=== PATIENT | female | born 1955 | race Caucasian/White ===

== ENCOUNTER → 2016-06-15 | Outpatient (CLI) | payer OTHER ==
[~2016-06-15] MED LIST: ACET-1311 PO; ALPR-385 PO; ASPEC81; CEFD300C3 PO; CLOP1TAB15 PO; CNCI50 IV; CPXI SC; CTP1 PO; CYM60 PO; ERGO1TAB10 PO; ERGO500037 PO; Enteral Nutrition Formula PO; FLUC100T4 PO; HYDR25TA4 PO; IBUP-1451 PO; KETO2SHA5 TOP; LEVO100T7 PO; LPR25 PO; LRS10 PO; LSN40 PO; LVQ500 PO; LYR50 PO; MIRA1TAB3 PO; MORP1TAB12 PO; NYSP EXT; NYST100010 TOP; NZRCR TOP; ONDA4TAB10 SL; OXYC7.5T65 PO; POLY335019 PO; PRT/40 PO; SENN-104 PO; TYL325X PO
[2016-06-15 16:48] LABS: BASO % 0.4 %; BASO ABS # 0.03 K/uL (0-0.2); COMPLETE YES; EOS % 0.5 %; HEMATOCRIT 46.4 % (37-47); IG% 0.1 %; LYMPH % 30.1 %; LYMPH ABS # 2.55 K/uL (1.2-3.4); MEAN CELL VOLUME 91.3 fL (80-100); MEAN CORPUSCULAR HEMOGLOBIN 30.5 pg (25-34); MEAN CORPUSCULAR HGB CONC 33.4 g/dl (32-36); MEAN PLATELET VOLUME 10.8 fL (7.4-10.4); MONO % 11.3 %; NEUT % 57.6 %; PLATELET COUNT 273 K/uL (130-400); RED BLOOD COUNT 5.08 M/uL (4.2-5.4); WHITE BLOOD COUNT 8.46 K/uL (4.8-10.8)
[2016-06-15 16:55] LABS: ALT/SGPT 24 U/L (12-78); AST/SGOT 13 U/L (15-37); BLOOD UREA NITROGEN 15 mg/dl (7-18); BUN/CREATININE RATIO 20.3 (10-20); CALCIUM 9.3 mg/dl (8.5-10.1); CARBON DIOXIDE 33 mmol/L (21-32); CHLORIDE 96 mmol/L (98-107); CREATININE 0.76 mg/dl (0.60-1.20); GLUCOSE 83 mg/dl (70-99); SODIUM 137 mmol/L (136-145)
[2016-06-15 17:05] LABS: ALB/GLOB RATIO 1.2 (0.9-2)
[2016-06-15 17:06] LABS: ALKALINE PHOSPHATASE 60 U/L (45-117)
[2016-06-19 23:50] LABS: JCV ANTIBODY POSITIVE; JCV INDEX 2.24
== END | disposition home or self-care (01) ==
LOC: C.LABBC 13:27
PROVIDERS: ATTEND Psychiatry & Neurology Neurology
DX: G35 Multiple sclerosis (principal); M54.12 Radiculopathy, cervical region; M62.81 Muscle weakness (generalized); E55.9 Vitamin D deficiency, unspecified; M62.89 Other specified disorders of muscle

== ENCOUNTER 2016-07-11 15:28 | Emergency (ER) | payer OTHER ==
[~2016-07-11] VITALS: Ht 180.3 cm; Wt 86.5 kg
[~2016-07-11 15:28] MED LIST changes: -CEFD300C3 PO; -CNCI50 IV; -ERGO1TAB10 PO; -Enteral Nutrition Formula PO; -FLUC100T4 PO; -IBUP-1451 PO; -KETO2SHA5 TOP; -LRS10 PO; -LVQ500 PO; -LYR50 PO; -NYSP EXT; -NYST100010 TOP; -NZRCR TOP; -ONDA4TAB10 SL; -TYL325X PO
[2016-07-11 15:32] VITALS: TEMP 37.2; Ht 180.3 cm; Wt 86.5 kg
[2016-07-11] MEDS ORDERED: XYLOCAINE 1%/SOD BICARB 20 ML VIAL INFIL STA (16:02)
--- NOTE | 2016-07-11 16:30 | DIAGNOSTIC IMAGING REPORT ---
LEFT FOOT MIN 3 VIEWS ROUTINE CLINICAL HISTORY: Left foot laceration. Pain on anterior aspect of foot pain COMPARISON: None. DISCUSSION: Generalized degenerative change. Mild soft tissue edematous change. No acute bony abnormality. Moderate dorsal soft tissue edema IMPRESSION: Moderate dorsal soft tissue edema. Degenerative change. No acute bony abnormality. Electronically signed by: Alejandro Lucas M.D. 07/11/2016 4:29 PM Dictated Date/Time: 07/11/2016 4:24 PM
[2016-07-11] MEDS ORDERED: DIPHTHERIA/TETANUS/PERTUSSIS 0.5 ML SYR/VIAL IM. ONE (17:30)
[2016-07-11] MEDS ORDERED: NYST100010 TOP (17:59)
--- NOTE | 2016-07-11 18:00 | EMERGENCY ROOM VISIT NOTE ---
ED Visit Note First contact with patient: 15:47 Chief Complaint: "Cut top of foot, and yeast infection". History of Present Illness: This patient is a 60-year-old female who presents to the Emergency Department via private vehicle for evaluation of their left foot laceration. Patient sustained the laceration while attempting to remove something out of her refrigerator, and is that she was using her motorized scooter/wheelchair became lodged underneath the refrigerator causing a laceration. She states that it bled a lot, but denies pain at this time. She has a history of MS, and chronic neurologic deficits. She denies any new numbness or tingling in the extremity. Her tetanus is not up-to-date. She states that she did put peroxide on this as well as a salve. Medications: As noted below Allergies: As noted below PMH: Multiple sclerosis, and as noted below SHx: Patient lives at home with . ROS: All pertinent positive and negative review of systems are appropriately documented in the History of Present Illness. Physical Exam: VITAL SIGNS - Vital signs and nursing notes were reviewed. Patient is afebrile , hypertensive 159/90, non-tachycardic and saturating well on room air 97%. GENERAL -60-year-old female appearing her stated age who is in no acute distress. Communicates well with provider and answers questions appropriately. SKIN - There is a 4 cm long laceration noted on the anterior, distal portion of the left foot just proximal to the phalanges. The edges gape apart with traction. No foreign bodies appreciated. Upon further examination there are no deep structures including vessel, tendon, or bony structures appreciated. There is no active bleeding noted. With a female stock drier tender present, the patient's questionable yeast infection was inspected. There is evidence of intertriginous erythema in the left and right inguinal region that extends into the superior portion of the labia minora. No evidence of cellulitis. MUSCULOSKELETAL -there is slight tenderness to palpation overlying this region. There is full range of motion of the toes of the left foot. IMAGING: LEFT FOOT MIN 3 VIEWS ROUTINE CLINICAL HISTORY: Left foot laceration. Pain on anterior aspect of foot pain COMPARISON: None. DISCUSSION: Generalized degenerative change. Mild soft tissue edematous change. No acute bony abnormality. Moderate dorsal soft tissue edema IMPRESSION: Moderate dorsal soft tissue edema. Degenerative change. No acute bony abnormality. Electronically signed by: Alejandro Lucas M.D. 07/11/2016 4:29 PM Dictated Date/Time: 07/11/2016 4:24 PM ED Course: Patient was seen and evaluated by myself. Risks and benefits of performing primary wound closure versus no repair were discussed with the patient who verbalizes understanding. Verbal consent was obtained prior to performing the procedure. Radiograph was obtained of the foot to rule out fracture. Results as above. 4 cc of 1% buffered lidocaine was used to anesthetize the left foot laceration. The wound was cleansed and prepped in the typical sterile fashion utilizing normal saline and Betadine. The wound was sterilely draped. Once proper anesthetization was established, the wound was further examined and demonstrated no deep involvement. The wound was copiously irrigated with normal saline and Betadine. The wound was closed using 5 simple, 5-0 nylon sutures with the wound edges being well approximated. Patient tolerated the procedure well. No complications were met. The wound was cleansed and dressed with a Bacitracin dressing. Patient received their Adacel vaccination. The patient has what appears to be a yeast infection of the right and left inguinal region, consistent with intertrigo. No evidence of vaginal yeast infection. Because she is already tried miconazole cream, and the area does appear to be chronically moist I do believe that a dry nystatin powder would be appropriate as the next step in treatment. She is to apply this 3 times daily and was given a prescription. She is to follow up closely with her family doctor for recheck of this and potential additional management. Patient educated on worrisome symptoms for return visit to the Emergency Department. Patient discharged to home in good condition. She was specifically instructed not to use the powder intravaginally. In the evaluation and treatment of this patient the following differential diagnoses were entertained: Yeast infection, cellulitis, abscess, laceration, fracture, among others. Problem List Medical Problems: (1) Arm pain, right Status: Chronic (2) Benign hypertension Status: Chronic (3) CVA, old, hemiparesis Status: Resolved (4) Depression Status: Chronic (5) Depression Status: Chronic (6) DJD (degenerative joint disease), cervical Status: Chronic (7) DJD (degenerative joint disease), cervical Status: Chronic (8) Frequent UTI Status: Chronic (9) Gastroesophageal reflux disease Status: Chronic (10) H/O migraine Status: Chronic (11) H/O: CVA (cerebrovascular accident) Status: Chronic (12) H/O: duodenal ulcer Permanent Comment: H pylori positive per records Status: Chronic (13) Hyperlipidemia Nec/Nos Status: Chronic (14) Hypertension Status: Chronic (15) Hypothyroidism Status: Chronic (16) Hypothyroidism Status: Chronic (17) Lumbosacral disc disease Status: Chronic (18) Migraine Status: Chronic (19) MS (multiple sclerosis) Status: Chronic (20) Multiple sclerosis Status: Chronic (21) Neurogenic bladder Status: Chronic (22) Pancreatitis Status: Resolved (23) Vitamin D deficiency Status: Chronic Surgical Problems: (1) H/O section Status: Chronic (2) H/O oophorectomy Status: Chronic (3) S/P appendectomy Status: Chronic (4) S/P total abdominal hysterectomy Status: Chronic Current/Historical Medications Scheduled Aspirin (Aspirin EC Low Dose), 81 MG DAILY Clopidogrel (Plavix), 75 MG PO DAILY Duloxetine HCl (Duloxetine HCl), 60 MG PO QAM Ergocalciferol (Vitamin D 62494 Unit), 50,000 INTER.UNIT PO 2XWK Glatiramer Acetate (Copaxone), 20 MG SC QPM Hydrochlorothiazide (Hctz), 1 TAB PO DAILY Levothyroxine Sodium (Levothyroxine Sodium), 1 TAB PO DAILY Lisinopril (Lisinopril), 40 MG PO QAM Metoprolol Tartrate (Lopressor), 25 MG PO BID Mirabegron (Myrbetriq Er), 50 MG PO DAILY Nystatin (Topical) (Nystop), 1 APPLN TOP TID Pantoprazole (Pantoprazole Sodium), 40 MG PO QAM Scheduled PRN Acetaminophen (Tylenol), 650 MG PO Q6H PRN for Pain or Fever Alprazolam (Xanax), 1 MG PO TID PRN for Anxiety/Insomnia Clonidine HCl (Clonidine HCl), 0.1 MG PO Q4H PRN for sys BP > 160 Oxycodone/Acetaminophen 7.5MG/325MG (Percocet 7.5MG/325MG), 1 TAB PO Q6 PRN for Pain Polyethylene Glycol 3350 (Miralax), 17 GM PO DAILY PRN for Constipation Sennosides-Docusate Sodium (Senna-S), 1 TAB PO DAILY @ NOON PRN for Constipation Allergies Coded Allergies: Penicillins (Verified Allergy, Severe, RESP DIFFICULTY & HIVES, 07/11/16) RESP DIFFICULTY Codeine (Verified Allergy, Unknown, ITCHING, 07/11/16) Rofecoxib (Verified Allergy, Unknown, 07/11/16) Metoclopramide (Verified Adverse Reaction, Mild, RESTLESS, 07/11/16) RESTLESS Prochlorperazine (Verified Adverse Reaction, Mild, RESTLESS, 07/11/16) RESTLESS Sulfa Antibiotics (Verified Adverse Reaction, Mild, NAUSEA, 07/11/16) Droperidol (Verified Adverse Reaction, Unknown, anxiety,hyperactivity, ) Vital Signs Date Time Temp Pulse Resp B/P Pulse Ox O2 Delivery O2 Flow Rate FiO2 07/11/16 18:19 74 16 136/64 96 07/11/16 15:32 37.2 71 18 159/90 97 Room Air Medications Administered Medications (Trade) Dose Ordered Sig/Alea Route Start Time Stop Time Status Last Admin Dose Admin Diphtheria/ Pertussis/Tetanus Vacc (Adacel Inj) 0.5 ml ONCE ONCE IM. 07/11/16 17:30 07/11/16 17:31 DC 07/11/16 17:33 0.5 ML Departure Information Impression Primary Impression: Laceration Additional Impression: Intertrigo Dispostion Home / Self-Care Condition GOOD Prescriptions Nystatin (Topical) (NYSTOP) 100,000 Unit/Gm Pow 1 APPLN TOP TID for 30 Days, #1 EA Prov: Andrzej Ames PA-C 07/11/16 Referrals Aldo Hendrix M.D. (PCP) Patient Instructions My [facility] Additional Instructions Discharge Instructions: You have received 5 sutures on your left foot. These sutures are NOT dissolvable and WILL need to be removed by a health care provider in 10-12 days. You can return to the Emergency Department or contact your Primary Care Provider to have the sutures removed. Proper wound care is essential for adequate wound healing and infection prevention. You can shower and clean the wound with soap and water. Do not scour over the wound, pat dry with a towel. Do not submerse the wound (i.e. bathe or dish wash) until the sutures have been removed. You can use an antibiotic ointment with a dressing over the wound for the next 3-4 days. After this time you may leave the wound dry and open to the air. If crust develops over the wound you can use a Q-tip to apply a 1:1 peroxide:water solution to clean the wound. Look for signs of infection of the wound including: increased pain, swelling, foul discharge, streaking, or increased temperature. If any of these are noticed you should return to the Emergency Department for further assessment and treatment. As with any laceration you may have received nerve damage to the surrounding tissues. This damage may or may not be permanent. You should keep the area covered with sunscreen for the first 6 months to 1 year when at risk for exposure to help minimize scarring. You can also use scar reducing creams or Vitamin E oil to help minimize scarring. For pain control, you can use the following [id number] medicines (if >12 yo): - Regular strength (325mg/tab) Tylenol (acetaminophen) 2 tabs every 4-6 hours as needed. Do not exceed 12 tablets in a 24 hour period. Avoid taking more than 4 grams (4000 mg) of Tylenol per day. This includes any other sources of acetaminophen you may take on a regular basis. - Regular strength (200 mg/tab) Advil (ibuprofen) 1-2 tabs every 4-6 hours as needed. Do not exceed a dose of 3200 mg per day. Return to the emergency department if your symptoms worsen despite treatment course outlined above. In regard to the fungal infection:. Please apply powder to these areas 3 times daily until this goes away. Please follow-up with her family doctor by calling them first thing tomorrow morning to schedule follow-up as you need to be reevaluated for this. As we discussed it is possible you may need additional medication. Please stop if you develop a reaction. Please return to the emergency department with any new/concerning symptoms. Problem Qualifiers
[2016-07-11 18:19] VITALS: BP 136/64; PULSE 74; O2SAT 96
[2016-08-12] MEDS ORDERED: ERGO1TAB10 PO (20:04)
[2016-08-29] MEDS ORDERED: PRT/40 PO (09:50)
[2016-08-29] MEDS ORDERED: CNCI50 IV (09:50)
[2016-08-29] MEDS ORDERED: Enteral Nutrition Formula PO (09:50)
[2016-08-29] MEDS ORDERED: LRS10 PO (09:50)
[2016-08-29] MEDS ORDERED: POLY335019 PO (09:50)
[2016-08-29] MEDS ORDERED: LVQ500 PO (09:50)
[2016-08-29] MEDS ORDERED: NYSP EXT (09:50)
== END 2016-07-11 18:22 | disposition home or self-care (01) ==
LOC: C.EDB 15:29 → C.EDD 18:22
DX: S91.312A Laceration without foreign body, left foot, initial encounter (principal); W22.8XXA Striking against or struck by other objects, initial encounter; Z23 Encounter for immunization; G35 Multiple sclerosis; I10 Essential (primary) hypertension; K21.9 Gastro-esophageal reflux disease without esophagitis; E78.5 Hyperlipidemia, unspecified; E03.9 Hypothyroidism, unspecified; K86.1 Other chronic pancreatitis; N31.9 Neuromuscular dysfunction of bladder, unspecified; M51.36 Other intervertebral disc degeneration, lumbar region; F32.9 Major depressive disorder, single episode, unspecified; Z86.73 Personal history of transient ischemic attack (TIA), and cerebral infarction without residual deficits; Z90.710 Acquired absence of both cervix and uterus; Z98.890 Other specified postprocedural states; Z79.82 Long term (current) use of aspirin; Z79.899 Other long term (current) drug therapy; Z88.0 Allergy status to penicillin; Z88.2 Allergy status to sulfonamides; Z88.5 Allergy status to narcotic agent; Z88.8 Allergy status to other drugs, medicaments and biological substances

== ENCOUNTER 2016-08-12 18:44 | Emergency (ER) | payer OTHER ==
[~2016-08-12] VITALS: Ht 180.3 cm; Wt 87.0 kg
[~2016-08-12 18:44] MED LIST changes: -MORP1TAB12 PO; +NYST100010 TOP; +PANT40TA2 PO; -PRT/40 PO
[2016-08-12 19:03] VITALS: TEMP 36.7; Ht 180.3 cm; Wt 87.0 kg
--- NOTE | 2016-08-12 19:48 | EMERGENCY ROOM VISIT NOTE ---
History Report prepared by [place]: Marie Thibodeaux Under the Supervision of: Dr. Jayro Sutton M.D. First contact with patient: 19:08 Chief Complaint: RASH Stated Complaint: YEAST INFECTION,RASH SPREADING History of Present Illness The patient is a 60 year old female who presents to the Emergency Room with complaints of a worsening and persistent rash that started about 1 to 1.5 months ago. The patient has been using Nystatin and a water and vinegar mixture. She states that she has been trying to keep the area dry and puts a fan on the area at night. The patient's adds that the yeast infection in the patient's groin occasionally cracks and bleeds. The patient states that she was treated by Devika Sweeney PA-C - Infectious Disease for a yeast infection with a 14-day course of Diflucan. She states that she finished the Diflucan about 2 weeks ago. Originally the Diflucan helped and caused the rash to dry up, but once she finished it, the rash came back. The patient also developed a rash on her back and on her scalp after finishing the Diflucan, which was not there prior to taking Diflucan. The rash was pruritic, but now it is painful. The patient went back to see Devika Salazar and she prescribed shampoo to help with the rash on her scalp, but she told her to see her PCP for further evaluation. The patient saw her PCP last week. Her PCP prescribed her a topical antifungal and a pill, but the patient states that her insurance wouldn' t cover the pill so she has not taken it. The patient is also experiencing nausea, but denies vomiting. The patient states that she has experienced vaginal yeast infections in the past, but never external yeast infections like this. Source of History: patient Onset: 1-1.5 months ago Position: other (global) Quality: other (rash) Timing: worsening, other (persistent) Modifying Factors (Relieving): other (Diflucan until finished then none) Associated Symptoms: + nausea, No vomiting Review of Systems See HPI for pertinent positives & negatives. A total of 10 systems reviewed and were otherwise negative. Past Medical & Surgical Medical Problems: (1) Arm pain, right (2) Benign hypertension (3) CVA, old, hemiparesis (4) Depression (5) Depression (6) DJD (degenerative joint disease), cervical (7) DJD (degenerative joint disease), cervical (8) Frequent UTI (9) Gastroesophageal reflux disease (10) H/O migraine (11) H/O: CVA (cerebrovascular accident) (12) H/O: duodenal ulcer (13) Hyperlipidemia Nec/Nos (14) Hypertension (15) Hypothyroidism (16) Hypothyroidism (17) Lumbosacral disc disease (18) Migraine (19) MS (multiple sclerosis) (20) Multiple sclerosis (21) Neurogenic bladder (22) Pancreatitis (23) Vitamin D deficiency Surgical Problems: (1) H/O section (2) H/O oophorectomy (3) S/P appendectomy (4) S/P total abdominal hysterectomy Family History Diabetes mellitus Kidney disease Stroke Social History Smoking Status: Never Smoker Alcohol Use: none Drug Use: none Marital Status: Housing Status: lives with family Occupation Status: disabled Current/Historical Medications Scheduled Aspirin (Aspirin EC Low Dose), 81 MG DAILY Clopidogrel (Plavix), 75 MG PO DAILY Duloxetine HCl (Duloxetine HCl), 60 MG PO QAM Ergocalciferol (Vitamin D2), 1.25 MG PO 2XWK Fluconazole (Diflucan), 1 TAB PO DAILY Glatiramer Acetate (Copaxone), 20 MG SC QPM Hydrochlorothiazide (Hctz), 1 TAB PO DAILY Ketoconazole (Ketoconazole), 1 APPLN TOP TID Levothyroxine Sodium (Levothyroxine Sodium), 1 TAB PO DAILY Lisinopril (Lisinopril), 40 MG PO QAM Metoprolol Tartrate (Lopressor), 25 MG PO BID Mirabegron (Myrbetriq Er), 50 MG PO DAILY Nystatin (Topical) (Nystop), 1 APPLN TOP TID Pantoprazole (Pantoprazole Sodium), 40 MG PO QAM Scheduled PRN Alprazolam (Xanax), 1 MG PO TID PRN for Anxiety/Insomnia Ibuprofen Tab (Motrin), 800 MG PO DIRECTED PRN for Pain Oxycodone/Acetaminophen 7.5MG/325MG (Percocet 7.5MG/325MG), 1 TAB PO Q6 PRN for Pain Polyethylene Glycol 3350 (Miralax), 17 GM PO DAILY PRN for Constipation Sennosides-Docusate Sodium (Senna-S), 1 TAB PO DAILY @ NOON PRN for Constipation Allergies Coded Allergies: Penicillins (Verified Allergy, Severe, RESP DIFFICULTY & HIVES, 07/11/16) RESP DIFFICULTY Codeine (Verified Allergy, Unknown, ITCHING, 07/11/16) Rofecoxib (Verified Allergy, Unknown, 07/11/16) Metoclopramide (Verified Adverse Reaction, Mild, RESTLESS, 07/11/16) RESTLESS Prochlorperazine (Verified Adverse Reaction, Mild, RESTLESS, 07/11/16) RESTLESS Sulfa Antibiotics (Verified Adverse Reaction, Mild, NAUSEA, 07/11/16) Droperidol (Verified Adverse Reaction, Unknown, anxiety,hyperactivity, ) Physical Exam Vital Signs Date Time Temp Pulse Resp B/P Pulse Ox O2 Delivery O2 Flow Rate FiO2 08/12/16 21:53 68 18 150/90 98 08/12/16 20:54 63 18 164/85 98 Room Air 08/12/16 19:03 36.7 83 18 163/98 97 Room Air Physical Exam GENERAL: Patient is in no acute distress. HEENT: No acute trauma, normocephalic atraumatic, mucous membranes moist, no nasal congestion, no scleral icterus. NECK: No stridor, no adenopathy, no meningismus, trachea is midline. LUNGS: Clear to auscultation bilaterally, no wheeze, no rhonchi, breath sounds equal. HEART: 2/6 systolic murmur, regular rate and rhythm. ABDOMEN: Soft, nontender, bowel sounds positive, no hernias, no peritonitis. EXTREMITIES: No cyanosis or edema, full range of motion of all the joints without pain or difficulty, no signs for acute trauma. NEUROLOGIC: Oriented x 3, no acute motor or sensory deficits, no focal weakness. SKIN: Erythematous rash to the groin creases and external vaginal area with some satellite lesions, rash seems to have areas of skin cracking, rash appears consistent with a yeast rash, there are several scattered erythematous slightly raised lesions on her extremities and back, no cellulitis. Medical Decision & Procedures Laboratory Results 08/12/16 19:35 Red Blood Count 4.79, Mean Corpuscular Volume 92.9, Mean Corpuscular Hemoglobin 31.3, Mean Corpuscular Hemoglobin Concent 33.7, Mean Platelet Volume 10.0, Neutrophils (%) (Auto) 55.2, Lymphocytes (%) (Auto) 34.2, Monocytes (%) (Auto) 7.5, Eosinophils (%) (Auto) 2.8, Basophils (%) (Auto) 0.2, Neutrophils # (Auto) 4.47, Lymphocytes # (Auto) 2.77, Monocytes # (Auto) 0.61, Eosinophils # (Auto) 0.23, Basophils # (Auto) 0.02 08/12/16 19:35 Test 08/12/16 19:35 White Blood Count 8.11 K/uL (4.8-10.8) Red Blood Count 4.79 M/uL (4.2-5.4) Hemoglobin 15.0 g/dL (12.0-16.0) Hematocrit 44.5 % (37-47) Mean Corpuscular Volume 92.9 fL (80-100) Mean Corpuscular Hemoglobin 31.3 pg (25-34) Mean Corpuscular Hemoglobin Concent 33.7 g/dl (32-36) Platelet Count 210 K/uL (130-400) Mean Platelet Volume 10.0 fL (7.4-10.4) Neutrophils (%) (Auto) 55.2 % Lymphocytes (%) (Auto) 34.2 % Monocytes (%) (Auto) 7.5 % Eosinophils (%) (Auto) 2.8 % Basophils (%) (Auto) 0.2 % Neutrophils # (Auto) 4.47 K/uL (1.4-6.5) Lymphocytes # (Auto) 2.77 K/uL (1.2-3.4) Monocytes # (Auto) 0.61 K/uL (0.11-0.59) Eosinophils # (Auto) 0.23 K/uL (0-0.5) Basophils # (Auto) 0.02 K/uL (0-0.2) RDW Standard Deviation 45.2 fL (36.4-46.3) RDW Coefficient of Variation 13.2 % (11.5-14.5) Immature Granulocyte % (Auto) 0.1 % Immature Granulocyte # (Auto) 0.01 K/uL (0.00-0.02) Erythrocyte Sedimentation Rate 13 mm/hr (0-21) Anion Gap 6.0 mmol/L (3-11) Est Creatinine Clear Calc Drug Dose 86.8 ml/min Estimated GFR () 88.9 Estimated GFR (Non- 76.7 BUN/Creatinine Ratio 23.5 (10-20) Calcium Level 9.9 mg/dl (8.5-10.1) Total Bilirubin 0.3 mg/dl (0.2-1) Aspartate Amino Transf (AST/SGOT) 21 U/L (15-37) Alanine Aminotransferase (ALT/SGPT) 29 U/L (12-78) Alkaline Phosphatase 65 U/L (45-117) Total Protein 7.6 gm/dl (6.4-8.2) Albumin 3.9 gm/dl (3.4-5.0) Globulin 3.7 gm/dl (2.5-4.0) Albumin/Globulin Ratio 1.1 (0.9-2) Thyroid Stimulating Hormone (TSH) 2.950 uIu/ml (0.300-4.500) Free Thyroxine 1.28 ng/dl (0.80-1.60) Laboratory results reviewed by me. Medications Administered Medications (Trade) Dose Ordered Sig/Alea Route Start Time Stop Time Status Last Admin Dose Admin Fluconazole (Diflucan Tab) 150 mg NOW ONCE PO 08/12/16 21:30 08/12/16 21:31 DC 08/12/16 21:41 150 MG Ketoconazole (Nizoral 2% Crm) 1 appln TID STAT EXT 08/12/16 21:16 08/12/16 21:19 DC 08/12/16 21:40 45 APPLN Fluconazole (Diflucan Tab) 150 mg NOW ONCE PO 08/12/16 21:45 08/12/16 21:46 DC 08/12/16 21:50 150 MG ED Course 1909: The patient was evaluated in room C3. A complete history and physical exam was performed. 2034: Discussed the patient's case. He recommended putting the patient on Fluconazole 100 mg for 14 days and topical Ketoconazole. 2115: Ordered Ketoconazole 1 appln EXT 2122: Reevaluated the patient. Discussed results and discharge instructions: she verbalized understanding and agreement. The patient is ready for discharge. 2129: Ordered Diflucan Tab 150 mg PO Medical Decision Differential diagnoses considered include yeast infection, cellulitis, failed outpatient treatment, diabetes, contact dermatitis. There is no leukocytosis or concerning anemia. Sedimentation rate is normal making serious infection less likely. There was no significant electrolyte abnormality, kidney failure or hepatitis. The patient appears to be in a euthyroid state. Blood cultures are pending. Culture of the rash is pending. The patient presents with what seems like tinea cruris. She had been doing well on Diflucan but now that she is off this medication, she is worsening. I discussed the case with the infectious disease team that had seen her previously. They suggested putting her back on Diflucan plus adding some topical Ketoconazole. The patient will stop the vinegar and water mixture that she is applying to the rash. Patient is being discharged. She was given Ketoconazole cream and oral Diflucan prior to discharge. She will follow with infectious disease this week. Consults Time Called: 2032 Consulting Physician: Dr. Nelson - Infectious Disease Returned Call: 2034 Discussed the patient's case. He recommended putting the patient on Fluconazole 100 mg for 14 days and topical Ketoconazole. Impression Primary Impression: Tinea cruris Scribe Attestation The scribe's documentation has been prepared under my direction and personally reviewed by me in its entirety. I confirm that the note above accurately reflects all work, treatment, procedures, and medical decision making performed by me. Departure Information Dispostion Home / Self-Care Prescriptions Ketoconazole (Ketoconazole) 45 Appln/15 Gm Cr 1 APPLN TOP TID for 14 Days, #1 TUBE 2 Refills Prov: Jayro Sutton M.D. 08/12/16 Fluconazole (DIFLUCAN) 100 Mg Tab 1 TAB PO DAILY for 14 Days, #14 TAB Prov: Jayro Sutton M.D. 08/12/16 Referrals Aldo Hendrix M.D. (PCP) Forms HOME CARE DOCUMENTATION FORM, IMPORTANT VISIT INFORMATION, WORK / SCHOOL INSTRUCTIONS Patient Instructions My [facility] Additional Instructions diflucan 1 tab daily for 14 days ketoconazole cream to the rash 3x per day see infectious disease this week--call sunday for an appt lab testing was all ok today stop the vinegar mixture to the rash
[2016-08-12 19:50] LABS: BASO % 0.2 %; BASO ABS # 0.02 K/uL (0-0.2); COMPLETE YES; EOS % 2.8 %; HEMATOCRIT 44.5 % (37-47); IG% 0.1 %; LYMPH % 34.2 %; LYMPH ABS # 2.77 K/uL (1.2-3.4); MEAN CELL VOLUME 92.9 fL (80-100); MEAN CORPUSCULAR HEMOGLOBIN 31.3 pg (25-34); MEAN CORPUSCULAR HGB CONC 33.7 g/dl (32-36); MONO % 7.5 %; NEUT % 55.2 %; PLATELET COUNT 210 K/uL (130-400); RED BLOOD COUNT 4.79 M/uL (4.2-5.4); WHITE BLOOD COUNT 8.11 K/uL (4.8-10.8)
[2016-08-12] MEDS ORDERED: LSN40 PO (20:03)
[2016-08-12] MEDS ORDERED: NYST100010 TOP (20:04)
[2016-08-12] MEDS ORDERED: IBUP-1451 PO (20:05)
[2016-08-12 20:10] LABS: BUN/CREATININE RATIO 23.5 (10-20); CALCIUM 9.9 mg/dl (8.5-10.1); CREATININE 0.82 mg/dl (0.60-1.20); POTASSIUM 3.5 mmol/L (3.5-5.1)
[2016-08-12 20:20] LABS: ALB/GLOB RATIO 1.1 (0.9-2); THYROID STIMULATING HORMONE 2.95 uIu/ml (0.300-4.500)
[2016-08-12] MEDS ORDERED: KETOCONAZOLE 2% CR 15 GM TUBE EXT STA (21:16)
[2016-08-12] MEDS ORDERED: NZRCR TOP (21:23)
[2016-08-12] MEDS ORDERED: FLUC100T4 PO (21:23)
[2016-08-12] MEDS ORDERED: FLUCONAZOLE 50 MG TAB PO ONE ×2 (21:30→21:45)
[2016-08-12 21:53] VITALS: BP 150/90; PULSE 68; O2SAT 98
--- NOTE | 2016-08-16 14:24 | Pharmacy Progress Note ---
ED Pharmacist Culture FollowUp Date of Service: August 16, 2016. Patient was seen in the ER on 08/12/16 for persistent, worsening groin rash x 1- 1.5 months. The patient had reportedly been treating w/ Nystatin and vinegar/water topically. Per note there was erythema, skin craking and rash consistent w/ external yeast infection. This rash was cultured and the results finalized today. The cx is growing 4 bacterial organisms: e coli, proteus mirabilis, MSSA and Grp B strep. She was discharged on Diflucan PO and ketoconazole topically for 14 days per ID' s recommendations and she was to f/u w/ ID this week. These culture results are concerning for bacterial coinfection. I did contact Dr Nelson's office and forwarded these culture results via fax ([phone]). I did speak w/ a nurse as well who sent a message to Samir GOODE.
[2016-08-29] MEDS ORDERED: LVQ500 PO (09:50)
[2016-08-29] MEDS ORDERED: PANT40TA2 PO (09:50)
[2016-08-29] MEDS ORDERED: Enteral Nutrition Formula PO (09:50)
[2016-08-29] MEDS ORDERED: LRS10 PO (09:50)
[2016-08-29] MEDS ORDERED: POLY335019 PO (09:50)
[2016-08-29] MEDS ORDERED: CNCI50 IV (09:50)
[2016-08-29] MEDS ORDERED: NYSP EXT (09:50)
[2017-02-11] MEDS ORDERED: FESO4TAB PO (19:39)
[2017-02-11] MEDS ORDERED: ACET-1311 PO (19:39)
[2017-02-11] MEDS ORDERED: ERGO1TAB10 PO (20:04)
== END 2016-08-12 21:54 | disposition home or self-care (01) ==
LOC: C.EDB 18:45 → C.EDC 21:54
DX: B35.6 Tinea cruris (principal); I10 Essential (primary) hypertension; E55.9 Vitamin D deficiency, unspecified; G35 Multiple sclerosis; K21.9 Gastro-esophageal reflux disease without esophagitis; M51.37 Other intervertebral disc degeneration, lumbosacral region; E03.9 Hypothyroidism, unspecified; M47.812 Spondylosis without myelopathy or radiculopathy, cervical region; Z86.73 Personal history of transient ischemic attack (TIA), and cerebral infarction without residual deficits; Z87.440 Personal history of urinary (tract) infections; Z79.02 Long term (current) use of antithrombotics/antiplatelets; Z79.82 Long term (current) use of aspirin; Z79.899 Other long term (current) drug therapy; F32.9 Major depressive disorder, single episode, unspecified; Z98.891 History of uterine scar from previous surgery; Z90.89 Acquired absence of other organs; Z90.710 Acquired absence of both cervix and uterus; Z90.721 Acquired absence of ovaries, unilateral; Z83.3 Family history of diabetes mellitus; Z82.3 Family history of stroke

== ENCOUNTER 2016-08-20 15:21 | Emergency (ER) | payer OTHER ==
[~2016-08-20] VITALS: Ht 182.9 cm; Wt 86.5 kg
[~2016-08-20 15:21] MED LIST changes: -ACET-1311 PO; -CTP1 PO; -ERGO500037 PO; +FLUC100T4 PO; +IBUP-1451 PO; +NZRCR TOP
[2016-08-20 15:25] VITALS: TEMP 36.8; Ht 182.9 cm; Wt 86.5 kg
[2016-08-20] MEDS ORDERED: ONDA4TAB10 SL (16:44)
--- NOTE | 2016-08-20 16:44 | EMERGENCY ROOM VISIT NOTE ---
History Report prepared by [place]: Satish Mcintosh Under the Supervision of: Dr. Erick Alonso D.O. First contact with patient: 16:21 Chief Complaint: ABDOMINAL PAIN Stated Complaint: ABD PAIN,VAGINAL YEAST/FUNGAL INFECTION Nursing Triage Summary: Pt sent by Dr. Causey. Pt states seen here last week for a yeast infection on legs, rash is getting worse. Pt states, "I have pain in my stomach and I can't eat. I am nauseated." History of Present Illness The patient is a 60 year old female who presents to the Emergency Room with complaints of a worsening yeast infection rash beginning one week prior to arrival. She currently rates her discomfort as a 6/10 in severity. The patient complains of abdominal pain, nausea, intermittent diaphoresis, and intermittent dizziness with today's symptoms. She states she is being treated for a yeast infection in her groin that has spread to her legs, chest, and back. The patient notes she was on a fourteen day course of Diflucan and is now on another fourteen day course of Diflucan. She states she was placed on Omnicef, as well. The patient notes she called Dr. Causey, who referred the patient to the ED due to her persistent nausea and decreased appetite over the past week. She states she has been on her medication for a week and her nausea began at the same time. The patient denies using Benadryl to relieve her itch. It is noted the patient currently weighs 86.5 kg today and weighed 87 kg on August 12 of this year Source of History: patient Onset: one week [employer] Position: other (global) Symptom Intensity: 6/10 Quality: other (yeast infection) Timing: worsening Associated Symptoms: + abdominal pain, + diaphoresis, + nausea, + rash Note: Associated symptoms: intermittent dizziness, decreased appetite. Review of Systems See HPI for pertinent positives & negatives. A total of 10 systems reviewed and were otherwise negative. Past Medical & Surgical Medical Problems: (1) Arm pain, right (2) Benign hypertension (3) CVA, old, hemiparesis (4) Depression (5) Depression (6) DJD (degenerative joint disease), cervical (7) DJD (degenerative joint disease), cervical (8) Frequent UTI (9) Gastroesophageal reflux disease (10) H/O migraine (11) H/O: CVA (cerebrovascular accident) (12) H/O: duodenal ulcer (13) Hyperlipidemia Nec/Nos (14) Hypertension (15) Hypothyroidism (16) Hypothyroidism (17) Lumbosacral disc disease (18) Migraine (19) MS (multiple sclerosis) (20) Multiple sclerosis (21) Neurogenic bladder (22) Pancreatitis (23) Vitamin D deficiency Surgical Problems: (1) H/O section (2) H/O oophorectomy (3) S/P appendectomy (4) S/P total abdominal hysterectomy Family History Diabetes mellitus Kidney disease Stroke Social History Smoking Status: Never Smoker Alcohol Use: none Drug Use: none Marital Status: Housing Status: lives with family Occupation Status: disabled Current/Historical Medications Scheduled Aspirin (Aspirin EC Low Dose), 81 MG DAILY Clopidogrel (Plavix), 75 MG PO DAILY Duloxetine HCl (Duloxetine HCl), 60 MG PO QAM Ergocalciferol (Vitamin D2), 1.25 MG PO 2XWK Fluconazole (Diflucan), 1 TAB PO DAILY Glatiramer Acetate (Copaxone), 20 MG SC QPM Hydrochlorothiazide (Hctz), 1 TAB PO DAILY Ketoconazole (Ketoconazole), 1 APPLN TOP TID Levothyroxine Sodium (Levothyroxine Sodium), 1 TAB PO DAILY Lisinopril (Lisinopril), 40 MG PO QAM Metoprolol Tartrate (Lopressor), 25 MG PO BID Mirabegron (Myrbetriq Er), 50 MG PO DAILY Nystatin (Topical) (Nystop), 1 APPLN TOP TID Ondasetron Odt (Zofran Odt), 4 MG SL Q6H Pantoprazole (Pantoprazole Sodium), 40 MG PO QAM Scheduled PRN Alprazolam (Xanax), 1 MG PO TID PRN for Anxiety/Insomnia Ibuprofen Tab (Motrin), 800 MG PO DIRECTED PRN for Pain Oxycodone/Acetaminophen 7.5MG/325MG (Percocet 7.5MG/325MG), 1 TAB PO Q6 PRN for Pain Polyethylene Glycol 3350 (Miralax), 17 GM PO DAILY PRN for Constipation Sennosides-Docusate Sodium (Senna-S), 1 TAB PO DAILY @ NOON PRN for Constipation Allergies Coded Allergies: Penicillins (Verified Allergy, Severe, RESP DIFFICULTY & HIVES, 07/11/16) RESP DIFFICULTY Codeine (Verified Allergy, Unknown, ITCHING, 07/11/16) Rofecoxib (Verified Allergy, Unknown, 07/11/16) Metoclopramide (Verified Adverse Reaction, Mild, RESTLESS, 07/11/16) RESTLESS Prochlorperazine (Verified Adverse Reaction, Mild, RESTLESS, 07/11/16) RESTLESS Sulfa Antibiotics (Verified Adverse Reaction, Mild, NAUSEA, 07/11/16) Droperidol (Verified Adverse Reaction, Unknown, anxiety,hyperactivity, ) Physical Exam Vital Signs Date Time Temp Pulse Resp B/P Pulse Ox O2 Delivery O2 Flow Rate FiO2 08/20/16 15:25 36.8 110 16 130/86 96 Room Air Physical Exam CONSTITUTIONAL/VITAL SIGNS: Reviewed / noted above. GENERAL: Non-toxic in appearance. INTEGUMENTARY: The patient has intertrigo in the bilateral lower legs. There are numerous tiny, erythematous 2 cm diameter sized ball on the posterior aspect of the legs, back, and chest. These ball are blanching and scale-like. HEAD: Normocephalic. EYES: without scleral icterus or trauma. ENT/OROPHARYNX: clear and moist. LYMPHADENOPATHY/NECK: Is supple without lymphadenopathy or meningismus. RESPIRATORY: Lungs clear and equal. CARDIOVASCULAR: Regular rate and rhythm. GI/ABDOMEN: Soft and nontender. No organomegaly or pulsatile mass. No rebound or guarding. Normal bowel sounds. EXTREMITIES: Warm and well perfused. BACK: No CVA tenderness. NEUROLOGICAL: Intact without focal deficits. PSYCHIATRIC: normal affect. MUSCULOSKELETAL: Normally developed with good muscle tone. Medical Decision & Procedures ED Course 162: Previous medical records were reviewed. The patient was evaluated in room B12B. A complete history and physical examination was performed. 1649: On reevaluation, the patient is doing well. I discussed the results and findings with the patient. She verbalized agreement of the treatment plan. The patient was discharged home. Medical Decision Etiologies such as contact dermatitis, viral exanthem, urticaria, allergic reaction, Spann-Jonas syndrome, toxic epidermal necrolysis, erythema multiforme, cellulitis, scabies, HSV, varicella, zoster, eczema, staph scalded skin syndrome, fungal infection, as well as others were entertained. This is a 60-year-old female who presents to the ED with a chief complaint of the same symptoms she presented for 1 week ago. She states that she has a rash and a fungal infection in her groins. She has followed up with Dr. Nelson and is currently on Diflucan, topical creams and Omnicef. The patient notes some itchiness as well as some increase in some red ball on her legs and back and chest. The patient has some 2 cm diameter slightly scaled erythematous ball in various areas of her posterior legs, back and slightly on the chest. These are blanchable. The patient does not appear to be septic or toxic. She also reports having some upset stomach related to the medication that she is taking. She states that she has not been eating well for the past week. She has lost about 0.5 kg since her last visit here a week ago. She does not appear to be dehydrated. The patient's exam was otherwise unremarkable. After examining the patient, I did suggest some blood work. She declined this and just requested something for her stomach. She will be treated with Zofran. She was given a home pack and a dose here. Prescription was also sent. She'll continue to try medication. She has follow-up with Dr. Nelson in 2 days. Impression Primary Impression: Nausea Additional Impression: Intertrigo Scribe Attestation The scribe's documentation has been prepared under my direction and personally reviewed by me in its entirety. I confirm that the note above accurately reflects all work, treatment, procedures, and medical decision making performed by me. Departure Information Dispostion Home / Self-Care Prescriptions Ondasetron Odt (ZOFRAN ODT) 4 Mg Tab 4 MG SL Q6H for Nausea, #20 TAB Prov: Erick Alonso D.O. 08/20/16 Referrals No Doctor, Assigned (PCP) Forms HOME CARE DOCUMENTATION FORM, IMPORTANT VISIT INFORMATION Patient Instructions My [facility] Additional Instructions Zofran: Allow one tablet to dissolve under the tongue every 6 hours as needed for nausea or vomiting. Follow-up with your doctor for further care and evaluation in 1-2 days. Return to the emergency department for worsening or new symptoms or any concerns. You have been examined and treated today on an emergency basis only. This is not a substitute for, or an effort to provide, complete comprehensive medical care. It is impossible to recognize and treat all injuries or illnesses in a single emergency department visit. It is therefore important that you follow up closely with your doctor. Call as soon as possible for an appointment. Problem Qualifiers
[2016-08-20] MEDS ORDERED: ONDANSETRON 4MG OD TAB PO ONE (16:45)
[2016-08-20] MEDS ORDERED: ONDANSETRON HOME PACK 4MG OD TAB PO ONE (16:45)
[2016-08-20] MEDS ORDERED: CEFD300C3 PO (16:52)
[2016-08-20 17:11] VITALS: BP 128/80; PULSE 100; O2SAT 96
[2016-08-29] MEDS ORDERED: CNCI50 IV (09:50)
[2016-08-29] MEDS ORDERED: POLY335019 PO (09:50)
[2016-08-29] MEDS ORDERED: NYSP EXT (09:50)
[2016-08-29] MEDS ORDERED: LRS10 PO (09:50)
[2016-08-29] MEDS ORDERED: LVQ500 PO (09:50)
[2016-08-29] MEDS ORDERED: Enteral Nutrition Formula PO (09:50)
[2016-08-29] MEDS ORDERED: PANT40TA2 PO (09:50)
[2017-02-11] MEDS ORDERED: ACET-1311 PO (19:39)
[2017-02-11] MEDS ORDERED: FESO4TAB PO (19:39)
[2017-02-11] MEDS ORDERED: ERGO1TAB10 PO (20:04)
== END 2016-08-20 17:13 | disposition home or self-care (01) ==
LOC: C.EDB 15:23
DX: R11.0 Nausea (principal); L30.4 Erythema intertrigo; I10 Essential (primary) hypertension; Z86.73 Personal history of transient ischemic attack (TIA), and cerebral infarction without residual deficits; M19.90 Unspecified osteoarthritis, unspecified site; E03.9 Hypothyroidism, unspecified; E78.5 Hyperlipidemia, unspecified; G35 Multiple sclerosis; E55.9 Vitamin D deficiency, unspecified; Z83.3 Family history of diabetes mellitus; Z82.3 Family history of stroke; Z79.82 Long term (current) use of aspirin

== ENCOUNTER 2016-08-22 15:53 | Inpatient (IN) | payer OTHER ==
[~2016-08-22] VITALS: Ht 180.3 cm; Wt 93.5 kg
[~2016-08-22 15:53] MED LIST changes: +CEFD300C3 PO; -NYST100010 TOP; -NZRCR TOP; +ONDA4TAB10 SL
[2016-08-22] MEDS ORDERED: ACETAMINOPHEN 325 MG TAB PO PRN (16:15)
[2016-08-22 16:34] LABS: BASO % 0.3 %; BASO ABS # 0.02 K/uL (0-0.2); EOS % 2.4 %; HEMATOCRIT 45.7 % (37-47); IG% 0.1 %; LYMPH % 24.7 %; LYMPH ABS # 1.85 K/uL (1.2-3.4); MEAN CELL VOLUME 92.7 fL (80-100); MEAN CORPUSCULAR HEMOGLOBIN 30.8 pg (25-34); MEAN PLATELET VOLUME 9.7 fL (7.4-10.4); MONO % 7.5 %; PLATELET COUNT 234 K/uL (130-400); RED BLOOD COUNT 4.93 M/uL (4.2-5.4)
[2016-08-22 16:43] LABS: COMPLETE YES; MEAN CORPUSCULAR HGB CONC 33.3 g/dl (32-36); PARTIAL THROMBOPLASTIN RATIO 1.1; PROTHROMBIN TIME (PATIENT) 10.5 SECONDS (9.0-12.0)
[2016-08-22] MEDS ORDERED: TYL325X PO (16:56)
[2016-08-22] MEDS ORDERED: LYR50 PO (16:56)
[2016-08-22] MEDS ORDERED: KETO2SHA5 TOP (16:56)
[2016-08-22] MEDS ORDERED: ONDA4TAB10 SL (16:56)
[2016-08-22 16:59] LABS: BLOOD UREA NITROGEN 15 mg/dl (7-18); CALCIUM 9.8 mg/dl (8.5-10.1); CARBON DIOXIDE 34 mmol/L (21-32); CHLORIDE 99 mmol/L (98-107); CREATININE 0.83 mg/dl (0.60-1.20); GLUCOSE 90 mg/dl (70-99); SODIUM 137 mmol/L (136-145)
[2016-08-22] MEDS ORDERED: PATIENT'S HEIGHT AND/OR WEIGHT NEEDED SCH (17:30)
[2016-08-22] MEDS ORDERED: DOCUSATE SODIUM/SENNA 50/8.6MG TAB PO PRN (17:30)
[2016-08-22] MEDS ORDERED: NURSING VERBAL MED ORDER ONE (17:45)
[2016-08-22] MEDS ORDERED: CASPOFUNGIN INJ 70 MG in SODIUM CHLORIDE 0.9% 250ML 250 ML IV SCH (18:00)
[2016-08-22 18:16] VITALS: Ht 180.3 cm; Wt 93.5 kg
[2016-08-22 18:20] VITALS: BP 128/83; PULSE 72; TEMP 36.5; O2SAT 95
[2016-08-22] MEDS: ONDANSETRON INJ 2 MG/ML 2 ML VIAL IV PRN (18:39)
[2016-08-22] MEDS: METOPROLOL TARTRATE 25 MG TAB PO SCH (19:49)
[2016-08-22] MEDS ORDERED: PREGABALIN 50 MG CAP PO SCH (20:00)
[2016-08-22] MEDS: ENOXAPARIN 40 MG/0.4 ML SYR SQ SCH (20:03)
[2016-08-22] MEDS: CEFTRIAXONE SOD INJ 2,000 MG in DEXTROSE 5% 50ML 50 ML IV SCH (20:17)
--- NOTE | 2016-08-22 20:31 | History and Physical ---
History & Physical Date of Service August 22, 2016. History & Physical This is a 60 year old female with a PMH of MS, hx. of CVA on Plavix, neurogenic bladder, HTN, hypothyroidism presents with intertrigo of the b/l groins, buttocks with rash spreading to lower extremities and lumbar spine - patient has been on two courses of Diflucan; has tried nystatin powder in the past, with relief only partially. She was seen by ID today and was sent over for IV antifungal treatment for the intertrigo. She states she is getting more weakness - states it seems similar to her MS flare-ups. No fevers/chills. On exam, she is weak in her lower extremities Scaly rash noted on the groin and buttocks between skin folds, wet rash For the intertrigo - IV caspofungin and IV Rocephin as per ID add nystatin powder to dry the area prednisone 60mg x 1 - neurology consulted for possible MS flare-up Gonzalez catheter - patient intermittently caths at home due to neurogenic bladder
--- NOTE | 2016-08-22 20:42 | History and Physical ---
History & Physical Date & Time of Service: August 22, 2016 at 17:17 Chief Complaint: rash Primary Care Physician: Aldo Hendrix M.D. History of Present Illness Source: patient, clinic records, hospital records This is a 60 year old female with PMH of MS, wheelchair bound, history of CVA with residual right arm weakness, hypertension, hypothyroidism, neurogenic bladder, hx recurrent UTI, and other problems listed below who presents as a direct admission sent by infectious disease Haylee Sweeney PA-C for severe intertrigo. Patient reports rash which developed 1.5- 2 months ago which progressively worsened despite outpatient antibiotic and antifungal treatment. Patient took a 14 day course of Diflucan, then saw Dr. Nelson over the weekend who started her on second 14 day course. She has been taking Omnicef for 6 days , last dose this morning. The rash is itchy and painful located on her groin, buttocks, back and posterior legs. Pt did not notice any open areas. reports bleeding from the groin rash. She was also having rash on her head for which she is using ketoconazole shampoo. Skin culture of her groin 08/12/16 grew E. coli, proteus mirabilis, MSSA, and group B beta strep all sensitive to ceftriaxone. Pt reports 2 weeks of nausea, poor PO intake, dizziness. Nausea improves with Zofran. Pt reports increased bilateral LE weakness for past few weeks which further worsened over past few days. She can usually help transfer from the wheelchair but is now having difficulty. She feels that her MS may be flaring up. Patient intermittently straight caths at home and denies any change in the urine including dysuria, foul odor, cloudiness. Denies fever, chills, vision change, chest pain, SOB, abdominal pain, vomiting, diarrhea. Past Medical/Surgical History Medical Problems: (1) Arm pain, right Status: Chronic (2) Benign hypertension Status: Chronic (3) CVA, old, hemiparesis Status: Resolved (4) Depression Status: Chronic (5) Depression Status: Chronic (6) DJD (degenerative joint disease), cervical Status: Chronic (7) DJD (degenerative joint disease), cervical Status: Chronic (8) Frequent UTI Status: Chronic (9) Gastroesophageal reflux disease Status: Chronic (10) H/O migraine Status: Chronic (11) H/O: CVA (cerebrovascular accident) Status: Chronic (12) H/O: duodenal ulcer Permanent Comment: H pylori positive per records Status: Chronic (13) Hyperlipidemia Nec/Nos Status: Chronic (14) Hypertension Status: Chronic (15) Hypothyroidism Status: Chronic (16) Hypothyroidism Status: Chronic (17) Lumbosacral disc disease Status: Chronic (18) Migraine Status: Chronic (19) MS (multiple sclerosis) Status: Chronic (20) Multiple sclerosis Status: Chronic (21) Neurogenic bladder Status: Chronic (22) Pancreatitis Status: Resolved (23) Vitamin D deficiency Status: Chronic Surgical Problems: (1) H/O section Status: Chronic (2) H/O oophorectomy Status: Chronic (3) S/P appendectomy Status: Chronic (4) S/P total abdominal hysterectomy Status: Chronic Family History Diabetes mellitus Kidney disease Stroke Social History Smoking Status: Never Smoker Alcohol Use: none Drug Use: none Marital Status: Housing status: lives with family Occupational Status: disabled Immunizations History of Influenza Vaccine: No History of Tetanus Vaccine?: No Tetanus Immunization Date: May 22, 2006 History of Pneumococcal: No History of Hepatitis B Vaccine: No Multi-Drug Resistant Organisms History of MDRO: No Allergies Coded Allergies: Codeine (Verified Allergy, Unknown, ITCHING, 08/20/16) Rofecoxib (Verified Allergy, Unknown, 08/20/16) Penicillins (Verified Adverse Reaction, Intermediate, rash, 08/22/16) Metoclopramide (Verified Adverse Reaction, Mild, RESTLESS, 08/20/16) RESTLESS Prochlorperazine (Verified Adverse Reaction, Mild, RESTLESS, 08/20/16) RESTLESS Sulfa Antibiotics (Verified Adverse Reaction, Mild, NAUSEA, 08/20/16) Droperidol (Verified Adverse Reaction, Unknown, anxiety,hyperactivity, 08/20) Home Medications Scheduled Aspirin (Aspirin EC Low Dose), 81 MG DAILY Cefdinir (Cefdinir), 300 MG PO BID Clopidogrel (Plavix), 75 MG PO DAILY Duloxetine HCl (Duloxetine HCl), 60 MG PO QAM Ergocalciferol (Vitamin D2), 50,000 MG PO 2XWK Fluconazole (Diflucan), 1 TAB PO DAILY Glatiramer Acetate (Copaxone), 20 MG SC QPM Hydrochlorothiazide (Hctz), 1 TAB PO DAILY Ketoconazole (Topical) (Nizoral), 1 APPLN TOP 2XWK Levothyroxine Sodium (Levothyroxine Sodium), 1 TAB PO DAILY Lisinopril (Lisinopril), 40 MG PO QAM Metoprolol Tartrate (Lopressor), 25 MG PO BID Mirabegron (Myrbetriq Er), 50 MG PO DAILY Pantoprazole (Pantoprazole Sodium), 40 MG PO QAM Scheduled PRN Acetaminophen (Tylenol), 650 MG PO Q6 PRN for Pain Alprazolam (Xanax), 1 MG PO TID PRN for Anxiety/Insomnia Ibuprofen Tab (Motrin), 800 MG PO TID PRN for Pain Ondasetron Odt (Zofran Odt), 4 MG SL Q6H PRN for Nausea Oxycodone/Acetaminophen 7.5MG/325MG (Percocet 7.5MG/325MG), 1 TAB PO Q6 PRN for Pain Polyethylene Glycol 3350 (Miralax), 17 GM PO DAILY PRN for Constipation Sennosides-Docusate Sodium (Senna-S), 1 TAB PO DAILY PRN for Constipation Review of Systems Ten systems reviewed and negative except as noted in above HPI. Physical Exam General Appearance: no apparent distress, + obese, + pertinent finding (alert 60 year old female, lying in bed, at bedside) Head: normocephalic, atraumatic Eyes: normal inspection, PERRL, EOMI ENT: hearing grossly normal, pharynx normal Neck: supple, trachea midline Respiratory/Chest: lungs clear, normal breath sounds, no respiratory distress, no accessory muscle use Cardiovascular: regular rate, rhythm, no murmur Abdomen/GI: normal bowel sounds, non tender, soft Back: + pertinent finding (burns catheter draining clear yellow urine) Extremities/Musculoskelatal: no pedal edema Neurologic/Psych: alert, normal mood/affect, oriented x 3, + pertinent finding (right arm strength 4/5- chronic per patient. left arm strength 5/5. unable to lift BLLE off the bed. ankle flexion/ extension 5/5 bilaterally. ) Skin: + pertinent finding (bright erythema with tenderness in bilateral groin folds, between gluteal folds, with small satellite patches on lower back and posterior thighs. no open areas noted. ) Diagnostics Laboratory Results Results Past 24 Hours Test 08/22/16 16:25 Range/Units White Blood Count 7.50 4.8-10.8 K/uL Red Blood Count 4.93 4.2-5.4 M/uL Hemoglobin 15.2 12.0-16.0 g/dL Hematocrit 45.7 37-47 % Mean Corpuscular Volume 92.7 80-100 fL Mean Corpuscular Hemoglobin 30.8 25-34 pg Mean Corpuscular Hemoglobin Concent 33.3 32-36 g/dl Platelet Count 234 130-400 K/uL Mean Platelet Volume 9.7 7.4-10.4 fL Neutrophils (%) (Auto) 65.0 % Lymphocytes (%) (Auto) 24.7 % Monocytes (%) (Auto) 7.5 % Eosinophils (%) (Auto) 2.4 % Basophils (%) (Auto) 0.3 % Neutrophils # (Auto) 4.88 1.4-6.5 K/uL Lymphocytes # (Auto) 1.85 1.2-3.4 K/uL Monocytes # (Auto) 0.56 0.11-0.59 K/uL Eosinophils # (Auto) 0.18 0-0.5 K/uL Basophils # (Auto) 0.02 0-0.2 K/uL RDW Standard Deviation 44.8 36.4-46.3 fL RDW Coefficient of Variation 13.2 11.5-14.5 % Immature Granulocyte % (Auto) 0.1 % Immature Granulocyte # (Auto) 0.01 0.00-0.02 K/uL Prothrombin Time 10.5 9.0-12.0 SECONDS Prothromb Time International Ratio 1.0 0.9-1.1 Activated Partial Thromboplast Time 27.4 21.0-31.0 SECONDS Partial Thromboplastin Ratio 1.1 Sodium Level 137 136-145 mmol/L Potassium Level 4.0 3.5-5.1 mmol/L Chloride Level 99 98-107 mmol/L Carbon Dioxide Level 34 21-32 mmol/L Anion Gap 4.0 3-11 mmol/L Blood Urea Nitrogen 15 7-18 mg/dl Creatinine 0.83 0.60-1.20 mg/dl Estimated GFR () 87.6 Estimated GFR (Non- 75.6 BUN/Creatinine Ratio 18.0 10-20 Random Glucose 90 70-99 mg/dl Calcium Level 9.8 8.5-10.1 mg/dl Microbiology Results 08/22/16 Blood Culture, Received Pending 08/22/16 Blood Culture, Received Pending Impression Assessment and Plan SEVERE INTERTRIGO With superimposed bacterial cellulitis Failed outpatient treatment with Omnicef and Diflucan Following with ID as outpatient and was sent for direct admission Skin culture of groin 08/12/16- E. coli, proteus mirabilis, MSSA, and group B beta strep all sensitive to ceftriaxone Check blood cultures Start on IV Rocephin 2g daily and IV Caspofungin- appreciate pharmacy input for dosing Nystatin powder Consult infectious disease MULTIPLE SCLEROSIS With possible acute exacerbation Will give 1 dose of prednisone 60 mg Continue Copaxone which patient brought from home Patient follows with Dr. Griffiths as outpatient Consult [facility] [place] NEUROGENIC BLADDER Intermittent straight caths at home Burns placed at patient's request HISTORY OF CVA With residual right arm weakness Continue aspirin and Plavix HYPERTENSION BP is stable Continue HCTZ, lisinopril, metoprolol HYPOTHYROIDISM Continue levothyroxine CHRONIC BACK PAIN Continue PRN Percocet DVT PROPHYLAXIS Lovenox SQ CODE STATUS Full code per my discussion with the patient DISPOSITION Lives at home with Follows with Dr. Hendrix for primary care Patient seen in collaboration with Dr. Brand. Please see his addendum. VTE Prophylaxis VTE Risk Assessment Done? Y/N: Yes Risk Level: Moderate
[2016-08-22] MEDS: OXYCODONE/ACETAMINOPHEN 7.5-325 TAB PO PRN (21:49)
[2016-08-22] MEDS: NYSTATIN POWDER 15GM BTL EXT PRN (21:50)
[2016-08-22] MEDS: GLATIRAMER ACETATE 20 MG/ML SQ SCH (22:30)
[2016-08-22 23:42] VITALS: BP 135/83; PULSE 70; TEMP 36.7; O2SAT 94
[2016-08-23] MEDS: ONDANSETRON INJ 2 MG/ML 2 ML VIAL IV PRN (01:03)
[2016-08-23] MEDS: LEVOTHYROXINE 100 MCG TAB PO SCH (06:30)
[2016-08-23] MEDS: ALPRAZOLAM 0.5 MG TAB PO PRN (06:30)
[2016-08-23 07:23] VITALS: BP 121/81; PULSE 72; TEMP 36.4; O2SAT 97
[2016-08-23] MEDS ORDERED: HYDROCHLOROTHIAZIDE 25 MG TAB PO SCH (08:00)
[2016-08-23] MEDS: MIRABEGRON ER 25 MG TAB PO SCH (08:12)
[2016-08-23] MEDS: DULOXETINE HCL 60 MG CAP PO SCH (08:12)
[2016-08-23] MEDS: ASPIRIN 81 MG ECTAB PO SCH (08:12)
[2016-08-23] MEDS: METOPROLOL TARTRATE 25 MG TAB PO SCH ×2 (08:12→21:25)
[2016-08-23] MEDS: CLOPIDOGREL BISULFATE 75 MG TAB PO SCH (08:12)
[2016-08-23] MEDS: PANTOprazole SOD 40 MG TAB PO SCH (08:13)
[2016-08-23] MEDS: LISINOPRIL 40 MG TAB PO SCH (08:13)
[2016-08-23] MEDS: OXYCODONE/ACETAMINOPHEN 7.5-325 TAB PO PRN ×2 (08:14→19:26)
--- NOTE | 2016-08-23 10:07 | Progress Note ---
Medicine Progress Note Date & Time of Visit: August 23, 2016 at 09:59. Subjective seen sitting up in wheelchair, at the side appears comfortable states her leg weakness seems to be improved today, able to transfer from wheelchair to toilet better no other focal weakness areas with rash less irritated no fever/chills reports RUQ pain worse with eating associated with nausea (+) BM no other symptoms Objective Last 8 Hrs Date Time Temp Pulse Resp B/P Pulse Ox O2 Delivery O2 Flow Rate FiO2 08/23/16 08:00 Room Air 08/23/16 07:23 36.4 72 17 121/81 97 Room Air Physical Exam: General- oriented x 3, not in distress, speaks in sentences with no effort Head- atraumatic Eyes- EOMI, anicteric ENT- (+) dry oral mucosa Neck- supple, no JVD, no adenopathy, no thyromegaly no bruits appreciated Lungs- clear breath sounds bilaterally, no rales/wheezes Heart- normal rate, regular rhythm; no murmurs Abdomen- normal bowel sounds, non distended soft, (+) mild RUQ tenderness Extremities- no pretibial edema, no calf tenderness; peripheral pulses intact Skin- (+) erythematous inguinal region, (+) diffuse papular rash on the back, posterior > anterior thighs Neuro- alert, oriented x 3; EOMI; no facial palsy; no dysarthria; motor 5/5 upper extremity, 2-3/5 lower extremity Skin- warm & dry Laboratory Results: Last 24 Hours Test 08/22/16 16:25 08/23/16 09:37 White Blood Count 7.50 K/uL Red Blood Count 4.93 M/uL Hemoglobin 15.2 g/dL Hematocrit 45.7 % Mean Corpuscular Volume 92.7 fL Mean Corpuscular Hemoglobin 30.8 pg Mean Corpuscular Hemoglobin Concent 33.3 g/dl Platelet Count 234 K/uL Mean Platelet Volume 9.7 fL Neutrophils (%) (Auto) 65.0 % Lymphocytes (%) (Auto) 24.7 % Monocytes (%) (Auto) 7.5 % Eosinophils (%) (Auto) 2.4 % Basophils (%) (Auto) 0.3 % Neutrophils # (Auto) 4.88 K/uL Lymphocytes # (Auto) 1.85 K/uL Monocytes # (Auto) 0.56 K/uL Eosinophils # (Auto) 0.18 K/uL Basophils # (Auto) 0.02 K/uL RDW Standard Deviation 44.8 fL RDW Coefficient of Variation 13.2 % Immature Granulocyte % (Auto) 0.1 % Immature Granulocyte # (Auto) 0.01 K/uL Prothrombin Time 10.5 SECONDS Prothromb Time International Ratio 1.0 Activated Partial Thromboplast Time 27.4 SECONDS Partial Thromboplastin Ratio 1.1 Sodium Level 137 mmol/L Potassium Level 4.0 mmol/L Chloride Level 99 mmol/L Carbon Dioxide Level 34 mmol/L Anion Gap 4.0 mmol/L Blood Urea Nitrogen 15 mg/dl Creatinine 0.83 mg/dl Estimated GFR () 87.6 Estimated GFR (Non- 75.6 BUN/Creatinine Ratio 18.0 Random Glucose 90 mg/dl Calcium Level 9.8 mg/dl Date/Time Source Procedure Growth Status 08/22/16 17:00 Blood Blood Culture Pending Received 08/22/16 16:45 Blood Blood Culture Pending Received Assessment & Plan 60 year old female with history of MS on Copaxone, CVA, Hypertension, other problems noted below presenting with persistent rash. POSSIBLE TINEA CRURIS WITH SUPERIMPOSED CELLULITIS INFECTED MILIARY RASH ON THE BACK AND THIGHS - failed outpatient therapy - ff up blood cultures - continue IV Ceftriaxone and Caspofungin Day 2, Nystatin powder monitor response ID consulted RUQ PAIN - r/o Cholelithias, Cholecystitis - check LFTs Gallbladder US LOWER LEG WEAKNESS MULTIPLE SCLEROSIS - given Prednisone 60mg po one dose yesterday for possible MS flare - patient states her leg strength has improved today - hold off on additional steroids Neuro consulted - continue Copaxone IV fluids added R/O UTI check Urine culture NEUROGENIC BLADDER Intermittent straight caths at home Gonzalez placed at patient's request HISTORY OF CVA With residual right arm weakness Continue aspirin and Plavix HYPERTENSION hold HCTZ continue lisinopril, metoprolol HYPOTHYROIDISM Continue levothyroxine CHRONIC BACK PAIN Continue PRN Percocet DVT PROPHYLAXIS Lovenox SQ CODE STATUS Full code DISPOSITION management of above conditions in progress will order PT/OT Lives at home with Follows with Dr. Hendrix for primary care Current Inpatient Medications: Current Inpatient Medications Medications (Trade) Dose Ordered Sig/Alea Route Start Time Stop Time Status Last Admin Dose Admin Acetaminophen (Tylenol Tab) 650 mg Q4H PRN PO 08/22/16 16:15 09/21/16 16:14 Ondansetron HCl 4 mg 4 mg Q6H PRN IV 08/22/16 16:15 09/21/16 16:14 08/23/16 01:03 4 MG Ceftriaxone Sodium 2000 mg/ Dextrose 70 ml @ 100 mls/hr DAILY@2000 IV 08/22/16 20:00 09/01/16 19:59 08/22/16 20:17 100 MLS/HR Caspofungin/ Sodium Chloride (Cancidas Inj/ Nss 250ml) 260 ml @ 260 mls/hr DAILY@1800 IV 08/23/16 18:00 09/21/16 17:59 Enoxaparin Sodium (Lovenox Inj) 40 mg Q24H SQ 08/22/16 21:00 09/21/16 20:59 08/22/16 20:03 40 MG Alprazolam (Xanax Tab) 1 mg TID PRN PO 08/22/16 17:15 09/21/16 17:14 08/23/16 06:30 1 MG Aspirin (Ecotrin Tab) 81 mg DAILY PO 08/23/16 08:00 09/22/16 07:59 08/23/16 08:12 81 MG Clopidogrel Bisulfate (plAVix TAB) 75 mg DAILY PO 08/23/16 08:00 09/22/16 07:59 08/23/16 08:12 75 MG Duloxetine HCl (Cymbalta Cap) 60 mg QAM PO 08/23/16 08:00 09/22/16 07:59 08/23/16 08:12 60 MG Hydrochlorothiazide (Hydrochlorothiazide Tab) 25 mg DAILY PO 08/23/16 08:00 09/22/16 07:59 08/23/16 08:12 25 MG Levothyroxine Sodium (Synthroid Tab) 100 mcg DAILYBB PO 08/23/16 06:30 09/22/16 06:29 08/23/16 06:30 100 MCG Lisinopril (Zestril Tab) 40 mg QAM PO 08/23/16 08:00 09/22/16 07:59 08/23/16 08:13 40 MG Metoprolol Tartrate (Lopressor Tab) 25 mg BID PO 08/22/16 20:00 6/8/17 19:59 08/23/16 08:12 25 MG Mirabegron (Myrbetriq Er) 50 mg DAILY PO 08/23/16 08:00 09/22/16 07:59 08/23/16 08:12 50 MG Oxycodone/ Acetaminophen (Percocet 7.5-325MG Tab) 1 tab Q6 PRN PO 08/22/16 17:15 09/05/16 17:14 08/23/16 08:14 1 TAB Pantoprazole Sodium (Protonix Tab) 40 mg QAM PO 08/23/16 08:00 09/22/16 07:59 08/23/16 08:13 40 MG Senna/Docusate Sodium (Senokot S Tab) 1 tab DAILY PRN PO 08/22/16 17:30 09/21/16 17:29 Ergocalciferol (Vitamin D Cap) 50,000 interunit TuFr@0800 PO 08/25/16 08:00 09/24/16 07:59 Polyethylene (Miralax Powder Packet) 17 gm DAILY PRN PO 08/22/16 17:30 09/21/16 17:29 Nystatin (Mycostatin Powder) 1 appln TID PRN EXT 08/22/16 18:00 09/21/16 17:59 08/22/16 21:50 1 APPLN Glatiramer Acetate (Copaxone) 20 mg HS SQ 08/23/16 21:00 09/22/16 20:59 08/22/16 22:30 20 MG
[2016-08-23 10:10] LABS: BASO % 0.1 %; BASO ABS # 0.01 K/uL (0-0.2); COMPLETE YES; HEMATOCRIT 45.6 % (37-47); IG% 0.2 %; LYMPH % 18.7 %; MEAN CELL VOLUME 92.9 fL (80-100); MEAN CORPUSCULAR HEMOGLOBIN 30.5 pg (25-34); MEAN CORPUSCULAR HGB CONC 32.9 g/dl (32-36); MEAN PLATELET VOLUME 9.9 fL (7.4-10.4); MONO % 4.4 %; NEUT % 76.6 %; PLATELET COUNT 263 K/uL (130-400); RED BLOOD COUNT 4.91 M/uL (4.2-5.4); WHITE BLOOD COUNT 8.04 K/uL (4.8-10.8)
[2016-08-23] MEDS: SODIUM CHLORIDE 0.9% 1000ML 1,000 ML IV SCH ×2 (10:23→21:24)
[2016-08-23 10:59] LABS: ALKALINE PHOSPHATASE 53 U/L (45-117); AST/SGOT 10 U/L (15-37); BLOOD UREA NITROGEN 16 mg/dl (7-18); BUN/CREATININE RATIO 16.7 (10-20); CALCIUM 9.6 mg/dl (8.5-10.1); CARBON DIOXIDE 33 mmol/L (21-32); CHLORIDE 98 mmol/L (98-107); CREATININE 0.98 mg/dl (0.60-1.20); GLUCOSE 110 mg/dl (70-99); POTASSIUM 3.7 mmol/L (3.5-5.1); SODIUM 137 mmol/L (136-145)
[2016-08-23 11:00] LABS: ALT/SGPT 23 U/L (12-78)
[2016-08-23] MEDS ORDERED: IBUPROFEN 600 MG TAB PO PRN (11:00)
--- NOTE | 2016-08-23 11:02 | Medical Consult ---
Consultation Date of Consultation: August 23, 2016. Attending Physician: Juan Jose Jain MD Reason for Consultation: Severe intertrigo, cellulitis History of Present Illness Patient is a 60-year-old female with history of MS and recurrent urinary tract infections who was admitted to the hospital concerns of worsening intertriginous infection. I saw the patient as an outpatient yesterday and noted worsening of her intertrigo. She had previously been evaluated in the emergency department and by me for this problem. She was previously treated with p.o. fluconazole, nystatin powder, ketoconazole cream, and p.o. cefdinir after culture was taken and multiple organisms were found previously. These records were again reviewed today. It was noted that on her most recent culture of her groin she grew E coli, Proteus, MSSA, and group B strep which were pansensitive in nature other than the Proteus being resistant to Bactrim. She ultimately was told that she would need IV antibiotics and probably IV antifungal to help clear this infection. It is thought that she likely has a more resistant Tonja infection since she did not respond to topical treatment. Since current admission, the patient has blood and urine cultures pending. A liver ultrasound was completed today which showed no significant abnormality identified in the right upper quadrant. Her white blood cell count this morning was 8.04. Her creatinine has been stable and was 0.98 today. She was placed on IV ceftriaxone and IV caspofungin on admission. She states that she has not had any fever, sweats, chills, vomiting, or diarrhea. She has not had any recurrent urinary tract symptoms. She has however had severe itching of the groin. Past Medical/Surgical History Medical Problems: (1) Arm pain, right Status: Chronic (2) Benign hypertension Status: Chronic (3) Depression Status: Chronic (4) DJD (degenerative joint disease), cervical Status: Chronic (5) Frequent UTI Status: Chronic (6) Gastroesophageal reflux disease Status: Chronic (7) Headache Status: Acute (8) Hyperlipidemia Nec/Nos Status: Chronic (9) Hypertensive urgency Status: Acute (10) Hypothyroidism Status: Chronic (11) Intertrigo Status: Acute (12) Intertrigo labialis Status: Acute (13) Laceration Status: Acute (14) Migraine Status: Chronic (15) MS (multiple sclerosis) Status: Chronic (16) Nausea Status: Acute (17) Pain, generalized Status: Acute (18) Pyuria Status: Acute (19) Tinea cruris Status: Acute (20) UTI (urinary tract infection) Status: Acute Medical Problems: (1) Arm pain, right (2) Benign hypertension (3) Cellulitis (4) CVA, old, hemiparesis (5) Depression (6) Depression (7) DJD (degenerative joint disease), cervical (8) DJD (degenerative joint disease), cervical (9) Frequent UTI (10) Gastroesophageal reflux disease (11) H/O migraine (12) H/O: CVA (cerebrovascular accident) (13) H/O: duodenal ulcer (14) Hyperlipidemia Nec/Nos (15) Hypertension (16) Hypothyroidism (17) Hypothyroidism (18) Intertrigo (19) Lumbosacral disc disease (20) Migraine (21) MS (multiple sclerosis) (22) Multiple sclerosis (23) Neurogenic bladder (24) Pancreatitis (25) Vitamin D deficiency Surgical Problems: (1) H/O section (2) H/O oophorectomy (3) S/P appendectomy (4) S/P total abdominal hysterectomy Family History Diabetes mellitus Kidney disease Stroke Non contributory Social History Smoking Status: Never Smoker Alcohol Use: none Drug Use: none Marital Status: Housing Status: lives with family Occupation Status: disabled Allergies Coded Allergies: Codeine (Verified Allergy, Unknown, ITCHING, 08/20/16) Rofecoxib (Verified Allergy, Unknown, 08/20/16) Penicillins (Verified Adverse Reaction, Intermediate, rash, 08/22/16) Metoclopramide (Verified Adverse Reaction, Mild, RESTLESS, 08/20/16) RESTLESS Prochlorperazine (Verified Adverse Reaction, Mild, RESTLESS, 08/20/16) RESTLESS Sulfa Antibiotics (Verified Adverse Reaction, Mild, NAUSEA, 08/20/16) Droperidol (Verified Adverse Reaction, Unknown, anxiety,hyperactivity, 08/20) Home Medications Reported Home Medications Medications Dose Route/Sig Max Daily Dose Days Date Category Dose Instructions Nizoral (Ketoconazole (Topical)) 2 % Sha 1 Appln TOP 2XWK 30 08/22/16 Reported Tylenol (Acetaminophen) 325 Mg Tab 650 Mg PO Q6 PRN 08/22/16 Reported Zofran Odt (Ondansetron HCl) 4 Mg Tab 4 Mg SL Q6H PRN 08/22/16 Rx Cefdinir 300 Mg Cap 300 Mg PO BID 08/20/16 Reported Diflucan (Fluconazole) 100 Mg Tab 1 Tab PO DAILY 14 08/12/16 Rx Motrin (Ibuprofen) 800 Mg Tab 800 Mg PO TID PRN 08/12/16 Reported Vitamin D2 (Ergocalciferol) Unknown Strength Tab 50,000 Mg PO 2XWK 08/12/16 Reported Lisinopril 40 Mg Tab 40 Mg PO QAM 08/12/16 Reported Pantoprazole Sodium (Pantoprazole) 40 Mg Tab 40 Mg PO QAM 01/26/16 Reported Duloxetine HCl 60 Mg Cap 60 Mg PO QAM 01/26/16 Reported Lopressor (Metoprolol Tartrate) 25 Mg Tab 25 Mg PO BID 01/26/16 Reported Aspirin EC Low Dose (Aspirin) 81 Mg Ectab 81 Mg DAILY 06/04/15 Reported Hctz (Hydrochlorothiazide) 25 Mg Tab 1 Tab PO DAILY 30 06/04/15 Reported Percocet 7.5MG/325MG (Oxycodone/Acetaminophen) Tab 1 Tab PO Q6 PRN 06/04/15 Reported PRN PAIN Levothyroxine Sodium 100 Mcg Tab 1 Tab PO DAILY 90 04/19/15 Reported Senna-S (Sennosides-Docusate Sodium) 1 Tab Tab 1 Tab PO DAILY PRN 11/20/14 Reported Myrbetriq Er (Mirabegron) 50 Mg Tab 50 Mg PO DAILY 11/20/14 Reported Copaxone (Glatiramer Acetate) 20 Mg/1 Ml Inj 20 Mg SC QPM 11/20/14 Reported Miralax (Polyethylene Glycol 3350) 1 Pow Pow 17 Gm PO DAILY PRN 05/30/13 Reported Xanax (Alprazolam) 1 Mg Tab 1 Mg PO TID PRN 03/10/13 Reported Plavix (Clopidogrel Bisulfate) 75 Mg Tab 75 Mg PO DAILY 01/03/13 Reported Current Inpatient Medications Current Inpatient Medications Medications (Trade) Dose Ordered Sig/Alea Route Start Time Stop Time Status Last Admin Dose Admin Acetaminophen (Tylenol Tab) 650 mg Q4H PRN PO 08/22/16 16:15 09/21/16 16:14 Ondansetron HCl 4 mg 4 mg Q6H PRN IV 08/22/16 16:15 09/21/16 16:14 08/23/16 01:03 4 MG Ceftriaxone Sodium 2000 mg/ Dextrose 70 ml @ 100 mls/hr DAILY@2000 IV 08/22/16 20:00 09/01/16 19:59 08/22/16 20:17 100 MLS/HR Caspofungin/ Sodium Chloride (Cancidas Inj/ Nss 250ml) 260 ml @ 260 mls/hr DAILY@1800 IV 08/23/16 18:00 09/21/16 17:59 Enoxaparin Sodium (Lovenox Inj) 40 mg Q24H SQ 08/22/16 21:00 09/21/16 20:59 08/22/16 20:03 40 MG Alprazolam (Xanax Tab) 1 mg TID PRN PO 08/22/16 17:15 09/21/16 17:14 08/23/16 06:30 1 MG Aspirin (Ecotrin Tab) 81 mg DAILY PO 08/23/16 08:00 09/22/16 07:59 08/23/16 08:12 81 MG Clopidogrel Bisulfate (plAVix TAB) 75 mg DAILY PO 08/23/16 08:00 09/22/16 07:59 08/23/16 08:12 75 MG Duloxetine HCl (Cymbalta Cap) 60 mg QAM PO 08/23/16 08:00 09/22/16 07:59 08/23/16 08:12 60 MG Levothyroxine Sodium (Synthroid Tab) 100 mcg DAILYBB PO 08/23/16 06:30 09/22/16 06:29 08/23/16 06:30 100 MCG Lisinopril (Zestril Tab) 40 mg QAM PO 08/23/16 08:00 09/22/16 07:59 08/23/16 08:13 40 MG Metoprolol Tartrate (Lopressor Tab) 25 mg BID PO 08/22/16 20:00 09/21/16 19:59 08/23/16 08:12 25 MG Mirabegron (Myrbetriq Er) 50 mg DAILY PO 08/23/16 08:00 09/22/16 07:59 08/23/16 08:12 50 MG Oxycodone/ Acetaminophen (Percocet 7.5-325MG Tab) 1 tab Q6 PRN PO 08/22/16 17:15 09/05/16 17:14 08/23/16 08:14 1 TAB Pantoprazole Sodium (Protonix Tab) 40 mg QAM PO 08/23/16 08:00 09/22/16 07:59 08/23/16 08:13 40 MG Senna/Docusate Sodium (Senokot S Tab) 1 tab DAILY PRN PO 08/22/16 17:30 09/21/16 17:29 Ergocalciferol (Vitamin D Cap) 50,000 interunit TuFr@0800 PO 08/25/16 08:00 09/24/16 07:59 Polyethylene (Miralax Powder Packet) 17 gm DAILY PRN PO 08/22/16 17:30 09/21/16 17:29 Nystatin (Mycostatin Powder) 1 appln TID PRN EXT 08/22/16 18:00 09/21/16 17:59 08/22/16 21:50 1 APPLN Glatiramer Acetate 20 mg 20 mg HS SQ 08/23/16 21:00 09/22/16 20:59 08/22/16 22:30 20 MG Sodium Chloride (Nss 1000ml) 1,000 ml @ 100 mls/hr Q10H IV 08/23/16 10:00 09/22/16 09:59 08/23/16 10:23 100 MLS/HR Review of Systems Constitutional: + fatigue, No chills, No fever, No sweats Eyes: No worsening of vision ENT: No hearing loss Respiratory: No cough, No shortness of breath Cardiovascular: No chest pain Abdomen: No diarrhea, No vomiting Musculoskeletal: No joint pain Genitourinary - Female: No dysuria, No urinary frequency Integumentary: + color change (Bright erythema, itching, and a rash of the bilateral groin, our vaginal area, and intergluteal cleft. She does also have some erythematous papules which are crusted over on her legs and back.), + itch , + rash Physical Exam Date Time Temp Pulse Resp B/P Pulse Ox O2 Delivery O2 Flow Rate FiO2 08/23/16 08:00 Room Air 08/23/16 07:23 36.4 72 17 121/81 97 Room Air 08/23/16 00:00 Room Air 08/22/16 23:42 36.7 70 20 135/83 94 Room Air 08/22/16 18:20 36.5 72 16 128/83 95 Room Air 08/22/16 18:16 Room Air General Appearance: WD/WN, no apparent distress Head: normocephalic, atraumatic Eyes: normal inspection, sclerae normal ENT: hearing grossly normal Neck: supple, trachea midline Respiratory/Chest: chest non-tender, lungs clear, normal breath sounds, no respiratory distress, no accessory muscle use Cardiovascular: regular rate, rhythm, no murmur Abdomen/GI: normal bowel sounds, non tender, soft Back: normal inspection Extremities/Musculoskelatal: + pertinent finding (Weakness of the bilateral lower extremities when attempting to stand.) Neurologic/Psych: alert, normal mood/affect Skin: + rash (Severe confluent erythematous rash of the bilateral groin areas which is a wet appearing and does have satellite lesions. There are multiple papular/crusted lesions on the patient's bilateral legs and lower back.) Laboratory Results ABDOMINAL ULTRASOUND, RIGHT UPPER QUADRANT HISTORY: Abdominal pain. COMPARISON: Right upper quadrant ultrasound June 04, [address] of the abdomen March 29, 2015. FINDINGS: Liver morphology is normal. No hepatic lesions are identified. There are no gallstones. No gallbladder wall thickening is present. Pancreatic body is normal. Head and tail are partially obscured. There is no right hydronephrosis. There is no biliary ductal dilatation. IMPRESSION: No significant abnormality identified within the right upper quadrant. Item Value Date Time Urine Culture Received 08/23/16 0000 Urine , Clean Catch Pending Blood Culture Received 08/22/16 1700 Blood Pending Blood Culture Received 08/22/16 1645 Blood Pending Last 24 Hours Test 08/22/16 16:25 08/23/16 09:57 08/23/16 10:33 White Blood Count 7.50 K/uL 8.04 K/uL Red Blood Count 4.93 M/uL 4.91 M/uL Hemoglobin 15.2 g/dL 15.0 g/dL Hematocrit 45.7 % 45.6 % Mean Corpuscular Volume 92.7 fL 92.9 fL Mean Corpuscular Hemoglobin 30.8 pg 30.5 pg Mean Corpuscular Hemoglobin Concent 33.3 g/dl 32.9 g/dl Platelet Count 234 K/uL 263 K/uL Mean Platelet Volume 9.7 fL 9.9 fL Neutrophils (%) (Auto) 65.0 % 76.6 % Lymphocytes (%) (Auto) 24.7 % 18.7 % Monocytes (%) (Auto) 7.5 % 4.4 % Eosinophils (%) (Auto) 2.4 % 0.0 % Basophils (%) (Auto) 0.3 % 0.1 % Neutrophils # (Auto) 4.88 K/uL 6.16 K/uL Lymphocytes # (Auto) 1.85 K/uL 1.50 K/uL Monocytes # (Auto) 0.56 K/uL 0.35 K/uL Eosinophils # (Auto) 0.18 K/uL 0.00 K/uL Basophils # (Auto) 0.02 K/uL 0.01 K/uL RDW Standard Deviation 44.8 fL 44.8 fL RDW Coefficient of Variation 13.2 % 13.2 % Immature Granulocyte % (Auto) 0.1 % 0.2 % Immature Granulocyte # (Auto) 0.01 K/uL 0.02 K/uL Prothrombin Time 10.5 SECONDS Prothromb Time International Ratio 1.0 Activated Partial Thromboplast Time 27.4 SECONDS Partial Thromboplastin Ratio 1.1 Sodium Level 137 mmol/L 137 mmol/L Potassium Level 4.0 mmol/L 3.7 mmol/L Chloride Level 99 mmol/L 98 mmol/L Carbon Dioxide Level 34 mmol/L 33 mmol/L Anion Gap 4.0 mmol/L 6.0 mmol/L Blood Urea Nitrogen 15 mg/dl 16 mg/dl Creatinine 0.83 mg/dl 0.98 mg/dl Estimated GFR () 87.6 71.7 Estimated GFR (Non- 75.6 61.8 BUN/Creatinine Ratio 18.0 16.7 Random Glucose 90 mg/dl 110 mg/dl Calcium Level 9.8 mg/dl 9.6 mg/dl Est Creatinine Clear Calc Drug Dose 75.0 ml/min Total Bilirubin 0.6 mg/dl Aspartate Amino Transf (AST/SGOT) 10 U/L Alkaline Phosphatase 53 U/L Total Protein 7.8 gm/dl Albumin 3.9 gm/dl Assessment & Plan Patient is a 60 yo female with history of MS and recurrent UTI's now with severe intertrigo of possible fungal versus polymicrobial origin. She had been treated as an outpatient with PO abx, PO antifungal, and topical antifungals without improvement. She is currently on IV Ceftriaxone and IV Caspofungin along with topical nystatin powder. Recommend repeat culture of the intertriginous region. Blood cultures pending. Will continue current broad spectrum therapy pending further improvement. Patient likely will require multiple days of IV abx/antifungals. We will follow. PROVIDER ADDENDUM: Pt. examined and reviewed with Ms. Sweeney. Agree with above assessment.
[2016-08-23] MEDS ORDERED: BACLOFEN 10 MG TAB PO ONE (12:02)
--- NOTE | 2016-08-23 12:02 | Neurology Consultation ---
Neurology Consultation Date of Consultation: August 23, 2016. Attending Physician: Juan Jose Jain MD Primary Care Physician: Aldo Hendrix M.D. Reason for Consultation: Patient is a 60-year-old, who was asked to see the request of Dr. Galaviz, for neurologic consultation regarding MS and other issues. History of Present Illness Source: patient, clinic records, hospital records I first saw this patient 1987 with polyneuropathy for mild nature. In 1996 she presented with multiple new neurologic issues and ended up being diagnosed with multiple sclerosis. The details of this are in my history and physical dated . Patient has a long-standing history of migraine headaches as well as depression. She's been in the hospital multiple times over the last 4 years and had a complicated migraine in November 2012. In February 2013 she was diagnosed with a small new stroke which gave her dysarthria and right upper extremity weakness patient has had episodes over the years of weakness and almost always responds with oral or IV steroids We last saw her in clinic June 15, 2016. She was having numbness in her hands and a Medrol Dosepak helped. We wanted to get an MRI of the cervical spine and brain but she couldn't do this (he is tried twice), due to pain with trying to lay down. The pain was in her neck and shoulders. The patient has had some problems with infectious skin conditions and is admitted for IV antibiotics and antifungal medication. She tells me that over the last week she has had increased weakness in her legs. She has more spasticity in her legs as well as her hands. Her memory is getting worse. Past Medical/Surgical History Medical Problems: (1) Arm pain, right Status: Chronic (2) Benign hypertension Status: Chronic (3) Depression Status: Chronic (4) DJD (degenerative joint disease), cervical Status: Chronic (5) Frequent UTI Status: Chronic (6) Gastroesophageal reflux disease Status: Chronic (7) Headache Status: Acute (8) Hyperlipidemia Nec/Nos Status: Chronic (9) Hypertensive urgency Status: Acute (10) Hypothyroidism Status: Chronic (11) Intertrigo Status: Acute (12) Intertrigo labialis Status: Acute (13) Laceration Status: Acute (14) Migraine Status: Chronic (15) MS (multiple sclerosis) Status: Chronic (16) Nausea Status: Acute (17) Pain, generalized Status: Acute (18) Pyuria Status: Acute (19) Tinea cruris Status: Acute (20) UTI (urinary tract infection) Status: Acute Chronic MS, relapsing remitting with secondary progression. Copaxone is not controlling her. Classic migraine headaches with no history of recent migraines. History of major depression fairly well controlled on Cymbalta History of previous left sided stroke currently on aspirin and Plavix - stable Right C8 radiculopathy and chronic low back pain. Both of these are stable Gastroesophageal reflux disease Hypothyroidism Vitamin D deficiency Excessive daytime sleepiness and fatigue Cognitive and memory problems secondary to MS Post appendectomy, , and total abdominal hysterectomy Family History Father age 90 with a form of leukemia and hypertension Mother age 89 with colon cancer and hypertension 70-year-old brother has Parkinson's disease No family history of MS Father: HTN Mother: HTN Social History Patient has never smoked cigarettes. She does not use alcohol. 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 Smoking Status: Never smoker Smokeless Tobacco Use: No Alcohol Use: none Drug Use: none Marital Status: Housing Status: lives with family Occupation Status: retired, disabled Allergies Coded Allergies: Codeine (Verified Allergy, Unknown, ITCHING, 08/20/16) Rofecoxib (Verified Allergy, Unknown, 08/20/16) Penicillins (Verified Adverse Reaction, Intermediate, rash, 08/22/16) Metoclopramide (Verified Adverse Reaction, Mild, RESTLESS, 08/20/16) RESTLESS Prochlorperazine (Verified Adverse Reaction, Mild, RESTLESS, 08/20/16) RESTLESS Sulfa Antibiotics (Verified Adverse Reaction, Mild, NAUSEA, 08/20/16) Droperidol (Verified Adverse Reaction, Unknown, anxiety,hyperactivity, 08/20) Current Inpatient Medications Current Inpatient Medications Medications (Trade) Dose Ordered Sig/Alea Route Start Time Stop Time Status Last Admin Dose Admin Acetaminophen (Tylenol Tab) 650 mg Q4H PRN PO 08/22/16 16:15 09/21/16 16:14 Ondansetron HCl 4 mg 4 mg Q6H PRN IV 08/22/16 16:15 09/21/16 16:14 08/23/16 01:03 4 MG Ceftriaxone Sodium 2000 mg/ Dextrose 70 ml @ 100 mls/hr DAILY@2000 IV 08/22/16 20:00 09/01/16 19:59 08/22/16 20:17 100 MLS/HR Caspofungin/ Sodium Chloride (Cancidas Inj/ Nss 250ml) 260 ml @ 260 mls/hr DAILY@1800 IV 08/23/16 18:00 09/21/16 17:59 Enoxaparin Sodium (Lovenox Inj) 40 mg Q24H SQ 08/22/16 21:00 09/21/16 20:59 08/22/16 20:03 40 MG Alprazolam (Xanax Tab) 1 mg TID PRN PO 08/22/16 17:15 09/21/16 17:14 08/23/16 06:30 1 MG Aspirin (Ecotrin Tab) 81 mg DAILY PO 08/23/16 08:00 09/22/16 07:59 08/23/16 08:12 81 MG Clopidogrel Bisulfate (plAVix TAB) 75 mg DAILY PO 08/23/16 08:00 09/22/16 07:59 08/23/16 08:12 75 MG Duloxetine HCl (Cymbalta Cap) 60 mg QAM PO 08/23/16 08:00 09/22/16 07:59 08/23/16 08:12 60 MG Levothyroxine Sodium (Synthroid Tab) 100 mcg DAILYBB PO 08/23/16 06:30 09/22/16 06:29 08/23/16 06:30 100 MCG Lisinopril (Zestril Tab) 40 mg QAM PO 08/23/16 08:00 09/22/16 07:59 08/23/16 08:13 40 MG Metoprolol Tartrate (Lopressor Tab) 25 mg BID PO 08/22/16 20:00 09/21/16 19:59 08/23/16 08:12 25 MG Mirabegron (Myrbetriq Er) 50 mg DAILY PO 08/23/16 08:00 09/22/16 07:59 08/23/16 08:12 50 MG Oxycodone/ Acetaminophen (Percocet 7.5-325MG Tab) 1 tab Q6 PRN PO 08/22/16 17:15 09/05/16 17:14 08/23/16 08:14 1 TAB Pantoprazole Sodium (Protonix Tab) 40 mg QAM PO 08/23/16 08:00 09/22/16 07:59 08/23/16 08:13 40 MG Senna/Docusate Sodium (Senokot S Tab) 1 tab DAILY PRN PO 08/22/16 17:30 09/21/16 17:29 Ergocalciferol (Vitamin D Cap) 50,000 interunit TuFr@0800 PO 08/25/16 08:00 09/24/16 07:59 Polyethylene (Miralax Powder Packet) 17 gm DAILY PRN PO 08/22/16 17:30 09/21/16 17:29 Nystatin (Mycostatin Powder) 1 appln TID PRN EXT 08/22/16 18:00 09/21/16 17:59 08/22/16 21:50 1 APPLN Glatiramer Acetate 20 mg 20 mg HS SQ 08/23/16 21:00 09/22/16 20:59 08/22/16 22:30 20 MG Sodium Chloride (Nss 1000ml) 1,000 ml @ 100 mls/hr Q10H IV 08/23/16 10:00 09/22/16 09:59 08/23/16 10:23 100 MLS/HR Ibuprofen (Motrin Tab) 600 mg TID PRN PO 08/23/16 11:00 09/22/16 10:59 Review of Systems Constitutional: + fatigue, + weakness Eyes: No diplopia, No worsening of vision ENT: No hearing loss, No tinnitus Respiratory: No cough, No shortness of breath Cardiovascular: No chest pain, No palpitations Abdomen: No nausea, No pain Musculoskeletal: + joint pain, No muscle pain Genitourinary - Female: + urinary incontinence, No dysuria Neurologic: + balance problems, + memory loss, + weakness, No numbness/tingling , No vertigo Psychiatric: + anxiety, + depression symptoms Endocrine: + fatigue Hematologic / Lymphatic: No abnormal bleeding/bruising Integumentary: + rash Allergic / Immunologic: No hives Physical Exam Vital Signs (Past 24 Hrs): Date Time Temp Pulse Resp B/P Pulse Ox O2 Delivery O2 Flow Rate FiO2 08/23/16 08:00 Room Air 08/23/16 07:23 36.4 72 17 121/81 97 Room Air 08/23/16 00:00 Room Air 08/22/16 23:42 36.7 70 20 135/83 94 Room Air 08/22/16 18:20 36.5 72 16 128/83 95 Room Air 08/22/16 18:16 Room Air Patient is right-handed. The patient is awake and alert. Speech is normal without aphasia or dysarthria. Mentation and thought processes seem intact with conversation and history gathering. Mood and affect are normal and appropriate. Appearance and grooming are normal. The discs are sharp with positive venous pulsations. There are no exudates, hemorrhages, or blood vessel changes seen. Pupils are 3mm bilaterally and reactive to light. Extraocular eye muscles are intact without nystagmus. Visual acuity and visual lee seem normal grossly to confrontation. There are no deficits to sensation of the face bilaterally. Corneal reflexes are positive bilaterally. Facial strength and symmetry is normal bilaterally. Hearing seems intact grossly to voice and finger rub. Palate moves well without asymmetry. There is normal sternocleidomastoid and trapezius strength bilaterally. Tongue is midline with good strength bilaterally. Neck is with full range of motion without discomfort. There are no cervical bruits. There are no cranial or ocular bruits. Heart is without murmur. Cervical, thoracic, and lumbar spine are nontender to palpation. Gait is is not testable and stance sitting up in bed is weak. With outstretched arms there is drift on the right. There are no resting or postural tremors. Very minimal action tremor bilaterally. There is no ataxia with [id number] testing. There is decreased facility in the hands. There are no abnormal involuntary movements noted. Motor strength is 4+/5 diffusely in the right upper extremity proximally and 4/ 5 distally. In the left upper extremity strength is closer to 5/5 diffusely. Leg strength is 2-3/5 bilaterally. The limbs have increased tone with spasticity legs greater than arms. Sensory examination is intact to pin and touch throughout all four limbs. Reflexes are 2/4 in the biceps, triceps, brachioradialis, quadriceps, and Achilles tendons bilaterally. There are a few beats of clonus in the ankles with passive stretch bilaterally. Toes are upgoing with plantar stimulation bilaterally. Peripheral pulses are present and of normal quality distally in all four limbs. There is mild peripheral edema noted in the feet. Laboratory Results Past 24 Hours: 08/23/16 09:57 Red Blood Count 4.91, Mean Corpuscular Volume 92.9, Mean Corpuscular Hemoglobin 30.5, Mean Corpuscular Hemoglobin Concent 32.9, Mean Platelet Volume 9.9, Neutrophils (%) (Auto) 76.6, Lymphocytes (%) (Auto) 18.7, Monocytes (%) (Auto) 4.4, Eosinophils (%) (Auto) 0.0, Basophils (%) (Auto) 0.1, Neutrophils # (Auto) 6.16, Lymphocytes # (Auto) 1.50, Monocytes # (Auto) 0.35, Eosinophils # (Auto) 0.00, Basophils # (Auto) 0.01 08/23/16 09:57 Test 08/22/16 16:25 08/23/16 09:57 Prothrombin Time 10.5 SECONDS (9.0-12.0) Prothromb Time International Ratio 1.0 (0.9-1.1) Activated Partial Thromboplast Time 27.4 SECONDS (21.0-31.0) Partial Thromboplastin Ratio 1.1 White Blood Count 8.04 K/uL (4.8-10.8) Red Blood Count 4.91 M/uL (4.2-5.4) Hemoglobin 15.0 g/dL (12.0-16.0) Hematocrit 45.6 % (37-47) Mean Corpuscular Volume 92.9 fL (80-100) Mean Corpuscular Hemoglobin 30.5 pg (25-34) Mean Corpuscular Hemoglobin Concent 32.9 g/dl (32-36) Platelet Count 263 K/uL (130-400) Mean Platelet Volume 9.9 fL (7.4-10.4) Neutrophils (%) (Auto) 76.6 % Lymphocytes (%) (Auto) 18.7 % Monocytes (%) (Auto) 4.4 % Eosinophils (%) (Auto) 0.0 % Basophils (%) (Auto) 0.1 % Neutrophils # (Auto) 6.16 K/uL (1.4-6.5) Lymphocytes # (Auto) 1.50 K/uL (1.2-3.4) Monocytes # (Auto) 0.35 K/uL (0.11-0.59) Eosinophils # (Auto) 0.00 K/uL (0-0.5) Basophils # (Auto) 0.01 K/uL (0-0.2) RDW Standard Deviation 44.8 fL (36.4-46.3) RDW Coefficient of Variation 13.2 % (11.5-14.5) Immature Granulocyte % (Auto) 0.2 % Immature Granulocyte # (Auto) 0.02 K/uL (0.00-0.02) Anion Gap 6.0 mmol/L (3-11) Est Creatinine Clear Calc Drug Dose 75.0 ml/min Estimated GFR () 71.7 Estimated GFR (Non- 61.8 BUN/Creatinine Ratio 16.7 (10-20) Calcium Level 9.6 mg/dl (8.5-10.1) Total Bilirubin 0.6 mg/dl (0.2-1) Direct Bilirubin < 0.1 mg/dl (0-0.2) Aspartate Amino Transf (AST/SGOT) 10 U/L (15-37) Alanine Aminotransferase (ALT/SGPT) 23 U/L (12-78) Alkaline Phosphatase 53 U/L (45-117) Total Protein 7.8 gm/dl (6.4-8.2) Albumin 3.9 gm/dl (3.4-5.0) Impression 1. Multiple sclerosis. Relapsing remitting with secondary progression. She continues to get flareups and now has some increased leg weakness. She is on Copaxone but this is not holding her. We are looking to switch her to another medication but this will be done as an outpatient. 2. Spasticity and weakness secondary to MS. 3. Cognitive issues secondary to MS 4. History of depression, somewhat improved and stable currently 5. History of migraine headaches, improved and stable 6. Vitamin D deficiency 7. Chronic low back pain and history of neck pain. These are fairly stable currently as well Plan 1. Patient should have an MRI of the brain and cervical spine with and without contrast each. Because of her chronic pain she cannot lay flat. We could try a sedation cocktail was some Valium and a pain reliever. Otherwise we would have to get anesthesia. I would like to get the studies before she is discharged. 2. Initiate baclofen 10 mg twice a day for spasticity. This can be titrated as an outpatient. 3. If no contraindication from infectious disease, tapering prednisone course. She got 60 mg yesterday. We could decrease by 10 mg each day until off. 4. physical occupational therapy consults. Consider rehabilitation hospital stay after medically improved. I will follow as an outpatient. I spoke with Dr. Jain regarding the case including a nauseous and treatment options.
[2016-08-23] MEDS ORDERED: LORAZEPAM 2 MG/ML 1 ML VIAL IV PRN (12:15)
--- NOTE | 2016-08-23 12:34 | Medical Student: [facility] ---
Med Student History & Physical Date & Time of Service: August 23, 2016 at 11:20 Chief Complaint: Skin Rash-Allergic Reaction Primary Care Physician: Aldo Hendrix M.D. History of Present Illness Source: patient This is a 60-year-old who presented with an exacerbation of her multiple sclerosis. She is currently in the hospital getting IV antifungal treatment for intertrigo, and recently she has noticed her legs becoming weaker than usual. She states that she has had difficulty transfering from her wheelchair to her bed and toilet and has needed her 's help more than usual for the last week. She was given an IV dose of a 60 mg dose of prednisone last night (08/22/16 ) and states the she has regained some of her leg strength. She has also had increased spasticity and stiffness in her right leg and left hand for the last few months, and an MRI was ordered by Lydia Pereira PA-C. The patient has twice attempted to get the MRI but has not been able to tolerate the study due to pain in her shoulders and neck. Ms. Cabezas also has some concerns about her memory and states that she has been "forgetting things" more than usual. Patient has a hx of CVA on the left side and has residual right UE weakness and slight dysarthria. Also has hx of recurrent UTI with self-cath due to neurogenic bladder secondary to her MS. Past Medical/Surgical History Medical Problems: (1) Arm pain, right Status: Chronic (2) Benign hypertension Status: Chronic (3) CVA, old, hemiparesis Status: Resolved (4) Depression Status: Chronic (5) DJD (degenerative joint disease), cervical Status: Chronic (6) Frequent UTI Status: Chronic (7) Gastroesophageal reflux disease Status: Chronic (8) Headache Status: Acute (9) Hyperlipidemia Nec/Nos Status: Chronic (10) Hypertensive urgency Status: Acute (11) Hypothyroidism Status: Chronic (12) Intertrigo Status: Acute (13) Intertrigo labialis Status: Acute (14) Laceration Status: Acute (15) Migraine Status: Chronic (16) MS (multiple sclerosis) Status: Chronic (17) Nausea Status: Acute (18) Pain, generalized Status: Acute (19) Pancreatitis Status: Resolved (20) Pyuria Status: Acute (21) Tinea cruris Status: Acute (22) UTI (urinary tract infection) Status: Acute Family History Father: HTN Mother: HTN Social History Smoking Status: Never Smoker Alcohol Use: none Drug Use: none Marital Status: Housing status: lives with family Occupational Status: disabled Immunizations History of Influenza Vaccine: No History of Tetanus Vaccine?: No Tetanus Immunization Date: May 22, 2006 History of Pneumococcal: No History of Hepatitis B Vaccine: No Allergies Coded Allergies: Codeine (Verified Allergy, Unknown, ITCHING, 08/20/16) Rofecoxib (Verified Allergy, Unknown, 08/20/16) Penicillins (Verified Adverse Reaction, Intermediate, rash, 08/22/16) Metoclopramide (Verified Adverse Reaction, Mild, RESTLESS, 08/20/16) RESTLESS Prochlorperazine (Verified Adverse Reaction, Mild, RESTLESS, 08/20/16) RESTLESS Sulfa Antibiotics (Verified Adverse Reaction, Mild, NAUSEA, 08/20/16) Droperidol (Verified Adverse Reaction, Unknown, anxiety,hyperactivity, 08/20) Medications Acetaminophen (Tylenol), 650 MG PO Q6 PRN for Pain Alprazolam (Xanax), 1 MG PO TID PRN for Anxiety/Insomnia Aspirin (Aspirin EC Low Dose), 81 MG DAILY Cefdinir (Cefdinir), 300 MG PO BID Clopidogrel (Plavix), 75 MG PO DAILY Duloxetine HCl (Duloxetine HCl), 60 MG PO QAM Ergocalciferol (Vitamin D2), 50,000 MG PO 2XWK Fluconazole (Diflucan), 1 TAB PO DAILY Glatiramer Acetate (Copaxone), 20 MG SC QPM Hydrochlorothiazide (Hctz), 1 TAB PO DAILY Ibuprofen Tab (Motrin), 800 MG PO TID PRN for Pain Ketoconazole (Topical) (Nizoral), 1 APPLN TOP 2XWK Levothyroxine Sodium (Levothyroxine Sodium), 1 TAB PO DAILY Lisinopril (Lisinopril), 40 MG PO QAM Metoprolol Tartrate (Lopressor), 25 MG PO BID Mirabegron (Myrbetriq Er), 50 MG PO DAILY Ondasetron Odt (Zofran Odt), 4 MG SL Q6H PRN for Nausea Oxycodone/Acetaminophen 7.5MG/325MG (Percocet 7.5MG/325MG), 1 TAB PO Q6 PRN for Pain Pantoprazole (Pantoprazole Sodium), 40 MG PO QAM Polyethylene Glycol 3350 (Miralax), 17 GM PO DAILY PRN for Constipation Sennosides-Docusate Sodium (Senna-S), 1 TAB PO DAILY PRN for Constipation Review of Systems Constitutional: + weakness (both lower extremities) Eyes: + problem reported (cataracts) ENT: No hearing loss Musculoskeletal: + problem reported (bilateral lower extremity weakness; preexisting right arm weakness secondary to prior CVA) Integumentary: + new/changing skin lesions (intertrigo on abdomen and back) Physical Exam Vital Signs (24 Hours) Date Time Temp Pulse Resp B/P Pulse Ox O2 Delivery O2 Flow Rate FiO2 08/23/16 08:00 Room Air 08/23/16 07:23 36.4 72 17 121/81 97 Room Air 08/23/16 00:00 Room Air 08/22/16 23:42 36.7 70 20 135/83 94 Room Air 08/22/16 18:20 36.5 72 16 128/83 95 Room Air 08/22/16 18:16 Room Air General Appearance: no apparent distress Eyes: PERRL, EOMI, + pertinent finding (bilateral cataracts) ENT: hearing grossly normal Extremities/Musculoskelatal: + pertinent finding (Decreased ROM in right UE ( cannot fully extend at elbow); absent flexion in bilateral LE due to weakness) Skin: + rash (erythema and irritated skin on abdomen and back (intertrigo, per infectious disease)) Neuro/Psych: -Pleasant mood, alert and oriented to person, place, and time -Speech is noted to have a slight lisp/slurring, which the patient attributes to her prior CVA CN I - not tested CN II - Pupils round and reactive to light and accommodation; visual acuity is; moderately-progressed cataracts bilaterally CN III, IV, - EOMI; convergence slightly impaired bilaterally, worse on the left CN V - Facial sensation is intact bilaterally; masseter strength is 5/5 bilaterally CN VII - Face is symmetric except for a very slight droop seen on the right side when she smiles (attributed to prior CVA); facial muscles are otherwise 5/ 5 strength bilaterally CN VIII - Hearing is normal to finger rub bilaterally CN IX, X - Palate elevates symmetrically; voice is normal with no hoarseness CN XI - Shoulder shrug intact bilaterally CN XII - Tongue protrudes at midline with no observed atrophy Sensory: -Sensation is intact to light touch, pain, and vibration Motor: -There is 5/5 strength in left deltoid, biceps, triceps, wrist flexors/extensors , package delivery driver, and finger abduction -There is 4/5 strength in right deltoid, biceps, triceps, wrist flexors/ extensors, package delivery driver, and finger abduction -There is 2/5 strength in bilateral hip flexors, knee flexors and extensors -There is 4/5 strength in bilateral plantar flexion and dorsiflexion -Tone is diffusely increased -No pronator drift is noted DTRs: -Reflexes are 2/4 in bilateral biceps, triceps, patella, and brachioradialis -Reflexes are 3/4 in bilateral ankles with 2-3 beats of clonus -Babinski is positive Coordination: -Fyqgen-sz-[id number] testing was intact, with some tremor due to weakness noted in her right UE -Xvqn-ho-aedr testing could not be done due to bilateral LE weakness -ANGY are intact Gait/stance -Gait was not tested because the patient normally uses a wheelchair -Posture was intact when she sat up, although she needed assistance to do so Diagnostics Laboratory Results Results Past 24 Hours Test 08/22/16 16:25 08/23/16 09:57 08/23/16 10:33 Range/Units White Blood Count 7.50 8.04 4.8-10.8 K/uL Red Blood Count 4.93 4.91 4.2-5.4 M/uL Hemoglobin 15.2 15.0 12.0-16.0 g/dL Hematocrit 45.7 45.6 37-47 % Mean Corpuscular Volume 92.7 92.9 80-100 fL Mean Corpuscular Hemoglobin 30.8 30.5 25-34 pg Mean Corpuscular Hemoglobin Concent 33.3 32.9 32-36 g/dl Platelet Count 234 263 130-400 K/uL Mean Platelet Volume 9.7 9.9 7.4-10.4 fL Neutrophils (%) (Auto) 65.0 76.6 % Lymphocytes (%) (Auto) 24.7 18.7 % Monocytes (%) (Auto) 7.5 4.4 % Eosinophils (%) (Auto) 2.4 0.0 % Basophils (%) (Auto) 0.3 0.1 % Neutrophils # (Auto) 4.88 6.16 1.4-6.5 K/uL Lymphocytes # (Auto) 1.85 1.50 1.2-3.4 K/uL Monocytes # (Auto) 0.56 0.35 0.11-0.59 K/uL Eosinophils # (Auto) 0.18 0.00 0-0.5 K/uL Basophils # (Auto) 0.02 0.01 0-0.2 K/uL RDW Standard Deviation 44.8 44.8 36.4-46.3 fL RDW Coefficient of Variation 13.2 13.2 11.5-14.5 % Immature Granulocyte % (Auto) 0.1 0.2 % Immature Granulocyte # (Auto) 0.01 0.02 0.00-0.02 K/uL Prothrombin Time 10.5 9.0-12.0 SECONDS Prothromb Time International Ratio 1.0 0.9-1.1 Activated Partial Thromboplast Time 27.4 21.0-31.0 SECONDS Partial Thromboplastin Ratio 1.1 Sodium Level 137 137 136-145 mmol/L Potassium Level 4.0 3.7 3.5-5.1 mmol/L Chloride Level 99 98 98-107 mmol/L Carbon Dioxide Level 34 33 21-32 mmol/L Anion Gap 4.0 6.0 3-11 mmol/L Blood Urea Nitrogen 15 16 7-18 mg/dl Creatinine 0.83 0.98 0.60-1.20 mg/dl Estimated GFR () 87.6 71.7 Estimated GFR (Non- 75.6 61.8 BUN/Creatinine Ratio 18.0 16.7 10-20 Random Glucose 90 110 70-99 mg/dl Calcium Level 9.8 9.6 8.5-10.1 mg/dl Est Creatinine Clear Calc Drug Dose 75.0 ml/min Total Bilirubin 0.6 0.2-1 mg/dl Direct Bilirubin < 0.1 0-0.2 mg/dl Aspartate Amino Transf (AST/SGOT) 10 15-37 U/L Alanine Aminotransferase (ALT/SGPT) 23 12-78 U/L Alkaline Phosphatase 53 45-117 U/L Total Protein 7.8 6.4-8.2 gm/dl Albumin 3.9 3.4-5.0 gm/dl Microbiology Results 08/22/16 Blood Culture, Received Pending 08/22/16 Blood Culture, Received Pending Impression Assessment and Plan Assessment 1. Bilateral lower extremity weakness secondary to multiple sclerosis Patient has prior diagnosis of MS and has noticed that both of her lower extremities have been much weaker since the onset of her skin rash; specifically , she had trouble transferring from her wheelchair to the bed and toilet. One dose of 60 mg prednisone seemed to somewhat improve her weakness, and she does not have any sensory deficits that might suggest a full spinal cord compression syndrome, leading to the likely conclusion that this is in fact an MS flare-up. 2. Muscle spasticity and stiffness secondary to multiple sclerosis exacerbation Patient has noticed increased spasticity of her muscles, particularly in her right LE and left hand, and sometimes cannot relax those muscles on her own. Her physical exam findings are consistent with increased tone and suggest that this is an MS flare-up. Though this seems to be a very likely conclusion given the patient's history and experience with this disease, it should be noted that there are other possibilities. Stroke could cause spasticity, though there is no evidence of any other localizing findings that would suggest this. Cerebral palsy is also a cause of spasticity, but that is diagnosed much younger and wouldn't explain the waxing and waning pattern of her symptoms. Spinal cord compression or injury can also be ruled out due to her lack of history of acute trauma and her lack of any sensory deficits. 3. Lack of tolerance of MRI Patient states that she was sent for an MRI of her cervical spine and brain recently to further investigate the new muscle spasticity but could not tolerate lying still for that long due to pain in her shoulders and neck. Plan: 1. Consider another dose of prednisone after consulting with infectious disease (who are treating her intertrigo and bacterial cellulitis with IV antimicrobials ) 2. Prescribe a muscle relaxant (Baclofen) to help relax her muscle spasms 3. Obtain cervical spine and brain MRI (with and without contrast) under sedation and pain control Advanced Directives Existing Living Will: No Existing Power of Swing Saw Operator: No
[2016-08-23] MEDS ORDERED: LORAZEPAM INJ 0.5 MG in SYRINGE 0.75 ML IV PRN (13:00)
--- NOTE | 2016-08-23 15:02 | DIAGNOSTIC IMAGING REPORT ---
ABDOMINAL ULTRASOUND, RIGHT UPPER QUADRANT HISTORY: Abdominal pain. COMPARISON: Right upper quadrant ultrasound June 04, [address] of the abdomen March 29, 2015. FINDINGS: Liver morphology is normal. No hepatic lesions are identified. There are no gallstones. No gallbladder wall thickening is present. Pancreatic body is normal. Head and tail are partially obscured. There is no right hydronephrosis. There is no biliary ductal dilatation. IMPRESSION: No significant abnormality identified within the right upper quadrant. Electronically signed by: Constantin Mazariegos M.D. 08/23/2016 3:01 PM Dictated Date/Time: 08/23/2016 3:00 PM
[2016-08-23 15:28] VITALS: BP 122/79; PULSE 64; TEMP 36.7; O2SAT 94
[2016-08-23] MEDS: CASPOFUNGIN INJ 50 MG in SODIUM CHLORIDE 0.9% 250ML 250 ML IV SCH (17:39)
[2016-08-23] MEDS: BACLOFEN 10 MG TAB PO SCH (21:25)
[2016-08-23] MEDS: ENOXAPARIN 40 MG/0.4 ML SYR SQ SCH (21:26)
[2016-08-23] MEDS: GLATIRAMER ACETATE 20 MG/ML SQ SCH (21:26)
[2016-08-23] MEDS ORDERED: HYDROmorphone INJ 1 MG/ML SYR IV ONE (21:30)
[2016-08-23] MEDS ORDERED: GADAVIST IV PRN (23:45)
[2016-08-24 00:36] VITALS: BP 101/64; PULSE 86; TEMP 36.9; O2SAT 92
[2016-08-24] MEDS: CEFTRIAXONE SOD INJ 2,000 MG in DEXTROSE 5% 50ML 50 ML IV SCH ×2 (00:36→22:09)
[2016-08-24] MEDS: ONDANSETRON INJ 2 MG/ML 2 ML VIAL IV PRN ×3 (00:36→17:42)
[2016-08-24] MEDS: LEVOTHYROXINE 100 MCG TAB PO SCH (06:34)
--- NOTE | 2016-08-24 06:35 | DIAGNOSTIC IMAGING REPORT ---
MRI CERVICAL SPINE COMBO CLINICAL HISTORY: possible MS flare WEAKNESS. DROPPING THINGS. NECK PAIN. TECHNIQUE: Sagittal and axial T1, T2 and STIR images were obtained. COMPARISON STUDY: 04/11/2014 There are no suspicious areas of marrow enhancement. On STIR images, there is patchy increased T2 signal throughout the cervical cord. Given the clinical history, the findings are consistent with multifocal MS plaques. There is no postcontrast enhancement to indicate active plaques. These findings were present on the prior study and are perhaps minimally progressive. C2-3: There is no evidence of disc bulge or focal herniation. There is no spinal or foraminal stenosis. C3-4: There is no evidence of disc bulge or focal herniation. There is no spinal or foraminal stenosis. C4-5: There is a mild circumferential disc bulge. There is no significant spinal or foraminal stenosis C5-6 :There is a mild circumferential disc bulge. There is no significant spinal or foraminal stenosis. C6-7: There is a mild circumferential disc bulge. There is minor right-sided foraminal narrowing. There is no significant spinal stenosis C7-T1: There is no evidence of disc bulge or focal herniation. There is no evidence of spinal or foraminal stenosis. IMPRESSION: 1. Mild multilevel spondylitic changes, with mild disc bulges the C4-5, C5-6, and C6-7 levels 2. Subtle patchy increased T2 signal throughout the cervical cord as visualized on inversion recovery images. This finding was present on the prior study, and is perhaps minimally progressive. There is no pathologic enhancement to indicate active MS plaques. Electronically signed by: Sharan Luciano M.D. 08/24/2016 6:33 AM Dictated Date/Time: 08/24/2016 6:27 AM
[2016-08-24 07:20] VITALS: BP 129/69; PULSE 61; TEMP 36.6; O2SAT 96
--- NOTE | 2016-08-24 08:09 | DIAGNOSTIC IMAGING REPORT ---
Brain MRI WITH AND WITHOUT CONTRAST HISTORY: Dizziness. Possible multiple sclerosis flare. TECHNIQUE: Multiplanar multisequence MRI of the brain was performed both before and after the intravenous administration of contrast. COMPARISON STUDY: Brain MRI 06/08/2015. FINDINGS: There is no mass, hematoma, midline shift, acute infarct. Complete opacification within the right maxillary sinus. The mastoid air cells are clear. The orbits are unremarkable. Major vascular flow voids at the skull base are maintained. The ventricles are normal in size. There again noted multiple scattered foci of T2 hyperintensity seen within the periventricular and subcortical white matter of the supratentorial brain. These are similar in size, number, and distribution compared to the prior study. This is consistent with the patient's history of multiple sclerosis. There is also single punctate focus of T2 hyperintensity within the left middle cerebellar peduncle, unchanged. No abnormal enhancement. IMPRESSION: 1. No change in the scattered white matter plaques consistent with the patient's history of multiple sclerosis. No abnormal enhancement to suggest active demyelination. 2. Complete opacification of the right maxillary sinus, unchanged. Electronically signed by: Marcio Barahona M.D. 08/24/2016 8:08 AM Dictated Date/Time: 08/24/2016 7:52 AM
[2016-08-24] MEDS: LISINOPRIL 40 MG TAB PO SCH (08:54)
[2016-08-24] MEDS: CLOPIDOGREL BISULFATE 75 MG TAB PO SCH (08:54)
[2016-08-24] MEDS: METOPROLOL TARTRATE 25 MG TAB PO SCH ×2 (08:54→19:38)
[2016-08-24] MEDS: ASPIRIN 81 MG ECTAB PO SCH (08:54)
[2016-08-24] MEDS: DULOXETINE HCL 60 MG CAP PO SCH (08:55)
[2016-08-24] MEDS: PANTOprazole SOD 40 MG TAB PO SCH (08:56)
[2016-08-24] MEDS: MIRABEGRON ER 25 MG TAB PO SCH (08:56)
[2016-08-24] MEDS: BACLOFEN 10 MG TAB PO SCH ×2 (08:56→19:38)
[2016-08-24] MEDS: SODIUM CHLORIDE 0.9% 1000ML 1,000 ML IV SCH ×2 (08:57→17:46)
[2016-08-24] MEDS: NYSTATIN POWDER 15GM BTL EXT PRN (09:06)
--- NOTE | 2016-08-24 10:16 | Progress Note ---
Medicine Progress Note Date & Time of Visit: August 24, 2016 at 10:04. Subjective patient seen resting in bed, at the bedside states she feels improved today lower extremity strength is improving, no other focal weakness affected areas on the skin also less painful still has epigastric/RUQ discomfort, appetite also poor denies nausea, melena/hematemesis no other symptoms Objective Last 8 Hrs Date Time Temp Pulse Resp B/P Pulse Ox O2 Delivery O2 Flow Rate FiO2 08/24/16 07:20 36.6 61 18 129/69 96 Room Air Physical Exam: General- oriented x 3, not in distress, no acc muscle use Eyes- anicteric Neck- supple, no JVD Lungs- clear BS bilaterally Heart- normal rate, regular rhythm; no murmurs Abdomen- normal bowel sounds, non distended soft, (+) mild RUQ tenderness Extremities- no pretibial edema, no calf tenderness; peripheral pulses intact Skin- (+) erythematous inguinal region- improving, (+) diffuse papular rash on the back, posterior > anterior thighs- papules less erythema, drying Neuro- alert, oriented x 3; EOMI; no facial palsy; no dysarthria; motor 5/5 upper extremity, 3/5 lower extremity Skin- warm & dry Laboratory Results: Last 24 Hours Test 08/24/16 09:37 Assessment & Plan 60 year old female with history of MS on Copaxone, CVA, Hypertension, other problems noted below presenting with persistent rash. POSSIBLE TINEA CRURIS WITH SUPERIMPOSED CELLULITIS INFECTED MILIARY RASH ON THE BACK AND THIGHS - failed outpatient therapy - wound culture: pending blood culture: negative so far - clinically improving - continue IV Ceftriaxone and Caspofungin Day 3, Nystatin powder ID consulted, appreciate the recommendations RUQ PAIN - GB US: NO Cholelithias, Cholecystitis - LFTs normal - has history of H pylori already on Protonix - associated with poor appetite x few weeks - will order Protonix IV, H pylori stool test will consult GI MULTIPLE SCLEROSIS EXACERBATION - Brain and Cervical Spine MRI: reviewed - improving lower leg strength - continue short prednisone taper course Baclofen BID usual Copaxone - PT/OT - appreciate Neuro SVC recommendations R/O UTI ff up Urine culture NEUROGENIC BLADDER Intermittent straight caths at home Gonzalez placed at patient's request HISTORY OF CVA With residual right arm weakness Continue aspirin and Plavix HYPERTENSION hold HCTZ continue lisinopril, metoprolol HYPOTHYROIDISM Continue levothyroxine CHRONIC BACK PAIN Continue PRN Percocet, Ibuprofen DVT PROPHYLAXIS Lovenox SQ CODE STATUS Full code DISPOSITION management of above conditions in progress PT/OT Lives at home with Follows with Dr. Hendrix for primary care Current Inpatient Medications: Current Inpatient Medications Medications (Trade) Dose Ordered Sig/Alea Route Start Time Stop Time Status Last Admin Dose Admin Acetaminophen (Tylenol Tab) 650 mg Q4H PRN PO 08/22/16 16:15 09/21/16 16:14 Ondansetron HCl 4 mg 4 mg Q6H PRN IV 08/22/16 16:15 09/21/16 16:14 08/24/16 09:06 4 MG Ceftriaxone Sodium 2000 mg/ Dextrose 70 ml @ 100 mls/hr DAILY@2000 IV 08/22/16 20:00 09/01/16 19:59 08/24/16 00:36 100 MLS/HR Caspofungin/ Sodium Chloride (Cancidas Inj/ Nss 250ml) 260 ml @ 260 mls/hr DAILY@1800 IV 08/23/16 18:00 09/21/16 17:59 08/23/16 17:39 260 MLS/HR Enoxaparin Sodium (Lovenox Inj) 40 mg Q24H SQ 08/22/16 21:00 09/21/16 20:59 08/23/16 21:26 40 MG Alprazolam (Xanax Tab) 1 mg TID PRN PO 08/22/16 17:15 09/21/16 17:14 08/23/16 06:30 1 MG Aspirin (Ecotrin Tab) 81 mg DAILY PO 08/23/16 08:00 09/22/16 07:59 08/24/16 08:54 81 MG Clopidogrel Bisulfate (plAVix TAB) 75 mg DAILY PO 08/23/16 08:00 09/22/16 07:59 08/24/16 08:54 75 MG Duloxetine HCl (Cymbalta Cap) 60 mg QAM PO 08/23/16 08:00 09/22/16 07:59 08/24/16 08:55 60 MG Levothyroxine Sodium (Synthroid Tab) 100 mcg DAILYBB PO 08/23/16 06:30 09/22/16 06:29 08/24/16 06:34 100 MCG Lisinopril (Zestril Tab) 40 mg QAM PO 08/23/16 08:00 09/22/16 07:59 08/24/16 08:54 40 MG Metoprolol Tartrate (Lopressor Tab) 25 mg BID PO 08/22/16 20:00 09/21/16 19:59 08/24/16 08:54 25 MG Mirabegron (Myrbetriq Er) 50 mg DAILY PO 08/23/16 08:00 09/22/16 07:59 08/24/16 08:56 50 MG Oxycodone/ Acetaminophen (Percocet 7.5-325MG Tab) 1 tab Q6 PRN PO 08/22/16 17:15 09/05/16 17:14 08/23/16 19:26 1 TAB Senna/Docusate Sodium (Senokot S Tab) 1 tab DAILY PRN PO 08/22/16 17:30 09/21/16 17:29 Ergocalciferol (Vitamin D Cap) 50,000 interunit TuFr@0800 PO 08/25/16 08:00 09/24/16 07:59 Polyethylene (Miralax Powder Packet) 17 gm DAILY PRN PO 08/22/16 17:30 09/21/16 17:29 Nystatin (Mycostatin Powder) 1 appln TID PRN EXT 08/22/16 18:00 09/21/16 17:59 08/24/16 09:06 1 APPLN Glatiramer Acetate 20 mg 20 mg HS SQ 08/23/16 21:00 09/22/16 20:59 08/23/16 21:26 20 MG Sodium Chloride (Nss 1000ml) 1,000 ml @ 75 mls/hr [id number] IV 08/23/16 10:00 08/24/16 08:57 100 MLS/HR Ibuprofen (Motrin Tab) 600 mg TID PRN PO 08/23/16 11:00 09/22/16 10:59 Lorazepam (Ativan Inj) 0.5 mg DAILY PRN IV 08/23/16 12:15 09/22/16 12:14 Baclofen (Lioresal Tab) 10 mg BID PO 08/23/16 20:00 09/22/16 19:59 08/24/16 08:56 10 MG Prednisone 40 mg 40 mg Taper QAM PO 08/24/16 08:00 08/28/16 07:59 08/24/16 08:53 40 MG Lorazepam/Syringe (Ativan Inj/ Syringe) 1 ml @ 1 mls/min DAILY PRN IV 08/23/16 13:00 09/22/16 12:59 08/23/16 21:37 1 MLS/MIN Gadobutrol (Gadavist) 9 mmol UD PRN IV 08/23/16 23:45 08/27/16 23:44 Enteral Nutritional Formula 1 can 1 can TID PO 08/24/16 14:00 09/23/16 13:59 UNV Pantoprazole Sodium/Syringe (Protonix Inj/ Syringe) 10 ml @ 5 mls/min DAILY@11 IV 08/25/16 09:00 09/24/16 08:59 UNV
[2016-08-24 10:19] LABS: BASO % 0.2 %; BASO ABS # 0.02 K/uL (0-0.2); COMPLETE YES; EOS % 0.1 %; HEMATOCRIT 41.2 % (37-47); IG% 0.2 %; LYMPH % 32.4 %; LYMPH ABS # 2.93 K/uL (1.2-3.4); MEAN CELL VOLUME 93.6 fL (80-100); MEAN CORPUSCULAR HEMOGLOBIN 30.9 pg (25-34); MEAN PLATELET VOLUME 9.8 fL (7.4-10.4); NEUT % 60.1 %; PLATELET COUNT 218 K/uL (130-400); WHITE BLOOD COUNT 9.03 K/uL (4.8-10.8)
[2016-08-24 10:49] LABS: BUN/CREATININE RATIO 19.1 (10-20); CREATININE 0.95 mg/dl (0.60-1.20); POTASSIUM 3.7 mmol/L (3.5-5.1)
--- NOTE | 2016-08-24 11:04 | Gastrointestinal Consultation ---
Gastrointestinal Consultation Date of Consultation: August 24, 2016 Attending Physician: Cristobal Consulting Physician: Jeff Reason for Consultation: decreased appetite, nausea, early satiety, hx of ulcer and h.pylori History of Present Illness Patient is a 60 year old female with past medical history significant for MS, depression, anxiety, hx. of CVA on Plavix, neurogenic bladder, HTN, hypothyroidism who was admitted for management of a rash. GI is consulted for evaluation of nausea, abdominal pain and decreased appetite x 3 months. These symptoms are daily and constant. They are worse 30 minute after eating and drinking. The pain is burning dull fullness. It can be stabbing at times. It is located in the epigastric region and radiates underneath her right breath. No episodes of vomiting. + early satiety + decreased appetite. She feels as if food sticks around the sternum when she swallows. No painful or difficulty swallowing. She denies any regurgitation, burping and belching. She also reports long standing issues of constipation - has a BM once a week. No black or bloody stools. She uses pantoprazole daily. RUQ US 08/23/16:Liver morphology is normal. No hepatic lesions are identified. There are no gallstones. No gallbladder wall thickening is present. Pancreatic body is normal. Head and tail are partially obscured. There is no right hydronephrosis.There is no biliary ductal dilatation. Colonoscopy 08/28/09: The perianal and digital rectal examinations were normal. Multiple small and large-mouthed diverticula were found in the sigmoid colon. The entire examined colon appeared otherwise normal. EGD: unsure of when or where but + H.Pylori Past Medical/Surgical History Medical Problems: (1) Arm pain, right Status: Chronic (2) Benign hypertension Status: Chronic (3) Depression Status: Chronic (4) DJD (degenerative joint disease), cervical Status: Chronic (5) Frequent UTI Status: Chronic (6) Gastroesophageal reflux disease Status: Chronic (7) Headache Status: Acute (8) Hyperlipidemia Nec/Nos Status: Chronic (9) Hypertensive urgency Status: Acute (10) Hypothyroidism Status: Chronic (11) Intertrigo Status: Acute (12) Intertrigo labialis Status: Acute (13) Laceration Status: Acute (14) Migraine Status: Chronic (15) MS (multiple sclerosis) Status: Chronic (16) Nausea Status: Acute (17) Pain, generalized Status: Acute (18) Pyuria Status: Acute (19) Tinea cruris Status: Acute (20) UTI (urinary tract infection) Status: Acute Past Medical History: Benign hypertension, CVA, old, hemiparesis, Depression DJD Frequent UTI Gastroesophageal reflux disease H/O migraine H/O: CVA (cerebrovascular accident ) H/O: duodenal ulcer H pylori positive per records Hyperlipidemia Hypertension Hypothyroidism MS Neurogenic bladder Past Surgical History: H/O section H/O oophorectomy S/P appendectomy S/P total abdominal hysterectomy Family History Diabetes mellitus Kidney disease Stroke Social History Smoking Status: Never Smoker Alcohol Use: none Drug Use: none Marital Status: Housing Status: lives with family Occupation Status: disabled Allergies Coded Allergies: Codeine (Verified Allergy, Unknown, ITCHING, 08/20/16) Rofecoxib (Verified Allergy, Unknown, 08/20/16) Penicillins (Verified Adverse Reaction, Intermediate, rash, 08/22/16) Metoclopramide (Verified Adverse Reaction, Mild, RESTLESS, 08/20/16) RESTLESS Prochlorperazine (Verified Adverse Reaction, Mild, RESTLESS, 08/20/16) RESTLESS Sulfa Antibiotics (Verified Adverse Reaction, Mild, NAUSEA, 08/20/16) Droperidol (Verified Adverse Reaction, Unknown, anxiety,hyperactivity, 08/20) Current Medications Home Meds and Scripts Medications Dose Route/Sig Max Daily Dose Days Date Category Dose Instructions Nizoral (Ketoconazole (Topical)) 2 % Sha 1 Appln TOP 2XWK 30 08/22/16 Reported Tylenol (Acetaminophen) 325 Mg Tab 650 Mg PO Q6 PRN 08/22/16 Reported Zofran Odt (Ondansetron HCl) 4 Mg Tab 4 Mg SL Q6H PRN 08/22/16 Rx Cefdinir 300 Mg Cap 300 Mg PO BID 08/20/16 Reported Diflucan (Fluconazole) 100 Mg Tab 1 Tab PO DAILY 14 08/12/16 Rx Motrin (Ibuprofen) 800 Mg Tab 800 Mg PO TID PRN 08/12/16 Reported Vitamin D2 (Ergocalciferol) Unknown Strength Tab 50,000 Mg PO 2XWK 08/12/16 Reported Lisinopril 40 Mg Tab 40 Mg PO QAM 08/12/16 Reported Pantoprazole Sodium (Pantoprazole) 40 Mg Tab 40 Mg PO QAM 01/26/16 Reported Duloxetine HCl 60 Mg Cap 60 Mg PO QAM 01/26/16 Reported Lopressor (Metoprolol Tartrate) 25 Mg Tab 25 Mg PO BID 01/26/16 Reported Aspirin EC Low Dose (Aspirin) 81 Mg Ectab 81 Mg DAILY 06/04/15 Reported Hctz (Hydrochlorothiazide) 25 Mg Tab 1 Tab PO DAILY 30 06/04/15 Reported Percocet 7.5MG/325MG (Oxycodone/Acetaminophen) Tab 1 Tab PO Q6 PRN 06/04/15 Reported PRN PAIN Levothyroxine Sodium 100 Mcg Tab 1 Tab PO DAILY 90 04/19/15 Reported Senna-S (Sennosides-Docusate Sodium) 1 Tab Tab 1 Tab PO DAILY PRN 11/20/14 Reported Myrbetriq Er (Mirabegron) 50 Mg Tab 50 Mg PO DAILY 11/20/14 Reported Copaxone (Glatiramer Acetate) 20 Mg/1 Ml Inj 20 Mg SC QPM 11/20/14 Reported Miralax (Polyethylene Glycol 3350) 1 Pow Pow 17 Gm PO DAILY PRN 05/30/13 Reported Xanax (Alprazolam) 1 Mg Tab 1 Mg PO TID PRN 03/10/13 Reported Plavix (Clopidogrel Bisulfate) 75 Mg Tab 75 Mg PO DAILY 01/03/13 Reported Review of Systems Constitutional: No chills, No fever Cardiac: No chest pain, No edema Abdomen: + GI bleeding, + nausea, + pain, No constipation, No diarrhea, No vomiting Physical Exam Date Time Temp Pulse Resp B/P Pulse Ox O2 Delivery O2 Flow Rate FiO2 08/24/16 09:00 Room Air 08/24/16 07:20 36.6 61 18 129/69 96 Room Air 08/24/16 00:36 36.9 86 20 101/64 92 Room Air 08/24/16 00:00 Room Air 08/23/16 16:20 Room Air 08/23/16 15:28 36.7 64 18 122/79 94 Room Air General Appearance: no apparent distress Eyes: PERRL ENT: hearing grossly normal Neck: supple, no adenopathy Respiratory/Chest: lungs clear, normal breath sounds, no respiratory distress, no accessory muscle use Cardiovascular: regular rate, rhythm, no edema, no gallop, no JVD, no murmur Abdomen: normal bowel sounds, soft, no organomegaly, + tenderness (RUQ and epigastic tenderness) Neurologic/Psych: alert, normal mood/affect, oriented x 3 Skin: normal color, no jaundice, + pertinent finding (erythematous inguinal rash, diffuse papular on thighs and back) Laboratory Results Last 24 Hours Test 08/24/16 09:52 White Blood Count 9.03 K/uL Red Blood Count 4.40 M/uL Hemoglobin 13.6 g/dL Hematocrit 41.2 % Mean Corpuscular Volume 93.6 fL Mean Corpuscular Hemoglobin 30.9 pg Mean Corpuscular Hemoglobin Concent 33.0 g/dl Platelet Count 218 K/uL Mean Platelet Volume 9.8 fL Neutrophils (%) (Auto) 60.1 % Lymphocytes (%) (Auto) 32.4 % Monocytes (%) (Auto) 7.0 % Eosinophils (%) (Auto) 0.1 % Basophils (%) (Auto) 0.2 % Neutrophils # (Auto) 5.42 K/uL Lymphocytes # (Auto) 2.93 K/uL Monocytes # (Auto) 0.63 K/uL Eosinophils # (Auto) 0.01 K/uL Basophils # (Auto) 0.02 K/uL RDW Standard Deviation 46.4 fL RDW Coefficient of Variation 13.4 % Immature Granulocyte % (Auto) 0.2 % Immature Granulocyte # (Auto) 0.02 K/uL Sodium Level 141 mmol/L Potassium Level 3.7 mmol/L Chloride Level 103 mmol/L Carbon Dioxide Level 31 mmol/L Anion Gap 7.0 mmol/L Blood Urea Nitrogen 18 mg/dl Creatinine 0.95 mg/dl Est Creatinine Clear Calc Drug Dose 77.4 ml/min Estimated GFR () 74.4 Estimated GFR (Non- 64.2 BUN/Creatinine Ratio 19.1 Random Glucose 93 mg/dl Calcium Level 9.0 mg/dl Impression Patient is a 60 year old female with a 3 month history of nausea, decreased appetite, early satiety, RUQ and epigastric pain with sensation of food sticking when she swallows. There has been a 5 lb unintentional weight loss. Differentials include gastroparesis, gastritis, PUD, H.pylori etc. Plan Diet as tolerated today KUB - eval for constipation - she should be on a bowel regimen (discussed bowel purge if no ileus or obstruction) PPI BID I saw and evaluated the patient. Gastro neurology as consult at for evaluation of abdominal discomfort and nausea. She notes the symptoms have been worsening over the past few months. She does have a long history of multiple sclerosis and pain management issues requiring several different narcotic medications. She reports having 1-2 bowel movements per week. She notes feeling full and bloated. Her last upper endoscopy and colonoscopy was many years ago. Physical examination No obvious distress Mild epigastric tenderness no rebound or peritoneal signs Impression: I suspect the patient's symptoms are related to chronic constipation given her multiple comorbid problems and medications. I would suggest an acute abdominal series or KUB to be done to confirm this. The patient should be given a fleets enema and then a dose of Relistor. The patient should be placed onto MiraLAX twice daily as an outpatient plus Colace 200 mg per day. She will likely require several days for bowel preparation for colonoscopy and I would therefore suggest we do this as an outpatient in the next month to 2. Recommendations KUB today Fleets enema Relistor X 1 MiraLAX 17 g twice daily Colace 200 mg per day Outpatient upper endoscopy and colonoscopy
--- NOTE | 2016-08-24 11:08 | Neurology Progress Notes ---
Neurology Progress Note Date of Service August 24, 2016. Subjective Patient feels a little bit better. She is more alert and her legs have better movement. She has no side effects from the steroids. CBC and chem profile were largely unremarkable. MRI of the brain and cervical spine showed typical MS lesions as before with no new or active lesions present. There is mild spinal stenosis from disc and bone at C4-C6.. I reviewed these with the patient. Objective Date Time Temp Pulse Resp B/P Pulse Ox O2 Delivery O2 Flow Rate FiO2 08/24/16 09:00 Room Air 08/24/16 07:20 36.6 61 18 129/69 96 Room Air 08/24/16 00:36 36.9 86 20 101/64 92 Room Air 08/24/16 00:00 Room Air 08/23/16 16:20 Room Air 08/23/16 15:28 36.7 64 18 122/79 94 Room Air Last 24 Hours Test 08/24/16 09:52 White Blood Count 9.03 K/uL Red Blood Count 4.40 M/uL Hemoglobin 13.6 g/dL Hematocrit 41.2 % Mean Corpuscular Volume 93.6 fL Mean Corpuscular Hemoglobin 30.9 pg Mean Corpuscular Hemoglobin Concent 33.0 g/dl Platelet Count 218 K/uL Mean Platelet Volume 9.8 fL Neutrophils (%) (Auto) 60.1 % Lymphocytes (%) (Auto) 32.4 % Monocytes (%) (Auto) 7.0 % Eosinophils (%) (Auto) 0.1 % Basophils (%) (Auto) 0.2 % Neutrophils # (Auto) 5.42 K/uL Lymphocytes # (Auto) 2.93 K/uL Monocytes # (Auto) 0.63 K/uL Eosinophils # (Auto) 0.01 K/uL Basophils # (Auto) 0.02 K/uL RDW Standard Deviation 46.4 fL RDW Coefficient of Variation 13.4 % Immature Granulocyte % (Auto) 0.2 % Immature Granulocyte # (Auto) 0.02 K/uL Sodium Level 141 mmol/L Potassium Level 3.7 mmol/L Chloride Level 103 mmol/L Carbon Dioxide Level 31 mmol/L Anion Gap 7.0 mmol/L Blood Urea Nitrogen 18 mg/dl Creatinine 0.95 mg/dl Est Creatinine Clear Calc Drug Dose 77.4 ml/min Estimated GFR () 74.4 Estimated GFR (Non- 64.2 BUN/Creatinine Ratio 19.1 Random Glucose 93 mg/dl Calcium Level 9.0 mg/dl Imaging: Brain MRI WITH AND WITHOUT CONTRAST HISTORY: Dizziness. Possible multiple sclerosis flare. TECHNIQUE: Multiplanar multisequence MRI of the brain was performed both before and after the intravenous administration of contrast. COMPARISON STUDY: Brain MRI 06/08/2015. FINDINGS: There is no mass, hematoma, midline shift, acute infarct. Complete opacification within the right maxillary sinus. The mastoid air cells are clear. The orbits are unremarkable. Major vascular flow voids at the skull base are maintained. The ventricles are normal in size. There again noted multiple scattered foci of T2 hyperintensity seen within the periventricular and subcortical white matter of the supratentorial brain. These are similar in size, number, and distribution compared to the prior study. This is consistent with the patient's history of multiple sclerosis. There is also single punctate focus of T2 hyperintensity within the left middle cerebellar peduncle, unchanged. No abnormal enhancement. IMPRESSION: 1. No change in the scattered white matter plaques consistent with the patient's history of multiple sclerosis. No abnormal enhancement to suggest active demyelination. 2. Complete opacification of the right maxillary sinus, unchanged. Electronically signed by: Marcio Barahona M.D. 08/24/2016 8:08 AM MRI CERVICAL SPINE COMBO CLINICAL HISTORY: possible MS flare WEAKNESS. DROPPING THINGS. NECK PAIN. TECHNIQUE: Sagittal and axial T1, T2 and STIR images were obtained. COMPARISON STUDY: 04/11/2014 There are no suspicious areas of marrow enhancement. On STIR images, there is patchy increased T2 signal throughout the cervical cord. Given the clinical history, the findings are consistent with multifocal MS plaques. There is no postcontrast enhancement to indicate active plaques. These findings were present on the prior study and are perhaps minimally progressive. C2-3: There is no evidence of disc bulge or focal herniation. There is no spinal or foraminal stenosis. C3-4: There is no evidence of disc bulge or focal herniation. There is no spinal or foraminal stenosis. C4-5: There is a mild circumferential disc bulge. There is no significant spinal or foraminal stenosis C5-6 :There is a mild circumferential disc bulge. There is no significant spinal or foraminal stenosis. C6-7: There is a mild circumferential disc bulge. There is minor right-sided foraminal narrowing. There is no significant spinal stenosis C7-T1: There is no evidence of disc bulge or focal herniation. There is no evidence of spinal or foraminal stenosis. IMPRESSION: 1. Mild multilevel spondylitic changes, with mild disc bulges the C4-5, C5-6, and C6-7 levels 2. Subtle patchy increased T2 signal throughout the cervical cord as visualized on inversion recovery images. This finding was present on the prior study, and is perhaps minimally progressive. There is no pathologic enhancement to indicate active MS plaques. Electronically signed by: Sharan Luciano M.D. 08/24/2016 6:33 AM Exam: She is awake and alert. Speech and mentation are normal and appropriate. Her processes are intact. Extraocular muscles are intact without nystagmus. There is no facial droop. Coordination seems reasonable the arms although there is spasticity and decreased facility in the right hand compared to the left. Leg strength is 4/5 diffusely and there is spasticity. Current Inpatient Medications Medications (Trade) Dose Ordered Sig/Alea Route Start Time Stop Time Status Last Admin Dose Admin Acetaminophen (Tylenol Tab) 650 mg Q4H PRN PO 08/22/16 16:15 09/21/16 16:14 Ondansetron HCl 4 mg 4 mg Q6H PRN IV 08/22/16 16:15 09/21/16 16:14 08/24/16 09:06 4 MG Ceftriaxone Sodium 2000 mg/ Dextrose 70 ml @ 100 mls/hr DAILY@2000 IV 08/22/16 20:00 09/01/16 19:59 08/24/16 00:36 100 MLS/HR Caspofungin/ Sodium Chloride (Cancidas Inj/ Nss 250ml) 260 ml @ 260 mls/hr DAILY@1800 IV 08/23/16 18:00 09/21/16 17:59 08/23/16 17:39 260 MLS/HR Enoxaparin Sodium (Lovenox Inj) 40 mg Q24H SQ 08/22/16 21:00 09/21/16 20:59 08/23/16 21:26 40 MG Alprazolam (Xanax Tab) 1 mg TID PRN PO 08/22/16 17:15 09/21/16 17:14 08/23/16 06:30 1 MG Aspirin (Ecotrin Tab) 81 mg DAILY PO 08/23/16 08:00 09/22/16 07:59 08/24/16 08:54 81 MG Clopidogrel Bisulfate (plAVix TAB) 75 mg DAILY PO 08/23/16 08:00 09/22/16 07:59 08/24/16 08:54 75 MG Duloxetine HCl (Cymbalta Cap) 60 mg QAM PO 08/23/16 08:00 09/22/16 07:59 08/24/16 08:55 60 MG Levothyroxine Sodium (Synthroid Tab) 100 mcg DAILYBB PO 08/23/16 06:30 09/22/16 06:29 08/24/16 06:34 100 MCG Lisinopril (Zestril Tab) 40 mg QAM PO 08/23/16 08:00 09/22/16 07:59 08/24/16 08:54 40 MG Metoprolol Tartrate (Lopressor Tab) 25 mg BID PO 08/22/16 20:00 09/21/16 19:59 08/24/16 08:54 25 MG Mirabegron (Myrbetriq Er) 50 mg DAILY PO 08/23/16 08:00 09/22/16 07:59 08/24/16 08:56 50 MG Oxycodone/ Acetaminophen (Percocet 7.5-325MG Tab) 1 tab Q6 PRN PO 08/22/16 17:15 09/05/16 17:14 08/23/16 19:26 1 TAB Senna/Docusate Sodium (Senokot S Tab) 1 tab DAILY PRN PO 08/22/16 17:30 09/21/16 17:29 Ergocalciferol (Vitamin D Cap) 50,000 interunit TuFr@0800 PO 08/25/16 08:00 09/24/16 07:59 Polyethylene (Miralax Powder Packet) 17 gm DAILY PRN PO 08/22/16 17:30 09/21/16 17:29 Nystatin (Mycostatin Powder) 1 appln TID PRN EXT 08/22/16 18:00 09/21/16 17:59 08/24/16 09:06 1 APPLN Glatiramer Acetate 20 mg 20 mg HS SQ 08/23/16 21:00 09/22/16 20:59 08/23/16 21:26 20 MG Sodium Chloride (Nss 1000ml) 1,000 ml @ 75 mls/hr [id number] IV 08/23/16 10:00 09/22/16 09:59 08/24/16 08:57 100 MLS/HR Ibuprofen (Motrin Tab) 600 mg TID PRN PO 08/23/16 11:00 09/22/16 10:59 Lorazepam (Ativan Inj) 0.5 mg DAILY PRN IV 08/23/16 12:15 09/22/16 12:14 Baclofen (Lioresal Tab) 10 mg BID PO 08/23/16 20:00 09/22/16 19:59 08/24/16 08:56 10 MG Prednisone 40 mg 40 mg Taper QAM PO 08/24/16 08:00 08/28/16 07:59 08/24/16 08:53 40 MG Lorazepam/Syringe (Ativan Inj/ Syringe) 1 ml @ 1 mls/min DAILY PRN IV 08/23/16 13:00 09/22/16 12:59 08/23/16 21:37 1 MLS/MIN Gadobutrol (Gadavist) 9 mmol UD PRN IV 08/23/16 23:45 08/27/16 23:44 Enteral Nutritional Formula 1 can 1 can TID PO 08/24/16 14:00 09/23/16 13:59 Pantoprazole Sodium/Syringe (Protonix Inj/ Syringe) 10 ml @ 5 mls/min DAILY@11 IV 08/25/16 11:00 09/24/16 10:59 Impression 1. Multiple sclerosis. Relapsing remitting with secondary progression. She continues to get flareups and now has some increased leg weakness. This has improved some with prednisone during this hospitalization. She is on Copaxone but this is not holding her. We are looking to switch her to another medication, but this will be done as an outpatient. 2. Spasticity and weakness secondary to MS. We have initiated baclofen to help with this. 3. Cognitive issues secondary to MS 4. History of depression, somewhat improved and stable currently 5. History of migraine headaches, improved and stable 6. Vitamin D deficiency 7. Chronic low back pain and history of neck pain. These are fairly stable currently as well Plan 1. Continue baclofen 10 mg twice a day for spasticity. This can be titrated as an outpatient. 2. Continue tapering prednisone course. 3. physical occupational therapy consults. Consider rehabilitation hospital stay after medically improved. I will follow as an outpatient in 2-3 weeks. I no further neurologic testing or treatment regulations to make at this time, please contact me if I can be of further assistance on this case
[2016-08-24] MEDS: OXYCODONE/ACETAMINOPHEN 7.5-325 TAB PO PRN ×2 (12:04→19:37)
[2016-08-24] MEDS: ALPRAZOLAM 0.5 MG TAB PO PRN (13:39)
[2016-08-24] MEDS ORDERED: BOOST VANILLA PO SCH ×2 (14:00)
--- NOTE | 2016-08-24 14:04 | DIAGNOSTIC IMAGING REPORT ---
KUB CLINICAL HISTORY: generalized abdominal pain, bloating, constipation pain. Nausea. COMPARISON STUDY: No previous studies for comparison. FINDINGS: The soft tissues, psoas shadows, renal outlines and intestinal gas pattern appear normal. There is no evidence for bowel obstruction. No abnormal abdominal calcifications are seen. IMPRESSION: note is made of vague cortical fracture anterior left 10th rib. Mild increase in fecal load within the colon consistent with a component of fecal stasis Electronically signed by: Alejandro Lucas M.D. 08/24/2016 2:03 PM Dictated Date/Time: 08/24/2016 1:57 PM
[2016-08-24] MEDS ORDERED: SOD PHOSPHATE/SOD BIPHOSPHATE ENEMA 132 ML BTL PR STA (14:06)
[2016-08-24] MEDS: POLYETHYLENE (MIRALAX) 17 GM PACK PO PRN (14:46)
[2016-08-24 15:24] VITALS: BP 149/84; PULSE 71; TEMP 36.6; O2SAT 97
[2016-08-24] MEDS: BOOST VANILLA PO SCH ×2 (17:43)
[2016-08-24] MEDS: CASPOFUNGIN INJ 50 MG in SODIUM CHLORIDE 0.9% 250ML 250 ML IV SCH (17:48)
[2016-08-24 19:35] VITALS: BP 123/76; PULSE 73
[2016-08-24] MEDS: GLATIRAMER ACETATE 20 MG/ML SQ SCH (20:38)
[2016-08-24] MEDS: ENOXAPARIN 40 MG/0.4 ML SYR SQ SCH (20:38)
[2016-08-25 00:18] VITALS: BP 127/77; PULSE 62; TEMP 36.3; O2SAT 93
[2016-08-25] MEDS: LEVOTHYROXINE 100 MCG TAB PO SCH (06:34)
[2016-08-25 07:29] VITALS: BP 147/84; PULSE 62; TEMP 36.5; O2SAT 97
[2016-08-25 08:30] VITALS: O2SAT 97
[2016-08-25] MEDS: ALPRAZOLAM 0.5 MG TAB PO PRN ×2 (08:33→16:06)
[2016-08-25] MEDS: CLOPIDOGREL BISULFATE 75 MG TAB PO SCH (08:34)
[2016-08-25] MEDS: ASPIRIN 81 MG ECTAB PO SCH (08:34)
[2016-08-25] MEDS: DULOXETINE HCL 60 MG CAP PO SCH (08:34)
[2016-08-25] MEDS: MIRABEGRON ER 25 MG TAB PO SCH (08:34)
[2016-08-25] MEDS: ERGOCALCIFEROL 50,000 INTER.UNIT CAP PO SCH (08:34)
[2016-08-25] MEDS: BACLOFEN 10 MG TAB PO SCH ×2 (08:35→20:38)
[2016-08-25] MEDS: LISINOPRIL 40 MG TAB PO SCH (08:35)
[2016-08-25] MEDS: METOPROLOL TARTRATE 25 MG TAB PO SCH ×2 (08:36→20:39)
[2016-08-25] MEDS: METHYLNALTREXONE BROMIDE INJ 12 MG/0.6 ML SYR SQ SCH (08:36)
[2016-08-25] MEDS: SODIUM CHLORIDE 0.9% 1000ML 1,000 ML IV SCH (08:38)
[2016-08-25] MEDS: BOOST VANILLA PO SCH ×6 (08:38→17:00)
[2016-08-25] MEDS: NYSTATIN POWDER 15GM BTL EXT PRN ×2 (09:00→20:50)
[2016-08-25] MEDS: PANTOprazole INJ 40 MG in SYRINGE 0 ML IV SCH (10:36)
--- NOTE | 2016-08-25 10:43 | Gastroenterology Progress Note ---
Progress Note Date of Service: August 25, 2016 Subjective Pt evaluation today including: conversation w/ patient, conversation w/ family , physical exam, chart review, lab review Pt was seen and evaluated this AM. She was not agreeable to enema as discussed yesterday. Miralax with + BM. No abdominal pain. She feels bloated and as if she needs to go to the bathroom more. She has yet to receive her ordered dose of Relistor. Overall, feeling improved from yesterday. No fever, chills, chest pain, black/bloody stools. Review of Systems Constitutional: No chills, No fever Respiratory: No cough, No shortness of breath Cardiac: No chest pain Abdomen: No constipation, No diarrhea, No nausea, No pain, No vomiting Skin: + rash Medications Current Inpatient Medications Medications (Trade) Dose Ordered Sig/Alea Route Start Time Stop Time Status Last Admin Dose Admin Acetaminophen (Tylenol Tab) 650 mg Q4H PRN PO 08/22/16 16:15 09/21/16 16:14 Ondansetron HCl 4 mg 4 mg Q6H PRN IV 08/22/16 16:15 09/21/16 16:14 08/24/16 17:42 4 MG Ceftriaxone Sodium 2000 mg/ Dextrose 70 ml @ 100 mls/hr DAILY@2000 IV 08/22/16 20:00 09/01/16 19:59 08/24/16 22:09 100 MLS/HR Caspofungin/ Sodium Chloride (Cancidas Inj/ Nss 250ml) 260 ml @ 260 mls/hr DAILY@1800 IV 08/23/16 18:00 09/21/16 17:59 08/24/16 17:48 260 MLS/HR Enoxaparin Sodium (Lovenox Inj) 40 mg Q24H SQ 08/22/16 21:00 09/21/16 20:59 08/24/16 20:38 40 MG Alprazolam (Xanax Tab) 1 mg TID PRN PO 08/22/16 17:15 09/21/16 17:14 08/25/16 08:33 1 MG Aspirin (Ecotrin Tab) 81 mg DAILY PO 08/23/16 08:00 09/22/16 07:59 08/25/16 08:34 81 MG Clopidogrel Bisulfate (plAVix TAB) 75 mg DAILY PO 08/23/16 08:00 09/22/16 07:59 08/25/16 08:34 75 MG Duloxetine HCl (Cymbalta Cap) 60 mg QAM PO 08/23/16 08:00 09/22/16 07:59 08/25/16 08:34 60 MG Levothyroxine Sodium (Synthroid Tab) 100 mcg DAILYBB PO 08/23/16 06:30 09/22/16 06:29 08/25/16 06:34 100 MCG Lisinopril (Zestril Tab) 40 mg QAM PO 08/23/16 08:00 09/22/16 07:59 08/25/16 08:35 40 MG Metoprolol Tartrate (Lopressor Tab) 25 mg BID PO 08/22/16 20:00 09/21/16 19:59 08/25/16 08:36 25 MG Mirabegron (Myrbetriq Er) 50 mg DAILY PO 08/23/16 08:00 09/22/16 07:59 08/25/16 08:34 50 MG Oxycodone/ Acetaminophen (Percocet 7.5-325MG Tab) 1 tab Q6 PRN PO 08/22/16 17:15 09/05/16 17:14 08/24/16 19:37 1 TAB Senna/Docusate Sodium (Senokot S Tab) 1 tab DAILY PRN PO 08/22/16 17:30 09/21/16 17:29 08/24/16 14:46 1 TAB Ergocalciferol (Vitamin D Cap) 50,000 interunit TuFr@0800 PO 08/25/16 08:00 09/24/16 07:59 08/25/16 08:34 50,000 INTERUNIT Polyethylene (Miralax Powder Packet) 17 gm DAILY PRN PO 08/22/16 17:30 09/21/16 17:29 08/24/16 14:46 17 GM Nystatin (Mycostatin Powder) 1 appln TID PRN EXT 08/22/16 18:00 09/21/16 17:59 08/24/16 09:06 1 APPLN Glatiramer Acetate 20 mg 20 mg HS SQ 08/23/16 21:00 09/22/16 20:59 08/24/16 20:38 20 MG Sodium Chloride (Nss 1000ml) 1,000 ml @ 75 mls/hr [id number] IV 08/23/16 10:00 09/22/16 09:59 08/25/16 08:38 75 MLS/HR Ibuprofen (Motrin Tab) 600 mg TID PRN PO 08/23/16 11:00 09/22/16 10:59 Lorazepam (Ativan Inj) 0.5 mg DAILY PRN IV 08/23/16 12:15 09/22/16 12:14 Baclofen (Lioresal Tab) 10 mg BID PO 08/23/16 20:00 09/22/16 19:59 08/25/16 08:35 10 MG Prednisone 30 mg 30 mg Taper QAM PO 08/24/16 08:00 08/28/16 07:59 08/25/16 08:35 30 MG Lorazepam/Syringe (Ativan Inj/ Syringe) 1 ml @ 1 mls/min DAILY PRN IV 08/23/16 13:00 09/22/16 12:59 08/23/16 21:37 1 MLS/MIN Gadobutrol 9 mmol 9 mmol UD PRN IV 08/23/16 23:45 08/27/16 23:44 Pantoprazole Sodium/Syringe (Protonix Inj/ Syringe) 10 ml @ 5 mls/min DAILY@11 IV 08/25/16 11:00 09/24/16 10:59 08/25/16 10:36 5 MLS/MIN Methylnaltrexone [place] (Relistor Inj) 12 mg Q2D SQ 08/25/16 08:00 09/24/16 07:59 08/25/16 08:36 12 MG Enteral Nutritional Formula (Boost) 1 can TIDM PO 08/24/16 17:00 09/23/16 16:59 08/25/16 08:38 1 CAN Objective Vital Signs Date Time Temp Pulse Resp B/P Pulse Ox O2 Delivery O2 Flow Rate FiO2 08/25/16 07:29 36.5 62 18 147/84 97 Room Air 08/25/16 00:18 36.3 62 16 127/77 93 Room Air 08/25/16 00:00 Room Air 08/24/16 20:00 Room Air 08/24/16 19:35 73 123/76 08/24/16 15:24 36.6 71 16 149/84 97 Room Air 08/24/16 15:05 Room Air Physical Exam General Appearance: no apparent distress (she OOB in chair) Eyes: PERRL ENT: hearing grossly normal Neck: supple Respiratory/Chest: lungs clear, no respiratory distress Cardiovascular: regular rate, rhythm, no edema, no gallop, no JVD Abdomen: normal bowel sounds, non tender, soft, no organomegaly, no pulsatile mass Neurologic/Psych: alert, normal mood/affect, oriented x 3 Skin: normal color, + rash Laboratory Results Last 24 Hours Test 08/25/16 09:37 Assessment and Plan Patient is a 60 year old female with a 3 month history of nausea, decreased appetite, early satiety, RUQ and epigastric pain with sensation of food sticking when she swallows. There has been a 5 lb unintentional weight loss. Differentials include gastroparesis, gastritis, constipation PUD, H.pylori etc. Constipation likely secondary to ongoing narcotic use - she was to have a fleets enema and a dose of relistor but this was yet to be done at request of pt Diet as tolerated today PPI BID MiraLAX twice daily Colace 200 mg per day. Relistor X 1 Outpatient upper endoscopy and colonoscopy to be scheduled by GI. GI to sign off. Call with questions or concerns. I saw and evaluated the patient with Ms. Pereyra. History most consistent with drug induced constipation -- Relistor today -- Miralax 17 gm bid -- OP egd + colonoacopy
[2016-08-25 11:02] LABS: BASO % 0.3 %; BASO ABS # 0.04 K/uL (0-0.2); COMPLETE YES; EOS % 0.5 %; HEMATOCRIT 46.9 % (37-47); IG% 0.2 %; LYMPH % 22.4 %; LYMPH ABS # 2.89 K/uL (1.2-3.4); MEAN CELL VOLUME 94.2 fL (80-100); MEAN CORPUSCULAR HEMOGLOBIN 29.9 pg (25-34); MEAN CORPUSCULAR HGB CONC 31.8 g/dl (32-36); MEAN PLATELET VOLUME 9.8 fL (7.4-10.4); MONO % 6.5 %; NEUT % 70.1 %; PLATELET COUNT 223 K/uL (130-400); RED BLOOD COUNT 4.98 M/uL (4.2-5.4); WHITE BLOOD COUNT 12.88 K/uL (4.8-10.8)
[2016-08-25 11:33] LABS: BUN/CREATININE RATIO 20.1 (10-20); CREATININE 0.78 mg/dl (0.60-1.20); POTASSIUM 3.5 mmol/L (3.5-5.1)
[2016-08-25 11:59] LABS: CALCIUM 9.4 mg/dl (8.5-10.1)
[2016-08-25] MEDS: OXYCODONE/ACETAMINOPHEN 7.5-325 TAB PO PRN ×2 (12:03→21:13)
[2016-08-25 15:37] VITALS: BP 147/83; PULSE 73; TEMP 36.8; O2SAT 94
[2016-08-25] MEDS: CASPOFUNGIN INJ 50 MG in SODIUM CHLORIDE 0.9% 250ML 250 ML IV SCH (18:13)
[2016-08-25 20:30] VITALS: BP 165/83; PULSE 72
[2016-08-25] MEDS: CEFTRIAXONE SOD INJ 2,000 MG in DEXTROSE 5% 50ML 50 ML IV SCH (20:34)
[2016-08-25] MEDS: ENOXAPARIN 40 MG/0.4 ML SYR SQ SCH (20:43)
[2016-08-25] MEDS: GLATIRAMER ACETATE 20 MG/ML SQ SCH (20:46)
--- NOTE | 2016-08-25 22:42 | Progress Note ---
Medicine Progress Note Date & Time of Visit: August 25, 2016 at 22:42. Subjective seen resting in bed, comfortable states she is feeling improved leg strength continues to improve no new focal deficits affected skin region also feels improved denies abdominal pain, nausea Objective Last 8 Hrs Date Time Temp Pulse Resp B/P Pulse Ox O2 Delivery O2 Flow Rate FiO2 08/25/16 20:00 Room Air 08/25/16 16:03 Room Air 08/25/16 15:37 36.8 73 17 147/83 94 Room Air Physical Exam: General- oriented x 3, not in distress, no acc muscle use Neck- no JVD Lungs- no rales/wheezes bilaterally Heart- normal rate, regular rhythm; no murmurs Abdomen- normal bowel sounds, non distended soft,NO Q tenderness Extremities- no pretibial edema, no calf tenderness; peripheral pulses intact Skin- (+) erythematous inguinal region- improving, (+) diffuse papular rash on the back, posterior > anterior thighs- papules less erythema, drying up further Neuro- alert, oriented x 3; EOMI; no facial palsy; no dysarthria; motor 5/5 upper extremity, 3/5 lower extremity Skin- warm & dry Laboratory Results: Last 24 Hours Test 08/25/16 10:55 White Blood Count 12.88 K/uL Red Blood Count 4.98 M/uL Hemoglobin 14.9 g/dL Hematocrit 46.9 % Mean Corpuscular Volume 94.2 fL Mean Corpuscular Hemoglobin 29.9 pg Mean Corpuscular Hemoglobin Concent 31.8 g/dl Platelet Count 223 K/uL Mean Platelet Volume 9.8 fL Neutrophils (%) (Auto) 70.1 % Lymphocytes (%) (Auto) 22.4 % Monocytes (%) (Auto) 6.5 % Eosinophils (%) (Auto) 0.5 % Basophils (%) (Auto) 0.3 % Neutrophils # (Auto) 9.03 K/uL Lymphocytes # (Auto) 2.89 K/uL Monocytes # (Auto) 0.84 K/uL Eosinophils # (Auto) 0.06 K/uL Basophils # (Auto) 0.04 K/uL RDW Standard Deviation 46.5 fL RDW Coefficient of Variation 13.5 % Immature Granulocyte % (Auto) 0.2 % Immature Granulocyte # (Auto) 0.02 K/uL Sodium Level 142 mmol/L Potassium Level 3.5 mmol/L Chloride Level 106 mmol/L Carbon Dioxide Level 28 mmol/L Anion Gap 8.0 mmol/L Blood Urea Nitrogen 16 mg/dl Creatinine 0.78 mg/dl Est Creatinine Clear Calc Drug Dose 94.3 ml/min Estimated GFR () 94.4 Estimated GFR (Non- 81.5 BUN/Creatinine Ratio 20.1 Random Glucose 82 mg/dl Calcium Level 9.4 mg/dl Assessment & Plan 60 year old female with history of MS on Copaxone, CVA, Hypertension, other problems noted below presenting with persistent rash. POSSIBLE TINEA CRURIS WITH SUPERIMPOSED CELLULITIS INFECTED MILIARY RASH ON THE BACK AND THIGHS - failed outpatient therapy - wound culture: pending blood culture: negative so far - continues to improve clinically awaiting final cultures - continue IV Ceftriaxone and Caspofungin Day 4, Nystatin powder ID consulted, appreciate the recommendations RUQ PAIN - GB US: NO Cholelithias, Cholecystitis - LFTs normal - has history of H pylori already on Protonix - associated with poor appetite x few weeks - improving on Relistor, laxatives MULTIPLE SCLEROSIS EXACERBATION - Brain and Cervical Spine MRI: reviewed - improving lower leg strength - continue short prednisone taper course Baclofen BID usual Copaxone - PT/OT recommend return home improving - appreciate Neuro SVC recommendations R/O UTI ff up Urine culture NEUROGENIC BLADDER Intermittent straight caths at home Gonzalez placed at patient's request HISTORY OF CVA With residual right arm weakness Continue aspirin and Plavix HYPERTENSION hold HCTZ continue lisinopril, metoprolol HYPOTHYROIDISM Continue levothyroxine CHRONIC BACK PAIN Continue PRN Percocet, Ibuprofen DVT PROPHYLAXIS Lovenox SQ CODE STATUS Full code DISPOSITION management of above conditions in progress PT/OT Lives at home with Follows with Dr. Hendrix for primary care Current Inpatient Medications: Current Inpatient Medications Medications (Trade) Dose Ordered Sig/Alea Route Start Time Stop Time Status Last Admin Dose Admin Acetaminophen (Tylenol Tab) 650 mg Q4H PRN PO 08/22/16 16:15 09/21/16 16:14 Ondansetron HCl 4 mg 4 mg Q6H PRN IV 08/22/16 16:15 09/21/16 16:14 08/24/16 17:42 4 MG Ceftriaxone Sodium 2000 mg/ Dextrose 70 ml @ 100 mls/hr DAILY@2000 IV 08/22/16 20:00 09/01/16 19:59 08/25/16 20:34 100 MLS/HR Caspofungin/ Sodium Chloride (Cancidas Inj/ Nss 250ml) 260 ml @ 260 mls/hr DAILY@1800 IV 08/23/16 18:00 09/21/16 17:59 08/25/16 18:13 260 MLS/HR Enoxaparin Sodium (Lovenox Inj) 40 mg Q24H SQ 08/22/16 21:00 09/21/16 20:59 08/25/16 20:43 40 MG Alprazolam (Xanax Tab) 1 mg TID PRN PO 08/22/16 17:15 09/21/16 17:14 08/25/16 16:06 1 MG Aspirin (Ecotrin Tab) 81 mg DAILY PO 08/23/16 08:00 09/22/16 07:59 08/25/16 08:34 81 MG Clopidogrel Bisulfate (plAVix TAB) 75 mg DAILY PO 08/23/16 08:00 09/22/16 07:59 08/25/16 08:34 75 MG Duloxetine HCl (Cymbalta Cap) 60 mg QAM PO 08/23/16 08:00 09/22/16 07:59 08/25/16 08:34 60 MG Levothyroxine Sodium (Synthroid Tab) 100 mcg DAILYBB PO 08/23/16 06:30 09/22/16 06:29 08/25/16 06:34 100 MCG Lisinopril (Zestril Tab) 40 mg QAM PO 08/23/16 08:00 09/22/16 07:59 08/25/16 08:35 40 MG Metoprolol Tartrate (Lopressor Tab) 25 mg BID PO 08/22/16 20:00 09/21/16 19:59 08/25/16 20:39 25 MG Mirabegron (Myrbetriq Er) 50 mg DAILY PO 08/23/16 08:00 09/22/16 07:59 08/25/16 08:34 50 MG Oxycodone/ Acetaminophen (Percocet 7.5-325MG Tab) 1 tab Q6 PRN PO 08/22/16 17:15 09/05/16 17:14 08/25/16 21:13 1 TAB Senna/Docusate Sodium (Senokot S Tab) 1 tab DAILY PRN PO 08/22/16 17:30 09/21/16 17:29 08/24/16 14:46 1 TAB Ergocalciferol (Vitamin D Cap) 50,000 interunit TuFr@0800 PO 08/25/16 08:00 09/24/16 07:59 08/25/16 08:34 50,000 INTERUNIT Polyethylene (Miralax Powder Packet) 17 gm DAILY PRN PO 08/22/16 17:30 09/21/16 17:29 08/24/16 14:46 17 GM Nystatin (Mycostatin Powder) 1 appln TID PRN EXT 08/22/16 18:00 09/21/16 17:59 08/25/16 20:50 1 APPLN Glatiramer Acetate (Copaxone) 20 mg HS SQ 08/23/16 21:00 09/22/16 20:59 08/25/16 20:46 20 MG Ibuprofen (Motrin Tab) 600 mg TID PRN PO 08/23/16 11:00 09/22/16 10:59 Lorazepam (Ativan Inj) 0.5 mg DAILY PRN IV 08/23/16 12:15 09/22/16 12:14 Baclofen (Lioresal Tab) 10 mg BID PO 08/23/16 20:00 09/22/16 19:59 08/25/16 20:38 10 MG Prednisone 30 mg 30 mg Taper QAM PO 08/24/16 08:00 08/28/16 07:59 08/25/16 08:35 30 MG Lorazepam/Syringe (Ativan Inj/ Syringe) 1 ml @ 1 mls/min DAILY PRN IV 08/23/16 13:00 09/22/16 12:59 08/23/16 21:37 1 MLS/MIN Gadobutrol 9 mmol 9 mmol UD PRN IV 08/23/16 23:45 08/27/16 23:44 Pantoprazole Sodium/Syringe (Protonix Inj/ Syringe) 10 ml @ 5 mls/min DAILY@11 IV 08/25/16 11:00 09/24/16 10:59 08/25/16 10:36 5 MLS/MIN Methylnaltrexone [place] (Relistor Inj) 12 mg Q2D SQ 08/25/16 08:00 09/24/16 07:59 08/25/16 08:36 12 MG Enteral Nutritional Formula (Boost) 1 can TIDM PO 08/24/16 17:00 09/23/16 16:59 08/25/16 08:38 1 CAN
[2016-08-25 23:53] VITALS: BP 137/84; PULSE 59; TEMP 36.9; O2SAT 97
[2016-08-26] MEDS: LEVOTHYROXINE 100 MCG TAB PO SCH (06:24)
[2016-08-26 06:54] LABS: BASO % 0.2 %; BASO ABS # 0.02 K/uL (0-0.2); COMPLETE YES; EOS % 0.8 %; HEMATOCRIT 39.4 % (37-47); IG% 0.1 %; LYMPH % 42.9 %; LYMPH ABS # 3.88 K/uL (1.2-3.4); MEAN CELL VOLUME 93.6 fL (80-100); MEAN CORPUSCULAR HEMOGLOBIN 29.9 pg (25-34); MEAN PLATELET VOLUME 10.3 fL (7.4-10.4); MONO % 7.2 %; NEUT % 48.8 %; PLATELET COUNT 195 K/uL (130-400); RED BLOOD COUNT 4.21 M/uL (4.2-5.4); WHITE BLOOD COUNT 9.04 K/uL (4.8-10.8)
[2016-08-26 07:26] LABS: BUN/CREATININE RATIO 25.2 (10-20); CALCIUM 8.5 mg/dl (8.5-10.1); CREATININE 0.58 mg/dl (0.60-1.20); POTASSIUM 3.7 mmol/L (3.5-5.1)
[2016-08-26 07:36] VITALS: BP 156/85; PULSE 55; TEMP 36.5; O2SAT 97
[2016-08-26] MEDS: BOOST VANILLA PO SCH ×6 (08:00→17:00)
[2016-08-26] MEDS: NYSTATIN POWDER 15GM BTL EXT PRN ×2 (10:13→20:37)
[2016-08-26] MEDS: POLYETHYLENE (MIRALAX) 17 GM PACK PO PRN (10:18)
[2016-08-26] MEDS: BACLOFEN 10 MG TAB PO SCH ×2 (10:19→20:34)
[2016-08-26] MEDS: DULOXETINE HCL 60 MG CAP PO SCH (10:19)
[2016-08-26] MEDS: ASPIRIN 81 MG ECTAB PO SCH (10:19)
[2016-08-26] MEDS: METOPROLOL TARTRATE 25 MG TAB PO SCH ×2 (10:20→20:34)
[2016-08-26] MEDS: CLOPIDOGREL BISULFATE 75 MG TAB PO SCH (10:20)
[2016-08-26] MEDS: MIRABEGRON ER 25 MG TAB PO SCH (10:20)
[2016-08-26] MEDS: OXYCODONE/ACETAMINOPHEN 7.5-325 TAB PO PRN ×2 (10:21→20:33)
[2016-08-26] MEDS: LISINOPRIL 40 MG TAB PO SCH (10:21)
[2016-08-26] MEDS: ALPRAZOLAM 0.5 MG TAB PO PRN ×2 (12:19→20:33)
[2016-08-26] MEDS: PANTOprazole INJ 40 MG in SYRINGE 0 ML IV SCH (12:19)
--- NOTE | 2016-08-26 12:46 | Progress Note ---
Medicine Progress Note Date & Time of Visit: August 26, 2016 at 12:42. Subjective patient seen resting in bed, sitting up comfortable reports increased pruritus in the inguinal region and scalp denies fever/chills no abdominal pain, nausea no other symptoms Objective Last 8 Hrs Date Time Temp Pulse Resp B/P Pulse Ox O2 Delivery O2 Flow Rate FiO2 08/26/16 07:36 36.5 55 20 156/85 97 Physical Exam: General- oriented x 3, not in distress, no acc muscle use Lungs- no rales/wheezes bilaterally, clear breath sounds Heart- normal rate, regular rhythm; no murmurs Abdomen- normal bowel sounds, non distended soft, NO RUQ tenderness Extremities- no pretibial edema, no calf tenderness; peripheral pulses intact Skin- (+) erythematous inguinal region- erythematous, (+) diffuse papular rash on the back, posterior > anterior thighs- papules less erythema, drying up further Neuro- alert, oriented x 3; EOMI; no facial palsy; no dysarthria; motor 5/5 upper extremity, 3/5 lower extremity Skin- warm & dry Laboratory Results: Last 24 Hours Test 08/26/16 05:25 White Blood Count 9.04 K/uL Red Blood Count 4.21 M/uL Hemoglobin 12.6 g/dL Hematocrit 39.4 % Mean Corpuscular Volume 93.6 fL Mean Corpuscular Hemoglobin 29.9 pg Mean Corpuscular Hemoglobin Concent 32.0 g/dl Platelet Count 195 K/uL Mean Platelet Volume 10.3 fL Neutrophils (%) (Auto) 48.8 % Lymphocytes (%) (Auto) 42.9 % Monocytes (%) (Auto) 7.2 % Eosinophils (%) (Auto) 0.8 % Basophils (%) (Auto) 0.2 % Neutrophils # (Auto) 4.41 K/uL Lymphocytes # (Auto) 3.88 K/uL Monocytes # (Auto) 0.65 K/uL Eosinophils # (Auto) 0.07 K/uL Basophils # (Auto) 0.02 K/uL RDW Standard Deviation 46.3 fL RDW Coefficient of Variation 13.5 % Immature Granulocyte % (Auto) 0.1 % Immature Granulocyte # (Auto) 0.01 K/uL Sodium Level 142 mmol/L Potassium Level 3.7 mmol/L Chloride Level 108 mmol/L Carbon Dioxide Level 28 mmol/L Anion Gap 6.0 mmol/L Blood Urea Nitrogen 15 mg/dl Creatinine 0.58 mg/dl Est Creatinine Clear Calc Drug Dose 126.8 ml/min Estimated GFR () 114.5 Estimated GFR (Non- 98.8 BUN/Creatinine Ratio 25.2 Random Glucose 67 mg/dl Calcium Level 8.5 mg/dl Assessment & Plan 60 year old female with history of MS on Copaxone, CVA, Hypertension, other problems noted below presenting with persistent rash. POSSIBLE TINEA CRURIS WITH SUPERIMPOSED CELLULITIS INFECTED MILIARY RASH ON THE BACK AND THIGHS - failed outpatient therapy - wound culture: pending blood culture: negative so far - continues to improve clinically wound culture: (+) Pseudomonas - d/c IV Ceftriaxone (4 days) start Levaquin IV Day 1 Caspofungin Day 5, Nystatin powder wound care consult ID consulted, appreciate the recommendations RUQ PAIN - GB US: NO Cholelithias, Cholecystitis - LFTs normal - has history of H pylori already on Protonix - associated with poor appetite x few weeks - improving on Relistor, laxatives MULTIPLE SCLEROSIS EXACERBATION - Brain and Cervical Spine MRI: reviewed - improving lower leg strength - continue short prednisone taper course Baclofen BID usual Copaxone - PT/OT recommend return home improving - appreciate Neuro SVC recommendations R/O UTI urine culture negative NEUROGENIC BLADDER Intermittent straight caths at home Gonzalez placed at patient's request HISTORY OF CVA With residual right arm weakness Continue aspirin and Plavix HYPERTENSION hold HCTZ continue lisinopril, metoprolol HYPOTHYROIDISM Continue levothyroxine CHRONIC BACK PAIN Continue PRN Percocet, Ibuprofen DVT PROPHYLAXIS Lovenox SQ CODE STATUS Full code DISPOSITION management of above conditions in progress PT/OT Lives at home with Follows with Dr. Hendrix for primary care Current Inpatient Medications: Current Inpatient Medications Medications (Trade) Dose Ordered Sig/Alea Route Start Time Stop Time Status Last Admin Dose Admin Acetaminophen (Tylenol Tab) 650 mg Q4H PRN PO 08/22/16 16:15 09/21/16 16:14 Ondansetron HCl 4 mg 4 mg Q6H PRN IV 08/22/16 16:15 09/21/16 16:14 08/24/16 17:42 4 MG Caspofungin/ Sodium Chloride (Cancidas Inj/ Nss 250ml) 260 ml @ 260 mls/hr DAILY@1800 IV 08/23/16 18:00 09/21/16 17:59 08/25/16 18:13 260 MLS/HR Enoxaparin Sodium (Lovenox Inj) 40 mg Q24H SQ 08/22/16 21:00 09/21/16 20:59 08/25/16 20:43 40 MG Alprazolam (Xanax Tab) 1 mg TID PRN PO 08/22/16 17:15 09/21/16 17:14 08/26/16 12:19 1 MG Aspirin (Ecotrin Tab) 81 mg DAILY PO 08/23/16 08:00 09/22/16 07:59 08/26/16 10:19 81 MG Clopidogrel Bisulfate (plAVix TAB) 75 mg DAILY PO 08/23/16 08:00 09/22/16 07:59 08/26/16 10:20 75 MG Duloxetine HCl (Cymbalta Cap) 60 mg QAM PO 08/23/16 08:00 09/22/16 07:59 08/26/16 10:19 60 MG Levothyroxine Sodium (Synthroid Tab) 100 mcg DAILYBB PO 08/23/16 06:30 09/22/16 06:29 08/26/16 06:24 100 MCG Lisinopril (Zestril Tab) 40 mg QAM PO 08/23/16 08:00 09/22/16 07:59 08/26/16 10:21 40 MG Metoprolol Tartrate (Lopressor Tab) 25 mg BID PO 08/22/16 20:00 09/21/16 19:59 08/26/16 10:20 25 MG Mirabegron (Myrbetriq Er) 50 mg DAILY PO 08/23/16 08:00 09/22/16 07:59 08/26/16 10:20 50 MG Oxycodone/ Acetaminophen (Percocet 7.5-325MG Tab) 1 tab Q6 PRN PO 08/22/16 17:15 09/05/16 17:14 08/26/16 10:21 1 TAB Senna/Docusate Sodium (Senokot S Tab) 1 tab DAILY PRN PO 08/22/16 17:30 09/21/16 17:29 08/24/16 14:46 1 TAB Ergocalciferol (Vitamin D Cap) 50,000 interunit TuFr@0800 PO 08/25/16 08:00 09/24/16 07:59 08/25/16 08:34 50,000 INTERUNIT Polyethylene (Miralax Powder Packet) 17 gm DAILY PRN PO 08/22/16 17:30 09/21/16 17:29 08/26/16 10:18 17 GM Nystatin (Mycostatin Powder) 1 appln TID PRN EXT 08/22/16 18:00 09/21/16 17:59 08/26/16 10:13 1 APPLN Glatiramer Acetate (Copaxone) 20 mg HS SQ 08/23/16 21:00 09/22/16 20:59 08/25/16 20:46 20 MG Ibuprofen (Motrin Tab) 600 mg TID PRN PO 08/23/16 11:00 09/22/16 10:59 Lorazepam (Ativan Inj) 0.5 mg DAILY PRN IV 08/23/16 12:15 09/22/16 12:14 Baclofen (Lioresal Tab) 10 mg BID PO 08/23/16 20:00 09/22/16 19:59 08/26/16 10:19 10 MG Prednisone 20 mg 20 mg Taper QAM PO 08/24/16 08:00 08/28/16 07:59 08/26/16 10:20 20 MG Lorazepam/Syringe (Ativan Inj/ Syringe) 1 ml @ 1 mls/min DAILY PRN IV 08/23/16 13:00 09/22/16 12:59 08/23/16 21:37 1 MLS/MIN Gadobutrol 9 mmol 9 mmol UD PRN IV 08/23/16 23:45 08/27/16 23:44 Pantoprazole Sodium/Syringe (Protonix Inj/ Syringe) 10 ml @ 5 mls/min DAILY@11 IV 08/25/16 11:00 09/24/16 10:59 08/26/16 12:19 5 MLS/MIN Methylnaltrexone [place] (Relistor Inj) 12 mg Q2D SQ 08/25/16 08:00 09/24/16 07:59 08/25/16 08:36 12 MG Enteral Nutritional Formula 1 can 1 can TIDM PO 08/24/16 17:00 09/23/16 16:59 5/12/17 08:38 1 CAN Levofloxacin/Prmx (Levaquin / D5W/ Premixed D5W) 100 ml @ 100 mls/hr DAILY@1300 IV 08/26/16 13:00 09/05/16 12:59 Cetirizine HCl (zyrTEC TAB) 10 mg DAILY PRN PO 08/26/16 12:45 09/25/16 12:44
[2016-08-26] MEDS: LEVOFLOXACIN / D5W 500 MG in PREMIXED IN D5W 100 ML IV SCH (13:32)
[2016-08-26] MEDS: CETIRIZINE HCL 10 MG TAB PO PRN (13:37)
[2016-08-26] MEDS: ONDANSETRON INJ 2 MG/ML 2 ML VIAL IV PRN (15:14)
[2016-08-26 16:02] VITALS: BP 146/86; PULSE 69; TEMP 36.9; O2SAT 96
[2016-08-26] MEDS: CASPOFUNGIN INJ 50 MG in SODIUM CHLORIDE 0.9% 250ML 250 ML IV SCH ×2 (17:39→19:00)
[2016-08-26 20:30] VITALS: BP 173/100; PULSE 72
[2016-08-26] MEDS: GLATIRAMER ACETATE 20 MG/ML SQ SCH (20:35)
[2016-08-26] MEDS: ENOXAPARIN 40 MG/0.4 ML SYR SQ SCH (20:35)
[2016-08-27] VITALS (8 sets, daily range): BP systolic 125–183; BP diastolic 78–103; PULSE 58–80; TEMP 36.6–37.1; O2SAT 94–98
[2016-08-27 06:35] LABS: BLOOD UREA NITROGEN 12 mg/dl (7-18); BUN/CREATININE RATIO 19.4 (10-20); CALCIUM 8.5 mg/dl (8.5-10.1); CARBON DIOXIDE 31 mmol/L (21-32); CHLORIDE 106 mmol/L (98-107); CREATININE 0.61 mg/dl (0.60-1.20); GLUCOSE 71 mg/dl (70-99); SODIUM 142 mmol/L (136-145)
[2016-08-27] MEDS: LEVOTHYROXINE 100 MCG TAB PO SCH (06:37)
[2016-08-27] MEDS: BOOST VANILLA PO SCH ×6 (08:00→16:47)
[2016-08-27] MEDS: ASPIRIN 81 MG ECTAB PO SCH (08:03)
[2016-08-27] MEDS: DULOXETINE HCL 60 MG CAP PO SCH (08:03)
[2016-08-27] MEDS: BACLOFEN 10 MG TAB PO SCH ×2 (08:03→19:36)
[2016-08-27] MEDS: MIRABEGRON ER 25 MG TAB PO SCH (08:03)
[2016-08-27] MEDS: METOPROLOL TARTRATE 25 MG TAB PO SCH ×2 (08:03→19:37)
[2016-08-27] MEDS: CLOPIDOGREL BISULFATE 75 MG TAB PO SCH (08:04)
[2016-08-27] MEDS: LISINOPRIL 40 MG TAB PO SCH (08:04)
[2016-08-27] MEDS: OXYCODONE/ACETAMINOPHEN 7.5-325 TAB PO PRN ×2 (08:05→19:36)
[2016-08-27] MEDS: METHYLNALTREXONE BROMIDE INJ 12 MG/0.6 ML SYR SQ SCH (08:06)
[2016-08-27] MEDS: NYSTATIN POWDER 15GM BTL EXT PRN ×2 (08:13→19:40)
[2016-08-27] MEDS: POLYETHYLENE (MIRALAX) 17 GM PACK PO PRN (08:16)
--- NOTE | 2016-08-27 09:11 | Progress Note ---
Medicine Progress Note Date & Time of Visit: August 27, 2016 at 09:08. Subjective patient seen resting in bed, comfortable states groin area continues to feel improved, less pruritus denies fever/chills no abdominal pain leg strength improved no other symptoms Objective Last 8 Hrs Date Time Temp Pulse Resp B/P Pulse Ox O2 Delivery O2 Flow Rate FiO2 08/27/16 08:25 36.8 58 20 170/93 96 Physical Exam: General- oriented x 3, not in distress, no acc muscle use Lungs-clear BS bilaterally Heart- normal rate, regular rhythm; no murmurs Abdomen- normal bowel sounds, non distended soft, no tenderness Extremities- no pretibial edema, no calf tenderness; peripheral pulses intact Skin- (+) erythematous inguinal region- less, (+) diffuse papular rash on the back, posterior > anterior thighs- papules less erythema, drying up further Neuro- alert, oriented x 3; EOMI; no facial palsy; no dysarthria; motor 5/5 upper extremity, 3/5 lower extremity Skin- warm & dry Laboratory Results: Last 24 Hours Test 08/27/16 05:05 08/27/16 07:04 Sodium Level 142 mmol/L Potassium Level mmol/L 3.9 mmol/L Chloride Level 106 mmol/L Carbon Dioxide Level 31 mmol/L Anion Gap 5.0 mmol/L Blood Urea Nitrogen 12 mg/dl Creatinine 0.61 mg/dl Est Creatinine Clear Calc Drug Dose 120.6 ml/min Estimated GFR () 112.6 Estimated GFR (Non- 97.2 BUN/Creatinine Ratio 19.4 Random Glucose 71 mg/dl Calcium Level 8.5 mg/dl Assessment & Plan 60 year old female with history of MS on Copaxone, CVA, Hypertension, other problems noted below presenting with persistent rash. POSSIBLE TINEA CRURIS WITH SUPERIMPOSED CELLULITIS INFECTED MILIARY RASH ON THE BACK AND THIGHS - failed outpatient therapy - wound culture: pending blood culture: negative so far - continues to gradually improve daily wound culture: (+) Pseudomonas - d/c IV Ceftriaxone (4 days) on Levaquin IV Day 2 Caspofungin Day 6, Nystatin powder wound care consult ID consulted, appreciate the recommendations RUQ PAIN - GB US: NO Cholelithias, Cholecystitis - LFTs normal - has history of H pylori already on Protonix - associated with poor appetite x few weeks - improving on Relistor, laxatives MULTIPLE SCLEROSIS EXACERBATION - Brain and Cervical Spine MRI: reviewed - improving lower leg strength - continue short prednisone taper course, finish by today Baclofen BID usual Copaxone - PT/OT recommend return home improving - appreciate Neuro SVC recommendations R/O UTI urine culture negative NEUROGENIC BLADDER Intermittent straight caths at home Gonzalez placed at patient's request HISTORY OF CVA With residual right arm weakness Continue aspirin and Plavix HYPERTENSION hold HCTZ continue lisinopril, metoprolol PRN clonidine HYPOTHYROIDISM Continue levothyroxine CHRONIC BACK PAIN Continue PRN Percocet, Ibuprofen DVT PROPHYLAXIS Lovenox SQ CODE STATUS Full code DISPOSITION management of above conditions in progress PT/OT Lives at home with Follows with Dr. Hendrix for primary care Current Inpatient Medications: Current Inpatient Medications Medications (Trade) Dose Ordered Sig/Alea Route Start Time Stop Time Status Last Admin Dose Admin Acetaminophen (Tylenol Tab) 650 mg Q4H PRN PO 08/22/16 16:15 09/21/16 16:14 Ondansetron HCl 4 mg 4 mg Q6H PRN IV 08/22/16 16:15 09/21/16 16:14 08/26/16 15:14 4 MG Caspofungin/ Sodium Chloride (Cancidas Inj/ Nss 250ml) 260 ml @ 260 mls/hr DAILY@1800 IV 08/23/16 18:00 09/21/16 17:59 08/26/16 19:00 260 MLS/HR Enoxaparin Sodium (Lovenox Inj) 40 mg Q24H SQ 08/22/16 21:00 09/21/16 20:59 08/26/16 20:35 40 MG Alprazolam (Xanax Tab) 1 mg TID PRN PO 08/22/16 17:15 09/21/16 17:14 08/26/16 20:33 1 MG Aspirin (Ecotrin Tab) 81 mg DAILY PO 08/23/16 08:00 09/22/16 07:59 08/27/16 08:03 81 MG Clopidogrel Bisulfate (plAVix TAB) 75 mg DAILY PO 08/23/16 08:00 09/22/16 07:59 08/27/16 08:04 75 MG Duloxetine HCl (Cymbalta Cap) 60 mg QAM PO 08/23/16 08:00 09/22/16 07:59 08/27/16 08:03 60 MG Levothyroxine Sodium (Synthroid Tab) 100 mcg DAILYBB PO 08/23/16 06:30 09/22/16 06:29 08/27/16 06:37 100 MCG Lisinopril (Zestril Tab) 40 mg QAM PO 08/23/16 08:00 09/22/16 07:59 08/27/16 08:04 40 MG Metoprolol Tartrate (Lopressor Tab) 25 mg BID PO 08/22/16 20:00 09/21/16 19:59 08/27/16 08:03 25 MG Mirabegron (Myrbetriq Er) 50 mg DAILY PO 08/23/16 08:00 09/22/16 07:59 08/27/16 08:03 50 MG Oxycodone/ Acetaminophen (Percocet 7.5-325MG Tab) 1 tab Q6 PRN PO 08/22/16 17:15 09/05/16 17:14 08/27/16 08:05 1 TAB Senna/Docusate Sodium (Senokot S Tab) 1 tab DAILY PRN PO 08/22/16 17:30 09/21/16 17:29 08/24/16 14:46 1 TAB Ergocalciferol (Vitamin D Cap) 50,000 interunit TuFr@0800 PO 08/25/16 08:00 09/24/16 07:59 08/25/16 08:34 50,000 INTERUNIT Polyethylene (Miralax Powder Packet) 17 gm DAILY PRN PO 08/22/16 17:30 09/21/16 17:29 08/27/16 08:16 17 GM Nystatin (Mycostatin Powder) 1 appln TID PRN EXT 08/22/16 18:00 09/21/16 17:59 08/27/16 08:13 1 APPLN Glatiramer Acetate (Copaxone) 20 mg HS SQ 08/23/16 21:00 09/22/16 20:59 08/26/16 20:35 20 MG Ibuprofen (Motrin Tab) 600 mg TID PRN PO 08/23/16 11:00 09/22/16 10:59 Lorazepam (Ativan Inj) 0.5 mg DAILY PRN IV 08/23/16 12:15 09/22/16 12:14 Baclofen (Lioresal Tab) 10 mg BID PO 08/23/16 20:00 09/22/16 19:59 08/27/16 08:03 10 MG Prednisone 10 mg 10 mg Taper QAM PO 08/24/16 08:00 08/28/16 07:59 08/27/16 08:04 10 MG Lorazepam/Syringe (Ativan Inj/ Syringe) 1 ml @ 1 mls/min DAILY PRN IV 08/23/16 13:00 09/22/16 12:59 08/23/16 21:37 1 MLS/MIN Gadobutrol 9 mmol 9 mmol UD PRN IV 08/23/16 23:45 08/27/16 23:44 Pantoprazole Sodium/Syringe (Protonix Inj/ Syringe) 10 ml @ 5 mls/min DAILY@11 IV 08/25/16 11:00 09/24/16 10:59 08/26/16 12:19 5 MLS/MIN Methylnaltrexone [place] (Relistor Inj) 12 mg Q2D SQ 08/25/16 08:00 09/24/16 07:59 08/27/16 08:06 12 MG Enteral Nutritional Formula 1 can 1 can TIDM PO 08/24/16 17:00 09/23/16 16:59 08/25/16 08:38 1 CAN Levofloxacin/Prmx (Levaquin / D5W/ Premixed D5W) 100 ml @ 100 mls/hr DAILY@1300 IV 08/26/16 13:00 09/05/16 12:59 08/26/16 13:32 100 MLS/HR Cetirizine HCl (zyrTEC TAB) 10 mg DAILY PRN PO 08/26/16 12:45 09/25/16 12:44 08/26/16 13:37 10 MG
[2016-08-27] MEDS ORDERED: CLONIDINE HCL 0.1 MG TAB PO PRN (09:45)
[2016-08-27] MEDS: PANTOprazole INJ 40 MG in SYRINGE 0 ML IV SCH (11:25)
[2016-08-27] MEDS: LEVOFLOXACIN / D5W 500 MG in PREMIXED IN D5W 100 ML IV SCH (12:58)
[2016-08-27] MEDS: ONDANSETRON INJ 2 MG/ML 2 ML VIAL IV PRN (13:57)
[2016-08-27] MEDS: CETIRIZINE HCL 10 MG TAB PO PRN (18:14)
[2016-08-27] MEDS: CASPOFUNGIN INJ 50 MG in SODIUM CHLORIDE 0.9% 250ML 250 ML IV SCH (18:18)
[2016-08-27] MEDS: ALPRAZOLAM 0.5 MG TAB PO PRN (19:34)
[2016-08-27] MEDS: ENOXAPARIN 40 MG/0.4 ML SYR SQ SCH (21:28)
[2016-08-27] MEDS: GLATIRAMER ACETATE 20 MG/ML SQ SCH (21:28)
[2016-08-28] MEDS: LEVOTHYROXINE 100 MCG TAB PO SCH (06:14)
[2016-08-28 06:28] LABS: CALCIUM 8.4 mg/dl (8.5-10.1); CREATININE 0.82 mg/dl (0.60-1.20)
[2016-08-28 07:30] VITALS: BP 150/79; PULSE 56; TEMP 36.4; O2SAT 93
[2016-08-28] MEDS: CLOPIDOGREL BISULFATE 75 MG TAB PO SCH (08:35)
[2016-08-28] MEDS: DULOXETINE HCL 60 MG CAP PO SCH (08:35)
[2016-08-28] MEDS: ASPIRIN 81 MG ECTAB PO SCH (08:35)
[2016-08-28] MEDS: BACLOFEN 10 MG TAB PO SCH ×2 (08:35→19:48)
[2016-08-28] MEDS: METOPROLOL TARTRATE 25 MG TAB PO SCH ×2 (08:35→19:48)
[2016-08-28] MEDS: LISINOPRIL 40 MG TAB PO SCH (08:35)
[2016-08-28] MEDS: MIRABEGRON ER 25 MG TAB PO SCH (08:36)
[2016-08-28] MEDS: PANTOprazole SOD 40 MG TAB PO SCH (08:36)
[2016-08-28] MEDS: ALPRAZOLAM 0.5 MG TAB PO PRN ×2 (08:40→15:51)
[2016-08-28] MEDS: OXYCODONE/ACETAMINOPHEN 7.5-325 TAB PO PRN ×2 (08:41→17:51)
[2016-08-28] MEDS: BOOST VANILLA PO SCH ×6 (08:41→17:00)
[2016-08-28] MEDS ORDERED: NURSING VERBAL MED ORDER ONE (12:30)
[2016-08-28] MEDS: LEVOFLOXACIN / D5W 500 MG in PREMIXED IN D5W 100 ML IV SCH (12:32)
[2016-08-28] MEDS: LEVOFLOXACIN 500 MG TAB PO SCH (13:48)
[2016-08-28 15:53] VITALS: BP 128/79; PULSE 69; TEMP 36.6; O2SAT 97
[2016-08-28 16:00] VITALS: O2SAT 97
--- NOTE | 2016-08-28 16:59 | Infectious Disease Progress Nt ---
Progress Note Date of Service August 28, 2016. Subjective Pt evaluation today including: conversation w/ patient, physical exam, chart review, lab review, review of studies, conversation w/ work and family life consultant, review of inpatient medication list Patient is feeling much better today, but she continues to have erythema of the groin. Her newer culture of the groin grew Pseudomonas which is resistant to Aztreonam and Gentamicin but otherwise is sensitive. She was changed to PO Levaquin along with her IV Caspofungin. I discussed this patient briefly with Dr. Jain. Creatinine has been stable and was 0.82 this morning. All Other Systems: Reviewed and Negative Medications Current Inpatient Medications Medications (Trade) Dose Ordered Sig/Alea Route Start Time Stop Time Status Last Admin Dose Admin Acetaminophen (Tylenol Tab) 650 mg Q4H PRN PO 08/22/16 16:15 09/21/16 16:14 Ondansetron HCl 4 mg 4 mg Q6H PRN IV 08/22/16 16:15 09/21/16 16:14 08/27/16 13:57 4 MG Caspofungin/ Sodium Chloride (Cancidas Inj/ Nss 250ml) 260 ml @ 260 mls/hr DAILY@1800 IV 08/23/16 18:00 09/21/16 17:59 08/27/16 18:18 260 MLS/HR Enoxaparin Sodium (Lovenox Inj) 40 mg Q24H SQ 08/22/16 21:00 09/21/16 20:59 08/27/16 21:28 40 MG Alprazolam (Xanax Tab) 1 mg TID PRN PO 08/22/16 17:15 09/21/16 17:14 08/28/16 15:51 1 MG Aspirin (Ecotrin Tab) 81 mg DAILY PO 08/23/16 08:00 09/22/16 07:59 08/28/16 08:35 81 MG Clopidogrel Bisulfate (plAVix TAB) 75 mg DAILY PO 08/23/16 08:00 09/22/16 07:59 08/28/16 08:35 75 MG Duloxetine HCl (Cymbalta Cap) 60 mg QAM PO 08/23/16 08:00 09/22/16 07:59 08/28/16 08:35 60 MG Levothyroxine Sodium (Synthroid Tab) 100 mcg DAILYBB PO 08/23/16 06:30 09/22/16 06:29 08/28/16 06:14 100 MCG Lisinopril (Zestril Tab) 40 mg QAM PO 08/23/16 08:00 09/22/16 07:59 08/28/16 08:35 40 MG Metoprolol Tartrate (Lopressor Tab) 25 mg BID PO 08/22/16 20:00 09/21/16 19:59 08/28/16 08:35 25 MG Mirabegron (Myrbetriq Er) 50 mg DAILY PO 08/23/16 08:00 09/22/16 07:59 08/28/16 08:36 50 MG Oxycodone/ Acetaminophen (Percocet 7.5-325MG Tab) 1 tab Q6 PRN PO 08/22/16 17:15 09/05/16 17:14 08/28/16 08:41 1 TAB Senna/Docusate Sodium (Senokot S Tab) 1 tab DAILY PRN PO 08/22/16 17:30 09/21/16 17:29 08/24/16 14:46 1 TAB Ergocalciferol (Vitamin D Cap) 50,000 interunit TuFr@0800 PO 08/25/16 08:00 09/24/16 07:59 08/25/16 08:34 50,000 INTERUNIT Polyethylene (Miralax Powder Packet) 17 gm DAILY PRN PO 08/22/16 17:30 09/21/16 17:29 08/27/16 08:16 17 GM Nystatin (Mycostatin Powder) 1 appln TID PRN EXT 08/22/16 18:00 09/21/16 17:59 08/27/16 19:40 1 APPLN Glatiramer Acetate (Copaxone) 20 mg HS SQ 08/23/16 21:00 09/22/16 20:59 08/27/16 21:28 20 MG Ibuprofen (Motrin Tab) 600 mg TID PRN PO 08/23/16 11:00 09/22/16 10:59 Lorazepam (Ativan Inj) 0.5 mg DAILY PRN IV 08/23/16 12:15 09/22/16 12:14 Baclofen 10 mg 10 mg BID PO 08/23/16 20:00 09/22/16 19:59 08/28/16 08:35 10 MG Lorazepam/Syringe (Ativan Inj/ Syringe) 1 ml @ 1 mls/min DAILY PRN IV 08/23/16 13:00 09/22/16 12:59 08/23/16 21:37 1 MLS/MIN Methylnaltrexone [place] (Relistor Inj) 12 mg Q2D SQ 08/25/16 08:00 09/24/16 07:59 08/27/16 08:06 12 MG Enteral Nutritional Formula (Boost) 1 can TIDM PO 08/24/16 17:00 09/23/16 16:59 08/28/16 12:28 1 CAN Cetirizine HCl (zyrTEC TAB) 10 mg DAILY PRN PO 08/26/16 12:45 09/25/16 12:44 08/27/16 18:14 10 MG Clonidine HCl (Catapres Tab) 0.1 mg Q6H PRN PO 08/27/16 09:45 09/26/16 09:44 08/27/16 21:39 0.1 MG Pantoprazole Sodium (Protonix Tab) 40 mg QAM PO 08/28/16 08:00 09/27/16 07:59 08/28/16 08:36 40 MG Levofloxacin (Levaquin Tab) 500 mg DAILY@11 PO 08/28/16 13:00 09/05/16 23:59 08/28/16 13:48 500 MG Objective Vital Signs Date Time Temp Pulse Resp B/P Pulse Ox O2 Delivery O2 Flow Rate FiO2 08/28/16 16:00 97 Room Air 08/28/16 15:53 36.6 69 18 128/79 97 Room Air 08/28/16 08:15 Room Air 08/28/16 07:30 36.4 56 16 150/79 93 Room Air 08/27/16 23:59 Room Air 08/27/16 23:55 37.1 60 20 158/87 94 Room Air 08/27/16 21:38 59 183/102 08/27/16 20:30 77 178/103 08/27/16 20:00 Room Air Physical Exam General Appearance: WD/WN, no apparent distress Eyes: normal inspection, sclerae normal ENT: hearing grossly normal Neck: supple, trachea midline Respiratory/Chest: no respiratory distress, no accessory muscle use Cardiovascular: regular rate, rhythm Extremities: non-tender, normal inspection Neurologic/Psychiatric: alert, normal mood/affect Skin: + pertinent finding (continued moderate erythema of the groin, but does appear to be improved from prior exam. Small lesions of legs appear to have resolved) Laboratory Results RUN DATE: 08/26/16 [facility] PAGE 1 RUN TIME: 802 Specimen Inquiry PATIENT: VALARIE KEEN LOC: [facility] U # : [id number] AGE/SX: 60/F ROOM: [facility] REG : 08/22/[address]: Juan Jose Jain MD : 1955 BED: 1 DIS : STATUS: ADM IN TLOC: SPEC #: [id number] YAN: 08/23/16-UNK STATUS: COMP REQ #: [id number] RECD: 08/23/16-[address]: Devika Sweeney PA-C SOURCE: SKIN ENTR: 08/23/16-[address]: Surjit Brand DO [facility]: Aldo Cantrell M.D. Panlilio, Robin A., MD Patterson, Jennifer.Gaurang E. Pierre, M.D. ORDERED: SURF D CU/SMR COMMENTS: Has Specimen Been Obtained/Collected? Y Procedure Result Verified Site GRAM STAIN Final 08/23/16-1451 RESULT NO WBCs SEEN NO ORGANISMS SEEN SURFACE WOUND CULTURE Final 08/26/16 Organism 1 PSEUDOMONAS AERUGINOSA QUANITY RARE SENS SENSITIVITY TO FOLLOW 1. PSEUDOMONAS AERUGINOSA Target Route Dose RX AB Cost M.I.C. IQ ------ ----- ------ -- ------ -------- - ------ CEFTAZIDIME S 4 CEFEPIME S <=4 IMIPENEM S <=1 AZTREONAM I 16 GENTAMICIN R >8 TOBRAMYCIN S <=4 AMIKACIN S <=16 CIPROFLOXACIN S <=1 LEVOFLOXACIN S <=2 PIP/TAZO S <=16 S = SENSITIVE I = INTERMEDIATE R = RESISTANT Item Value Date Time Gram Stain - Final Resulted 08/23/16 0000 Skin Groin Gram Stain - Final Complete 08/23/16 0000 Skin Groin Urine Culture - Final Complete 08/23/16 0000 Urine , Clean Catch NO GROWTH - LESS THAN 1,000 COLONIES/ML Blood Culture - Final Complete 08/22/16 1700 Blood NO GROWTH Blood Culture - Final Complete 08/22/16 1645 Blood NO GROWTH Last 24 Hours Test 08/28/16 05:23 Sodium Level 143 mmol/L Potassium Level 4.0 mmol/L Chloride Level 107 mmol/L Carbon Dioxide Level 34 mmol/L Anion Gap 2.0 mmol/L Blood Urea Nitrogen 11 mg/dl Creatinine 0.82 mg/dl Est Creatinine Clear Calc Drug Dose 88.6 ml/min Estimated GFR () 88.3 Estimated GFR (Non- 76.2 BUN/Creatinine Ratio 14.0 Random Glucose 71 mg/dl Calcium Level 8.4 mg/dl Assessment and Plan Patient is a 60 yo female with history of MS and recurrent UTI's now with severe intertrigo of possible fungal versus polymicrobial origin. She had been treated as an outpatient with PO abx, PO antifungal, and topical antifungals without improvement. She is currently on PO Levaquin and IV Caspofungin. With the severity of the patient's skin rash, I feel that she likely would benefit from at least another 7 days of IV Caspofungin along with abx therapy with Levaquin. She is agreeable to Midline and home IV therapy if this is covered by insurance. Therefore, recommend placement of Midline (patient prefers this to PICC) and continued IV Caspofungin x 7 more days with follow up with ID prior to discontinuation. Thanks PROVIDER ADDENDUM: Patient reviewed with Ms. Sweeney. Agree with above assessment.
[2016-08-28] MEDS: CASPOFUNGIN INJ 50 MG in SODIUM CHLORIDE 0.9% 250ML 250 ML IV SCH (19:41)
[2016-08-28] MEDS: ENOXAPARIN 40 MG/0.4 ML SYR SQ SCH (20:42)
[2016-08-28] MEDS: GLATIRAMER ACETATE 20 MG/ML SQ SCH (20:42)
--- NOTE | 2016-08-28 21:50 | Progress Note ---
Medicine Progress Note Date & Time of Visit: August 28, 2016 at 21:50. Subjective delayed entry date of service noted above states she feels improved less irritation on the inquinal region leg strength also improved no feve/chills no other symptoms Objective Last 8 Hrs Date Time Temp Pulse Resp B/P Pulse Ox O2 Delivery O2 Flow Rate FiO2 08/28/16 16:00 97 Room Air 08/28/16 15:53 36.6 69 18 128/79 97 Room Air Physical Exam: General- oriented x 3, not in distress, no acc muscle use Lungs-clear breath sounds bilaterally, no rales/wheezes Heart- normal rate, regular rhythm; no murmurs Abdomen- normal bowel sounds, non distended soft, no tenderness Extremities- no pretibial edema, no calf tenderness; peripheral pulses intact Skin- (+) erythematous inguinal region- seems to be drying up some, (+) diffuse papular rash on the back, posterior > anterior thighs- papules less erythema, almost resolved Neuro- alert, oriented x 3; EOMI; no facial palsy; no dysarthria; motor 5/5 upper extremity, 3/5 lower extremity Skin- warm & dry Laboratory Results: Last 24 Hours Test 08/28/16 05:23 Sodium Level 143 mmol/L Potassium Level 4.0 mmol/L Chloride Level 107 mmol/L Carbon Dioxide Level 34 mmol/L Anion Gap 2.0 mmol/L Blood Urea Nitrogen 11 mg/dl Creatinine 0.82 mg/dl Est Creatinine Clear Calc Drug Dose 88.6 ml/min Estimated GFR () 88.3 Estimated GFR (Non- 76.2 BUN/Creatinine Ratio 14.0 Random Glucose 71 mg/dl Calcium Level 8.4 mg/dl Assessment & Plan 60 year old female with history of MS on Copaxone, CVA, Hypertension, other problems noted below presenting with persistent rash. POSSIBLE TINEA CRURIS WITH SUPERIMPOSED CELLULITIS INFECTED MILIARY RASH ON THE BACK AND THIGHS - failed outpatient therapy - wound culture: pending blood culture: negative so far - continues to gradually improve daily wound culture: (+) Pseudomonas - d/c IV Ceftriaxone (4 days) on Levaquin IV Day 3/7 Caspofungin Day 7, Nystatin powder wound care consult ID consulted, appreciate the recommendations RUQ PAIN - GB US: NO Cholelithias, Cholecystitis - LFTs normal - has history of H pylori already on Protonix - associated with poor appetite x few weeks - improving on Relistor, laxatives MULTIPLE SCLEROSIS EXACERBATION - Brain and Cervical Spine MRI: reviewed - improving lower leg strength - continue short prednisone taper course, finish by today Baclofen BID usual Copaxone - PT/OT recommend return home improving - appreciate Neuro SVC recommendations R/O UTI urine culture negative NEUROGENIC BLADDER Intermittent straight caths at home Gonzalez placed at patient's request HISTORY OF CVA With residual right arm weakness Continue aspirin and Plavix HYPERTENSION hold HCTZ continue lisinopril, metoprolol PRN clonidine HYPOTHYROIDISM Continue levothyroxine CHRONIC BACK PAIN Continue PRN Percocet, Ibuprofen DVT PROPHYLAXIS Lovenox SQ CODE STATUS Full code DISPOSITION management of above conditions in progress PT/OT Lives at home with Follows with Dr. Hendrix for primary care Current Inpatient Medications: Current Inpatient Medications Medications (Trade) Dose Ordered Sig/Alea Route Start Time Stop Time Status Last Admin Dose Admin Acetaminophen (Tylenol Tab) 650 mg Q4H PRN PO 08/22/16 16:15 09/21/16 16:14 Ondansetron HCl 4 mg 4 mg Q6H PRN IV 08/22/16 16:15 09/21/16 16:14 08/27/16 13:57 4 MG Caspofungin/ Sodium Chloride (Cancidas Inj/ Nss 250ml) 260 ml @ 260 mls/hr DAILY@1800 IV 08/23/16 18:00 09/21/16 17:59 08/28/16 19:41 260 MLS/HR Enoxaparin Sodium (Lovenox Inj) 40 mg Q24H SQ 08/22/16 21:00 09/21/16 20:59 08/28/16 20:42 40 MG Alprazolam (Xanax Tab) 1 mg TID PRN PO 08/22/16 17:15 09/21/16 17:14 08/28/16 15:51 1 MG Aspirin (Ecotrin Tab) 81 mg DAILY PO 08/23/16 08:00 09/22/16 07:59 08/28/16 08:35 81 MG Clopidogrel Bisulfate (plAVix TAB) 75 mg DAILY PO 08/23/16 08:00 09/22/16 07:59 08/28/16 08:35 75 MG Duloxetine HCl (Cymbalta Cap) 60 mg QAM PO 08/23/16 08:00 09/22/16 07:59 08/28/16 08:35 60 MG Levothyroxine Sodium (Synthroid Tab) 100 mcg DAILYBB PO 08/23/16 06:30 09/22/16 06:29 08/28/16 06:14 100 MCG Lisinopril (Zestril Tab) 40 mg QAM PO 08/23/16 08:00 09/22/16 07:59 08/28/16 08:35 40 MG Metoprolol Tartrate (Lopressor Tab) 25 mg BID PO 08/22/16 20:00 09/21/16 19:59 08/28/16 19:48 25 MG Mirabegron (Myrbetriq Er) 50 mg DAILY PO 08/23/16 08:00 09/22/16 07:59 08/28/16 08:36 50 MG Oxycodone/ Acetaminophen (Percocet 7.5-325MG Tab) 1 tab Q6 PRN PO 08/22/16 17:15 09/05/16 17:14 08/28/16 17:51 1 TAB Senna/Docusate Sodium (Senokot S Tab) 1 tab DAILY PRN PO 08/22/16 17:30 09/21/16 17:29 08/24/16 14:46 1 TAB Ergocalciferol (Vitamin D Cap) 50,000 interunit TuFr@0800 PO 08/25/16 08:00 09/24/16 07:59 08/25/16 08:34 50,000 INTERUNIT Polyethylene (Miralax Powder Packet) 17 gm DAILY PRN PO 08/22/16 17:30 09/21/16 17:29 08/27/16 08:16 17 GM Nystatin (Mycostatin Powder) 1 appln TID PRN EXT 08/22/16 18:00 09/21/16 17:59 08/27/16 19:40 1 APPLN Glatiramer Acetate (Copaxone) 20 mg HS SQ 08/23/16 21:00 09/22/16 20:59 08/28/16 20:42 20 MG Ibuprofen (Motrin Tab) 600 mg TID PRN PO 08/23/16 11:00 09/22/16 10:59 Lorazepam (Ativan Inj) 0.5 mg DAILY PRN IV 08/23/16 12:15 09/22/16 12:14 Baclofen 10 mg 10 mg BID PO 08/23/16 20:00 09/22/16 19:59 08/28/16 19:48 10 MG Lorazepam/Syringe (Ativan Inj/ Syringe) 1 ml @ 1 mls/min DAILY PRN IV 08/23/16 13:00 09/22/16 12:59 08/23/16 21:37 1 MLS/MIN Methylnaltrexone [place] (Relistor Inj) 12 mg Q2D SQ 08/25/16 08:00 09/24/16 07:59 08/27/16 08:06 12 MG Enteral Nutritional Formula (Boost) 1 can TIDM PO 08/24/16 17:00 09/23/16 16:59 08/28/16 17:00 1 CAN Cetirizine HCl (zyrTEC TAB) 10 mg DAILY PRN PO 08/26/16 12:45 09/25/16 12:44 08/27/16 18:14 10 MG Clonidine HCl (Catapres Tab) 0.1 mg Q6H PRN PO 08/27/16 09:45 09/26/16 09:44 08/27/16 21:39 0.1 MG Pantoprazole Sodium (Protonix Tab) 40 mg QAM PO 08/28/16 08:00 09/27/16 07:59 08/28/16 08:36 40 MG Levofloxacin (Levaquin Tab) 500 mg DAILY@11 PO 08/28/16 13:00 09/05/16 23:59 08/28/16 13:48 500 MG
[2016-08-29] VITALS: BP 128/80; PULSE 71; TEMP 36.4; O2SAT 95
[2016-08-29] MEDS: LEVOTHYROXINE 100 MCG TAB PO SCH (06:09)
[2016-08-29] MEDS: ALPRAZOLAM 0.5 MG TAB PO PRN (07:13)
[2016-08-29 07:30] VITALS: BP 184/90; PULSE 67; TEMP 36.7; O2SAT 95
[2016-08-29 07:40] VITALS: BP 167/98; PULSE 66
[2016-08-29] MEDS: PANTOprazole SOD 40 MG TAB PO SCH (07:41)
[2016-08-29] MEDS: METOPROLOL TARTRATE 25 MG TAB PO SCH (07:41)
[2016-08-29] MEDS: BACLOFEN 10 MG TAB PO SCH (07:41)
[2016-08-29] MEDS: CLOPIDOGREL BISULFATE 75 MG TAB PO SCH (07:41)
[2016-08-29] MEDS: ERGOCALCIFEROL 50,000 INTER.UNIT CAP PO SCH (07:41)
[2016-08-29] MEDS: LISINOPRIL 40 MG TAB PO SCH (07:41)
[2016-08-29] MEDS: BOOST VANILLA PO SCH ×4 (07:42→12:17)
[2016-08-29] MEDS: DULOXETINE HCL 60 MG CAP PO SCH (07:42)
[2016-08-29] MEDS: ASPIRIN 81 MG ECTAB PO SCH (07:42)
[2016-08-29] MEDS: MIRABEGRON ER 25 MG TAB PO SCH (07:42)
[2016-08-29] MEDS: METHYLNALTREXONE BROMIDE INJ 12 MG/0.6 ML SYR SQ SCH (07:44)
[2016-08-29] MEDS: OXYCODONE/ACETAMINOPHEN 7.5-325 TAB PO PRN ×2 (07:51→14:42)
[2016-08-29 09:14] VITALS: BP 145/88; PULSE 56
[2016-08-29] MEDS: POLYETHYLENE (MIRALAX) 17 GM PACK PO PRN (09:32)
--- NOTE | 2016-08-29 09:42 | Progress Note ---
Medicine Progress Note Date & Time of Visit: August 29, 2016 at 09:35. Subjective patient seen sitting up in bed, comfortable states she feels much better overall inguinal region much improved no fever/chills back to baseline strength states she is ready and would like to be discharged today Objective Last 8 Hrs Date Time Temp Pulse Resp B/P Pulse Ox O2 Delivery O2 Flow Rate FiO2 08/29/16 09:14 56 145/88 08/29/16 07:40 66 167/98 08/29/16 07:30 36.7 67 16 184/90 95 Room Air Physical Exam: General- oriented x 3, not in distress, no acc muscle use Lungs-clear breath sounds bilaterally Heart- normal rate, regular rhythm; no murmurs Abdomen- normal bowel sounds, non distended soft, no tenderness Extremities- no pretibial edema, no calf tenderness; peripheral pulses intact Skin- (+) erythematous inguinal region- seems to be drying, receding, no discharge, (+) diffuse papular rash on the back, posterior > anterior thighs- resolved Neuro- alert, oriented x 3; EOMI; no facial palsy; no dysarthria; motor 5/5 upper extremity, 3/5 lower extremity Skin- warm & dry Assessment & Plan 60 year old female with history of MS on Copaxone, CVA, Hypertension, other problems noted below presenting with persistent rash. POSSIBLE TINEA CRURIS WITH SUPERIMPOSED CELLULITIS INFECTED MILIARY RASH ON THE BACK AND THIGHS - failed outpatient therapy - wound culture: (+) Pseudomonas blood culture: negative - given V Ceftriaxone (4 days) transitioned to Levaquin IV Day 4 Caspofungin Day 8, Nystatin powder wound care consulted ID consulted - affected area clinically improved - ID recommends: at least 1 more week of IV Caspofungin, with ff up in ID clinic to determine possible extension of therapy 1 more week of Levaquin PO Nystatin - patient advise daily wound care keep area dry RIGHT UPPER QUADRANT PAIN, LIKELY FROM CONSTIPATION - GB US: NO Cholelithias, Cholecystitis LFTs normal - GI evaluated patient, Dr. Aguilar Relior, Miralax, Protonix BID give - (+) BMs pain resolved - discharge plan: Protonix BID Miralax BID outpatient ff up with GI fo endoscopy and colonoscopy MULTIPLE SCLEROSIS EXACERBATION - Brain and Cervical Spine MRI: no acute process - Neuro consulted given short Prednisone taper, Baclofen BID - improved lower leg strength - PT/OT recommend return home - Neuro recommends:L Baclofen BID continue usual Copaxone ff up as outpatient NEUROGENIC BLADDER Intermittent straight caths at home Gonzalez placed at patient's request HISTORY OF CVA With residual right arm weakness Continue aspirin and Plavix HYPERTENSION continue lisinopril, metoprolol, HCTZ PRN clonidine HYPOTHYROIDISM Continue levothyroxine CHRONIC BACK PAIN Continue PRN Percocet, Ibuprofen DVT PROPHYLAXIS Lovenox SQ CODE STATUS Full code DISPOSITION d/c home today ff up with PCP in 1 week ff up with ID clinic in 1 week GI ff up for Endoscopy and Colonoscopy Neuro ff up with Dr. Griffiths as scheduled Current Inpatient Medications: Current Inpatient Medications Medications (Trade) Dose Ordered Sig/Alea Route Start Time Stop Time Status Last Admin Dose Admin Acetaminophen (Tylenol Tab) 650 mg Q4H PRN PO 08/22/16 16:15 09/21/16 16:14 Ondansetron HCl 4 mg 4 mg Q6H PRN IV 08/22/16 16:15 09/21/16 16:14 08/27/16 13:57 4 MG Caspofungin/ Sodium Chloride (Cancidas Inj/ Nss 250ml) 260 ml @ 260 mls/hr DAILY@1800 IV 08/23/16 18:00 09/21/16 17:59 08/28/16 19:41 260 MLS/HR Enoxaparin Sodium (Lovenox Inj) 40 mg Q24H SQ 08/22/16 21:00 09/21/16 20:59 08/28/16 20:42 40 MG Alprazolam (Xanax Tab) 1 mg TID PRN PO 08/22/16 17:15 09/21/16 17:14 08/29/16 07:13 1 MG Aspirin (Ecotrin Tab) 81 mg DAILY PO 08/23/16 08:00 09/22/16 07:59 08/29/16 07:42 81 MG Clopidogrel Bisulfate (plAVix TAB) 75 mg DAILY PO 08/23/16 08:00 09/22/16 07:59 08/29/16 07:41 75 MG Duloxetine HCl (Cymbalta Cap) 60 mg QAM PO 08/23/16 08:00 09/22/16 07:59 08/29/16 07:42 60 MG Levothyroxine Sodium (Synthroid Tab) 100 mcg DAILYBB PO 08/23/16 06:30 09/22/16 06:29 08/29/16 06:09 100 MCG Lisinopril (Zestril Tab) 40 mg QAM PO 08/23/16 08:00 09/22/16 07:59 08/29/16 07:41 40 MG Metoprolol Tartrate (Lopressor Tab) 25 mg BID PO 08/22/16 20:00 09/21/16 19:59 08/29/16 07:41 25 MG Mirabegron (Myrbetriq Er) 50 mg DAILY PO 08/23/16 08:00 09/22/16 07:59 08/29/16 07:42 50 MG Oxycodone/ Acetaminophen (Percocet 7.5-325MG Tab) 1 tab Q6 PRN PO 08/22/16 17:15 09/05/16 17:14 08/29/16 07:51 1 TAB Senna/Docusate Sodium (Senokot S Tab) 1 tab DAILY PRN PO 08/22/16 17:30 09/21/16 17:29 08/24/16 14:46 1 TAB Ergocalciferol (Vitamin D Cap) 50,000 interunit TuFr@0800 PO 08/25/16 08:00 09/24/16 07:59 08/29/16 07:41 50,000 INTERUNIT Polyethylene (Miralax Powder Packet) 17 gm DAILY PRN PO 08/22/16 17:30 09/21/16 17:29 08/29/16 09:32 17 GM Nystatin (Mycostatin Powder) 1 appln TID PRN EXT 08/22/16 18:00 09/21/16 17:59 08/27/16 19:40 1 APPLN Glatiramer Acetate (Copaxone) 20 mg HS SQ 08/23/16 21:00 09/22/16 20:59 08/28/16 20:42 20 MG Ibuprofen (Motrin Tab) 600 mg TID PRN PO 08/23/16 11:00 09/22/16 10:59 Lorazepam (Ativan Inj) 0.5 mg DAILY PRN IV 08/23/16 12:15 09/22/16 12:14 Baclofen 10 mg 10 mg BID PO 08/23/16 20:00 09/22/16 19:59 08/29/16 07:41 10 MG Lorazepam/Syringe (Ativan Inj/ Syringe) 1 ml @ 1 mls/min DAILY PRN IV 08/23/16 13:00 09/22/16 12:59 08/23/16 21:37 1 MLS/MIN Methylnaltrexone [place] (Relistor Inj) 12 mg Q2D SQ 08/25/16 08:00 09/24/16 07:59 08/29/16 07:44 12 MG Enteral Nutritional Formula (Boost) 1 can TIDM PO 08/24/16 17:00 09/23/16 16:59 08/29/16 07:42 1 CAN Cetirizine HCl (zyrTEC TAB) 10 mg DAILY PRN PO 08/26/16 12:45 09/25/16 12:44 08/27/16 18:14 10 MG Clonidine HCl (Catapres Tab) 0.1 mg Q6H PRN PO 08/27/16 09:45 09/26/16 09:44 08/27/16 21:39 0.1 MG Pantoprazole Sodium (Protonix Tab) 40 mg QAM PO 08/28/16 08:00 09/27/16 07:59 08/29/16 07:41 40 MG Levofloxacin (Levaquin Tab) 500 mg DAILY@11 PO 08/28/16 13:00 09/05/16 23:59 08/28/16 13:48 500 MG
[2016-08-29] MEDS ORDERED: Enteral Nutrition Formula PO (09:50)
[2016-08-29] MEDS ORDERED: CNCI50 IV (09:50)
[2016-08-29] MEDS ORDERED: POLY335019 PO (09:50)
[2016-08-29] MEDS ORDERED: PANT40TA2 PO (09:50)
[2016-08-29] MEDS ORDERED: LVQ500 PO (09:50)
[2016-08-29] MEDS ORDERED: NYSP EXT (09:50)
[2016-08-29] MEDS ORDERED: LRS10 PO (09:50)
--- NOTE | 2016-08-29 09:59 | Discharge Instructions ---
Discharge Instructions Date of Service August 29, 2016. Admission Reason for Admission: Skin Rash-Allergic Reaction Discharge Discharge Diagnosis / Problem: CELLULITIS, INGUINAL REGION Discharge Goals Goal(s): Diagnostic testing, Therapeutic intervention Activity Recommendations Activity Limitations: resume your previous activity (GRADUALLY) . Instructions / Follow-Up Instructions / Follow-Up PLEASE REVIEW YOUR NEW MEDICATION LIST AND FOLLOW INSTRUCTIONS CAREFULLY. CALL PRIMARY CARE PHYSICIAN OR RETURN TO ER IMMEDIATELY IF WITH WORSENING OF SYMPTOMS, INCREASING REDNESS/PAIN/DISCHARGE ON THE AFFECTED AREAS OF THE SKIN, RECURRENCE OF RASH, FEVER/CHILLS, WEAKNESS, DIARRHEA. FOLLOW UP WITH DR. SINCLAIR (ASSOCIATE OF DR. SALINAS) ON THURSDAY SEPTEMBER 01, 2016 AT 9:25 AM. FOLLOW UP WITH INFECTIOUS DISEASE CLINIC WITHIN [address] MERLOS SCHEDULED. PLEASE CALL GASTROENTEROLOGY CLINIC FOR ENDOSCOPY AND COLONOSCOPY SCHEDULE. TEL. NO. [phone] Current Hospital Diet Patient's current hospital diet: AHA Diet (Heart Healthy) Discharge Diet Recommended Diet: AHA Diet (Heart Healthy) Pending Studies Studies pending at discharge: yes List of pending studies: ENOSCOPY AND COLONOSCOPY Medical Emergencies . Who to Call and When: Medical Emergencies: If at any time you feel your situation is an emergency, please call 911 immediately. . Non-Emergent Contact Non-Emergency issues call your: Primary Care Provider Call Non-Emergent contact if: you have a fever, your pain is not controlled, your pain is worsening, wound has increased drainage, wound has increased redness, wound has increased pain, you have any medication questions . . "Provider Documentation" section prepared by Juan Jose Jain. . VTE Core Measure Inpt VTE Proph given/why not?: Enoxaparin (Lovenox)SQ
--- NOTE | 2016-08-29 10:04 | Discharge Summary ---
Discharge Summary Date of Service August 29, 2016. Discharge Summary Admission Date: August 22, 2016 at 15:53 Discharge Date: August 29, 2016 Discharge Disposition: Home Principal Diagnosis: POSSIBLE TINEA CRURIS WITH SUPERIMPOSED CELLULITIS; INFECTED MILIARY RASH ON THE BACK AND THIGHS Secondary Diagnoses/Problems: PLEASE REFER TO HOSPITAL COURSE BELOW. Procedures: MRI CERVICAL SPINE COMBO CLINICAL HISTORY: possible MS flare WEAKNESS. DROPPING THINGS. NECK PAIN. TECHNIQUE: Sagittal and axial T1, T2 and STIR images were obtained. COMPARISON STUDY: 04/11/2014 There are no suspicious areas of marrow enhancement. On STIR images, there is patchy increased T2 signal throughout the cervical cord. Given the clinical history, the findings are consistent with multifocal MS plaques. There is no postcontrast enhancement to indicate active plaques. These findings were present on the prior study and are perhaps minimally progressive. C2-3: There is no evidence of disc bulge or focal herniation. There is no spinal or foraminal stenosis. C3-4: There is no evidence of disc bulge or focal herniation. There is no spinal or foraminal stenosis. C4-5: There is a mild circumferential disc bulge. There is no significant spinal or foraminal stenosis C5-6 :There is a mild circumferential disc bulge. There is no significant spinal or foraminal stenosis. C6-7: There is a mild circumferential disc bulge. There is minor right-sided foraminal narrowing. There is no significant spinal stenosis C7-T1: There is no evidence of disc bulge or focal herniation. There is no evidence of spinal or foraminal stenosis. IMPRESSION: 1. Mild multilevel spondylitic changes, with mild disc bulges the C4-5, C5-6, and C6-7 levels 2. Subtle patchy increased T2 signal throughout the cervical cord as visualized on inversion recovery images. This finding was present on the prior study, and is perhaps minimally progressive. There is no pathologic enhancement to indicate active MS plaques. Brain MRI WITH AND WITHOUT CONTRAST HISTORY: Dizziness. Possible multiple sclerosis flare. TECHNIQUE: Multiplanar multisequence MRI of the brain was performed both before and after the intravenous administration of contrast. COMPARISON STUDY: Brain MRI 06/08/2015. FINDINGS: There is no mass, hematoma, midline shift, acute infarct. Complete opacification within the right maxillary sinus. The mastoid air cells are clear. The orbits are unremarkable. Major vascular flow voids at the skull base are maintained. The ventricles are normal in size. There again noted multiple scattered foci of T2 hyperintensity seen within the periventricular and subcortical white matter of the supratentorial brain. These are similar in size, number, and distribution compared to the prior study. This is consistent with the patient's history of multiple sclerosis. There is also single punctate focus of T2 hyperintensity within the left middle cerebellar peduncle, unchanged. No abnormal enhancement. IMPRESSION: 1. No change in the scattered white matter plaques consistent with the patient's history of multiple sclerosis. No abnormal enhancement to suggest active demyelination. 2. Complete opacification of the right maxillary sinus, unchanged. KUB CLINICAL HISTORY: generalized abdominal pain, bloating, constipation pain. Nausea. COMPARISON STUDY: No previous studies for comparison. FINDINGS: The soft tissues, psoas shadows, renal outlines and intestinal gas pattern appear normal. There is no evidence for bowel obstruction. No abnormal abdominal calcifications are seen. IMPRESSION: note is made of vague cortical fracture anterior left 10th rib. Mild increase in fecal load within the colon consistent with a component of fecal stasis Consultations: ID PA Devika Sweeney, Gastro Dr. Aguilar, Neuro Dr. Merlos Medication Reconciliation New Medications: Caspofungin (Cancidas) 50 Mg/10 Ml Inj 50 MG IV DAILY for 7 Days Baclofen (Baclofen) 10 Mg Tab 10 MG PO BID for 30 Days, #60 TAB 1 Refill Levofloxacin (Levofloxacin) 500 Mg Tab 500 MG PO DAILY@11 for 7 Days, #7 TAB 0 Refills Nystatin (Nystop) 45 Appln/15 Gm Powd 1 APPLN EXT TID PRN for Affected Skin Folds for 15 Days, #1 BTL 2 Refills [Enteral Nutrition Formula] () 1 CAN LIQD 1 CAN PO TIDM for 30 Days Changed Medications: Pantoprazole (Pantoprazole Sodium) 40 Mg Tab 40 MG PO BID for 30 Days, #60 TAB 1 Refill (Changed from: QAM; 30; Refills: ) take 30 minutes before meal Polyethylene Glycol 3350 (Miralax) 1 Pow Pow 17 GM PO BID for 30 Days, #60 PKT 2 Refills (Changed from: DAILY; Removed Reason ; Refills: ) Continued Medications: Acetaminophen (Tylenol) 325 Mg Tab 650 MG PO Q6 PRN for Pain Alprazolam (Xanax) 1 Mg Tab 1 MG PO TID PRN for Anxiety/Insomnia, TAB Aspirin (Aspirin EC Low Dose) 81 Mg Ectab 81 MG DAILY Clopidogrel (Plavix) 75 Mg Tab 75 MG PO DAILY, TAB Duloxetine HCl (Duloxetine HCl) 60 Mg Cap 60 MG PO QAM, #30 Ergocalciferol (Vitamin D2) Unknown Strength Tab 82534 MG PO 2XWK Glatiramer Acetate (Copaxone) 20 Mg/1 Ml Inj 20 MG SC QPM Hydrochlorothiazide (Hctz) 25 Mg Tab 1 TAB PO DAILY for 30 Days, #30 TAB 5 Refills Ibuprofen Tab (Motrin) 800 Mg Tab 800 MG PO TID PRN for Pain, TAB Levothyroxine Sodium (Levothyroxine Sodium) 100 Mcg Tab 1 TAB PO DAILY for 90 Days, #90 TAB 3 Refills Lisinopril (Lisinopril) 40 Mg Tab 40 MG PO QAM Metoprolol Tartrate (Lopressor) 25 Mg Tab 25 MG PO BID, #60 Mirabegron (Myrbetriq Er) 50 Mg Tab 50 MG PO DAILY Ondasetron Odt (Zofran Odt) 4 Mg Tab 4 MG SL Q6H PRN for Nausea, #20 TAB Oxycodone/Acetaminophen 7.5MG/325MG (Percocet 7.5MG/325MG) Tab 1 TAB PO Q6 PRN for Pain, TAB PRN PAIN Sennosides-Docusate Sodium (Senna-S) 1 Tab Tab 1 TAB PO DAILY PRN for Constipation Discontinued Medications: Cefdinir (Cefdinir) 300 Mg Cap 300 MG PO BID Ketoconazole (Topical) (Nizoral) 2 % Sha 1 APPLN TOP 2XWK for 30 Days, #120 ML 2 Refills Admission Information HPI (per Admitting provider): This is a 60 year old female with PMH of MS, wheelchair bound, history of CVA with residual right arm weakness, hypertension, hypothyroidism, neurogenic bladder, hx recurrent UTI, and other problems listed below who presents as a direct admission sent by infectious disease Haylee Sweeney PA-C for severe intertrigo. Patient reports rash which developed 1.5- 2 months ago which progressively worsened despite outpatient antibiotic and antifungal treatment. Patient took a 14 day course of Diflucan, then saw Dr. Nelson over the weekend who started her on second 14 day course. She has been taking Omnicef for 6 days , last dose this morning. The rash is itchy and painful located on her groin, buttocks, back and posterior legs. Pt did not notice any open areas. reports bleeding from the groin rash. She was also having rash on her head for which she is using ketoconazole shampoo. Skin culture of her groin 08/12/16 grew E. coli, proteus mirabilis, MSSA, and group B beta strep all sensitive to ceftriaxone. Pt reports 2 weeks of nausea, poor PO intake, dizziness. Nausea improves with Zofran. Pt reports increased bilateral LE weakness for past few weeks which further worsened over past few days. She can usually help transfer from the wheelchair but is now having difficulty. She feels that her MS may be flaring up. Patient intermittently straight caths at home and denies any change in the urine including dysuria, foul odor, cloudiness. Denies fever, chills, vision change, chest pain, SOB, abdominal pain, vomiting, diarrhea. Physical Exam (per Admitting): General Appearance: no apparent distress, + obese, + pertinent finding ( alert 60 year old female, lying in bed, at bedside) Head: normocephalic, atraumatic Eyes: normal inspection, PERRL, EOMI ENT: hearing grossly normal, pharynx normal Neck: supple, trachea midline Respiratory/Chest: lungs clear, normal breath sounds, no respiratory distress, no accessory muscle use Cardiovascular: regular rate, rhythm, no murmur Abdomen/GI: normal bowel sounds, non tender, soft Back: + pertinent finding (burns catheter draining clear yellow urine) Extremities/Musculoskelatal: no pedal edema Neurologic/Psych: alert, normal mood/affect, oriented x 3, + pertinent finding (right arm strength 4/5- chronic per patient. left arm strength 5/5. unable to lift BLLE off the bed. ankle flexion/ extension 5/5 bilaterally. ) Skin: + pertinent finding (bright erythema with tenderness in bilateral groin folds, between gluteal folds, with small satellite patches on lower back and posterior thighs. no open areas noted. ) Hospital Course 60 year old female with history of MS on Copaxone, CVA, Hypertension, other problems noted below presenting with persistent rash. POSSIBLE TINEA CRURIS WITH SUPERIMPOSED CELLULITIS INFECTED MILIARY RASH ON THE BACK AND THIGHS - failed outpatient therapy - wound culture: (+) Pseudomonas blood culture: negative - given V Ceftriaxone (4 days) transitioned to Levaquin IV Day 4 Caspofungin Day 8, Nystatin powder wound care consulted ID consulted - affected area clinically improved - ID recommends: at least 1 more week of IV Caspofungin, with ff up in ID clinic to determine possible extension of therapy 1 more week of Levaquin PO Nystatin - patient advise daily wound care keep area dry RIGHT UPPER QUADRANT PAIN, LIKELY FROM CONSTIPATION - GB US: NO Cholelithias, Cholecystitis LFTs normal - KUB: IMPRESSION: note is made of vague cortical fracture anterior left 10th rib. Mild increase in fecal load within the colon consistent with a component of fecal stasis - GI evaluated patient, Dr. Aguilar Relior, Miralax, Protonix BID give - (+) BMs pain resolved - discharge plan: Protonix BID Miralax BID outpatient ff up with GI fo endoscopy and colonoscopy MULTIPLE SCLEROSIS EXACERBATION - Brain and Cervical Spine MRI: no acute process - Neuro consulted given short Prednisone taper, Baclofen BID - improved lower leg strength - PT/OT recommend return home - Neuro recommends:L Baclofen BID continue usual Copaxone ff up as outpatient NEUROGENIC BLADDER Intermittent straight caths at home Burns placed at patient's request HISTORY OF CVA With residual right arm weakness Continue aspirin and Plavix HYPERTENSION continue lisinopril, metoprolol, HCTZ PRN clonidine HYPOTHYROIDISM Continue levothyroxine CHRONIC BACK PAIN Continue PRN Percocet, Ibuprofen DISPOSITION d/c home today ff up with PCP in 1 week ff up with ID clinic in 1 week GI ff up for Endoscopy and Colonoscopy Neuro ff up with Dr. Merlos as scheduled Total time spent on discharge = 45 minutes This includes examination of the patient, discharge planning, medication reconciliation, and communication with other providers. Discharge Instructions Discharge Instructions Date of Service August 29, 2016. Admission Reason for Admission: Skin Rash-Allergic Reaction Discharge Discharge Diagnosis / Problem: CELLULITIS, INGUINAL REGION Discharge Goals Goal(s): Diagnostic testing, Therapeutic intervention Activity Recommendations Activity Limitations: resume your previous activity (GRADUALLY) . Instructions / Follow-Up Instructions / Follow-Up PLEASE REVIEW YOUR NEW MEDICATION LIST AND FOLLOW INSTRUCTIONS CAREFULLY. CALL PRIMARY CARE PHYSICIAN OR RETURN TO ER IMMEDIATELY IF WITH WORSENING OF SYMPTOMS, INCREASING REDNESS/PAIN/DISCHARGE ON THE AFFECTED AREAS OF THE SKIN, RECURRENCE OF RASH, FEVER/CHILLS, WEAKNESS, DIARRHEA. FOLLOW UP WITH DR. SINCLAIR (ASSOCIATE OF DR. SALINAS) ON THURSDAY SEPTEMBER 01, 2016 AT 9:25 AM. FOLLOW UP WITH INFECTIOUS DISEASE CLINIC WITHIN [address] MERLOS SCHEDULED. PLEASE CALL GASTROENTEROLOGY CLINIC FOR ENDOSCOPY AND COLONOSCOPY SCHEDULE. TEL. NO. [phone] Current Hospital Diet Patient's current hospital diet: AHA Diet (Heart Healthy) Discharge Diet Recommended Diet: AHA Diet (Heart Healthy) Pending Studies Studies pending at discharge: yes List of pending studies: ENOSCOPY AND COLONOSCOPY Medical Emergencies . Who to Call and When: Medical Emergencies: If at any time you feel your situation is an emergency, please call 911 immediately. . Non-Emergent Contact Non-Emergency issues call your: Primary Care Provider Call Non-Emergent contact if: you have a fever, your pain is not controlled, your pain is worsening, wound has increased drainage, wound has increased redness, wound has increased pain, you have any medication questions . . "Provider Documentation" section prepared by Juan Jose Jain. . VTE Core Measure Inpt VTE Proph given/why not?: Enoxaparin (Lovenox)SQ
[2016-08-29] MEDS: LEVOFLOXACIN 500 MG TAB PO SCH (12:17)
[2016-08-29 13:01] VITALS: BP 145/88; PULSE 56; TEMP 36.7; O2SAT 95
[2016-08-29] MEDS: CASPOFUNGIN INJ 50 MG in SODIUM CHLORIDE 0.9% 250ML 250 ML IV SCH (13:24)
[2017-02-11] MEDS ORDERED: FESO4TAB PO (19:39)
[2017-02-11] MEDS ORDERED: ACET-1311 PO (19:39)
[2017-02-11] MEDS ORDERED: ERGO1TAB10 PO (20:04)
== END 2016-08-29 15:10 | disposition home health service (06) | DRG 603 ==
LOC: C.4E 15:53
PROVIDERS: ADMIT Family Medicine; ATTEND Internal Medicine
DX: L03.312 Cellulitis of back [any part except buttock and flank] (principal); L03.116 Cellulitis of left lower limb; L03.115 Cellulitis of right lower limb; L30.4 Erythema intertrigo; B96.5 Pseudomonas (aeruginosa) (mallei) (pseudomallei) as the cause of diseases classified elsewhere; Z16.39 Resistance to other specified antimicrobial drug; B35.6 Tinea cruris; G35 Multiple sclerosis; K59.03 Drug induced constipation; T40.2X5A Adverse effect of other opioids, initial encounter; I69.331 Monoplegia of upper limb following cerebral infarction affecting right dominant side; N31.9 Neuromuscular dysfunction of bladder, unspecified; I10 Essential (primary) hypertension; E03.9 Hypothyroidism, unspecified; K21.9 Gastro-esophageal reflux disease without esophagitis; E55.9 Vitamin D deficiency, unspecified; G89.29 Other chronic pain; M54.9 Dorsalgia, unspecified; F32.9 Major depressive disorder, single episode, unspecified; Z99.3 Dependence on wheelchair; Z87.440 Personal history of urinary (tract) infections; Z79.02 Long term (current) use of antithrombotics/antiplatelets; Z79.82 Long term (current) use of aspirin; Z79.891 Long term (current) use of opiate analgesic; Z79.899 Other long term (current) drug therapy

== ENCOUNTER → 2016-09-08 | Outpatient (CLI) | payer OTHER ==
[~2016-09-08] MED LIST changes: +ACET-1311 PO; -CEFD300C3 PO; +CNCI50 IV; +ERGO1TAB10 PO; +Enteral Nutrition Formula PO; +FESO4TAB PO; -FLUC100T4 PO; +LRS10 PO; +LVQ500 PO; +NYSP EXT; +TYL325X PO
[2016-09-08 17:53] LABS: HEMATOCRIT 42.4 % (37-47); MEAN CELL VOLUME 95.3 fL (80-100); MEAN CORPUSCULAR HEMOGLOBIN 30.1 pg (25-34); MEAN CORPUSCULAR HGB CONC 31.6 g/dl (32-36); MEAN PLATELET VOLUME 10.7 fL (7.4-10.4); PLATELET COUNT 254 K/uL (130-400); RED BLOOD COUNT 4.45 M/uL (4.2-5.4); WHITE BLOOD COUNT 5.75 K/uL (4.8-10.8)
[2016-09-08 18:33] LABS: ALB/GLOB RATIO 1.1 (0.9-2); ALKALINE PHOSPHATASE 74 U/L (45-117); ALT/SGPT 27 U/L (12-78); AST/SGOT 23 U/L (15-37); BLOOD UREA NITROGEN 23 mg/dl (7-18); BUN/CREATININE RATIO 34.8 (10-20); CALCIUM 8.5 mg/dl (8.5-10.1); CARBON DIOXIDE 28 mmol/L (21-32); CHLORIDE 105 mmol/L (98-107); CREATININE 0.65 mg/dl (0.60-1.20); GLUCOSE 86 mg/dl (70-99); SODIUM 141 mmol/L (136-145)
== END | disposition home or self-care (01) ==
LOC: C.LABSPEC 17:01
PROVIDERS: ATTEND Internal Medicine
DX: L03.90 Cellulitis, unspecified (principal)

== ENCOUNTER → 2016-09-15 | Outpatient (CLI) | payer OTHER ==
[2016-09-15 11:43] LABS: HEMATOCRIT 43.4 % (37-47); MEAN CELL VOLUME 93.9 fL (80-100); MEAN CORPUSCULAR HEMOGLOBIN 29.4 pg (25-34); MEAN CORPUSCULAR HGB CONC 31.3 g/dl (32-36); MEAN PLATELET VOLUME 9.9 fL (7.4-10.4); PLATELET COUNT 285 K/uL (130-400); RED BLOOD COUNT 4.62 M/uL (4.2-5.4); WHITE BLOOD COUNT 4.76 K/uL (4.8-10.8)
[2016-09-15 11:55] LABS: ALT/SGPT 26 U/L (12-78); AST/SGOT 27 U/L (15-37); BLOOD UREA NITROGEN 23 mg/dl (7-18); BUN/CREATININE RATIO 34.5 (10-20); CALCIUM 8.6 mg/dl (8.5-10.1); CARBON DIOXIDE 34 mmol/L (21-32); CHLORIDE 103 mmol/L (98-107); CREATININE 0.66 mg/dl (0.60-1.20); GLUCOSE 95 mg/dl (70-99); POTASSIUM 3.7 mmol/L (3.5-5.1); SODIUM 142 mmol/L (136-145)
[2016-09-15 11:56] LABS: ALB/GLOB RATIO 1.1 (0.9-2); ALKALINE PHOSPHATASE 75 U/L (45-117)
== END | disposition home or self-care (01) ==
LOC: C.LABSPEC 11:24
PROVIDERS: ATTEND Internal Medicine Infectious Disease
DX: Z51.81 Encounter for therapeutic drug level monitoring (principal); Z79.2 Long term (current) use of antibiotics

== ENCOUNTER → 2016-11-02 | Outpatient (CLI) | payer OTHER ==
[~2016-11-02] MED LIST changes: -ACET-1311 PO; -FESO4TAB PO; -PANT40TA2 PO; +PRT/40 PO
== END | disposition home or self-care (01) ==
LOC: C.LABSPEC 17:09
PROVIDERS: ATTEND Nurse Practitioner Family
DX: N39.0 Urinary tract infection, site not specified (principal)

== ENCOUNTER → 2016-11-17 | Outpatient (CLI) | payer OTHER | END | disposition home or self-care (01) | LOC: C.LABSPEC 10:30 | PROVIDERS: ATTEND Nurse Practitioner Family | DX: N39.0 Urinary tract infection, site not specified (principal); R30.0 Dysuria ==

== ENCOUNTER → 2016-12-15 | Outpatient (CLI) | payer OTHER ==
[2016-12-15 09:45] LABS: URINE APPEARANCE CLEAR (CLEAR); URINE BILIRUBIN NEG (NEG); URINE COLOR YELLOW; URINE EPITHELIAL CELL AUTO 0-5 /lpf (0-5); URINE NITRITE POS (NEG); URINE PH 6.5 (4.5-7.5); URINE SPECIFIC GRAVITY 1.014 (1.000-1.030); UROBILINOGEN NEG (NEG)
[2016-12-15 09:49] LABS: MANUAL MICROSCOPIC REQUIRED? NO; REVIEW REQ? NO
== END | disposition home or self-care (01) ==
LOC: C.LAB1850 07:36
PROVIDERS: ATTEND Internal Medicine Infectious Disease
DX: N39.0 Urinary tract infection, site not specified (principal)

== ENCOUNTER → 2017-05-01 | Outpatient (CLI) | payer OTHER ==
[~2017-05-01] MED LIST changes: +ACET-1311 PO; -CNCI50 IV; -Enteral Nutrition Formula PO; +FESO4TAB PO; -LRS10 PO; -LVQ500 PO; -MIRA1TAB3 PO; +PANT40TA2 PO; -PRT/40 PO; -TYL325X PO
[2017-05-01 17:59] LABS: ALT/SGPT 30 U/L (12-78); AST/SGOT 22 U/L (15-37); BLOOD UREA NITROGEN 11 mg/dl (7-18); CALCIUM 9.3 mg/dl (8.5-10.1); CARBON DIOXIDE 32 mmol/L (21-32); CREATININE 0.68 mg/dl (0.60-1.20); GLUCOSE 88 mg/dl (70-99); POTASSIUM 3.9 mmol/L (3.5-5.1); SODIUM 134 mmol/L (136-145)
[2017-05-01 18:09] LABS: ALKALINE PHOSPHATASE 50 U/L (45-117); TOTAL PROTEIN 8.3 gm/dl (6.4-8.2)
== END | disposition home or self-care (01) ==
LOC: C.LABPVFM 16:25
PROVIDERS: ATTEND Family Medicine
DX: N39.0 Urinary tract infection, site not specified (principal); R39.15 Urgency of urination; F32.9 Major depressive disorder, single episode, unspecified; E55.9 Vitamin D deficiency, unspecified; E03.9 Hypothyroidism, unspecified

== ENCOUNTER → 2017-09-04 | Outpatient (CLI) | payer OTHER ==
[~2017-09-04] MED LIST changes: -ASPEC81; +ASPI-320
== END | disposition home or self-care (01) ==
LOC: C.LABPVFM 17:55
PROVIDERS: ATTEND Nurse Practitioner Adult Health
DX: N39.0 Urinary tract infection, site not specified (principal)

== ENCOUNTER → 2017-12-07 | Outpatient (CLI) | payer OTHER ==
[~2017-12-07] MED LIST changes: +LISI40TA3 PO; -LSN40 PO
== END | disposition home or self-care (01) ==
LOC: C.LABPVFM 16:42
PROVIDERS: ATTEND Urology
DX: N39.0 Urinary tract infection, site not specified (principal)

== ENCOUNTER 2019-02-05 14:36 | Observation (INO) ==
[2019-02-05 15:43] LABS: Basophils # (auto) 0.02 K/uL (0-0.2); Basophils % (auto) 0.3 %; Eosinophils # (auto) 0.11 K/uL (0-0.5); Eosinophils % (auto) 1.8 %; Hemoglobin 15.1 g/dL (12.0-16.0); Lymphocytes # (auto) 1.74 K/uL (1.2-3.4); Lymphocytes % (auto) 28.9 %; Mean Corpuscular Hemoglobin 31.9 pg (25-34); Mean Corpuscular Hgb Conc 34.3 g/dL (32-36); Mean Corpuscular Volume 92.8 fL (80-100); Mean Platelet Volume 10.5 fL (7.4-10.4); Monocytes % (auto) 11.6 %; Neutrophils # (auto) 3.45 K/uL (1.4-6.5); Neutrophils % (auto) 57.4 %; Platelet Count 262 K/uL (130-400); RDW Coefficient of Variation 13.7 % (11.5-14.5); RDW Standard Deviation 46.9 fL (36.4-46.3); Red Blood Count 4.74 M/uL (4.2-5.4); White Blood Count 6.02 K/uL (4.8-10.8)
[2019-02-05 15:50] LABS: Alanine Aminotransferase 19 U/L (12-78); Albumin Level 3.9 gm/dl (3.4-5.0); Aspartate Aminotransferase 14 U/L (15-37); Blood Urea Nitrogen 15 mg/dl (7-18); Calcium 9.1 mg/dl (8.5-10.1); Carbon Dioxide 30 mmol/L (21-32); Chloride 102 mmol/L (98-107); Creatinine Clr Calc Pharmacy 87.1 ml/min; Est GFR (African American) 101.9; Est GFR (Non-African American) 87.9; Glucose 83 mg/dl (70-99); Sodium 136 mmol/L (136-145)
[2019-02-05 15:53] LABS: Alkaline Phosphatase 68 U/L (45-117); Bilirubin,Total 0.5 mg/dl (0.2-1); Globulin 4.1 gm/dl (2.5-4.0)
--- NOTE | 2019-02-05 16:43 | XRay Report ---
XR chest 1V portable CLINICAL HISTORY: 63 years-old Female presenting with weak eval for pna. TECHNIQUE: Portable upright AP view of the chest was obtained. COMPARISON: 01/26/2016. FINDINGS: Atherosclerosis of the aortic arch. Cardiac silhouette top normal in size. No focal opacity. No large effusion or pneumothorax. Osseous structures normal. Upper abdomen normal. IMPRESSION: 1. No acute cardiopulmonary disease. Electronically signed by: Eitan Nolasco M.D. 02/05/2019 4:41 PM
[2019-02-05 16:49] LABS: Partial Thromboplastin Time 27.1 Seconds (21.0-31.0)
[2019-02-05 16:50] LABS: Troponin I < 0.015 ng/ml (0-0.045)
[2019-02-05] MEDS ORDERED: ACETAMINOPHEN 325 MG TAB PO STA ×2 (17:01→23:05)
[2019-02-05 17:22] LABS: Appearance Urine Clear (Clear); Bacteria Urine Automated Negative (Negative); Bilirubin Urine Negative (Negative); Blood Urine Negative (Negative); Cast Urine Automated 0 /lpf (0-5); Color Urine Yellow; Glucose Urine UA Negative (Negative); Ketones Urine Negative (Negative); Leukocyte Esterase Urine Trace (Negative); Nitrite Urine Negative (Negative); Protein Urine Negative (Negative); RBC Urine Automated 0-4 /hpf (0-4); Specific Gravity Urine 1.012 (1.000-1.030); Urobilinogen Urine Negative (Negative); pH Urine 7.5 (4.5-7.5)
--- NOTE | 2019-02-05 18:05 | CT Scan Report ---
CT head/brain wo con CLINICAL HISTORY: 63 years-old Female presenting with OSULLIVAN eval for bleed. TECHNIQUE: Multidetector CT imaging of the head was performed without the use of intravenous contrast . IV contrast: None. One or more dose lowering techniques were used consistent with the principles of ALARA (as low as reasonably achievable), including automatic exposure control, mA or kV adjustment t o individual patient size, and/or use of iterative reconstruction. COMPARISON: 02/11/2017. CT DOSE (mGy.cm): The estimated cumulative dose is 537.48 mGy.cm. FINDINGS: Esthetic Dermatologist topogram: Unremarkable. Ventricles and sulci normal in size. No hemorrhage. Periventricular and subcortical white matter hypo attenuation, nonspecific but likely indicative of chronic small vessel ischemic change. No acute terr itorial infarct. No mass effect or midline shift. No extra-axial fluid collection. Paranasal sinuses and mastoid air cells clear. Calvarium intact. IMPRESSION: 1. Chronic small vessel ischemic change. No acute intracranial abnormality. Electronically signed by: Eitan Nolasco M.D. 02/05/2019 6:04 PM
[2019-02-05] MEDS ORDERED: SODIUM CHLORIDE 0.9% 1000ML 250 ML IV ONE (18:09)
--- NOTE | 2019-02-05 18:35 | History & Physical Report ---
Date of Service February 05, 2019 History of Present Illness Primary Care Provider: Saira Verde MD Allergies Allergy/AdvReac Type Severity Reaction Status Date / Time rofecoxib Allergy Mild Gastrointestinal Verified 02/05/19 15:23 Upset Penicillins AdvReac Severe HIVES/TROUBLE Verified 02/05/19 15:23 BREATHING metoclopramide AdvReac Mild RESTLESS Verified 02/05/19 15:23 prochlorperazine AdvReac Mild RESTLESS Verified 02/05/19 15:23 Home Medications Home Medications Medication Instructions Recorded Confirmed Type Toviaz 8 mg PO QAM 03/05/18 02/05/19 History clopidogrel 75 mg PO QAM 03/05/18 02/05/19 History duloxetine 60 mg PO QAM 03/05/18 02/05/19 History metoprolol tartrate 25 mg PO BID 03/05/18 02/05/19 History venlafaxine [Effexor XR] 150 mg PO QAM 03/05/18 02/05/19 History ocrelizumab [Ocrevus] 600 mg IV Q6M 04/29/18 02/05/19 History bisacodyl 5 mg tablet,delayed 5 mg PO DAILY PRN tab 10/10/18 02/05/19 History release nitrofurantoin macrocrystal 100 mg 100 mg PO HS #30 cap 10/10/18 02/05/19 History capsule lisinopril 40 mg tablet 40 mg PO DAILY tab 12/03/18 02/05/19 History polyethylene glycol 3350 17 gram 17 g PO TID PRN ea 12/03/18 02/05/19 History oral powder packet sennosides 8.6 mg tablet 8.6 mg PO QAM 12/03/18 02/05/19 History ondansetron HCl 4 mg tablet 4 mg PO BID PRN #30 tab 12/10/18 02/05/19 Rx levothyroxine 100 mcg tablet 100 mcg PO DAILY #90 tab 01/01/19 02/05/19 Rx oxycodone-acetaminophen 5 mg-325 1 tab PO TID PRN #90 tab 01/22/19 02/05/19 Rx mg tablet alprazolam 0.5 mg PO TID PRN 02/05/19 02/05/19 History Past Med/Surg History Medical History Anxiety Primary hypothyroidism (Acute) Mixed incontinence urge and stress (Acute) MSSA (methicillin susceptible Staphylococcus aureus) infection (Resolved) Cervical radiculopathy (Acute) Neurogenic bladder (Chronic) Hypertension (Chronic) H/O: CVA (cerebrovascular accident) (Chronic) Vitamin D deficiency (Chronic) Multiple sclerosis (Acute) Acute blood loss anemia DJD (degenerative joint disease), cervical (Chronic) Hypothyroidism (Chronic) Lumbosacral disc disease (Chronic) Depression (Chronic) H/O: duodenal ulcer (Resolved) "H pylori positive per records" Fracture spine - d/t osteoporosis Hypertension Hypothyroid Migraine Multiple sclerosis Osteoporosis Pancreatitis 2015 - PER RECORDS Peptic ulcer disease H/O DUODENAL ULCER (PER RECORDS) Stroke 4 yr ago - [facility] - residual effect - "clumsy right arm" Surgical History H/O section History of cataract surgery RT/LEFT History of colonoscopy History of esophagogastroduodenoscopy (EGD) Hx of appendectomy S/P total abdominal hysterectomy Family History Mother Family hx of colon cancer Grandmother (Maternal) Family hx of colon cancer Social History Preferred Language: Tristanian Communication Ability: Effective Visual Impairment: No Limitations Hearing Ability: Normal Button [employer] Work[employer] Required: No Beliefs That Will Affect Care: None marital status: Current Living Situation: Spouse Feels Safe at Home: Yes Smoking Status: Never smoker Second Hand Exposure: Yes ( A CHILD) ; Hx Alcohol Use: No Hx Substance Use: No Results & Data Vital Signs (Past 12 Hours) Vital Signs Temp Pulse Resp BP Pulse Ox 02/05/19 17:55 77 16 02/05/19 17:40 72 16 99 02/05/19 17:30 66 17 02/05/19 17:20 64 16 02/05/19 17:18 73 23 167/108 H 02/05/19 17:10 68 13 100 02/05/19 17:00 82 22 185/101 H 91 02/05/19 16:50 88 17 02/05/19 16:40 69 21 02/05/19 16:30 71 23 02/05/19 16:20 75 17 99 02/05/19 16:10 74 17 99 02/05/19 16:00 73 18 175/81 H 98 02/05/19 15:50 73 19 98 02/05/19 15:40 73 12 02/05/19 15:30 73 15 98 02/05/19 15:20 86 20 97 02/05/19 15:13 76 18 99 02/05/19 15:10 73 13 181/119 H 100 02/05/19 14:44 37.1 C 82 16 174/115 H 98 PG Care Time/CCT Total # of Minutes Spent Total Time Spent with Patient: Total time spent is greater than 50% in coordination of care (as documented) at patient's floor/unit and/or counseling patient:
--- NOTE | 2019-02-05 19:02 | Emergency Department Note ---
Entered by Ivonne Chacon acting as a scribe for Quoc Bernal MD History of Present Illness General Chief complaint: Hypertension Stated complaint: HTN, HEADACHE, PRE-SYNCOPE Source: patient History of Present Illness Onset (ago): hour(s) (this morning) Location: head Radiation: neck Maximum Pain Intensity: 8 Quality: + other (hypertension) Relieved By: + other (lying down) Associated symptoms: + chest pain (chest discomfort or tightness), + headaches and + other (Positive near syncopal episode this morning, nausea. Negative change in weakness recently, increased numbness in her arms or legs, abdominal pain, urinary symptoms, fevers, flu like symptoms, runny nose, difficulty speaki ng, difficulty swallowing, changes in vision other than her episode this morni ); no cough and no shortness of breath The patient is a 63 year old female who presents to the ED with complaints of hypertension. She has a hx of MS and is in a wheelchair but can still move her legs. She also has a hx of 2 strokes with right sided weakness. She reports she woke up this morning and when she got out of bed, "everything went black." She states she lied back down in bed and believes that if she did not, she would have had a syncopal episode. She notes that after her episode this morning, she has had a headache which radiates down to her neck. This headache is similar to headaches she has had in the past when she has episodes of hypertension. The patient reports her blood pressure has been high all day and she has some nausea. Pt denies any change in focal weakness recently, increased numbness in her arms or legs, chest discomfort or tightness, SOB, abdominal pain, urinary symptoms, fevers, flu like symptoms, cough, runny nose, difficulty speaking, difficulty swallowing, changes in vision other than her episode this morning, black stools, bloody stools, diarrhea. She is on blood thinners and takes Plavix. She states she takes blood pressure medications and took them today. Home Medications Home Medications Medication Instructions Recorded Confirmed Type Toviaz 8 mg PO QAM 03/05/18 02/05/19 History clopidogrel 75 mg PO QAM 03/05/18 02/05/19 History duloxetine 60 mg PO QAM 03/05/18 02/05/19 History metoprolol tartrate 25 mg PO BID 03/05/18 02/05/19 History venlafaxine [Effexor XR] 150 mg PO QAM 03/05/18 02/05/19 History ocrelizumab [Ocrevus] 600 mg IV Q6M 04/29/18 02/05/19 History bisacodyl 5 mg tablet,delayed 5 mg PO DAILY PRN tab 10/10/18 02/05/19 History release nitrofurantoin macrocrystal 100 mg 100 mg PO HS #30 cap 10/10/18 02/05/19 History capsule lisinopril 40 mg tablet 40 mg PO DAILY tab 12/03/18 02/05/19 History polyethylene glycol 3350 17 gram 17 g PO TID PRN ea 12/03/18 02/05/19 History oral powder packet sennosides 8.6 mg tablet 8.6 mg PO QAM 12/03/18 02/05/19 History ondansetron HCl 4 mg tablet 4 mg PO BID PRN #30 tab 12/10/18 02/05/19 Rx levothyroxine 100 mcg tablet 100 mcg PO DAILY #90 tab 01/01/19 02/05/19 Rx oxycodone-acetaminophen 5 mg-325 1 tab PO TID PRN #90 tab 01/22/19 02/05/19 Rx mg tablet alprazolam 0.5 mg PO TID PRN 02/05/19 02/05/19 History Allergies Allergy/AdvReac Type Severity Reaction Status Date / Time rofecoxib Allergy Mild Gastrointestinal Verified 02/05/19 15:23 Upset Penicillins AdvReac Severe HIVES/TROUBLE Verified 02/05/19 15:23 BREATHING metoclopramide AdvReac Mild RESTLESS Verified 02/05/19 15:23 prochlorperazine AdvReac Mild RESTLESS Verified 02/05/19 15:23 Past Med/Surg History Medical History Anxiety Primary hypothyroidism (Acute) Mixed incontinence urge and stress (Acute) MSSA (methicillin susceptible Staphylococcus aureus) infection (Resolved) Cervical radiculopathy (Acute) Neurogenic bladder (Chronic) Hypertension (Chronic) H/O: CVA (cerebrovascular accident) (Chronic) Vitamin D deficiency (Chronic) Multiple sclerosis (Acute) Acute blood loss anemia DJD (degenerative joint disease), cervical (Chronic) Hypothyroidism (Chronic) Lumbosacral disc disease (Chronic) Depression (Chronic) H/O: duodenal ulcer (Resolved) "H pylori positive per records" Fracture spine - d/t osteoporosis Hypertension Hypothyroid Migraine Multiple sclerosis Osteoporosis Pancreatitis 2015 - PER RECORDS Peptic ulcer disease H/O DUODENAL ULCER (PER RECORDS) Stroke 4 yr ago - [facility] - residual effect - "clumsy right arm" Surgical History H/O section History of cataract surgery RT/LEFT History of colonoscopy History of esophagogastroduodenoscopy (EGD) Hx of appendectomy S/P total abdominal hysterectomy Family History Mother Family hx of colon cancer Grandmother (Maternal) Family hx of colon cancer Social History Preferred Language: Mongolian Communication Ability: Effective Visual Impairment: No Limitations Hearing Ability: Normal Vp Outcomes Required: No Beliefs That Will Affect Care: None marital status: Current Living Situation: Spouse Feels Safe at Home: Yes Smoking Status: Never smoker Second Hand Exposure: Yes ( A CHILD) ; Hx Alcohol Use: No Hx Substance Use: No Review of Systems See HPI for pertinent positives & negatives. and A total of 10 systems reviewed and were otherwise negative Physical Exam Vital Signs Vital Signs - 24 hr 02/05/19 14:44 02/05/19 15:10 02/05/19 15:13 Temperature 37.1 C Temperature Source Oral Sepsis Recent Fever Within 48 Hours No Sepsis New/Unexplained Change in Mental Status No Sepsis Action Taken by Nursing No Action Required Pulse Rate - Lying Pulse Rate - Sitting Pulse Rate 82 73 76 Pulse Rate from SpO2 Sensor 74 76 Respiratory Rate 16 13 18 Blood Pressure - Lying Blood Pressure - Sitting Blood Pressure 174/115 H 181/119 H Blood Pressure Mean 134 139 Pulse Oximetry 98 100 99 Oxygen Delivery Method Room Air 02/05/19 15:20 02/05/19 15:30 02/05/19 15:40 Temperature Temperature Source Sepsis Recent Fever Within 48 Hours Sepsis New/Unexplained Change in Mental Status Sepsis Action Taken by Nursing Pulse Rate - Lying Pulse Rate - Sitting Pulse Rate 86 73 73 Pulse Rate from SpO2 Sensor 86 73 Respiratory Rate 20 15 12 Blood Pressure - Lying Blood Pressure - Sitting Blood Pressure Blood Pressure Mean Pulse Oximetry 97 98 Oxygen Delivery Method 02/05/19 15:50 02/05/19 16:00 02/05/19 16:10 Temperature Temperature Source Sepsis Recent Fever Within 48 Hours Sepsis New/Unexplained Change in Mental Status Sepsis Action Taken by Nursing Pulse Rate - Lying Pulse Rate - Sitting Pulse Rate 73 73 74 Pulse Rate from SpO2 Sensor 73 73 74 Respiratory Rate 19 18 17 Blood Pressure - Lying Blood Pressure - Sitting Blood Pressure 175/81 H Blood Pressure Mean 112 Pulse Oximetry 98 98 99 Oxygen Delivery Method 02/05/19 16:20 02/05/19 16:30 02/05/19 16:40 Temperature Temperature Source Sepsis Recent Fever Within 48 Hours Sepsis New/Unexplained Change in Mental Status Sepsis Action Taken by Nursing Pulse Rate - Lying Pulse Rate - Sitting Pulse Rate 75 71 69 Pulse Rate from SpO2 Sensor 76 Respiratory Rate 17 23 21 Blood Pressure - Lying Blood Pressure - Sitting Blood Pressure Blood Pressure Mean Pulse Oximetry 99 Oxygen Delivery Method 02/05/19 16:50 02/05/19 17:00 02/05/19 17:10 Temperature Temperature Source Sepsis Recent Fever Within 48 Hours Sepsis New/Unexplained Change in Mental Status Sepsis Action Taken by Nursing Pulse Rate - Lying Pulse Rate - Sitting Pulse Rate 88 82 68 Pulse Rate from SpO2 Sensor 74 68 Respiratory Rate 17 22 13 Blood Pressure - Lying Blood Pressure - Sitting Blood Pressure 185/101 H Blood Pressure Mean 129 Pulse Oximetry 91 100 Oxygen Delivery Method 02/05/19 17:17 02/05/19 17:18 02/05/19 17:20 Temperature Temperature Source Sepsis Recent Fever Within 48 Hours Sepsis New/Unexplained Change in Mental Status Sepsis Action Taken by Nursing Pulse Rate - Lying 68 Pulse Rate - Sitting 68 Pulse Rate 73 64 Pulse Rate from SpO2 Sensor Respiratory Rate 23 16 Blood Pressure - Lying 173/87 H Blood Pressure - Sitting 167/108 H Blood Pressure 167/108 H Blood Pressure Mean 127 Pulse Oximetry Oxygen Delivery Method 02/05/19 17:30 02/05/19 17:40 02/05/19 17:55 Temperature Temperature Source Sepsis Recent Fever Within 48 Hours Sepsis New/Unexplained Change in Mental Status Sepsis Action Taken by Nursing Pulse Rate - Lying Pulse Rate - Sitting Pulse Rate 66 72 77 Pulse Rate from SpO2 Sensor 67 Respiratory Rate 17 16 16 Blood Pressure - Lying Blood Pressure - Sitting Blood Pressure Blood Pressure Mean Pulse Oximetry 99 Oxygen Delivery Method Constitutional: Vital signs reviewed. Eyes: Pupils are equal round reactive to light. Conjunctiva are noninjected. ENT: Pharynx is clear without erythema or exudate. Mucous membranes are moist. Neck supple without meningeal signs. Respiratory: Clear to auscultation bilaterally. Breath sounds are equal bilaterally. Cardiovascular: Regular rate and rhythm. No rubs or gallops. No carotid bruit GI: Soft, nondistended and nontender. Bowel sounds are present. Musculoskeletal: No peripheral edema. No lower extremity tenderness. Integumentary: No cyanosis. Neurological: The patient is awake and alert. Cranial nerves II-XII are intact. Motor is 2/5 strength in BLE Sensation is intact to light touch all extremities. Normal speech. No pronator drift. No limb ataxia in upper extremities. Psychiatric: Normal affect. Course 1619: Past medical records reviewed. The patient was evaluated in room C6. A complete history and physical exam was performed. 181: I reevaluated the patient at this time. I discussed her test results and she states she feels about the same, still weak. 1813: Discussed the patient's case with Dr. Marc, [facility] Hospitalist. The patient will be evaluated for further management. Administered Medications Discontinued Medications Acetaminophen (Tylenol) 650 mg PO NOW STA Stop: 02/05/19 17:02 Last Admin: 02/05/19 17:19 Dose: 650 mg Documented by: [id number] Sodium Chloride (Nss 1000ml) 250 mls @ 999 mls/hr IV .Q16M ONE Stop: 02/05/19 18:24 Last Admin: 02/05/19 18:35 Dose: 999 mls/hr Documented by: [id number] Medical Decision Making Differential Diagnosis Differential diagnosis: Etiologies such as near syncope, dehydration, orthostatic hypertension, anemia, cardiac infection, carotid stenosis, as well as others were entertained. Medical Records Attestation: I reviewed the patient's medical records. I did perform a limited focused review of portions of the patient's old chart on the electronic medical record. The patient has had no recent pertinent visits to this hospital. Home Medications Current Medication List: was personally reviewed by me Laboratory Data Attestation: I reviewed the patient's lab results. Result diagrams: 02/05/19 15:18 02/05/19 15:18 Lab Results 02/05/19 02/05/19 02/05/19 Range/Units 15:18 15:18 15:18 WBC 6.02 (4.8-10.8) K/uL RBC 4.74 (4.2-5.4) M/uL Hgb 15.1 (12.0-16.0) g/dL Hct 44.0 (37-47) % MCV 92.8 (80-100) fL MCH 31.9 (25-34) pg MCHC 34.3 (32-36) g/dL RDW Std Deviation 46.9 H (36.4-46.3) fL RDW Coeff of Teddy 13.7 (11.5-14.5) % Plt Count 262 (130-400) K/uL MPV 10.5 H (7.4-10.4) fL Immature Gran % (Auto) 0.0 % Neut % (Auto) 57.4 % Lymph % (Auto) 28.9 % [place] % (Auto) 11.6 % Eos % (Auto) 1.8 % Baso % (Auto) 0.3 % Immature Gran # (Auto) 0.00 (0.00-0.02) K/uL Neut # (Auto) 3.45 (1.4-6.5) K/uL Lymph # (Auto) 1.74 (1.2-3.4) K/uL [place] # (Auto) 0.70 H (0.11-0.59) K/uL Eos # (Auto) 0.11 (0-0.5) K/uL Baso # (Auto) 0.02 (0-0.2) K/uL PT 10.0 (9.0-12.0) Seconds INR 1.0 (0.9-1.1) APTT 27.1 (21.0-31.0) Seconds PTT Ratio 1.0 Sodium 136 (136-145) mmol/L Potassium 4.0 (3.5-5.1) mmol/L Chloride 102 (98-107) mmol/L Carbon Dioxide 30 (21-32) mmol/L Anion Gap 4.0 (3-11) BUN 15 (7-18) mg/dl Creatinine 0.72 (0.6-1.2) mg/dl Est Cr Clr Drug Dosing 87.1 ml/min Est GFR ( Amer) 101.9 Est GFR (Non-Af Amer) 87.9 BUN/Creatinine Ratio 21.0 H (10-20) Glucose 83 (70-99) mg/dl Calcium 9.1 (8.5-10.1) mg/dl Total Bilirubin 0.5 (0.2-1) mg/dl AST 14 L (15-37) U/L ALT 19 (12-78) U/L Alkaline Phosphatase 68 (45-117) U/L Troponin I < 0.015 (0-0.045) ng/ml Total Protein 8.0 (6.4-8.2) gm/dl Albumin 3.9 (3.4-5.0) gm/dl Globulin 4.1 H (2.5-4.0) gm/dl Albumin/Globulin Ratio 1.0 (0.9-2) Urine Color Urine Appearance (Clear) Urine pH (4.5-7.5) Ur Specific [place] (1.000-1.030) Urine Protein (Negative) Urine Glucose (UA) (Negative) Urine Ketones (Negative) Urine Blood (Negative) Urine Nitrite (Negative) Urine Bilirubin (Negative) Urine Urobilinogen (Negative) Ur Leukocyte Esterase (Negative) Urine WBC (Auto) (0-5) /hpf Urine RBC (Auto) (0-4) /hpf U Hyaline Cast (Auto) (0-5) /lpf U Epithel Cells (Auto) (0-5) /lpf Urine Bacteria (Auto) (Negative) 02/05/19 Range/Units 16:46 WBC (4.8-10.8) K/uL RBC (4.2-5.4) M/uL Hgb (12.0-16.0) g/dL Hct (37-47) % MCV (80-100) fL MCH (25-34) pg MCHC (32-36) g/dL RDW Std Deviation (36.4-46.3) fL RDW Coeff of Teddy (11.5-14.5) % Plt Count (130-400) K/uL MPV (7.4-10.4) fL Immature Gran % (Auto) % Neut % (Auto) % Lymph % (Auto) % [place] % (Auto) % Eos % (Auto) % Baso % (Auto) % Immature Gran # (Auto) (0.00-0.02) K/uL Neut # (Auto) (1.4-6.5) K/uL Lymph # (Auto) (1.2-3.4) K/uL [place] # (Auto) (0.11-0.59) K/uL Eos # (Auto) (0-0.5) K/uL Baso # (Auto) (0-0.2) K/uL PT (9.0-12.0) Seconds INR (0.9-1.1) APTT (21.0-31.0) Seconds PTT Ratio Sodium (136-145) mmol/L Potassium (3.5-5.1) mmol/L Chloride (98-107) mmol/L Carbon Dioxide (21-32) mmol/L Anion Gap (3-11) BUN (7-18) mg/dl Creatinine (0.6-1.2) mg/dl Est Cr Clr Drug Dosing ml/min Est GFR ( Amer) Est GFR (Non-Af Amer) BUN/Creatinine Ratio (10-20) Glucose (70-99) mg/dl Calcium (8.5-10.1) mg/dl Total Bilirubin (0.2-1) mg/dl AST (15-37) U/L ALT (12-78) U/L Alkaline Phosphatase (45-117) U/L Troponin I (0-0.045) ng/ml Total Protein (6.4-8.2) gm/dl Albumin (3.4-5.0) gm/dl Globulin (2.5-4.0) gm/dl Albumin/Globulin Ratio (0.9-2) Urine Color Yellow Urine Appearance Clear (Clear) Urine pH 7.5 (4.5-7.5) Ur Specific [place] 1.012 (1.000-1.030) Urine Protein Negative (Negative) Urine Glucose (UA) Negative (Negative) Urine Ketones Negative (Negative) Urine Blood Negative (Negative) Urine Nitrite Negative (Negative) Urine Bilirubin Negative (Negative) Urine Urobilinogen Negative (Negative) Ur Leukocyte Esterase Trace H (Negative) Urine WBC (Auto) 1-5 (0-5) /hpf Urine RBC (Auto) 0-4 (0-4) /hpf U Hyaline Cast (Auto) 0 (0-5) /lpf U Epithel Cells (Auto) 5-10 H (0-5) /lpf Urine Bacteria (Auto) Negative (Negative) Imaging Data Radiologist's Impression: Radiology results as stated below per my review and the radiologist's interpretation: XR chest 1V portable CLINICAL HISTORY: 63 years-old Female presenting with weak eval for pna. TECHNIQUE: Portable upright AP view of the chest was obtained. COMPARISON: 01/26/2016. FINDINGS: Atherosclerosis of the aortic arch. Cardiac silhouette top normal in size. No focal opacity. No large effusion or pneumothorax. Osseous structures normal. Upper abdomen normal. IMPRESSION: 1. No acute cardiopulmonary disease. Electronically signed by: Eitan Nolasco M.D. 02/05/2019 4:[address] head/brain wo con CLINICAL HISTORY: 63 years-old Female presenting with [place] eval for bleed. TECHNIQUE: Multidetector CT imaging of the head was performed without the use of intravenous contrast. IV contrast: None. One or more dose lowering techniques were used consistent with the principles of ALARA (as low as reasonably achievable), including automatic exposure control, mA or kV adjustment to individual patient size, and/or use of iterative reconstruction. COMPARISON: 02/11/2017. CT DOSE (mGy.cm): The estimated cumulative dose is 537.48 mGy.cm. FINDINGS: Putty Mixer topogram: Unremarkable. Ventricles and sulci normal in size. No hemorrhage. Periventricular and subcortical white matter hypoattenuation, nonspecific but likely indicative of chronic small vessel ischemic change. No acute territorial infarct. No mass effect or midline shift. No extra-axial fluid collection. Paranasal sinuses and mastoid air cells clear. Calvarium intact. IMPRESSION: 1. Chronic small vessel ischemic change. No acute intracranial abnormality. Electronically signed by: Eitan Nolasco M.D. 02/05/2019 6:04 PM ECG Data Attestation: I personally reviewed and interpreted this ECG as follows: Indication: other (hypertension) Rate (beats per minute): 85 Rhythm: sinus rhythm Findings: + other (no heart block) and + Q waves; no PVC and no ST elevation Comparison ECG Date: from (April 2018) Change: no significant change Blood Pressure Blood Pressure Findings: Elevated blood pressure Blood Pressure Disposition: further management by hospitalist [facility] Narrative I did evaluate the patient as noted above. The patient is presenting with a near syncopal episode upon awakening this morning. She also complains of a bad headache and poorly controlled hypertension. She feels weak in general currently without any other specific complaints. She does have a history of MS but denies any worsening of her weakness other than generalized weakness. IV access was established. The patient was placed on a continuous secured entrance monitor. I did order and personally review the patient's 12-lead EKG as described above. Her twelve-lead EKG does not show any acute ischemic changes. She had no heart block or QT prolongation. I did order and personally reviewed the images of the patient's chest x-ray as described above. There is no evidence of pneumonia. I did order a urine analysis. She does not have an infection. I did order and review the patient's blood work as noted in the electronic medical record. She is not anemic. Her white count is not elevated. Electrolytes are unremarkable. Troponin is negative. I did order a CT of the head. I did review the images myself as well as the radiology report as described above. There is no evidence of acute intracranial process. We did obtain orthostatic vital signs. She is not showing any signs of orthostasis. She was given a small bolus of normal saline 250 mL. I did reassess the patient and discussed the test results with her. She states she still feels very weak. Her blood pressure has been vacillating up and down. She was given Tylenol for headache. I did therefore recommend hospitalization for further evaluation and monitoring. I did discuss the case with the hospitalist and disease case manager. Impression & Plan Near syncope, Multiple sclerosis, Headache, Poorly-controlled hypertension Discharge Plan Visit Data Chief Complaint: Hypertension Stated Complaint: HTN, HEADACHE, PRE-SYNCOPE ED Provider: Quoc Bernal Discharge Problem: Near syncope, Multiple sclerosis, Headache, Poorly-controlled hypertension Patient Disposition: Being Evaluated by Hospitalist Forms Stand Alone Forms: My [facility] [place] Prescriptions Prescriptions: No Action levothyroxine 100 mcg tablet 100 mcg PO DAILY Qty: 90 RF: 1 oxycodone-acetaminophen [Percocet] 5-325 mg tablet 1 tab PO TID PRN (Reason: Pain) Qty: 90 RF: 0 bisacodyl 5 mg tablet,delayed release (DR/EC) 5 mg PO DAILY PRN (Reason: Constipation) RF: 0 nitrofurantoin macrocrystal 100 mg capsule 100 mg PO HS Qty: 30 RF: 0 ondansetron HCl 4 mg tablet 4 mg PO BID PRN (Reason: nausea and vomiting) Qty: 30 RF: 0 venlafaxine [Effexor XR] 150 mg Capsule,Extended Release 24hr 150 mg PO QAM RF: 0 clopidogrel 75 mg Tablet 75 mg PO QAM RF: 0 metoprolol tartrate 25 mg Tablet 25 mg PO BID RF: 0 duloxetine 60 mg Capsule,Delayed Release(Dr/Ec) 60 mg PO QAM RF: 0 Toviaz 8 mg Tablet Extended Release 24 Hr 8 mg PO QAM RF: 0 lisinopril 40 mg tablet 40 mg PO DAILY RF: 0 sennosides [senna] 8.6 mg tablet 8.6 mg PO QAM RF: 0 Ocrevus 30 mg/mL Solution 600 mg IV Q6M RF: 0 polyethylene glycol 3350 [Miralax] 17 gram powder in packet 17 g PO TID PRN (Reason: Constipation) RF: 0 alprazolam 0.5 mg tablet 0.5 mg PO TID PRN (Reason: Anxiety) RF: 0 Referrals Referrals: Saira Verde MD [Primary Care Provider] - Discharge Problem: Headache Qualifiers: Headache type: unspecified Headache chronicity pattern: unspecified pattern Intractability: not intractable Qualified Code(s): R51 - Headache The scribe's documentation has been prepared under my direction and personally reviewed by me in its entirety. I confirm that the note above accurately reflects all work, treatment, procedures, and medical decision making performed by me.
[2019-02-05] MEDS ORDERED: OXYCODONE/ACETAMINOPHEN 5mg/325mg TAB ONE (20:08)
[2019-02-05] MEDS ORDERED: METOPROLOL TARTRATE 1 MG/ML VIAL IV STA (20:27)
[2019-02-05] MEDS ORDERED: METOPROLOL TARTRATE 1 MG/ML VIAL IV ONE (20:33)
[2019-02-05] MEDS ORDERED: POLYETHYLENE (MIRALAX) 17 GM PACK PO PRN ×2 (20:59)
[2019-02-05] MEDS ORDERED: bisacodyL 5 MG TABEC PO PRN (20:59)
[2019-02-05] MEDS ORDERED: ALPRAZolam 0.5 MG TABLET PO PRN (20:59)
[2019-02-05] MEDS ORDERED: ONDANSETRON 4 MG TAB PO PRN (20:59)
[2019-02-05] MEDS ORDERED: ACETAMINOPHEN 325 MG TAB PO PRN ×2 (20:59→23:05)
[2019-02-05] MEDS ORDERED: NITROFURANTOIN MACROCRYSTAL 50 MG CAP PO SCH (21:00)
--- NOTE | 2019-02-05 21:27 | History & Physical Report ---
Date of Service February 05, 2019 Assessment & Plan (1) Near syncope: Patient had a negative work-up for possible causes syncope. She had a negative orthostatic. She had carotid Dopplers that were unremarkable. 2D echo at this time is pending but she was evaluated by cardiology who did not feel that the patient had a cardiogenic reason for a near syncopal episode. Patient tells me she is feeling well now with no repeat episodes. Of note, she is nonambulatory at baseline typically uses a electric wheelchair for ambulation. (2) Multiple sclerosis: Patient follows with neurology. An appointment was made for her for follow-up which is noted in her discharge recommendation. Until then, she continue medications as previously ordered. (3) Headache: (4) Poorly-controlled hypertension: Patient did complain of a headache, which I suspect may be secondary to her poorly controlled blood pressure. She is on Zestril 40 mg daily, metoprolol 25 mg twice daily. I did add Norvasc 2.5 mg daily to her regimen. Her blood pressure will need to be followed by her primary care provider and further med adjustments made at that time. (5) Anxiety: (6) Primary hypothyroidism: (7) Mixed incontinence urge and stress: (8) Cervical radiculopathy: (9) Neurogenic bladder: History of Present Illness Chief Complaint: Presyncope Primary Care Provider: Saira Verde MD Orquidea Cabezas is a 63 yo female with MS who is here for an episode of presyncope. Initially she was lying in bed without any symptoms and when she got up to get into her wheelchair she had felt that "things were going black" she states this lasted approx. 2 minutes. She describes this episode as being the same as when she was given medication for a colonoscope. She did not lose consciousness at any time. She noticed after the event that her thinking was not as sharp as it was prior, and she had some trouble answering game show questions on a TV she normal is able to do well with. Has been having a headache from - 11/23 this has been occurring over the last 3-4 months. Medical Hx.: - Hx. of stroke 2 years ago with right sided deficit, unable to write with her right hand. - Multiple sclerosis is described as stable, but thought that she may have a flair last week (described as trouble with memory) Dr. Griffiths manages her MS and will typically prescribe steroids for her, she has not had steroids in 6 months. She has been in a wheelchair for the last year and was in a walker prior to this. She straight caths at home. She does not have lower extremity spasms. - HTN, patient states that she had good control of blood pressure but notices times where her blood pressure is elevated - Was previously admitted in April for 4 days for bloody stool, currently denies bloody or black stool. - Has a distant history of seizures 5-6 times as a child where she would stare off into space. - No history of arrhythmias - No history of cardiac events - No VTE in the past Social Hx.: Denies tobacco use Denies ETOH use Denies recreational drug use Allergies Allergy/AdvReac Type Severity Reaction Status Date / Time rofecoxib Allergy Mild Gastrointestinal Verified 02/10/19 10:13 Upset Penicillins AdvReac Severe HIVES/TROUBLE Verified 02/10/19 10:13 BREATHING metoclopramide AdvReac Mild RESTLESS Verified 02/10/19 10:13 prochlorperazine AdvReac Mild RESTLESS Verified 02/10/19 10:13 Home Medications Home Medications Medication Instructions Recorded Confirmed Type Toviaz 8 mg PO QAM 03/05/18 02/10/19 History clopidogrel 75 mg PO QAM 03/05/18 02/10/19 History duloxetine 60 mg PO QAM 03/05/18 02/10/19 History metoprolol tartrate 25 mg PO BID 03/05/18 02/10/19 History venlafaxine [Effexor XR] 150 mg PO QAM 03/05/18 02/10/19 History Ocrevus 600 mg IV Q6M 04/29/18 02/10/19 History bisacodyl 5 mg tablet,delayed 5 mg PO DAILY PRN tab 10/10/18 02/10/19 History release nitrofurantoin macrocrystal 100 mg 100 mg PO HS #30 cap 10/10/18 02/10/19 History capsule lisinopril 40 mg tablet 40 mg PO DAILY tab 12/03/18 02/10/19 History polyethylene glycol 3350 17 gram 17 g PO TID PRN ea 12/03/18 02/10/19 History oral powder packet sennosides 8.6 mg tablet 8.6 mg PO QAM 12/03/18 02/10/19 History levothyroxine 100 mcg tablet 100 mcg PO DAILY #90 tab 01/01/19 02/10/19 Rx oxycodone-acetaminophen 5 mg-325 1 tab PO TID PRN #90 tab 01/22/19 02/10/19 Rx mg tablet alprazolam 0.5 mg PO TID PRN 02/05/19 02/10/19 History ondansetron HCl 4 mg tablet 4 mg PO BID PRN #30 tab 02/07/19 02/10/19 Rx amlodipine 2.5 mg tablet 2.5 mg PO DAILY #90 tab 02/10/19 02/10/19 Rx Past Med/Surg History Medical History Anxiety Primary hypothyroidism (Acute) Mixed incontinence urge and stress (Acute) MSSA (methicillin susceptible Staphylococcus aureus) infection (Resolved) Cervical radiculopathy (Acute) Neurogenic bladder (Chronic) Hypertension (Chronic) H/O: CVA (cerebrovascular accident) (Chronic) Vitamin D deficiency (Chronic) Multiple sclerosis (Acute) Acute blood loss anemia DJD (degenerative joint disease), cervical (Chronic) Hypothyroidism (Chronic) Lumbosacral disc disease (Chronic) Depression (Chronic) H/O: duodenal ulcer (Resolved) "H pylori positive per records" Fracture spine - d/t osteoporosis Hypertension Hypothyroid Migraine Multiple sclerosis Osteoporosis Pancreatitis 2014 - PER RECORDS Peptic ulcer disease H/O DUODENAL ULCER (PER RECORDS) Stroke 4 yr ago - [facility] - residual effect - "clumsy right arm" Surgical History H/O section History of cataract surgery RT/LEFT History of colonoscopy History of esophagogastroduodenoscopy (EGD) Hx of appendectomy S/P total abdominal hysterectomy Family History Mother Family hx of colon cancer Grandmother (Maternal) Family hx of colon cancer Social History Preferred Language: Zimbabwean Communication Ability: Effective Visual Impairment: No Limitations Hearing Ability: Normal Clinical Audiologist Required: No Beliefs That Will Affect Care: None marital status: Current Living Situation: Spouse Feels Safe at Home: Yes Smoking Status: Never smoker Second Hand Exposure: Yes ( A CHILD) ; Hx Alcohol Use: No Hx Substance Use: No Dental Care, Regularly: No Seatbelt Use: always Review of Systems Review of Systems: Constitutional: denies - fever, chills, N/V, night sweats, weight change Head: denies - trauma, LOC Amits - left sided headache ENT: denies - vertigo Cardiac: denies - chest pain, murmurs, palpitations Pulm: denies - cough, shortness of breath, pain on inspiration, wheezing GI: admits - constipation LBM yesterday denies - bleeding or black stool Physical Exam Constitutional: WD/WN, vitals as above cooperative and comfortable Eyes: PERRL, conjunctivae normal, anicteric sclerae ENMT: external ear and nose normal, oropharynx normal Neck: normal visual inspection Respiratory: normal respiratory effort, lungs clear to auscultation Cardiovascular: RRR, no murmur, no edema Extremities: normal capillary refill; no edema Gastrointestinal (Abdomen): normal bowel sounds, soft, nontender, no hepatosplenomegaly Musculoskeletal: 0/5 strength in the lower extremity. 4/5 strength in the right upper extremity Skin: no rashes, warm and dry Neurologic: PERRL, EOMI, accommodation nl, no face palsy, no dysarthria CN's II-XI intact bilaterally Cranial Nerves: no nystagmus lower extremity with brisk reflexes at the patella w/o clonus Results & Data Vital Signs (Past 12 Hours) Vital Signs Temp Pulse Pulse Resp BP BP Pulse Ox 02/05/19 21:02 36.6 C 77 15 190/116 H 99 02/05/19 20:39 75 15 175/87 H 98 02/05/19 20:30 80 15 180/86 H 98 02/05/19 20:20 86 16 98 02/05/19 20:11 68 14 185/91 H 99 02/05/19 20:00 68 16 183/111 H 02/05/19 19:10 66 19 196/96 H 100 02/05/19 19:00 69 18 196/96 H 100 02/05/19 18:00 77 18 199/105 H 99 02/05/19 17:55 77 16 02/05/19 17:40 72 16 99 02/05/19 17:30 66 17 02/05/19 17:20 64 16 02/05/19 17:18 73 23 167/108 H 02/05/19 17:10 68 13 100 02/05/19 17:00 82 22 185/101 H 91 02/05/19 16:50 88 17 02/05/19 16:40 69 21 02/05/19 16:30 71 23 02/05/19 16:20 75 17 99 02/05/19 16:10 74 17 99 02/05/19 16:00 73 18 175/81 H 98 02/05/19 15:50 73 19 98 02/05/19 15:40 73 12 02/05/19 15:30 73 15 98 02/05/19 15:20 86 20 97 02/05/19 15:13 76 18 99 02/05/19 15:10 73 13 181/119 H 100 02/05/19 14:44 37.1 C 82 16 174/115 H 98 CXR IMPRESSION: No acute cardiopulmonary disease. CT head IMPRESSION: Chronic small vessel ischemic change. No acute intracranial abnormality. EKG Sinus rhythm with marked sinus arrhythmia Possible Left atrial enlargement Borderline ECG When compared with ECG of 29-APR-2018 12:23, No significant change was found Confirmed by Ivan Lanier ([id number]) on 02/05/2019 4:41:27 PM Code Status & VTE Plan VTE Prophylaxis Plan VTE Prophylaxis will be ordered: Yes Supervising Physician Co-Signing Physician Notes I examined pt with MD Shane and I was involved in this assessment and plan and agree with it. PG Care Time/CCT Total # of Minutes Spent Total Time Spent with Patient: Total time spent is greater than 50% in coordination of care (as documented) at patient's floor/unit and/or counseling patient: (1) Headache Headache chronicity pattern: unspecified pattern Headache type: unspecified Intractability: not intractable Qualified Code(s): R51 - Headache
--- NOTE | 2019-02-05 22:49 | Ultrasound Report ---
US carotid doppler BI CLINICAL HISTORY: 63 years-old Female presenting with presyncope. TECHNIQUE: Real-time grayscale and color and spectral Doppler ultrasound imaging of the bilateral car otid arteries was performed. Stenosis measurements were based on NASCET-like criteria (distal lumen d iameter as the denominator for stenosis measurement). COMPARISON: None. FINDINGS: RIGHT: Common carotid artery (CCA): Atherosclerosis at the carotid bulb. Peak systolic velocity (PSV) 46 cm/ s. Internal carotid artery (ICA): Atherosclerosis of the proximal ICA. PSV 62 cm/s. End diastolic veloci ty (EDV) 25 cm/s. ICA/CCA (systolic) ratio: 1.3. External carotid artery (ECA): Patent. PSV 45 cm/s. LEFT: CCA: Atherosclerosis. PSV 54 cm/s. ICA: Atherosclerosis of the proximal ICA. PSV 63 cm/s. EDV 23 cm/s. ICA/CCA (systolic) ratio: 1.2. ECA: Atherosclerosis. PSV 45 cm/s. Bilateral antegrade flow within the vertebral arteries. Blood pressure: Brachial: Right: 177/107 mmHg, Left: 194/101 mmHg. Reference ranges: Stenosis measurements are compared to reference velocity parameters by the Society of Radiologists in Ultrasound (SRU) consensus and Sonographic NASCET index (S-NASCET). * SRU Primary parameters: ICA PSV <125 cm/s = normal or less than 50% stenosis; ICA PSV 125-230 cm/s = 50-69% stenosis; ICA PSV >230 cm/s = greater than or equal to 70% stenosis. * SRU Additional parameters: ICA/CCA PSV ratio <2 = normal or less than 50% stenosis; ratio 2-4 = 5 0-69% stenosis; ratio >4 = greater than or equal to 70% stenosis. ICA EDV <40 cm/s = normal or less t akers 50% stenosis; ICA EDV 40-100 cm/s = 50-69% stenosis; ICA EDV >100 cm/s = greater than or equal to 70% stenosis. * S-NASCET parameters: Deceleration spectral broadening + PSV <125 cm/s = less than 50% stenosis; pa nsystolic spectral broadening + PSV <125 cm/s = 16-49% stenosis; pansystolic spectral broadening + PS V >125 cm/s + EDV <110 cm/s or ICA/CCA PSV ratio 2-4 = 50-69% stenosis; pansystolic spectral broadeni ng + PSV >270 cm/s OR EDV >110 cm/s OR ICA/CCA PSV ratio >4 = 70-79% stenosis; EDV >140 cm/s = 80-99% stenosis. IMPRESSION: 1. Atherosclerosis without hemodynamically significant stenosis in the carotid arteries. Electronically signed by: Eitan Nolasco M.D. 02/05/2019 10:47 PM
--- NOTE | 2019-02-05 22:50 | Ultrasound Report ---
US venous doppler LE CLINICAL HISTORY: 63 years-old Female presenting with bilateral lower extremity pain and swelling, pr esyncope, headache. TECHNIQUE: Real-time grayscale and color and spectral Doppler ultrasound imaging of the veins of the bilateral lower extremities was performed. Compression and augmentation were also utilized. COMPARISON: 01/12/2015. FINDINGS: RIGHT: Common femoral vein: Patent. Greater saphenous vein (superficial): Patent. Deep femoral vein: Patent. Femoral vein: Patent. Popliteal vein: Patent. Calf veins: Patent. LEFT: Common femoral vein: Patent. Greater saphenous vein (superficial): Patent. Deep femoral vein: Patent. Femoral vein: Patent. Popliteal vein: Patent. Calf veins: Patent. Other: None. IMPRESSION: No evidence of deep venous thrombosis. Electronically signed by: Eitan Nolasco M.D. 02/05/2019 10:48 PM
[2019-02-05] MEDS: METOPROLOL TARTRATE 25 MG TAB PO SCH (22:55)
[2019-02-06] MEDS: OXYCODONE/ACETAMINOPHEN 5mg/325mg TAB PO PRN ×2 (03:51→11:39)
[2019-02-06] MEDS ORDERED: METOPROLOL TARTRATE 1 MG/ML VIAL IV STA ×2 (04:04→04:11)
[2019-02-06 06:16] LABS: Basophils # (auto) 0.03 K/uL (0-0.2); Basophils % (auto) 0.6 %; Eosinophils # (auto) 0.14 K/uL (0-0.5); Eosinophils % (auto) 2.6 %; Hematocrit (blood only) 41.8 % (37-47); Hemoglobin 14.1 g/dL (12.0-16.0); Immature Granulocytes # (auto) 0.01 K/uL (0.00-0.02); Immature Granulocytes % (auto) 0.2 %; Lymphocytes # (auto) 1.71 K/uL (1.2-3.4); Lymphocytes % (auto) 32.1 %; Mean Corpuscular Hemoglobin 31.6 pg (25-34); Mean Corpuscular Hgb Conc 33.7 g/dL (32-36); Mean Corpuscular Volume 93.7 fL (80-100); Mean Platelet Volume 10.4 fL (7.4-10.4); Monocytes # (auto) 0.61 K/uL (0.11-0.59); Monocytes % (auto) 11.4 %; Neutrophils # (auto) 2.83 K/uL (1.4-6.5); Neutrophils % (auto) 53.1 %; Platelet Count 226 K/uL (130-400); RDW Coefficient of Variation 13.9 % (11.5-14.5); RDW Standard Deviation 47.6 fL (36.4-46.3); Red Blood Count 4.46 M/uL (4.2-5.4); White Blood Count 5.33 K/uL (4.8-10.8)
[2019-02-06] MEDS ORDERED: LEVOTHYROXINE SODIUM 100 MCG TABLET PO SCH (06:30)
[2019-02-06 06:51] LABS: BUN Creatinine Ratio 18.5 (10-20); Calcium 8.6 mg/dl (8.5-10.1); Est GFR (African American) 112.1; Est GFR (Non-African American) 96.7; Potassium 3.8 mmol/L (3.5-5.1)
[2019-02-06] MEDS ORDERED: VENLAFAXINE HCL XR 150 MG CAPXR PO SCH (09:00)
[2019-02-06] MEDS ORDERED: SENNA 8.6 MG TAB PO SCH (09:00)
[2019-02-06] MEDS ORDERED: lisinopriL 40 MG TAB PO SCH (09:00)
[2019-02-06] MEDS ORDERED: DULOXETINE HCL 60 MG CAP PO SCH (09:00)
[2019-02-06] MEDS ORDERED: CLOPIDOGREL BISULFATE 75 MG TAB PO SCH (09:00)
--- NOTE | 2019-02-06 09:27 | Cardiology Consultation ---
Date of Consultation February 06, 2019 Assessment & Plan (1) Near syncope: 2. Multiple sclerosis 3. Hypertension 4. History of CVA 5. History of neurocardiogenic syncope Patient has history of MS and stroke and is chronically wheelchair bound. Yesterday she had an episode of possible near syncope after transferring from her bed to her wheelchair. No loss of consciousness. No concerning cardiac symptoms. She does have a history of neurocardiogenic syncope on remote tilt table test. Telemetry and EKG unremarkable. Echo is pending, if unremarkable no further cardiac testing/intervention necessary at this time. Supervising Physician Co-Signing Physician Notes Patient seen and examined, case reviewed with Magdalena. Agree with above. History of Present Illness Attending Physician: Gurmeet Howell, History of Present Illness Mr. Cabezas is a 63 year old woman with a medical history significant for MS, history of CVA with right sided weakness, hypertension, hypothyroidism and history of neurocardiogenic syncope. She is being seen in consultation for near syncope. Yesterday morning around 8 am the patient transferred from her bed to her electric wheelchair (she is wheelchair bound). Immediately after transfer she developed a blackening of her vision that lasted 1-2 minutes. She did not lose consciousness and states she did not feel presyncopal. Afterwards she did feel somewhat lightheaded which happens on occasion. She had associated diaphoresis but no nausea, vomiting, chest pain, shortness of breath or palpitations. She also felt mentally slow. For example she was watching a game show and typically is able to think of answers quickly but had trouble doing so. She checked her blood pressure about one hour after the event and it was elevated at 191/116. She developed a severe headache and eventually presented to the emergency department for evaluation. Head CT scan with chronic small vessel changes but no acute abnormality. Carotid doppler without significant carotid artery stenosis. EKG without ST-T wave changes and troponin negative. BP has been elevated and no evidence of orthostatic hypotension. She has no history of cardiovascular disease. She had a dobutamine stress echo in 2014 which was negative for ischemia. PRINCESS in 2012 demonstrated a trivial PFO with no significant shunting. She also had a tilt table in the remote past at [facility] which was positive for neurocardiogenic syncope. Patient is currently feeling well. She denies any recurrent near syncope or visual disturbances. No lightheadedness or palpitations. Headache and mentation are improved. No chest pain or dyspnea. Allergies Allergy/AdvReac Type Severity Reaction Status Date / Time rofecoxib Allergy Mild Gastrointestinal Verified 02/10/19 10:13 Upset Penicillins AdvReac Severe HIVES/TROUBLE Verified 02/10/19 10:13 BREATHING metoclopramide AdvReac Mild RESTLESS Verified 02/10/19 10:13 prochlorperazine AdvReac Mild RESTLESS Verified 02/10/19 10:13 Home Medications Home Medications Medication Instructions Recorded Confirmed Type Toviaz 8 mg PO QAM 03/05/18 02/10/19 History clopidogrel 75 mg PO QAM 03/05/18 02/10/19 History metoprolol tartrate 25 mg PO BID 03/05/18 02/10/19 History Ocrevus 600 mg IV Q6M 04/29/18 02/10/19 History bisacodyl 5 mg tablet,delayed 5 mg PO DAILY PRN tab 10/10/18 02/10/19 History release nitrofurantoin macrocrystal 100 mg 100 mg PO HS #30 cap 10/10/18 02/10/19 History capsule lisinopril 40 mg tablet 40 mg PO DAILY tab 12/03/18 02/10/19 History polyethylene glycol 3350 17 gram 17 g PO TID PRN ea 12/03/18 02/10/19 History oral powder packet sennosides 8.6 mg tablet 8.6 mg PO QAM 12/03/18 02/10/19 History levothyroxine 100 mcg tablet 100 mcg PO DAILY #90 tab 01/01/19 02/10/19 Rx oxycodone-acetaminophen 5 mg-325 1 tab PO TID PRN #90 tab 01/22/19 02/10/19 Rx mg tablet ondansetron HCl 4 mg tablet 4 mg PO BID PRN #30 tab 02/07/19 02/10/19 Rx amlodipine 2.5 mg tablet 2.5 mg PO DAILY #90 tab 02/10/19 02/10/19 Rx duloxetine 60 mg capsule,delayed 60 mg PO QAM #90 cap 02/13/19 Rx release alprazolam 0.5 mg tablet 0.5 mg PO BID PRN #60 tab 02/14/19 Rx venlafaxine ER 75 mg 75 mg PO QAM #14 cap 02/19/19 Rx capsule,extended release 24 hr Patient History Medical History Anxiety Primary hypothyroidism (Acute) Mixed incontinence urge and stress (Acute) MSSA (methicillin susceptible Staphylococcus aureus) infection (Resolved) Cervical radiculopathy (Acute) Neurogenic bladder (Chronic) Hypertension (Chronic) H/O: CVA (cerebrovascular accident) (Chronic) Vitamin D deficiency (Chronic) Multiple sclerosis (Acute) Acute blood loss anemia DJD (degenerative joint disease), cervical (Chronic) Hypothyroidism (Chronic) Lumbosacral disc disease (Chronic) Depression (Chronic) H/O: duodenal ulcer (Resolved) "H pylori positive per records" Fracture spine - d/t osteoporosis Hypertension Hypothyroid Migraine Multiple sclerosis Osteoporosis Pancreatitis 2014 - PER RECORDS Peptic ulcer disease H/O DUODENAL ULCER (PER RECORDS) Stroke 4 yr ago - [facility] - residual effect - "clumsy right arm" Surgical History H/O section History of cataract surgery RT/LEFT History of colonoscopy History of esophagogastroduodenoscopy (EGD) Hx of appendectomy S/P total abdominal hysterectomy Family History Mother Family hx of colon cancer Grandmother (Maternal) Family hx of colon cancer Social History Preferred Language: Uzbek Communication Ability: Effective Visual Impairment: No Limitations Hearing Ability: Normal Assistant Analyst Required: No Beliefs That Will Affect Care: None marital status: Current Living Situation: Spouse Feels Safe at Home: Yes Smoking Status: Never smoker Second Hand Exposure: Yes ( A CHILD) ; Hx Alcohol Use: No Hx Substance Use: No Dental Care, Regularly: No Seatbelt Use: always Review of Systems Review of Systems: All systems reviewed & are unremarkable except as noted in HPI & below Physical Exam Physical Exam: General: No acute distress, comfortable. HEENT: Head is normal. PERRLA. EOMI. Sclerae anicteric. Ears, nose and throat unremarkable. Mucous membranes moist. Neck: Normal carotid upstrokes, no bruits. No appreciable JVD. Lungs: Clear to auscultation bilaterally without rales, rhonchi or wheezes. Cardiac: Regular rate and rhythm. S1-S2 normal. No appreciable murmur, gallop or rub. Abdomen: Soft and nontender. Bowel sounds normal. No mass or organomegaly. No abdominal bruit. Extremities/vascular: -- Well perfused. No peripheral edema. --Radial, DP and PT pulses 2+ bilaterally --R sided weakness Skin: No rash or abnormal lesions. Normal turgor. Neurologic: Nonfocal Psychiatric: Affect appropriate. Alert and oriented. Results & Data Vital Signs (Past 12 Hours) Vital Signs Temp Pulse Pulse Resp BP BP Pulse Ox 02/06/19 08:13 36.7 C 65 24 97 02/06/19 08:11 36.6 C 64 14 167/91 H 96 02/06/19 08:00 70 02/06/19 04:56 168/87 H 02/06/19 04:08 80 186/83 H 02/06/19 03:55 183/86 H 02/06/19 03:53 36.5 C 69 14 191/86 H 92 02/06/19 00:18 148/77 H 02/05/19 23:35 36.4 C L 65 17 190/96 H 98 02/05/19 23:00 74 183/108 H Laboratory Results Laboratory Results - last 24 hr 02/05/19 02/05/19 02/05/19 15:18 15:18 15:18 WBC 6.02 RBC 4.74 Hgb 15.1 Hct 44.0 MCV 92.8 MCH 31.9 MCHC 34.3 RDW Std Deviation 46.9 H RDW Coeff of Teddy 13.7 Plt Count 262 MPV 10.5 H Immature Gran % (Auto) 0.0 Neut % (Auto) 57.4 Lymph % (Auto) 28.9 [place] % (Auto) 11.6 Eos % (Auto) 1.8 Baso % (Auto) 0.3 Immature Gran # (Auto) 0.00 Neut # (Auto) 3.45 Lymph # (Auto) 1.74 [place] # (Auto) 0.70 H Eos # (Auto) 0.11 Baso # (Auto) 0.02 PT 10.0 INR 1.0 APTT 27.1 PTT Ratio 1.0 Sodium 136 Potassium 4.0 Chloride 102 Carbon Dioxide 30 Anion Gap 4.0 BUN 15 Creatinine 0.72 Est Cr Clr Drug Dosing 87.1 Est GFR ( Amer) 101.9 Est GFR (Non-Af Amer) 87.9 BUN/Creatinine Ratio 21.0 H Glucose 83 Calcium 9.1 Total Bilirubin 0.5 AST 14 L ALT 19 Alkaline Phosphatase 68 Troponin I < 0.015 Total Protein 8.0 Albumin 3.9 Globulin 4.1 H Albumin/Globulin Ratio 1.0 Urine Color Urine Appearance Urine pH Ur Specific [place] Urine Protein Urine Glucose (UA) Urine Ketones Urine Blood Urine Nitrite Urine Bilirubin Urine Urobilinogen Ur Leukocyte Esterase Urine WBC (Auto) Urine RBC (Auto) U Hyaline Cast (Auto) U Epithel Cells (Auto) Urine Bacteria (Auto) 02/05/19 02/06/19 02/06/19 16:46 05:45 05:45 WBC 5.33 RBC 4.46 Hgb 14.1 Hct 41.8 MCV 93.7 MCH 31.6 MCHC 33.7 RDW Std Deviation 47.6 H RDW Coeff of Teddy 13.9 Plt Count 226 MPV 10.4 Immature Gran % (Auto) 0.2 Neut % (Auto) 53.1 Lymph % (Auto) 32.1 [place] % (Auto) 11.4 Eos % (Auto) 2.6 Baso % (Auto) 0.6 Immature Gran # (Auto) 0.01 Neut # (Auto) 2.83 Lymph # (Auto) 1.71 [place] # (Auto) 0.61 H Eos # (Auto) 0.14 Baso # (Auto) 0.03 PT INR APTT PTT Ratio Sodium 140 Potassium 3.8 Chloride 106 Carbon Dioxide 27 Anion Gap 7.0 BUN 11 Creatinine 0.58 L Est Cr Clr Drug Dosing 121.0 Est GFR ( Amer) 112.1 Est GFR (Non-Af Amer) 96.7 BUN/Creatinine Ratio 18.5 Glucose 86 Calcium 8.6 Total Bilirubin AST ALT Alkaline Phosphatase Troponin I Total Protein Albumin Globulin Albumin/Globulin Ratio Urine Color Yellow Urine Appearance Clear Urine pH 7.5 Ur Specific [place] 1.012 Urine Protein Negative Urine Glucose (UA) Negative Urine Ketones Negative Urine Blood Negative Urine Nitrite Negative Urine Bilirubin Negative Urine Urobilinogen Negative Ur Leukocyte Esterase Trace H Urine WBC (Auto) 1-5 Urine RBC (Auto) 0-4 U Hyaline Cast (Auto) 0 U Epithel Cells (Auto) 5-10 H Urine Bacteria (Auto) Negative ECG Additional Comments: EKG sinus rhythm with sinus arrhythmia. No ST/T wave changes Tele reviewed-- sinus rhythm, no arrhythmia or pauses PG Care Time/CCT Total # of Minutes Spent Total Time Spent with Patient: Total time spent is greater than 50% in coordination of care (as documented) at patient's floor/unit and/or counseling patient:
[2019-02-06] MEDS: METOPROLOL TARTRATE 25 MG TAB PO SCH (09:59)
--- NOTE | 2019-02-06 13:18 | Discharge Summary ---
Date of Service February 06, 2019 Admission HPI Per Admitting Provider Orquidea Cabezas is a 63 yo female with MS who is here for an episode of presyncope. Initially she was lying in bed without any symptoms and when she got up to get into her wheelchair she had felt that "things were going black" she states this lasted approx. 2 minutes. She describes this episode as being the same as when she was given medication for a colonoscope. She did not lose consciousness at any time. She noticed after the event that her thinking was not as sharp as it was prior, and she had some trouble answering game show questions on a TV she normal is able to do well with. Has been having a headache from - 11/23 this has been occurring over the last 3-4 months. Medical Hx.: - Hx. of stroke 2 years ago with right sided deficit, unable to write with her right hand. - Multiple sclerosis is described as stable, but thought that she may have a flair last week (described as trouble with memory) Dr. Griffiths manages her MS and will typically prescribe steroids for her, she has not had steroids in 6 months. She has been in a wheelchair for the last year and was in a walker prior to this. She straight caths at home. She does not have lower extremity spasms. - HTN, patient states that she had good control of blood pressure but notices times where her blood pressure is elevated - Was previously admitted in April for 4 days for bloody stool, currently denies bloody or black stool. - Has a distant history of seizures 5-6 times as a child where she would stare off into space. - No history of arrhythmias - No history of cardiac events - No VTE in the past Social Hx.: Denies tobacco use Denies ETOH use Denies recreational drug use Admission Exam Per Admitting Provider Constitutional: WD/WN, vitals as above cooperative and comfortable Eyes: PERRL, conjunctivae normal, anicteric sclerae ENMT: external ear and nose normal, oropharynx normal Neck: normal visual inspection Respiratory: normal respiratory effort, lungs clear to auscultation Cardiovascular: RRR, no murmur, no edema Extremities: normal capillary refill; no edema Gastrointestinal (Abdomen): normal bowel sounds, soft, nontender, no hepatosplenomegaly Musculoskeletal: 0/5 strength in the lower extremity. 4/5 strength in the right upper extremity Skin: no rashes, warm and dry Neurologic: PERRL, EOMI, accommodation nl, no face palsy, no dysarthria CN's II-XI intact bilaterally Cranial Nerves: no nystagmus lower extremity with brisk reflexes at the patella w/o clonus Principal Diagnosis 1. Pre-syncopal episode, consider orthostasis 2. History of multiple sclerosis, non-ambulatory at baseline 3. uncontrolled hypertension Discharge Exam GENERAL: Non-toxic in appearance. INTEGUMENTARY: Warm, dry, and [place]. HEAD: Normocephalic. EYES: without scleral icterus or trauma. ENT/OROPHARYNX: clear and moist. LYMPHADENOPATHY/NECK: Is supple without lymphadenopathy or meningismus. RESPIRATORY: Lungs clear and equal. CARDIOVASCULAR: Regular rate and rhythm. GI/ABDOMEN: Soft and nontender. No organomegaly or pulsatile mass. No rebound or guarding. Normal bowel sounds. EXTREMITIES: Warm and well perfused. BACK: No CVA tenderness. NEUROLOGICAL: Stable right-sided deficit without change PSYCHIATRIC: normal affect. MUSCULOSKELETAL: Normally developed with good muscle tone. Discharge Data Allergies Allergy/AdvReac Type Severity Reaction Status Date / Time rofecoxib Allergy Mild Gastrointestinal Verified 02/05/19 15:23 Upset Penicillins AdvReac Severe HIVES/TROUBLE Verified 02/05/19 15:23 BREATHING metoclopramide AdvReac Mild RESTLESS Verified 02/05/19 15:23 prochlorperazine AdvReac Mild RESTLESS Verified 02/05/19 15:23 Consultations 02/05/19 18:09 ED Decision to Admit Stat 02/05/19 20:59 Consult Cardiology Routine Consult Case Management - Discharge Planning Routine Ordered Studies 02/05/19 16:27 CT head/brain wo con Stat 02/05/19 20:59 US carotid doppler BI Stat US venous doppler LE BI Stat CT head/brain wo con CLINICAL HISTORY: 63 years-old Female presenting with OSULLIVAN eval for bleed. TECHNIQUE: Multidetector CT imaging of the head was performed without the use of intravenous contrast. IV contrast: None. One or more dose lowering techniques were used consistent with the principles of ALARA (as low as reasonably achievable), including automatic exposure control, mA or kV adjustment to individual patient size, and/or use of iterative reconstruction. COMPARISON: 02/11/2017. CT DOSE (mGy.cm): The estimated cumulative dose is 537.48 mGy.cm. FINDINGS: Gymnasium [employer] topogram: Unremarkable. Ventricles and sulci normal in size. No hemorrhage. Periventricular and subcortical white matter hypoattenuation, nonspecific but likely indicative of chronic small vessel ischemic change. No acute territorial infarct. No mass effect or midline shift. No extra-axial fluid collection. Paranasal sinuses and mastoid air cells clear. Calvarium intact. IMPRESSION: 1. Chronic small vessel ischemic change. No acute intracranial abnormality. Hospital Course (1) Near syncope: Patient had a negative work-up for possible causes syncope. She had a negative orthostatic. She had carotid Dopplers that were unremarkable. 2D echo at this time is pending but she was evaluated by cardiology who did not feel that the patient had a cardiogenic reason for a near syncopal episode. Patient tells me she is feeling well now with no repeat episodes. Of note, she is nonambulatory at baseline typically uses a electric wheelchair for ambulation. (2) Multiple sclerosis: Patient follows with neurology. An appointment was made for her for follow-up which is noted in her discharge recommendation. Until then, she continue medications as previously ordered. (3) Poorly-controlled hypertension: Patient did complain of a headache, which I suspect may be secondary to her poorly controlled blood pressure. She is on Zestril 40 mg daily, metoprolol 25 mg twice daily. I did add Norvasc 2.5 mg daily to her regimen. Her blood pressure will need to be followed by her primary care provider and further med adjustments made at that time. Total Time Total Time Spent Total Time Spent (In Minutes): Discharge time in excess of 30 minutes. Discharge Plan Discharge Items Patient Disposition: Home - Self-Care Reason For Visit: PRE SYNCOPE Discharge Diagnosis: 1. Presyncopal episode, likely secondary orthostasis 2. Multiple sclerosis, nonambulatory at baseline Condition on Discharge: Good Activity: Resume your previous activity Non-emergency contact: Primary Care Provider Call non-emergency contact if: your symptoms worsen Follow-up/Referrals: Zeyad Griffiths III, MD [Physician] - 02/27/19 10:30 am (Please, follow up with Dr. Griffiths on February 27 at 10:30 am. *If you need to change this appointment, call the office at [phone].) Saira Verde MD [Primary Care Provider] - 02/10/19 10:00 am (Please, follow up at [facility] with Dr. Verde on SundayFebruary 10 at 10:00 am. *If you need to change this appointment, call the office at [phone].) Diet: Heart Healthy Addtl Attending Provider Instructions: Take care with changing position, doing too quickly may cause recurrent symptoms. Pending Studies at Discharge: No Stand-Alone Forms: My [facility], Smoking Cessation Medications and DC Order Prescriptions: New amlodipine 2.5 mg tablet 2.5 mg PO DAILY Qty: 30 RF: 0 Continued levothyroxine 100 mcg tablet 100 mcg PO DAILY Qty: 90 RF: 1 oxycodone-acetaminophen [Percocet] 5-325 mg tablet 1 tab PO TID PRN (Reason: Pain) Qty: 90 RF: 0 bisacodyl 5 mg tablet,delayed release (DR/EC) 5 mg PO DAILY PRN (Reason: Constipation) RF: 0 nitrofurantoin macrocrystal 100 mg capsule 100 mg PO HS Qty: 30 RF: 0 ondansetron HCl 4 mg tablet 4 mg PO BID PRN (Reason: nausea and vomiting) Qty: 30 RF: 0 venlafaxine [Effexor XR] 150 mg Capsule,Extended Release 24hr 150 mg PO QAM RF: 0 clopidogrel 75 mg Tablet 75 mg PO QAM RF: 0 metoprolol tartrate 25 mg Tablet 25 mg PO BID RF: 0 duloxetine 60 mg Capsule,Delayed Release(Dr/Ec) 60 mg PO QAM RF: 0 Toviaz 8 mg Tablet Extended Release 24 Hr 8 mg PO QAM RF: 0 lisinopril 40 mg tablet 40 mg PO DAILY RF: 0 sennosides [senna] 8.6 mg tablet 8.6 mg PO QAM RF: 0 Ocrevus 30 mg/mL Solution 600 mg IV Q6M RF: 0 polyethylene glycol 3350 [Miralax] 17 gram powder in packet 17 g PO TID PRN (Reason: Constipation) RF: 0 alprazolam 0.5 mg tablet 0.5 mg PO TID PRN (Reason: Anxiety) RF: 0 Discharge Orders: Discharge Order (Routine); Ordered 02/06/19 Ordered By: Gurmeet Howell Admission Data Admit Date/Time: 02/05/19 20:16 Attending Provider: Gurmeet Howell Admit Provider: Iain Murillo Primary Care Provider: Saira Verde Other Providers: Sergio Calderon ; Rachel Marc ; Ivan Lanier
--- NOTE | 2019-02-17 15:29 | Coding Query ---
A supporting diagnosis is required for the test/procedure performed on this patient in order for us to be reimbursed by the patient's insurance. Please provide a supporting diagnosis for the following test/procedure listed below next to the test name along with your signature. *If there is no additional diagnosis for this patient that would support the following test/procedure please document that below next to the test/procedure. Test(s)/Procedure(s) that require a supporting diagnosis: VENOUS DOPPLER LOWER EXT BILAT DIAGNOSIS:_H/O CVA, rule out DVT Provider Signature: __Iain Murillo Date: _02/27/2019__ Thank you Tamiko Holman Health Information Management Once completed, please kindly fax back to [phone] For questions please call [phone] [facility] SYSTEMJasson
== END 2019-02-06 14:43 | disposition home or self-care (01) ==
LOC: ED 14:36 → 2E 14:36 → SUATTDRO 20:16 → 2E 20:42

== ENCOUNTER 2023-05-25 12:42 | Inpatient (IN) ==
[2023-05-25 13:22] LABS: iSTAT Creatinine 0.7 mg/dl (0.6-1.3); iSTAT Ionized Calcium 1.17 mmol/l (1.12-1.32); iSTAT Potassium 4.1 mmol/L (3.3-5.0)
[2023-05-25] MEDS: ACETAMINOPHEN 1,000 MG/100 ML VIAL IV STA (13:27)
[2023-05-25 13:41] LABS: Hematocrit (blood only) 47.3 % (37.0-47.0); Hemoglobin 15.8 g/dl (12.0-16.0); Mean Corpuscular Hemoglobin 30.9 pg (25.0-34.0); Mean Corpuscular Hgb Conc 33.4 g/dL (32.0-36.0); Mean Corpuscular Volume 92.6 fL (80.0-100.0); Mean Platelet Volume 10.6 fL (9.4-12.4); Platelet Count 267 K/uL (130-400); RDW Coefficient of Variation 13.4 % (11.5-14.5); RDW Standard Deviation 46.5 fL (36.4-46.3); Red Blood Count 5.11 M/uL (4.20-5.40); White Blood Count 6.86 K/ul (4.8-10.8)
--- NOTE | 2023-05-25 13:49 | XRay Report ---
XR chest 1V portable HISTORY: 67 years-old Female stroke alert acute strokelike symptoms COMPARISON: CTA chest 09/02/2022 TECHNIQUE: AP view of the chest FINDINGS: Cardiomediastinal and hilar silhouettes are within normal limits. No pneumothorax, pleural effusion, airspace consolidation or pulmonary edema. Limited exam secondary to positioning. The bones of the ch est appear grossly intact. IMPRESSION: No acute process. ACT 112: Negative or not required by law. The above report was generated using voice recognition software. It may contain grammatical, syntax o r spelling errors. Electronically signed by: Omar Lo M.D. 05/25/2023 1:48 PM
[2023-05-25 14:02] LABS: Albumin Globulin Ratio 1.7 (0.9-2); Albumin Level 4.8 gm/dl (3.4-5.0); BUN Creatinine Ratio 18.8 (10-20); Bilirubin,Total 0.5 mg/dl (0.2-1.0); Calcium 9.8 mg/dl (8.6-10.3); Creatinine Clr Calc Pharmacy 107.1 ml/min; Est GFR (African American) 105.5 ml/min; Globulin 2.8 gm/dl (2.5-4.0); Magnesium 2.2 mg/dl (1.7-2.4); Potassium 4.1 mmol/L (3.5-5.1); Total Protein 7.6 gm/dl (6.0-8.3)
--- NOTE | 2023-05-25 14:30 | Emergency Department Note ---
Impression & Plan Acute right-sided weakness, Multiple sclerosis, History of CVA (cerebrovascular accident), Abnormal brain CT ED Provider Note NAME: VALARIE KEEN AGE: 67 SEX: F : 1955 ARRIVES VIA: Ambulance INFORMANT: [Patient] ED PROVIDER(S): [Jayro Sutton MD] CHIEF COMPLAINT: TIA symptoms HISTORY OF PRESENT ILLNESS: The patient is a 67-year-old female who presents to the ER with complaints of a possible stroke. She has a history of severe MS. She is wheelchair-bound. The patient states that her symptoms began around 10 AM, about 4 and half hours ago. She was using the bathroom and felt dizzy and lightheaded and saw spots. She could not move her right arm. When she tried to stand up, she felt worse. She presents by ambulance to the ED. Patient states that she is currently on antibiotics for a UTI that she is having a hard time clearing. She does have to self cath because of her severe MS. Patient has had some deficits in the right upper extremity but, today, things were markedly worse. Since arrival in the ER, her weakness has improved in the right arm but is not back to baseline. There has been no cough or congestion. No real headache. No nausea or vomiting. No fever. No abdominal pain. PMHx/PSHx/Social Hx: See Below PHYSICAL EXAM: GENERAL: Patient is in no acute distress. HEENT: No acute trauma, normocephalic atraumatic, mucous membranes moist, no nasal congestion. NECK: No stridor, no adenopathy, no meningismus, trachea is midline. LUNGS: Clear to auscultation bilaterally, no wheeze, no rhonchi, breath sounds equal. HEART: Without murmurs gallops or rubs, regular rate and rhythm. ABDOMEN: Soft, nontender, no peritonitis. EXTREMITIES: No cyanosis, full range of motion of all the joints without pain or difficulty. NEUROLOGIC: Awake and alert, follows commands. No speech slur. No facial droop. She does have increased weakness with attempting to raise the right upper extremity when compared to the left. The right hand grasp is somewhat weaker than the left. SKIN: No jaundice, no diaphoresis. DIFFERENTIAL DIAGNOSIS: Stroke or TIA, intracranial bleeding, electrolyte imbalance, dehydration, UTI, MS flare, among others. EMERGENCY DEPARTMENT PROCEDURES: MEDICAL DECISION MAKING: There is no leukocytosis or concerning anemia. There is a normal platelet count. No coagulopathy. No renal failure or significant electrolyte abnormality. No concerning liver enzyme elevation. Urinalysis does not show findings of infection. Brain CT shows a potential old stroke lesion. No acute bleed or mass effect. ECG shows a normal sinus rhythm, no dysrhythmia. On exam, the patient was not febrile or toxic. She did have weakness in the right upper extremity compared to the left upper extremity. The patient received IV Tylenol for pain, she eventually was given 2 mg of IV morphine for pain. The patient presents with increasing weakness and trouble with the right upper extremity. Her history is complicated by severe MS and a history of previous CVA. She does have some difficulty with her right upper extremity at baseline but today, things have markedly worsened. At this point, the cause for the presentation is unclear. She is not a TNK candidate as her symptoms began around 4.5 hours ago. The symptoms have improved significantly since onset. Given the circumstances, given her presentation, given her past history, I do think a stay in the hospital for further neurologic workup is warranted. I spoke with the patient and case management, the on-call hospitalist was consulted. In short, currently, the cause for her complaints is unclear. Prior/Outside records/notes reviewed: Today's EMS notes describing her complaints and transport to this ED. ECG per my interpretation: Indication was possible stroke. The ECG shows a normal sinus rhythm with a rate of 62. There is no ST elevation, no PVCs. There is some baseline artifact. The QTc is 436. Continuous Cardiac Monitoring per my interpretation: An order was placed for continuous cardiac monitoring. The monitor shows a rate of 60 with normal sinus rhythm. Imaging/x-ray results per my interpretation: Chest x-ray did not show mediastinal widening, pneumonia or pneumothorax. Chronic Medical/Social conditions affecting care: Wheelchair-bound, severe MS. Care/Management discussed with: Case management, the on-call hospitalist. Level of care consideration(s): After review of the information above and other included data: --I believe the patient requires escalation of care to admission Critical Care Note: I have personally spent 41 minutes of critical care time in the direct management of this patient. This includes bedside care, interpretation of diagnostic studies, and testing, discussion with consultants, patient, and family members, and other required patient management activities. This 41 minutes is in excess of all separately billable procedures. DISPOSITION: Admission with neurology consult Past Med/Surg History Medical History Mixed incontinence urge and stress Foot deformity, bilateral Anxiety Primary hypothyroidism Mixed incontinence urge and stress MSSA (methicillin susceptible Staphylococcus aureus) infection Cervical radiculopathy Acute blood loss anemia Peptic ulcer disease H/O DUODENAL ULCER (PER RECORDS) Pancreatitis 2015 - PER RECORDS Migraine Multiple sclerosis Stroke 4 yr ago - [facility] - residual effect - "clumsy right arm" Hypertension Hypothyroid Osteoporosis Fracture spine - d/t osteoporosis Multiple sclerosis Depression H/O: duodenal ulcer "H pylori positive per records" Lumbosacral disc disease Vitamin D deficiency H/O: CVA (cerebrovascular accident) Hypertension Neurogenic bladder Hypothyroidism DJD (degenerative joint disease), cervical Surgical History H/O section History of cataract surgery History of colonoscopy History of dilatation and curettage History of esophagogastroduodenoscopy (EGD) Hx of appendectomy S/P total abdominal hysterectomy Family History Mother Colorectal cancer Breast cancer Grandmother (Maternal) Colorectal cancer Grandmother (Paternal) Colorectal cancer Father Hypertension Aunt Myocardial infarction Uncle Myocardial infarction Denies family history of Ovarian cancer Prostate cancer Social History Smoking Status: Former smoker Second Hand Exposure: Yes ( A CHILD); Do You Dip or Chew Tobacco: No; Hx Alcohol Use: No Hx Substance Use: No Preferred Language: Citizen Of [place] Communication Ability: Effective Visual Impairment: No Limitations Hearing Ability: Normal Computer Aided Design Drafter Required: No Beliefs That Will Affect Care: None marital status: Current Living Situation: Spouse How many Children do You have: 2 Feels Safe at Home: Yes Dental Care, Regularly: No Seatbelt Use: always Assistive Devices: Glasses Allergies Allergies Allergy/AdvReac Type Severity Reaction Status Date / Time rofecoxib Allergy Mild Gastrointestinal Verified 02/08/23 13:56 Upset Penicillins AdvReac Severe HIVES/TROUBLE Verified 10/26/23 13:56 BREATHING metoclopramide AdvReac Mild RESTLESS Verified 02/08/23 13:56 prochlorperazine AdvReac Mild RESTLESS Verified 02/08/23 13:56 Home Meds Home Medications Medication Instructions Recorded Confirmed polyethylene glycol 3350 17 gram 17 g PO TID PRN Constipation 12/03/18 05/25/23 oral powder packet (Miralax) Previous Rx's Medication Instructions Recorded Powered Wheelchair #1 ea 02/27/19 levothyroxine 100 mcg tablet 100 mcg PO DAILY #90 tabs 06/13/22 ofatumumab 20 mg/0.4 mL 20 mg (0.4 mL) subcut .COMPLEX 07/27/22 subcutaneous pen injector #0.4 mL (Kesimpta Pen) duloxetine 60 mg capsule,delayed 120 mg (2 x 60 mg) PO HS #180 caps 11/29/22 release promethazine 25 mg tablet 25 mg PO TID PRN nausea and 03/16/23 vomiting #30 tabs simvastatin 20 mg tablet 20 mg PO QAM #90 tabs 03/16/23 lisinopril 40 mg tablet 40 mg PO QAM #90 tabs 03/26/23 alprazolam 1 mg tablet 1 mg PO TID PRN anxiety #90 tabs 04/20/23 metoprolol tartrate 25 mg tablet 25 mg PO BID #180 tabs 05/04/23 amlodipine 2.5 mg tablet 2.5 mg PO QAM #90 tabs 05/11/23 bupropion HCl 150 mg 24 hr tablet, 150 mg PO BID #60 tabs 05/16/23 extended release clopidogrel 75 mg tablet 75 mg PO QAM #90 tabs 05/16/23 oxycodone-acetaminophen 5 mg-325 1.5 tab PO TID PRN Pain #135 tabs 05/17/23 mg tablet (Percocet) baclofen 20 mg tablet 20 mg PO BID 30 days #60 tabs 05/22/23 pregabalin 25 mg capsule 25 mg PO BID #60 caps 05/22/23 Results & Data (ED) Vital Signs Vital Signs - 24 hr 05/25/23 12:59 05/25/23 13:00 05/25/23 13:09 Temperature 36.6 C Temperature Source Oral Pulse Rate 61 62 60 Pulse Rate from SpO2 Sensor 62 Respiratory Rate 14 16 Blood Pressure 167/83 H 167/83 H Blood Pressure Mean 111 111 Pulse Oximetry 97 96 Oxygen Delivery Method Sepsis Recent Fever Within 48 Hours No Sepsis New/Unexplained Change in Mental Status N/A Sepsis Action Taken by Nursing No Action Required 05/25/23 13:09 05/25/23 13:14 05/25/23 13:14 Temperature Temperature Source Pulse Rate Pulse Rate from SpO2 Sensor Respiratory Rate 16 Blood Pressure Blood Pressure Mean Pulse Oximetry 97 Oxygen Delivery Method Room Air Sepsis Recent Fever Within 48 Hours Sepsis New/Unexplained Change in Mental Status Sepsis Action Taken by Nursing 05/25/23 13:30 05/25/23 16:00 05/25/23 17:58 Temperature Temperature Source Pulse Rate 60 63 58 L Pulse Rate from SpO2 Sensor 60 63 Respiratory Rate 17 17 Blood Pressure 154/79 H 189/84 H Blood Pressure Mean 104 119 Pulse Oximetry 97 97 Oxygen Delivery Method Sepsis Recent Fever Within 48 Hours Sepsis New/Unexplained Change in Mental Status Sepsis Action Taken by Custodial Medications Current Medication List: was personally reviewed by me Laboratory Data Attestation: I reviewed the patient's lab results. 05/25/23 13:04 05/25/23 13:04 Lab Results 05/25/23 05/25/23 05/25/23 Range/Units 13:04 13:09 14:30 WBC 6.86 (4.8-10.8) K/ul RBC 5.11 (4.20-5.40) M/uL Hgb 15.8 (12.0-16.0) g/dl POC Hgb 17.0 H (12.0-16.0) g/dl Hct 47.3 H (37.0-47.0) % POC Hct 50 H (37-47) % MCV 92.6 (80.0-100.0) fL MCH 30.9 (25.0-34.0) pg MCHC 33.4 (32.0-36.0) g/dL RDW Std Deviation 46.5 H (36.4-46.3) fL RDW Coeff of Teddy 13.4 (11.5-14.5) % Plt Count 267 (130-400) K/uL MPV 10.6 (9.4-12.4) fL PT 10.5 (9.0-12.0) Seconds INR 1.0 (0.9-1.1) APTT 29 (21-31) Seconds PTT Ratio 1.0 POC Sodium 139 (135-144) mmol/L Sodium 136 (136-145) mmol/L POC Potassium 4.1 (3.3-5.0) mmol/L Potassium 4.1 (3.5-5.1) mmol/L POC Chloride 97 L (101-112) mmol/L Chloride 98 (98-107) mmol/L Carbon Dioxide 33 H (21-32) mmol/L POC Total CO2 31 (24-31) mmol/L Anion Gap 5 (3-11) POC Anion Gap 16.0 (16-25) mmol/L POC BUN 12 (7-18) mg/dl BUN 12 (6-23) mg/dl Creatinine 0.64 (0.6-1.2) mg/dl POC Creatinine 0.7 (0.6-1.3) mg/dl Est Cr Clr Drug Dosing 107.1 ml/min Est GFR ( Amer) 105.5 ml/min Est GFR (Non-Af Amer) 91.0 ml/min BUN/Creatinine Ratio 18.8 (10-20) Glucose 91 (70-99(Fasting)) mg/dl POC Glucose (other) 93 (70-99) mg/dl Calcium 9.8 (8.6-10.3) mg/dl POC Ioniz Calcium Fredi 1.17 (1.12-1.32) mmol/l Magnesium 2.2 (1.7-2.4) mg/dl Total Bilirubin 0.5 (0.2-1.0) mg/dl AST 17 (13-39) U/L ALT 14 (7-52) U/L Alkaline Phosphatase 59 (34-104) U/L Total Protein 7.6 (6.0-8.3) gm/dl Albumin 4.8 (3.4-5.0) gm/dl Globulin 2.8 (2.5-4.0) gm/dl Albumin/Globulin Ratio 1.7 (0.9-2) Urine Color Yellow Urine Appearance Clear (Clear) Urine pH 7.0 (4.5-7.5) Ur Specific [place] 1.008 (1.000-1.030) Urine Protein Negative (Negative) Urine Glucose (UA) Negative (Negative) Urine Ketones Negative (Negative) Urine Blood Negative (Negative) Urine Nitrite Negative (Negative) Urine Bilirubin Negative (Negative) Urine Urobilinogen Negative (Negative) Ur Leukocyte Esterase Trace H (Negative) Urine WBC (Auto) 1-5 (0-5) /hpf Urine RBC (Auto) 0-4 (0-4) /hpf U Hyaline Cast (Auto) 0 (0-5) /lpf U Epithel Cells (Auto) 5-10 H (0-5) /lpf Urine Bacteria (Auto) Negative (Negative) Administered Medications Lorazepam (Lorazepam 1 Mg/1 Ml Syr Ed Inj Use) 1 mg IV PRN PRN PRN Reason: PRIOR TO MRI Stop: 05/25/23 23:59 Last Admin: 05/25/23 18:03 Dose: 1 mg Documented By: NICKO Ondansetron HCl (Ondansetron Inj 2 Mg/Ml 2 Ml Vial) 4 mg IV Q4H PRN PRN Reason: Nausea Stop: 06/24/23 16:08 Last Admin: 05/25/23 16:42 Dose: 4 mg Documented By: NICKO Discontinued Medications Aspirin (Aspirin Chew 324 Mg) 324 mg PO NOW STA Stop: 05/25/23 16:26 Last Admin: 05/25/23 16:42 Dose: 324 mg Documented By: NICKO Acetaminophen (Ofirmev) 1,000 mg in 100 mls @ 400 mls/hr IV NOW STA Stop: 05/25/23 13:37 Last Infusion: 05/25/23 13:44 Dose: Infused Documented By: Admin: 05/25/23 13:27 Dose: 400 mls/hr Documented By: NICKO Morphine Sulfate (Morphine Sulfate 2 Mg/Ml Carp) 2 mg IV NOW STA Stop: 05/25/23 15:33 Last Admin: 05/25/23 15:58 Dose: 2 mg Documented By: NICKO Imaging Data Radiologist's Impression: Chest X-Ray 05/25/23 13:14 XR chest 1V portable HISTORY: 67 years-old Female stroke alert acute strokelike symptoms COMPARISON: CTA chest 09/02/2022 TECHNIQUE: AP view of the chest FINDINGS: Cardiomediastinal and hilar silhouettes are within normal limits. No pneumothorax, pleural effusion, airspace consolidation or pulmonary edema. Limited exam secondary to positioning. The bones of the chest appear grossly intact. IMPRESSION: No acute process. ACT 112: Negative or not required by law. The above report was generated using voice recognition software. It may contain grammatical, syntax or spelling errors. Electronically signed by: Omar Lo M.D. 05/25/2023 1:[address] 05/25/23 13:14 CT head/brain wo con CLINICAL HISTORY: 67 years-old Female with Neuro deficit, acute, stroke suspected. Acute strokelike symptoms TECHNIQUE: Multiple axial CT images of the head were obtained without contrast. A dose lowering technique was utilized adhering to the principles of ALARA. CT DOSE: 625.8 mGy.cm COMPARISON: 02/05/2019. FINDINGS: No acute intracranial hemorrhage, midline shift, intracranial mass, hydrocephalus, or abnormal extra-axial collection. Involutional changes with chronic microvascular ischemic disease. 8 mm left basal g[place] lacunar infarct on image 15 series 2 is new from prior. Ill-defined 2.8 cm hypodensity within the left periventricular frontal lobe on image 16 series 2. The calvarium is intact. Prior bilateral lens repair. Moderate chronic right maxillary mucoperiosteal thickening with small air-fluid level. The paranasal sinuses, mastoid air cells, and middle ear cavities are clear. IMPRESSION: 1. No acute territorial infarct, midline shift or intracranial hemorrhage. 2. Involutional changes with chronic microvascular scheme disease. 3. Ill-defined 2.8 cm hypodensity within the periventricular left frontal lobe likely represents progressive chronic microvascular ischemic disease. An age- indeterminate infarct could appear similarly. 4. Chronic appearing subcentimeter left basal ganglia lacunar infarct, new from prior. ACT 112: Negative or not required by law. The above report was generated using voice recognition software. It may contain grammatical, syntax or spelling errors. Electronically signed by: Omar Lo M.D. 05/25/2023 2:29 PM Discharge Plan Visit Data Chief Complaint: TIA Symptoms ED Provider: Jayro Sutton Discharge Problem: Acute right-sided weakness, Multiple sclerosis, History of CVA (cerebrovascular accident), Abnormal brain CT Patient Disposition: Admitted As Inpatient Condition: Fair Forms Stand Alone Forms: My [employer] Prescriptions Prescriptions: No Action levothyroxine 100 mcg tablet 100 mcg PO DAILY Qty: 90 3RF Kesimpta Pen 20 mg/0.4 mL pen injector 20 mg subcut .COMPLEX Qty: 0.4 11RF Rx Instructions: 20 mg subcut Once a Month; duloxetine 60 mg capsule,delayed release(DR/EC) 120 mg PO HS Qty: 180 3RF promethazine 25 mg tablet 25 mg PO TID PRN (Reason: nausea and vomiting) Qty: 30 5RF simvastatin 20 mg tablet 20 mg PO QAM Qty: 90 3RF lisinopril 40 mg tablet 40 mg PO QAM Qty: 90 1RF alprazolam 1 mg tablet 1 mg PO TID PRN (Reason: anxiety) Qty: 90 1RF metoprolol tartrate 25 mg tablet 25 mg PO BID Qty: 180 3RF amlodipine 2.5 mg tablet 2.5 mg PO QAM Qty: 90 3RF bupropion HCl 150 mg tablet extended release 24 hr 150 mg PO BID Qty: 60 5RF clopidogrel 75 mg tablet 75 mg PO QAM Qty: 90 0RF oxycodone-acetaminophen [Percocet] 5-325 mg tablet 1.5 tab PO TID PRN (Reason: Pain) Qty: 135 0RF baclofen 20 mg tablet 20 mg PO BID 30 Days Qty: 60 5RF pregabalin 25 mg capsule 25 mg PO BID Qty: 60 0RF (DME) Powered Wheelchair Misc See Rx Instructions .ROUTE .MEDSUPPLY Qty: 1 0RF Rx Instructions: Power Wheel chair polyethylene glycol 3350 [Miralax] 17 gram powder in packet 17 g PO TID PRN (Reason: Constipation) Referrals Referrals: Courtney Lozano MD [Primary Care Provider] -
--- NOTE | 2023-05-25 14:31 | CT Scan Report ---
CT head/brain wo con CLINICAL HISTORY: 67 years-old Female with Neuro deficit, acute, stroke suspected. Acute strokelike symptoms TECHNIQUE: Multiple axial CT images of the head were obtained without contrast. A dose lowering tech nique was utilized adhering to the principles of ALARA. CT DOSE: 625.8 mGy.cm COMPARISON: 02/05/2019. FINDINGS: No acute intracranial hemorrhage, midline shift, intracranial mass, hydrocephalus, or abnormal extra- axial collection. Involutional changes with chronic microvascular ischemic disease. 8 mm left basal g [place] lacunar infarct on image 15 series 2 is new from prior. Ill-defined 2.8 cm hypodensity within the left periventricular frontal lobe on image 16 series 2. The calvarium is intact. Prior bilateral lens repair. Moderate chronic right maxillary mucoperiosteal thickening with small air-fluid level. The paranasal sinuses, mastoid air cells, and middle ear cavi ties are clear. IMPRESSION: 1. No acute territorial infarct, midline shift or intracranial hemorrhage. 2. Involutional changes with chronic microvascular scheme disease. 3. Ill-defined 2.8 cm hypodensity within the periventricular left frontal lobe likely represents prog ressive chronic microvascular ischemic disease. An age-indeterminate infarct could appear similarly. 4. Chronic appearing subcentimeter left basal ganglia lacunar infarct, new from prior. ACT 112: Negative or not required by law. The above report was generated using voice recognition software. It may contain grammatical, syntax o r spelling errors. Electronically signed by: Omar Lo M.D. 05/25/2023 2:29 PM
[2023-05-25 14:40] LABS: Partial Thromboplastin Time 29 Seconds (21-31); Prothrombin Time 10.5 Seconds (9.0-12.0)
[2023-05-25 15:08] LABS: Appearance Urine Clear (Clear); Bacteria Urine Automated Negative (Negative); Bilirubin Urine Negative (Negative); Blood Urine Negative (Negative); Cast Urine Automated 0 /lpf (0-5); Color Urine Yellow; Glucose Urine UA Negative (Negative); Ketones Urine Negative (Negative); Leukocyte Esterase Urine Trace (Negative); Nitrite Urine Negative (Negative); Protein Urine Negative (Negative); RBC Urine Automated 0-4 /hpf (0-4); Specific Gravity Urine 1.008 (1.000-1.030); Urobilinogen Urine Negative (Negative)
--- NOTE | 2023-05-25 15:09 | Electrocardiogram Report ---
Test Reason : Blood Pressure : / mmHG Vent. Rate : 062 BPM Atrial Rate : 062 BPM P-R Int : 170 ms QRS Dur : 084 ms QT Int : 430 ms P-R-T Axes : 062 -11 063 degrees QTc Int : 436 ms Normal sinus rhythm Normal ECG When compared with ECG of 02-SEP-2022 20:16, No significant change was found Confirmed by Jeramie Shi ([id number]) on 05/25/2023 3:09:27 PM Referred By: Confirmed By:Jeramie Shi
--- NOTE | 2023-05-25 15:34 | History & Physical Report ---
Date of Service May 25, 2023 Assessment & Plan (1) Stroke-like symptoms: Plan: -Admit to med/tele on pulse oximetry -Currently hemodynamically stable -Presented to the ED with acute onset of increased RUE and RLE weakness along with headache -Weakness is still persistent at this time -Patient states these symptoms feel similar -CT of the head/brain wo con shows signs of sub-acute infarcts compared to her last CT scan -While she has a known hx of severe MS and was recently started on Lyrica and Baclofen, we cannot rule out new CVA at this time -Will give 324 mg aspirin now; patient did have her am dose of Plavix -Will obtain stat CTA of the head/neck and MRI of the brain w/wo con MS Protocol for further evaluation -Neurology consult placed -Will allow for permissive HTN until MRI results are back -Will obtain TTE -Will continue home Plavix and Statin for now -Hold chemical DVT PPX for now, BL SCD's ordered -Will order dysphagia screen prior to ordering diet -AM CBC, BMP, mag, PT/INR, A1c, fasting lipid panel (2) Recurrent UTI: Plan: -Patient was diagnosed with a UTI by her PCP on 05/21 and was started on a 7 day course of Macrobid -UA today appears improved -No recent fever or leukocytosis -Will continue her current Macrobid course for now (3) Multiple sclerosis: Plan: -Continue workup for increased weakness -Follow Neurology consult (4) Hypertension: Plan: -Currently hypertensive at 189/84 -We will allow for permissive HTN until imaging results are back -Hold amlodipine and lisinopril for now (5) Primary hypothyroidism: Plan: -Continue levothyroxine (6) Anxiety: Plan: -Continue Cymbalta and prn Xanax Plan The patient was discussed with Dr. Carbajal at the time of the admission History of Present Illness Chief Complaint: headache, right sided numbness, right UE weakness Primary Care Provider: Courtney Lozano MD Orquidea is a 67 year old female with a PMH significant for previous CVA with right sided weakness, Severe MS (on kesimpta) and is wheelchair bound, HTN, Hypothyroidism, who presented to the [facility] ED on 05/25/23 with complaints of headache, right neck pain, and numbness down the right side of her body. She was noted to be hypertensive at 167/83 but otherwise stable. Labs including CBC, CMP, and UA were unremarkable. Chest xray was negative for acute findings. CT of the head/brain wo con was read as 1. No acute territorial infarct, midline shift or intracranial hemorrhage. 2. Involutional changes with chronic microvascular scheme disease. 3. Ill-defined 2.8 cm hypodensity within the periventricular left frontal lobe likely represents progressive chronic microvascular ischemic disease. An age-indeterminate infarct could appear similarly. 4. Chronic appearing subcentimeter left basal ganglia lacunar infarct, new from prior.. Prior to admission the patient was given 1gm IV Tylenol. At the time of the exam the patient was lying in bed in no acute distress with her bedside, history was obtained from both. At baseline the patient has weakness in the BL legs to the point that she is wheelchair bound and relies on her to assist with transfers. She also has baseline RUE weakness, however, she is normally able to raise her RUE up and over the shoulders of her when he is assisting her with transfers. She woke up around 10 am today and felt fine. She was able to sit in her living room chair and eat breakfast. She took her am medications without issue. Around 11 am she had to use the bathroom. Her assisted her to the toilet. While on the toilet the patient felt significantly more weak on the right side of her body. She also noted a headache, mild photophobia, and right neck pain. Her states that the patient was significantly leaning towards the right while on the toilet requiring him to routinely lift her back up Straight. They confirm that this is not normal for her. Her right side was so weak that she was unable to lift it high enough to put it over her 's shoulders, which is why they called ems. She confirms that she is without pain in the RUE. The patient states these symptoms are very similar to her previous TIA. The patient was seen in the Neurology Clinic by Dr. Griffiths on 05/22/23. Per his note, the patient had significant BL LE weakness and RUE weakness. However, the patient and her say that her symptoms are much more severe today. The patient was prescribed lyrica and baclofen at that visit and began taking both medications the night of 05/22. She took all her medications, including Lyrica and Baclofen on 05/23 and did not have the symptoms she has today. She denies recent fever, chills, chest pain, SOB, Cough, abd pain, vomiting, diarrhea, dysuria, hematuria, melena, and recent falls. She is a full code and her would make medical decisions for her if she cannot make them herself. The patient has recently been taking BID Macrobid due to recent UTI; this was diagnosed on 05/21/23. Please refer to Dr. Carbajal's attestation for any changes to the treatment plan Allergies Allergy/AdvReac Type Severity Reaction Status Date / Time rofecoxib Allergy Mild Gastrointestinal Verified 02/08/23 13:56 Upset Penicillins AdvReac Severe HIVES/TROUBLE Verified 02/08/23 13:56 BREATHING metoclopramide AdvReac Mild RESTLESS Verified 02/08/23 13:56 prochlorperazine AdvReac Mild RESTLESS Verified 02/08/23 13:56 Home Medications Medication Instructions Recorded Confirmed Type polyethylene glycol 3350 17 gram 17 g PO TID PRN Constipation 12/03/18 05/25/23 History oral powder packet (Miralax) Powered Wheelchair #1 ea 02/27/19 05/22/23 Rx levothyroxine 100 mcg tablet 100 mcg PO DAILY #90 tabs 06/13/22 05/25/23 Rx ofatumumab 20 mg/0.4 mL 20 mg (0.4 mL) subcut .COMPLEX 07/27/22 05/25/23 Rx subcutaneous pen injector #0.4 mL (Kesimpta Pen) duloxetine 60 mg capsule,delayed 120 mg (2 x 60 mg) PO HS #180 caps 11/29/22 05/25/23 Rx release promethazine 25 mg tablet 25 mg PO TID PRN nausea and 03/16/23 05/25/23 Rx vomiting #30 tabs simvastatin 20 mg tablet 20 mg PO QAM #90 tabs 03/16/23 05/25/23 Rx lisinopril 40 mg tablet 40 mg PO QAM #90 tabs 03/26/23 05/25/23 Rx alprazolam 1 mg tablet 1 mg PO TID PRN anxiety #90 tabs 04/20/23 05/25/23 Rx metoprolol tartrate 25 mg tablet 25 mg PO BID #180 tabs 05/04/23 05/25/23 Rx amlodipine 2.5 mg tablet 2.5 mg PO QAM #90 tabs 05/11/23 05/25/23 Rx bupropion HCl 150 mg 24 hr tablet, 150 mg PO BID #60 tabs 05/16/23 05/25/23 Rx extended release clopidogrel 75 mg tablet 75 mg PO QAM #90 tabs 05/16/23 05/25/23 Rx oxycodone-acetaminophen 5 mg-325 1.5 tab PO TID PRN Pain #135 tabs 05/17/23 05/25/23 Rx mg tablet (Percocet) baclofen 20 mg tablet 20 mg PO BID 30 days #60 tabs 05/22/23 05/25/23 Rx pregabalin 25 mg capsule 25 mg PO BID #60 caps 05/22/23 05/25/23 Rx Past Med/Surg History Medical History Mixed incontinence urge and stress Foot deformity, bilateral Anxiety Primary hypothyroidism Mixed incontinence urge and stress MSSA (methicillin susceptible Staphylococcus aureus) infection Cervical radiculopathy Acute blood loss anemia Peptic ulcer disease H/O DUODENAL ULCER (PER RECORDS) Pancreatitis 2014 - PER RECORDS Migraine Multiple sclerosis Stroke 4 yr ago - [facility] - residual effect - "clumsy right arm" Hypertension Hypothyroid Osteoporosis Fracture spine - d/t osteoporosis Multiple sclerosis Depression H/O: duodenal ulcer "H pylori positive per records" Lumbosacral disc disease Vitamin D deficiency H/O: CVA (cerebrovascular accident) Hypertension Neurogenic bladder Hypothyroidism DJD (degenerative joint disease), cervical Surgical History History of dilatation and curettage History of esophagogastroduodenoscopy (EGD) History of colonoscopy History of cataract surgery RT/LEFT Hx of appendectomy S/P total abdominal hysterectomy H/O section Family History Mother Colorectal cancer Breast cancer Grandmother (Maternal) Colorectal cancer Grandmother (Paternal) Colorectal cancer Father Hypertension Aunt Myocardial infarction Uncle Myocardial infarction Denies family history of Ovarian cancer Prostate cancer Social History Smoking Status: Never smoker Second Hand Exposure: Yes ( A CHILD); Do You Dip or Chew Tobacco: No; Hx Alcohol Use: No Hx Substance Use: No Preferred Language: Sinhala Communication Ability: Effective Visual Impairment: No Limitations Hearing Ability: Normal Brush Finisher Required: Yes Beliefs That Will Affect Care: None marital status: Current Living Situation: Spouse How many Children do You have: 2 Feels Safe at Home: Yes Safety Concerns: Feels Safe At This Time Dental Care, Regularly: No Seatbelt Use: always Assistive Devices: Glasses and Lift Chair Physical Exam Physical Exam: Physical Exam: General: In no acute distress, stated age, well-nourished, non-toxic appearing HEENT: Normocephalic, atraumatic, no scleral icterus, pupils around round, symmetrical, and reactive to light, moist mucus membranes, trachea midline, no thyromegaly Chest/Pulm: No respiratory distress, symmetrical chest expansion, clear breath sounds throughout Cardiac: RRR, no murmurs noted Abdomen: Negative for ascites and bruising, normoactive bowel sounds, soft, non-tender to palpation throughout Musculoskeletal: No acute trauma, LUE with full ROM, RUE with flexion only to approximately 45 degrees, decreased knotter strength in the RUE compared to left, decreased strength in the BL LE's with right > left Extremities: Radial, dorsalis pedis, and posterior tibial pulses are intact and symmetrical, no edema noted in the BL LE's Skin: Warm, dry, no rashes , lesions, or scars noted Neuro: Alert and oriented to person, place, month, year, and president, CN II-XII tested and intact, RUE and RLE with increased weakness as described above, symmetrical sensation in the BL upper and lower extremities to light touch Psych: No acute distress, calm and cooperative during the exam Results & Data Results & Data Vital Signs (Past 12 Hours) Vital Signs Temp Pulse Resp BP Pulse Ox O2 Del Method 05/25/23 13:14 Room Air 05/25/23 13:14 97 05/25/23 13:09 16 05/25/23 13:09 36.6 C 60 16 167/83 H 96 05/25/23 12:59 61 Laboratory Results Abnormal lab results 05/25/23 05/25/23 05/25/23 Range/Units 13:04 13:09 14:30 POC Hgb 17.0 H (12.0-16.0) g/dl Hct 47.3 H (37.0-47.0) % POC Hct 50 H (37-47) % RDW Std Deviation 46.5 H (36.4-46.3) fL POC Chloride 97 L (101-112) mmol/L Carbon Dioxide 33 H (21-32) mmol/L Ur Leukocyte Esterase Trace H (Negative) U Epithel Cells (Auto) 5-10 H (0-5) /lpf Diagnostic Findings Chest X-Ray 05/25/23 13:14 XR chest 1V portable HISTORY: 67 years-old Female stroke alert acute strokelike symptoms COMPARISON: CTA chest 09/02/2022 TECHNIQUE: AP view of the chest FINDINGS: Cardiomediastinal and hilar silhouettes are within normal limits. No pneumothorax, pleural effusion, airspace consolidation or pulmonary edema. Limited exam secondary to positioning. The bones of the chest appear grossly intact. IMPRESSION: No acute process. ACT 112: Negative or not required by law. The above report was generated using voice recognition software. It may contain grammatical, syntax or spelling errors. Electronically signed by: Omar Lo M.D. 05/25/2023 1:[address] 05/25/23 13:14 CT head/brain wo con CLINICAL HISTORY: 67 years-old Female with Neuro deficit, acute, stroke suspect ed. Acute strokelike symptoms TECHNIQUE: Multiple axial CT images of the head were obtained without contrast. A dose lowering technique was utilized adhering to the principles of ALARA. CT DOSE: 625.8 mGy.cm COMPARISON: 02/05/2019. FINDINGS: No acute intracranial hemorrhage, midline shift, intracranial mass, hydrocephalus, or abnormal extra-axial collection. Involutional changes with chronic microvascular ischemic disease. 8 mm left basal g[place] lacunar infarct on image 15 series 2 is new from prior. Ill-defined 2.8 cm hypodensity within the left periventricular frontal lobe on image 16 series 2. The calvarium is intact. Prior bilateral lens repair. Moderate chronic right maxillary mucoperiosteal thickening with small air-fluid level. The paranasal sinuses, mastoid air cells, and middle ear cavities are clear. IMPRESSION: 1. No acute territorial infarct, midline shift or intracranial hemorrhage. 2. Involutional changes with chronic microvascular scheme disease. 3. Ill-defined 2.8 cm hypodensity within the periventricular left frontal lobe likely represents progressive chronic microvascular ischemic disease. An age- indeterminate infarct could appear similarly. 4. Chronic appearing subcentimeter left basal ganglia lacunar infarct, new from prior. ACT 112: Negative or not required by law. The above report was generated using voice recognition software. It may contain grammatical, syntax or spelling errors. Electronically signed by: Omar Lo M.D. 05/25/2023 2:29 PM ECG Additional Comments: Normal sinus rhythm Normal ECG When compared with ECG of 02-SEP-2022 20:16, No significant change was found Confirmed by Jeramie Shi ([id number]) on 05/25/2023 3:09:27 PM Code Status & VTE Plan Code Status Full code VTE Prophylaxis Plan VTE Prophylaxis will be ordered: Yes Supervising Physician Co-Signing Physician Notes I personally saw and examined the patient. I verified all barcenas points and agree with Erick Encarnacion PA-C with the following exceptions and/or additions: 67 year old female with multiple sclerosis presents to the ER with worsening right upper extremity weakness and lightheadedness while on the toilet. No full syncopal event. O/E A&Ox3, HS RRR, no murmurs, Chest CTAB, Abdo SNT, right sided pronator drift, Ankle dorsi/plantarflexion, unable to lift b/l lower extremities, CN2-> 12 intact A/P Right upper extremity weakness - acute on chronic, Brain MRI to rule out stroke. ?MS. Consult neurology. Previously noted RUE weakness in last neurology note - possible worse from presyncopal episode. Presyncope - associated with bowel movement, reports longstanding orthostasis with variable BP, may need to reduce BP medications but she also notes very high blood pressures. PG Care Time/CCT Total # of Minutes Spent Total Time Spent with Patient: Total time spent is greater than 50% in coordination of care (as documented) at patient's floor/unit and/or counseling patient: C[place] [address] INT INP/OBS CARE 3/75MIN Patient Type Established Medical Decision Making High Complexity Diagnoses Stroke-like symptoms R29.90 Recurrent UTI N39.0 Multiple sclerosis G35 Essential hypertension I10 Hypertension type: essential hypertension Primary hypothyroidism E03.9 Anxiety F41.9 (4) Hypertension Hypertension type: essential hypertension Qualified Code(s): I10 - Essential (primary) hypertension
[2023-05-25] MEDS: MoRPHine SULFATE 2 MG/ML CARP IV STA (15:58)
[2023-05-25] MEDS ORDERED: PHARMACIST DISCHARGE MED REC CONSULT PRN (16:07)
[2023-05-25] MEDS: ONDANSETRON INJ 2 MG/ML 2 ML VIAL IV PRN (16:42)
[2023-05-25] MEDS: ASPIRIN CHEW 324 MG PO STA (16:42)
[2023-05-25] MEDS ORDERED: LORazepam 1 MG in SYRINGE 0.5 ML IV PRN (17:33)
[2023-05-25] MEDS: LORazepam 1 MG/1 ML SYR ED Inj Use IV PRN (18:03)
[2023-05-25] MEDS: NITROFURANTOIN MONOHYDRATE 100 MG CAP PO SCH (21:00)
[2023-05-25] MEDS: GADOBUTROL 65ML VIAL IV ONE (22:01)
[2023-05-25] MEDS: OPTIRAY 320 125ml IV ONE (22:38)
[2023-05-25] MEDS ORDERED: oxyCODONE/ACETAMINOPHEN 5mg/325mg TAB PO PRN (23:33)
--- NOTE | 2023-05-25 23:36 | Magnetic Resonance Report ---
Exam(s): MRI HEAD W/WO Contrast IV Amt: 9.7cc gadavist EXAM: MR Head Without and With Intravenous Contrast CLINICAL HISTORY: Reason for exam: headache,RUE and RLE weakness. TECHNIQUE: Magnetic resonance images of the head/brain without and with intravenous contrast in multiple planes. CONTRAST: Patient received 9.7cc gadavist of IV contrast COMPARISON: Comparison made to prior head CT from May 25, 2023. FINDINGS: Brain: Remote ischemic injury of the left capsule. Advanced nonspecific white matter changes. No mass. No hemorrhage. No acute infarct. Normal enhancement. The dural venous sinuses are patent. Ventricles: Unremarkable. No ventriculomegaly. Bones/joints: Hyperostosis temporalis and frontalis internal. Moderate to advanced facet arthropathy at C2-3 and C3-4. No acute fracture. Sinuses: Chronic right maxillary and ethmoid sinusitis. Large air- fluid level in the right maxillary sinus. Mastoid air cells: Unremarkable as visualized. No mastoid effusion. Orbits: Bilateral lens replacements. IMPRESSION: No evidence of acute intracranial pathology. Electronically signed by: Palmira Guerra MD 05/25/23 23:35 PM
--- NOTE | 2023-05-25 23:50 | CT Scan Report ---
Exam(s): CTA HEAD With Contrast IV Amt: 118 ML EXAM: CT Angiography Head With Intravenous Contrast CLINICAL HISTORY: Reason for exam: stroke workup. TECHNIQUE: Axial computed tomographic angiography images of the head with intravenous contrast. CTDI is 16.61 mGy and DLP is 8.3 mGy-cm. Automated exposure control was utilized for the study. A dose lowering technique was utilized adhering to the principles of ALARA. MIP reconstructed images were created and reviewed. CONTRAST: Patient received 118 ML of IV contrast COMPARISON: No relevant prior studies available. FINDINGS: The dural venous sinuses are patent. Right internal carotid artery: No acute findings. Intracranial segment is patent with no significant stenosis. No aneurysm. Right anterior cerebral artery: High-grade stenosis of the right A1 segment.. No aneurysm. Right middle cerebral artery: Unremarkable. No occlusion or significant stenosis. No aneurysm. Right posterior cerebral artery: Unremarkable. No occlusion or significant stenosis. No aneurysm. Right vertebral artery: Unremarkable as visualized. Left internal carotid artery: No acute findings. Intracranial segment is patent with no significant stenosis. No aneurysm. Left anterior cerebral artery: Unremarkable. No occlusion or significant stenosis. No aneurysm. Left middle cerebral artery: Unremarkable. No occlusion or significant stenosis. No aneurysm. Left posterior cerebral artery: Unremarkable. No occlusion or significant stenosis. No aneurysm. Left vertebral artery: Unremarkable as visualized. Basilar artery: Unremarkable. No occlusion or significant stenosis. No aneurysm. IMPRESSION: High-grade stenosis of the right A1 segment. Diffuse cerebral atherosclerotic disease. Electronically signed by: Palmira Guerra MD 05/25/23 23:49 PM
--- NOTE | 2023-05-25 23:54 | CT Scan Report ---
Exam(s): CTA NECK With Contrast IV Amt: 118 ML EXAM: CT Angiography Neck With Intravenous Contrast CLINICAL HISTORY: Reason for exam: stroke workup. TECHNIQUE: Routine carotid CT angiography protocol was performed with intravenous contrast. NASCET criteria using the distal ICAs for comparison were used for evaluation of stenoses. CTDI is 13.76 mGy and DLP is 499.26 mGy-cm. Automated exposure control was utilized for the study. A dose lowering technique was utilized adhering to the principles of ALARA. MIP reconstructed images were created and reviewed. CONTRAST: Patient received 118 ML of IV contrast COMPARISON: None. FINDINGS: VASCULATURE: Right common carotid artery: Unremarkable. No occlusion or significant stenosis. No dissection. Right internal carotid artery: Unremarkable. Extracranial segment is patent with no occlusion or significant stenosis. No dissection. Right external carotid artery: Unremarkable. No occlusion. Right vertebral artery: Unremarkable. No occlusion or significant stenosis. No dissection. Left common carotid artery: Unremarkable. No occlusion or significant stenosis. No dissection. Left internal carotid artery: Unremarkable. Extracranial segment is patent with no occlusion or significant stenosis. No dissection. Left external carotid artery: Unremarkable. No occlusion. Left vertebral artery: Unremarkable. No occlusion or significant stenosis. No dissection. NECK: Bones/joints: Dental caries of tooth #30 with periapical lucency concerning for periapical abscess. Recommend dental consult. No acute fracture. Soft tissues: Unremarkable. Lung apices: Clear. CAROTID STENOSIS REFERENCE USING NASCET CRITERIA: % ICA stenosis = (1 - narrowest ICA diameter/diameter of distal cervical ICA) x 100. Mild - <50% stenosis. Moderate - 50-69% stenosis. Severe - 70-94% stenosis. Near occlusion - 95-99% stenosis. Occluded - 100% stenosis. IMPRESSION: Negative CTA neck. Electronically signed by: Palmira Guerra MD 05/25/23 23:52 PM
[2023-05-26] MEDS: DULoxetine HCL 60 MG CAP PO SCH (00:19)
[2023-05-26] MEDS: METOPROLOL TARTRATE 25 MG TAB PO SCH (00:19)
[2023-05-26] MEDS: buPROPion XL 150 MG TABCR PO SCH (00:19)
[2023-05-26] MEDS: PREGABALIN 25 MG CAP PO SCH (00:19)
[2023-05-26] MEDS: BACLOFEN 20 MG TAB PO SCH (00:20)
[2023-05-26] MEDS: LEVOTHYROXINE SODIUM 100 MCG TABLET PO SCH (05:44)
[2023-05-26] MEDS: oxyCODONE/APAP 7.5/325MG TAB PO PRN (06:15)
[2023-05-26 06:31] LABS: Basophils # (auto) 0.04 K/uL (0.00-0.20); Basophils % (auto) 0.5 %; Eosinophils # (auto) 0.18 K/uL (0.00-0.50); Eosinophils % (auto) 2.4 %; Hematocrit (blood only) 46.4 % (37.0-47.0); Hemoglobin 14.9 g/dl (12.0-16.0); Immature Granulocytes # (auto) 0.02 K/uL (0.01-0.20); Immature Granulocytes % (auto) 0.3 %; Lymphocytes # (auto) 1.99 K/uL (1.20-3.40); Lymphocytes % (auto) 26.1 %; Mean Corpuscular Hemoglobin 30.3 pg (25.0-34.0); Mean Corpuscular Hgb Conc 32.1 g/dL (32.0-36.0); Mean Corpuscular Volume 94.5 fL (80.0-100.0); Mean Platelet Volume 10.1 fL (9.4-12.4); Monocytes # (auto) 0.77 K/uL (0.11-0.59); Monocytes % (auto) 10.1 %; Neutrophils # (auto) 4.62 K/uL (1.40-6.50); Neutrophils % (auto) 60.6 %; Platelet Count 253 K/uL (130-400); RDW Coefficient of Variation 13.7 % (11.5-14.5); RDW Standard Deviation 47.9 fL (36.4-46.3); Red Blood Count 4.91 M/uL (4.20-5.40); White Blood Count 7.62 K/ul (4.8-10.8)
[2023-05-26 07:04] LABS: Prothrombin Time 10.8 Seconds (9.0-12.0)
[2023-05-26 07:23] LABS: Estimated Average Glucose 103 mg/dl; Hemoglobin A1C 5.2 % (4.5-5.6)
[2023-05-26 07:29] LABS: BUN Creatinine Ratio 20.4 (10-20); Calcium 9.3 mg/dl (8.6-10.3); Chol HDL Ratio 3.5 (0-5); Creatinine Clr Calc Pharmacy 125.4 ml/min; Est GFR (African American) 111.6 ml/min; Est GFR (Non-African American) 96.3 ml/min; Magnesium 2.1 mg/dl (1.7-2.4)
[2023-05-26] MEDS: CLOPIDOGREL BISULFATE 75 MG TAB PO SCH (08:22)
[2023-05-26] MEDS: SIMVASTATIN 20 MG TAB PO SCH (08:23)
--- NOTE | 2023-05-26 09:06 | Neurology Consultation ---
Date of Consultation May 26, 2023 Assessment & Plan (1) Multiple sclerosis: (2) History of CVA (cerebrovascular accident): (3) Recurrent UTI: Plan 67-year-old female with a longstanding history of multiple sclerosis, probably in a secondary progressive phase, no evidence of acute MS relapse on recent MRI. 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 She also has a history of a chronic left basal ganglia lacunar infarct and has been recently treated for a urinary tract infection. She presents with an escalation in her chronic neurologic symptoms which I suspect is due to pseudoprogression in the context of her recent UTI and chronic functional debilitation. Again, no evidence of active demyelination or acute stroke on yesterday's MRI. No significant vascular lesions on CT angiography of the neck. She does have a high-grade stenosis of the right A1 segment which would not be related to her current clinical presentation. Patient has been on monthly Kesimpta injections for her MS, she should continue with this treatment. She does not require corticosteroids for treatment of MS exacerbation at this time. Again, no evidence of relapse on MRI. Patient should continue with clopidogrel and simvastatin given her history of stroke. Her LDL is currently 85. Goal LDL typically 70 or less in individuals with a history of stroke. Could consider increasing her simvastatin dosage. It is possible that patient's dizziness and escalation in chronic neurologic symptoms could in partt be related to the recent addition of Lyrica to her medication regimen. Would recommend holding this medication at this time. Continue management of patient's hypertension. Continue supportive medical care. Patient will continue to follow with Dr. Griffiths in the outpatient neurology clinic. Please call with any questions. History of Present Illness Reason for Consultation: History of multiple sclerosis, presenting with worsening right-sided weakness and headache Requesting Physician: Alysha Attending Physician: Gadiel Moses History of Present Illness The patient is a 67-year-old female with a history of multiple sclerosis diagnosed in the . She was last seen by Dr. Griffiths May 22, 2023 for a follow-up appointment. Patient had complained of gradual progression of her symptoms including significant weakness of the right arm and leg. She also has a left upper extremity tremor. She complained of a feeling of generalized weakness and fatigue as well as some difficulty with memory and chronic lower extremity pain. She was given a prescription for Lyrica at that time, her baclofen was refilled, she was also referred to physical therapy. She had previously been prescribed Ocrevus for her MS although this medication was disco ntinued in favor of Kesimpta monthly injections in early 2021. A CT of the head completed yesterday was negative for hemorrhage or obvious acute infarct. There was a chronic left basal ganglia lacunar infarct, apparently new from a previous study done in January 2019. A CTA of the head revealed a high-grade stenosis of the right A1 segment and diffuse cerebral atherosclerotic disease. A CTA of the neck was unremarkable. A brain MRI completed yesterday was negative for acute pathology. I did independently review these images. There is moderately extensive T2/FLAIR multifocal hyperintensities throughout the cerebral hemispheres, periventricular and subcortical distribution with a large confluent area of left periventricular hyperintensity within the left frontal lobe. There is a probable chronic lacunar infarct within the left basal ganglia. (This finding was present on her previous brain MRI done in November 2021.) There are white matter hyperintensities within the midbrain, carey, middle cerebellar peduncles around the fourth ventricle. There is no abnormal postcontrast enhancement to suggest an active focus of demyelination. Electrocardiogram is revealed a normal sinus rhythm, 62 bpm. Recent labs reviewed. WBC 7.62, hemoglobin 14.9, hematocrit 46.4, platelet count 253, sodium 138, potassium 4.0, BUN 11, creatinine 0.54, glucose 92, hemoglobin A1c 5.2, calcium 9.3, magnesium 2.1, AST 17, ALT 14, triglycerides 141, cholesterol 159, LDL 85, VLDL 28, HDL 46, urinalysis negative. Patient has also been taking clopidogrel and simvastatin. Patient's last cervical spine MRI was completed at [facility] December 01, 2021 and revealed multiple cervical spinal cord lesions, unchanged from the previous study done in January 2018. I reviewed these images as well. There are foci of chronic demyelination noted in the upper spinal cord anteriorly at the level of the gil magnum, there are lesions extending from C2 and caudally throughout the cervical spinal cord with a few visible chronic lesions in the upper thoracic spinal cord as well. Of note, patient was recently diagnosed with a urinary tract infection 5 days ago by her PCP and was started on a 7-day course of Macrobid. As above, her recent urinalysis is improved. This morning, the patient is sitting up comfortably in bed. She complains of mild dizziness when upright, no vertigo, no vision disturbance. She endorses low-grade headache, inability to sit up straight, and chronic right-sided weakness. She is nonambulatory due to her MS. She has neurogenic bladder and has had Botox injections previously for this issue. She has considerable bilateral lower extremity spasticity for which she is prescribed baclofen. As above, Lyrica was added to her medication regimen recently. She endorses a history of frequent urinary tract infections and need for self-catheterization, has been seen by urology. Allergies Allergy/AdvReac Type Severity Reaction Status Date / Time rofecoxib Allergy Mild Gastrointestinal Verified 02/08/23 13:56 Upset Penicillins AdvReac Severe HIVES/TROUBLE Verified 02/08/23 13:56 BREATHING metoclopramide AdvReac Mild RESTLESS Verified 02/08/23 13:56 prochlorperazine AdvReac Mild RESTLESS Verified 02/08/23 13:56 Home Medications Medication Instructions Recorded Confirmed Type polyethylene glycol 3350 17 gram 17 g PO TID PRN Constipation 12/03/18 05/25/23 History oral powder packet (Miralax) Powered Wheelchair #1 ea 02/27/19 05/22/23 Rx levothyroxine 100 mcg tablet 100 mcg PO DAILY #90 tabs 06/13/22 05/25/23 Rx ofatumumab 20 mg/0.4 mL 20 mg (0.4 mL) subcut .COMPLEX 07/27/22 05/25/23 Rx subcutaneous pen injector #0.4 mL (Kesimpta Pen) duloxetine 60 mg capsule,delayed 120 mg (2 x 60 mg) PO HS #180 caps 11/29/22 05/25/23 Rx release promethazine 25 mg tablet 25 mg PO TID PRN nausea and 03/16/23 05/25/23 Rx vomiting #30 tabs simvastatin 20 mg tablet 20 mg PO QAM #90 tabs 03/16/23 05/25/23 Rx lisinopril 40 mg tablet 40 mg PO QAM #90 tabs 03/26/23 05/25/23 Rx alprazolam 1 mg tablet 1 mg PO TID PRN anxiety #90 tabs 04/20/23 05/25/23 Rx metoprolol tartrate 25 mg tablet 25 mg PO BID #180 tabs 05/04/23 05/25/23 Rx amlodipine 2.5 mg tablet 2.5 mg PO QAM #90 tabs 05/11/23 05/25/23 Rx bupropion HCl 150 mg 24 hr tablet, 150 mg PO BID #60 tabs 05/16/23 05/25/23 Rx extended release clopidogrel 75 mg tablet 75 mg PO QAM #90 tabs 05/16/23 05/25/23 Rx oxycodone-acetaminophen 5 mg-325 1.5 tab PO TID PRN Pain #135 tabs 05/17/23 05/25/23 Rx mg tablet (Percocet) baclofen 20 mg tablet 20 mg PO BID 30 days #60 tabs 05/22/23 05/25/23 Rx pregabalin 25 mg capsule 25 mg PO BID #60 caps 05/22/23 05/25/23 Rx Patient History Medical History Mixed incontinence urge and stress Foot deformity, bilateral Anxiety Primary hypothyroidism Mixed incontinence urge and stress MSSA (methicillin susceptible Staphylococcus aureus) infection Cervical radiculopathy Acute blood loss anemia Peptic ulcer disease H/O DUODENAL ULCER (PER RECORDS) Pancreatitis 2014 - PER RECORDS Migraine Multiple sclerosis Stroke 4 yr ago - [facility] - residual effect - "clumsy right arm" Hypertension Hypothyroid Osteoporosis Fracture spine - d/t osteoporosis Multiple sclerosis Depression H/O: duodenal ulcer "H pylori positive per records" Lumbosacral disc disease Vitamin D deficiency H/O: CVA (cerebrovascular accident) Hypertension Neurogenic bladder Hypothyroidism DJD (degenerative joint disease), cervical Surgical History History of dilatation and curettage History of esophagogastroduodenoscopy (EGD) History of colonoscopy History of cataract surgery RT/LEFT Hx of appendectomy S/P total abdominal hysterectomy H/O section Family History Mother Colorectal cancer Breast cancer Grandmother (Maternal) Colorectal cancer Grandmother (Paternal) Colorectal cancer Father Hypertension Aunt Myocardial infarction Uncle Myocardial infarction Denies family history of Ovarian cancer Prostate cancer Social History Smoking Status: Never smoker Second Hand Exposure: Yes ( A CHILD); Do You Dip or Chew Tobacco: No; Hx Alcohol Use: No Hx Substance Use: No Preferred Language: Lithuanian Communication Ability: Effective Visual Impairment: No Limitations Hearing Ability: Normal Painter Rough Required: Yes Beliefs That Will Affect Care: None marital status: Current Living Situation: Spouse How many Children do You have: 2 Feels Safe at Home: Yes Safety Concerns: Feels Safe At This Time Dental Care, Regularly: No Seatbelt Use: always Assistive Devices: Glasses and Lift Chair Review of Systems Constitutional: + fatigue; no fever and no chills Eyes: no blind spots, no diplopia and no eye pain Ear, Nose, Mouth, Throat: no hearing loss Respiratory: no cough and no dyspnea Cardiovascular: no chest pain and no palpitations Gastrointestinal: no nausea and no vomiting Genitourinary: as per Subjective / HPI, + dysuria and + difficulty urinating Musculoskeletal: + muscle weakness; no neck pain and no m yalgia Integumentary: no rash and no lesions Neurologic: as per Subjective / HPI, + gait abnormality, + localized weakness, + lack of coordination, + tremor(s) and + headache(s); no memory loss Psychiatric: no depression and no anxiety Hematologic / Lymphatic: no easy bleeding and no easy bruising Exam (Neuro) Constitutional: well developed and well nourished; no acute distress Eyes: normal visual lee by confrontation, PERRL and EOM intact bilaterally; no nystagmus Neurologic: Oriented to:: Person, Place and Time Memory: Short Term Intact and Remote Intact Attention: Span Intact and Concentration Intact Speech Fluency: negative Dysarthria or Dysfluency Speech Aphasia: negative Aphasia Fund of Knowledge: Current Events, Past History and Vocabulary Cranial Nerves: Normal II, III, IV, , V, VIII, IX, X, XI and XII; Abnorm VII Motor Strength: Hemiparesis Laterality: Right; negative Normal Lower Extremities or Normal Upper Extremities Spasticity: Legs Muscle Bulk/Involuntary Movements: No Involuntary Movements Sensation: Light Touch Intact and Pain/Temperature Intact; negative Proprioception Intact Coordination: Finger- Nose Abnormal and Heel-Tracey Abnormal Deep Tendon Reflexes: Rt Triceps: 3+, Lt Triceps: 3+, Rt Biceps: 3+, Lt Biceps: 3+, Rt Brachioradialis: 3+, Lt Brachioradialis: 3+, Rt Patellar: 3+ and Lt Patellar: 3+ Special Tests: Babinski Present Details: Patient has a spastic paraparesis as well as a superimposed right hemiparesis. Deep tendon reflexes are brisk throughout, although more so on the right. Results & Data Vital Signs (Past 12 Hours) Vital Signs Temp Pulse Pulse Resp BP Pulse Ox O2 Del Method 05/26/23 03:59 36.6 C 57 L 18 162/71 H 93 Room Air 05/26/23 00:02 68 05/25/23 23:35 36.5 C 60 20 148/73 H 95 Room Air 05/25/23 21:00 65 17 95 Room Air Coding Level of Care Code 24752 INT INP/OBS CARE 3/75MIN Diagnoses Multiple sclerosis G35 History of CVA (cerebrovascular accident) Z86.73 Recurrent UTI N39.0 Time Spent (min) 80 Comment Total time includes patient contact, chart review, counseling, note preparation
[2023-05-26] MEDS: ALPRAZolam 0.5 MG TABLET PO PRN (09:30)
--- NOTE | 2023-05-26 11:16 | XCELERA ---
[id number] [id number]
[2023-05-26] MEDS: oxyCODONE/APAP 7.5/325MG TAB PO ONE (19:47)
--- NOTE | 2023-05-26 20:41 | Hospitalist Progress Note ---
Date of Service May 26, 2023 Assessment & Plan (1) Stroke-like symptoms: Plan: -Admit to med/tele on pulse oximetry -Currently hemodynamically stable -Presented to the ED with acute onset of increased RUE and RLE weakness along with headache -Weakness is still persistent at this time -Patient states these symptoms feel similar -CT of the head/brain wo con shows signs of sub-acute infarcts compared to her last CT scan -While she has a known hx of severe MS and was recently started on Lyrica and Baclofen, we cannot rule out new CVA at this time -Will give 324 mg aspirin now; patient did have her am dose of Plavix -Will obtain stat CTA of the head/neck and MRI of the brain w/wo con MS Protocol for further evaluation -Neurology consult placed -appreciate input from [facility] will hold lyrica (2) Recurrent UTI: Plan: -Patient was diagnosed with a UTI by her PCP on 05/21 and was started on a 7 day course of Macrobid -UA today appears improved -No recent fever or leukocytosis -Will continue her current Macrobid course for now (3) Multiple sclerosis: Plan: -Continue workup for increased weakness -Follow Neurology consult (4) Hypertension: Plan: -Currently hypertensive at 189/84 -We will allow for permissive HTN until imaging results are back -Hold amlodipine and lisinopril for now (5) Primary hypothyroidism: Plan: -Continue levothyroxine (6) Anxiety: Plan: -Continue Cymbalta and prn Xanax Plan The patient was discussed with Dr. Carbajal at the time of the admission Admission and Anticipated Discharge Date Admission Date: May 25, 2023 Subjective Patient reports no new symptoms. Review of Systems Review of Systems: All systems reviewed & are unremarkable except as noted in HPI & below Physical Exam Physical Exam: General: In no acute distress, stated age, well-nourished, non-toxic appearing HEENT: Normocephalic, atraumatic, no scleral icterus, pupils around round, symmetrical, and reactive to light, moist mucus membranes, trachea midline, no thyromegaly Chest/Pulm: No respiratory distress, symmetrical chest expansion, clear breath sounds throughout Cardiac: RRR, no murmurs noted Abdomen: Negative for ascites and bruising, normoactive bowel sounds, soft, non-tender to palpation throughout Musculoskeletal: No acute trauma, LUE with full ROM, RUE with flexion only to approximately 45 degrees, decreased sand molder strength in the RUE compared to left, decreased strength in the BL LE's with right > left Extremities: Radial, dorsalis pedis, and posterior tibial pulses are intact and symmetrical, no edema noted in the BL LE's Skin: Warm, dry, no rashes , lesions, or scars noted Neuro: Alert and oriented to person, place, month, year, and president, CN II-XII tested and intact Psych: No acute distress, calm and cooperative during the exam Results & Data Results & Data Vital Signs (Past 12 Hours) Vital Signs Temp Pulse Pulse Resp BP Pulse Ox O2 Del Method 05/26/23 17:22 74 05/26/23 16:15 36.9 C 79 16 124/78 94 Room Air 05/26/23 11:48 37.0 C 88 16 100/61 94 Room Air 05/26/23 09:22 64 PG Care Time/CCT Total # of Minutes Spent Total Time Spent with Patient: Total time spent is greater than 50% in coordination of care (as documented) at patient's floor/unit and/or counseling patient: Coding Level of Care Code 50758 SUB INP/OBS CARE 2/35MIN Diagnoses Stroke-like symptoms R29.90 Recurrent UTI N39.0 Multiple sclerosis G35 Essential hypertension I10 Hypertension type: essential hypertension Primary hypothyroidism E03.9 Anxiety F41.9 (4) Hypertension Hypertension type: essential hypertension Qualified Code(s): I10 - Essential (primary) hypertension
[2023-05-27] MEDS: oxyCODONE HCL IR 5 MG TAB (IMMEDIATE RELEASE) PO ONE (15:46)
[2023-05-27 16:10] LABS: Basophils # (auto) 0.04 K/uL (0.00-0.20); Basophils % (auto) 0.5 %; Eosinophils # (auto) 0.15 K/uL (0.00-0.50); Eosinophils % (auto) 1.7 %; Hematocrit (blood only) 45.8 % (37.0-47.0); Hemoglobin 14.5 g/dl (12.0-16.0); Immature Granulocytes # (auto) 0.02 K/uL (0.01-0.20); Immature Granulocytes % (auto) 0.2 %; Lymphocytes # (auto) 2.53 K/uL (1.20-3.40); Mean Corpuscular Hemoglobin 30.1 pg (25.0-34.0); Mean Corpuscular Hgb Conc 31.7 g/dL (32.0-36.0); Mean Corpuscular Volume 95.2 fL (80.0-100.0); Mean Platelet Volume 10.4 fL (9.4-12.4); Monocytes % (auto) 12.6 %; Neutrophils # (auto) 4.87 K/uL (1.40-6.50); Platelet Count 241 K/uL (130-400); RDW Coefficient of Variation 13.6 % (11.5-14.5); RDW Standard Deviation 47.9 fL (36.4-46.3); Red Blood Count 4.81 M/uL (4.20-5.40); White Blood Count 8.71 K/ul (4.8-10.8)
[2023-05-27 16:27] LABS: BUN Creatinine Ratio 23.5 (10-20); Calcium 9.5 mg/dl (8.6-10.3); Creatinine Clr Calc Pharmacy 84.5 ml/min; Est GFR (African American) 85.9 ml/min; Est GFR (Non-African American) 74.1 ml/min; Magnesium 2.2 mg/dl (1.7-2.4); Potassium 4.5 mmol/L (3.5-5.1)
[2023-05-27 16:42] LABS: Prothrombin Time 10.9 Seconds (9.0-12.0)
--- NOTE | 2023-05-27 22:36 | Hospitalist Progress Note ---
Date of Service May 27, 2023 Assessment & Plan (1) Stroke-like symptoms: Plan: -Admit to med/tele on pulse oximetry -Currently hemodynamically stable -Presented to the ED with acute onset of increased RUE and RLE weakness along with headache -Weakness is still persistent at this time -Patient states these symptoms feel similar -CT of the head/brain wo con shows signs of sub-acute infarcts compared to her last CT scan -While she has a known hx of severe MS and was recently started on Lyrica and Baclofen, Imaging is negative. -Neurology consult placed -appreciate input from [facility] will hold lyrica (2) Recurrent UTI: Plan: -Patient was diagnosed with a UTI by her PCP on 05/21 and was started on a 7 day course of Macrobid -UA today appears improved -No recent fever or leukocytosis -Will continue her current Macrobid course for now (3) Multiple sclerosis: Plan: -Continue workup for increased weakness -Follow Neurology consult (4) Hypertension: Plan: -Currently hypertensive at 189/84 -We will allow for permissive HTN until imaging results are back -Hold amlodipine and lisinopril for now (5) Primary hypothyroidism: Plan: -Continue levothyroxine (6) Anxiety: Plan: -Continue Cymbalta and prn Xanax Admission and Anticipated Discharge Date Admission Date: May 25, 2023 Subjective Patient is resting comfortably. Review of Systems Review of Systems: All systems reviewed & are unremarkable except as noted in HPI & below Physical Exam Physical Exam: General: In no acute distress, stated age, well-nourished, non-toxic appearing HEENT: Normocephalic, atraumatic, no scleral icterus, pupils around round, symmetrical, and reactive to light, moist mucus membranes, trachea midline, no thyromegaly Chest/Pulm: No respiratory distress, symmetrical chest expansion, clear breath sounds throughout Cardiac: RRR, no murmurs noted Abdomen: Negative for ascites and bruising, normoactive bowel sounds, soft, non-tender to palpation throughout Musculoskeletal: No acute trauma, LUE with full ROM, RUE with flexion only to approximately 45 degrees, decreased production machine tender strength in the RUE compared to left, decreased strength in the BL LE's with right > left Extremities: Radial, dorsalis pedis, and posterior tibial pulses are intact and symmetrical, no edema noted in the BL LE's Skin: Warm, dry, no rashes , lesions, or scars noted Neuro: Alert and oriented to person, place, month, year, and president, CN II-XII tested and intact Psych: No acute distress, calm and cooperative during the exam Results & Data Results & Data Vital Signs (Past 12 Hours) Vital Signs Temp Pulse Pulse Resp BP Pulse Ox O2 Del Method 05/27/23 19:59 36.4 C L 63 16 123/74 91 Room Air 05/27/23 18:59 36.8 C 69 17 113/55 L 92 Room Air 05/27/23 15:54 36.4 C L 64 16 128/57 L 93 Room Air 05/27/23 14:50 67 05/27/23 12:06 36.7 C 64 16 121/77 93 Room Air PG Care Time/CCT Total # of Minutes Spent Total Time Spent with Patient: Total time spent is greater than 50% in coordination of care (as documented) at patient's floor/unit and/or counseling patient: Coding Level of Care Code 41321 SUB INP/OBS CARE 2/35MIN Diagnoses Stroke-like symptoms R29.90 Recurrent UTI N39.0 Multiple sclerosis G35 Essential hypertension I10 Hypertension type: essential hypertension Primary hypothyroidism E03.9 Anxiety F41.9 (4) Hypertension Hypertension type: essential hypertension Qualified Code(s): I10 - Essential (primary) hypertension
[2023-05-28 07:54] LABS: Basophils # (auto) 0.04 K/uL (0.00-0.20); Basophils % (auto) 0.6 %; Eosinophils % (auto) 2.8 %; Hemoglobin 13.7 g/dl (12.0-16.0); Immature Granulocytes # (auto) 0.02 K/uL (0.01-0.20); Immature Granulocytes % (auto) 0.3 %; Lymphocytes % (auto) 26.6 %; Mean Corpuscular Hemoglobin 30.1 pg (25.0-34.0); Mean Corpuscular Hgb Conc 31.9 g/dL (32.0-36.0); Mean Corpuscular Volume 94.5 fL (80.0-100.0); Mean Platelet Volume 10.6 fL (9.4-12.4); Monocytes # (auto) 0.82 K/uL (0.11-0.59); Monocytes % (auto) 11.5 %; Neutrophils # (auto) 4.17 K/uL (1.40-6.50); Neutrophils % (auto) 58.2 %; Platelet Count 226 K/uL (130-400); RDW Coefficient of Variation 13.7 % (11.5-14.5); RDW Standard Deviation 47.9 fL (36.4-46.3); Red Blood Count 4.55 M/uL (4.20-5.40); White Blood Count 7.15 K/ul (4.8-10.8)
[2023-05-28 08:16] LABS: Prothrombin Time 10.5 Seconds (9.0-12.0)
[2023-05-28 08:31] LABS: BUN Creatinine Ratio 25.4 (10-20); Calcium 9.2 mg/dl (8.6-10.3); Creatinine Clr Calc Pharmacy 115.8 ml/min; Est GFR (African American) 108.4 ml/min; Est GFR (Non-African American) 93.5 ml/min; Potassium 4.5 mmol/L (3.5-5.1)
--- NOTE | 2023-05-28 10:45 | Neurology Progress Note ---
Date of Service May 28, 2023 Assessment & Plan (1) Multiple sclerosis: (2) History of CVA (cerebrovascular accident): (3) Recurrent UTI: Plan This patient has a severe multiple sclerosis condition, initially relapsing remitting, but now with considerable secondary progression. At baseline she is not able to stand or pivot on her own and is essentially wheelchair-bound. She presented May 25 with some new right-sided weakness and numbness as well as dizziness. Her dizziness is improved and her strength is about back at baseline although she feels the right arm is a little weaker than before. MRI of the brain showed no new stroke or evidence of active/new MS. The patient does have a history of stroke in the past and has recurrent UTIs. Her dizziness may have been due to the initiation of Lyrica 25 mg twice a day (given to her for neuropathic pain in her legs) on May 22. She also increased her baclofen a little bit which may be contributing. Recommendations: 1. Discontinue pregabalin 2. Consider baclofen 10 mg in the morning, 10 mg afternoon, and 20 mg at night 3. Continue with home health and home PT. 4. Continue simvastatin 20 5. Continue clopidogrel 75 mg daily 6. Continue Cymbalta 120 mg daily for her chronic pain 7. I will make additional recommendations for pain control as an outpatient. Please contact me if I can be of further assistance on this case. Follow-up in neuro with PA in 2 weeks or so. Overall, I spent a total of 35 minutes with this case including review of records, review of MRI films, direct evaluation the patient at bedside and discussion of the case with the patient at bedside and Dr. Calhoun including differential diagnosis and treatment options. Admission and Anticipated Discharge Date Admission Date: May 25, 2023 Subjective Feeling better without dizziness or new pain. Spasticity and weakness are currently at baseline. complains of a hot flash this morning. She still feels that her right upper extremity is weaker than it was before. Blood pressure is 151/78 and she is afebrile MRI 05/25 without new lesion or active lesions. There is no convincing evidence of a new stroke. CBC and CHEM profile today were unremarkable. Echocardiogram was unremarkable. Results & Data Vital Signs (Past 12 Hours) Vital Signs Temp Pulse Pulse Resp BP Pulse Ox O2 Del Method 05/28/23 09:36 37.0 C 82 16 151/78 H 97 05/28/23 07:45 37.0 C 82 16 151/78 H 97 Room Air 05/28/23 06:57 66 05/28/23 03:58 67 18 138/83 05/28/23 03:57 36.5 C 71 18 195/81 H 96 Room Air 05/27/23 23:11 71 05/27/23 23:10 36.8 C 65 16 112/64 95 Room Air Exam (Neuro) Physical Exam: She is awake and alert. Speech has some slight dysarthria to it but she is otherwise intelligible. She has good mentation and follows directions well. Mood and affect are normal and appropriate Extraocular eye muscles are intact without nystagmus. There is no facial droop. Tongue is midline. The patient has a severe spastic paraplegia in the legs with strength being approximately 1/4. The left upper extremity is closer to 5/5 and has good coordination without tremor or ataxia. The right upper extremity has no ataxia or tremor but is weak being 4/5 and spastic. My exam today is very similar to the exam I had as an outpatient May 22. PG Care Time/CCT Total # of Minutes Spent Total Time Spent with Patient: Total time spent is greater than 50% in coordination of care (as documented) at patient's floor/unit and/or counseling patient: Coding Level of Care Code 57601 SUB INP/OBS CARE 2/35MIN Diagnoses Multiple sclerosis G35 History of CVA (cerebrovascular accident) Z86.73 Recurrent UTI N39.0 Time Spent (min) 35
--- NOTE | 2023-05-28 13:44 | Discharge Summary ---
Date of Service May 28, 2023 Admission HPI Per Admitting Provider Orquidea is a 67 year old female with a PMH significant for previous CVA with right sided weakness, Severe MS (on kesimpta) and is wheelchair bound, HTN, Hypothyroidism, who presented to the [facility] ED on 05/25/23 with complaints of headache, right neck pain, and numbness down the right side of her body. She was noted to be hypertensive at 167/83 but otherwise stable. Labs including CBC, CMP, and UA were unremarkable. Chest xray was negative for acute findings. CT of the head/brain wo con was read as 1. No acute territorial infarct, midline shift or intracranial hemorrhage. 2. Involutional changes with chronic bea rovascular scheme disease. 3. Ill-defined 2.8 cm hypodensity within the periventricular left frontal lobe likely represents progressive chronic microvascular ischemic disease. An age-indeterminate infarct could appear similarly. 4. Chronic appearing subcentimeter left basal ganglia lacunar infarct, new from prior.. Prior to admission the patient was given 1gm IV Tylenol. At the time of the exam the patient was lying in bed in no acute distress with her bedside, history was obtained from both. At baseline the patient has weakness in the BL legs to the point that she is wheelchair bound and relies on her to assist with transfers. She also has baseline RUE weakness, however, she is normally able to raise her RUE up and over the shoulders of her when he is assisting her with transfers. She woke up around 10 am today and felt fine. She was able to sit in her living room chair and eat breakfast. She took her am medications without issue. Around 11 am she had to use the bathroom. Her assisted her to the toilet. While on the toilet the patient felt significantly more weak on the right side of her body. She also noted a headache, mild photophobia, and right neck pain. Her states that the patient was significantly leaning towards the right while on the toilet requiring him to routinely lift her back up Straight. They confirm that this is not normal for her. Her right side was so weak that she was unable to lift it high enough to put it over her 's shoulders, which is why they called ems. She confirms that she is without pain in the RUE. The patient states these symptoms are very similar to her previous TIA. The patient was seen in the Neurology [facility] by Dr. Griffiths on 05/22/23. Per his note, the patient had significant BL LE weakness and RUE weakness. However, the patient and her say that her symptoms are much more severe today. The patient was prescribed lyrica and baclofen at that visit and began taking both medications the night of 05/22. She took all her medications, including Lyrica and Baclofen on 05/23 and did not have the symptoms she has today. She denies recent fever, chills, chest pain, SOB, Cough, abd pain, vomiting, diarrhea, dysuria, hematuria, melena, and recent falls. She is a full code and her would make medical decisions for her if she cannot make them herself. The patient has recently been taking BID Macrobid due to recent UTI; this was diagnosed on 05/21/23. Please refer to Dr. Carbajal's attestation for any changes to the treatment plan Principal Diagnosis stroke like symptoms. Discharge Exam General: In no acute distress, stated age, well-nourished, non-toxic appearing HEENT: Normocephalic, atraumatic, no scleral icterus, pupils around round, symmetrical, and reactive to light, moist mucus membranes, trachea midline, no thyromegaly Chest/Pulm: No respiratory distress, symmetrical chest expansion, clear breath sounds throughout Cardiac: RRR, no murmurs noted Abdomen: Negative for ascites and bruising, normoactive bowel sounds, soft, non- tender to palpation throughout Musculoskeletal: No acute trauma, LUE with full ROM, RUE with flexion only to approximately 45 degrees, decreased camper assembler strength in the RUE compared to left, decreased strength in the BL LE's with right > left Extremities: Radial, dorsalis pedis, and posterior tibial pulses are intact and symmetrical, no edema noted in the BL LE's Skin: Warm, dry, no rashes , lesions, or scars noted Neuro: Alert and oriented to person, place, month, year, and president, CN II- XII tested and intact Psych: No acute distress, calm and cooperative during the exam Discharge Data Allergies Allergy/AdvReac Type Severity Reaction Status Date / Time rofecoxib Allergy Mild Gastrointestinal Verified 02/08/23 13:56 Upset Penicillins AdvReac Severe HIVES/TROUBLE Verified 02/08/23 13:56 BREATHING metoclopramide AdvReac Mild RESTLESS Verified 02/08/23 13:56 prochlorperazine AdvReac Mild RESTLESS Verified 02/08/23 13:56 Consultations 05/25/23 15:26 ED Decision to Admit Stat 05/25/23 16:07 Consult Neurology Routine Ordered Studies 05/25/23 13:14 CT head/brain wo con Stat 05/25/23 16:10 CTA head w con [CT angio head w con] Stat CTA neck with con [CT angio neck with con] Stat 05/25/23 16:40 MRI Brain [MR brain MS wo/w con] Stat Hospital Course (1) Stroke-like symptoms: -Admit to med/tele on pulse oximetry -Currently hemodynamically stable -Presented to the ED with acute onset of increased RUE and RLE weakness along with headache -CT of the head/brain wo con shows signs of sub-acute infarcts compared to her last CT scan -While she has a known hx of severe MS and was recently started on Lyrica and Baclofen, Imaging is negative. -Neurology consult placed -appreciate input from [facility] Her dizziness is improved and her strength is about back at baseline although she feels the right arm is a little weaker than before. MRI of the brain showed no new stroke or evidence of active/new MS. The patient does have a history of stroke in the past and has recurrent UTIs. Her dizziness may have been due to the initiation of Lyrica 25 mg twice a day (given to her for neuropathic pain in her legs) on May 22. She also increased her baclofen a little bit which may be contributing. Recommendations: 1. Discontinue pregabalin 2. Consider baclofen 10 mg in the morning, 10 mg afternoon, and 20 mg at night 3. Continue with home health and home PT. 4. Continue simvastatin 20 5. Continue clopidogrel 75 mg daily 6. Continue Cymbalta 120 mg daily for her chronic pain She is cleared to resume therapy services. (2) Recurrent UTI: -Patient was diagnosed with a UTI by her PCP on 05/21 and was started on a 7 day course of Macrobid -UA today appears improved -No recent fever or leukocytosis -Will continue her current Macrobid course to complete 5 days. (3) Multiple sclerosis: -Continue workup for increased weakness -Follow Neurology consult (4) Hypertension: -Currently hypertensive at 189/84 -We will allow for permissive HTN until imaging results are back -resume amlodipine and lisinopril but at a lower dose (5) Primary hypothyroidism: -Continue levothyroxine (6) Anxiety: -Continue Cymbalta and prn Xanax Total Time Total Time Spent Total Time Spent (In Minutes): 32 Discharge Plan Discharge Items Patient Disposition: Home - Home Health Services Reason For Visit: HEADACHE, RIGHT SIDED WEAKNESS Discharge Diagnosis: Headache Condition on Discharge: Fair Activity: Resume your previous activity Non-emergency contact: Primary Care Provider Call non-emergency contact if: you have any medication questions Follow-up/Referrals: Courtney Lozano MD [Primary Care Provider] - 05/31/23 2:00 pm Diet: Heart Healthy Diet Texture: Easy to Chew Addtl Attending Provider Instructions: Followup with Neuro in 2 weeks with PA. Recommendations. 1. Discontinue pregabalin 2. Consider baclofen 10 mg in the morning, 10 mg afternoon, and 20 mg at night 3. Continue with home health and home PT. 4. Continue simvastatin 20 5. Continue clopidogrel 75 mg daily 6. Continue Cymbalta 120 mg daily for your chronic pain Pending Studies at Discharge: No Stand-Alone Forms: [facility] Crest[facility], Smoking Cessation Medications and DC Order Prescriptions: New nitrofurantoin monohyd/m-cryst 100 mg Capsule 100 mg PO BID Qty: 4 0RF lisinopril 5 mg tablet 5 mg PO PM Qty: 30 0RF Continued levothyroxine 100 mcg tablet 100 mcg PO DAILY Qty: 90 3RF Kesimpta Pen 20 mg/0.4 mL pen injector 20 mg subcut .COMPLEX Qty: 0.4 11RF Rx Instructions: 20 mg subcut Once a Month; duloxetine 60 mg capsule,delayed release(DR/EC) 120 mg PO HS Qty: 180 3RF promethazine 25 mg tablet 25 mg PO TID PRN (Reason: nausea and vomiting) Qty: 30 5RF simvastatin 20 mg tablet 20 mg PO QAM Qty: 90 3RF alprazolam 1 mg tablet 1 mg PO TID PRN (Reason: anxiety) Qty: 90 1RF metoprolol tartrate 25 mg tablet 25 mg PO BID Qty: 180 3RF amlodipine 2.5 mg tablet 2.5 mg PO QAM Qty: 90 3RF bupropion HCl 150 mg tablet extended release 24 hr 150 mg PO BID Qty: 60 5RF clopidogrel 75 mg tablet 75 mg PO QAM Qty: 90 0RF oxycodone-acetaminophen [Percocet] 5-325 mg tablet 1.5 tab PO TID PRN (Reason: Pain) Qty: 135 0RF (DME) Powered Wheelchair Misc See Rx Instructions .ROUTE .MEDSUPPLY Qty: 1 0RF Rx Instructions: Power Wheel chair polyethylene glycol 3350 [Miralax] 17 gram powder in packet 17 g PO TID PRN (Reason: Constipation) Changed baclofen 10 mg tablet See Rx Instructions .ROUTE .COMPLEX Qty: 120 0RF Rx Instructions: 10 mg in the morning, 10 mg afternoon, and 20 mg at night Discontinued lisinopril 40 mg tablet 40 mg PO QAM Qty: 90 1RF pregabalin 25 mg capsule 25 mg PO BID Qty: 60 0RF Discharge Orders: Discharge Order (Routine); Ordered 05/28/23 Ordered By: Gadiel Moses Admission Data Admit Date/Time: 05/25/23 16:06 Attending Provider: Gadiel Moses Admit Provider: Angel Carbajal Primary Care Provider: Courtney Lozano Other Providers: Angel Carbajal; Jeremiah Clark Coding Level of Care Code 39543 INP/OBS DISCH >30 MIN Diagnoses Stroke-like symptoms R29.90 Recurrent UTI N39.0 Multiple sclerosis G35 Essential hypertension I10 Hypertension type: essential hypertension Primary hypothyroidism E03.9 Anxiety F41.9
== END 2023-05-28 14:43 | disposition home health service (06) | DRG 57 ==
LOC: ED 12:42 → EDINP 16:06 → SUATTDRO 16:06 → 2N 18:39